=== PATIENT | female | born 1935 | race Caucasian/White ===

== ENCOUNTER → 2016-12-07 | Outpatient (CLI) | payer OTHER ==
[~2016-12-07] MED LIST: BENA5TAB5 PO; DONE10TA12 PO; FLNIN NAE; FLV1 PO; GLIP1TAB91 PO; METH2.5T PO; NIAC1TAB59 PO; SIMV40TA2 PO
--- NOTE | 2016-12-07 15:04 | DIAGNOSTIC IMAGING REPORT ---
ULTRASOUND BILATERAL LOWER EXTREMITY ARTERIAL CLINICAL HISTORY: Peripheral vascular disease. Lower extremity pain. COMPARISON STUDY: No priors. TECHNIQUE: Real-time, grayscale, and color Doppler sonography of the arteries of the right and left lower extremity is performed from the inguinal crease to the foot. The patient declined ankle-brachial index assessment. FINDINGS: Right lower extremity: There is advanced atherosclerotic plaque identified throughout the right lower extremity. There are triphasic arterial waveforms in the right common femoral artery with velocities measuring up to 91 cm/s. The profundus femoris artery is patent with velocities measuring up to 76 cm/s. There are biphasic waveforms seen in the right superficial femoral artery. Velocities measure 72 cm/s proximally, 117 cm/s in the midportion, and 103 cm/s distally. There are elevated velocities within the right popliteal artery is measure up to 255 cm/s. There is three-vessel runoff to the right foot. Monophasic to biphasic arterial waveforms are seen in the calf vessels. Velocities in the calf arteries measure up to 37 cm/s. The dorsalis pedis artery is patent with velocities measuring up to 35 cm/s. Left lower extremity: There is advanced atherosclerotic calcification and plaque seen throughout the arteries of the left lower extremity. There are biphasic waveforms in the left common femoral artery velocities measuring up to 34 cm/s. The left profunda femoris artery is patent with velocities measuring up to 105 cm/s. There are biphasic arterial waveforms seen throughout the left superficial femoral artery. Velocities within the superficial femoral artery measure up to 88 cm/s. There is thrombosis of the left popliteal artery which reconstitutes distally via collateral flow. There are parvus tarsal waveforms in the distal popliteal artery with velocities measuring up to 22 cm/s. There is three-vessel runoff to the left foot. There are monophasic to biphasic waveforms within the calf arteries noting blunted arterial upstrokes. Velocities within the calf vessels measure up to 24 cm/s. The dorsalis pedis artery is patent with velocities measuring up to 13 cm/s. IMPRESSION: 1. Advanced atherosclerotic plaque is present throughout the arteries of the right and left lower extremity. 2. Focally elevated velocities within the right popliteal artery suggest high-grade stenosis. 3. There is segmental occlusion within the left popliteal artery with reconstitution via collateral flow. 4. There is three-vessel runoff to the foot bilaterally. 5. The patient declined ankle-brachial index assessment. Dictated: 12/07/2016 2:43 PM Transcribed: 12/07/2016 3:04 PM [email or web address] Electronically signed by: Hayden Vu M.D. 12/07/2016 3:06 PM Dictated Date/Time: 12/07/2016 2:43 PM
== END | disposition home or self-care (01) ==
LOC: C.ULTR 13:22
PROVIDERS: ATTEND Podiatrist
DX: E11.9 Type 2 diabetes mellitus without complications (principal); M79.674 Pain in right toe(s); M79.675 Pain in left toe(s)

== ENCOUNTER 2017-08-22 08:11 | Inpatient (IN) | payer OTHER ==
[~2017-08-22] VITALS: Ht 170.2 cm; Wt 88.2 kg
[2017-08-22] VITALS (35 sets, daily range): BP systolic 79–143; BP diastolic 39–86; PULSE 64–95; TEMP 33.7–36.9; O2SAT 89–100; BMI 26.4
[~2017-08-22 08:11] MED LIST changes: +ETOMIDATE 2 MG/ML 20 ML VIAL IV ONE
[2017-08-22] MEDS ORDERED: SODIUM CHLORIDE 0.9% 500ML 500 ML IV STA (08:38)
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
[2017-08-22] MEDS ORDERED: SODIUM CHLORIDE 0.9% 1000ML 1,000 ML IV STA (08:55)
[2017-08-22] MEDS ORDERED: ASCO10003 PO (08:59)
[2017-08-22] MEDS ORDERED: INSDGI SC (08:59)
[2017-08-22] MEDS ORDERED: CHOL2000 PO (08:59)
[2017-08-22] MEDS ORDERED: GLIP2.5T11 PO (08:59)
[2017-08-22] MEDS ORDERED: ACET-1257 PO (08:59)
--- NOTE | 2017-08-22 09:02 | DIAGNOSTIC IMAGING REPORT ---
CHEST ONE VIEW PORTABLE CLINICAL HISTORY: altered mental status, hypoxia dyspnea COMPARISON STUDY: 06/29/2013 FINDINGS: Small parenchymal infiltrate left base. Mild stable cardiomegaly. Lungs otherwise are clear. Diaphragms smooth. IMPRESSION: Parenchymal infiltrate left base. The above report was generated using voice recognition software. It may contain grammatical, syntax or spelling errors. Electronically signed by: Bryant Stevens M.D. 08/22/2017 9:01 AM Dictated Date/Time: 08/22/2017 9:01 AM
[2017-08-22 09:17] LABS: BASO % 0.6 %; BASO ABS # 0.04 K/uL (0-0.2); EOS % 0.3 %; EOS ABS # 0.02 K/uL (0-0.5); HEMATOCRIT 48.3 % (37-47); HEMOGLOBIN 15.7 g/dL (12.0-16.0); IG# 0.25 K/uL (0.00-0.02); LYMPH % 13.8 %; LYMPH ABS # 0.95 K/uL (1.2-3.4); MEAN CELL VOLUME 98.4 fL (80-100); MEAN CORPUSCULAR HGB CONC 32.5 g/dl (32-36); MEAN PLATELET VOLUME 10.4 fL (7.4-10.4); MONO % 5.2 %; MONO ABS # 0.36 K/uL (0.11-0.59); NEUT % 76.5 %; NEUT ABS # 5.26 K/uL (1.4-6.5); NUCLEATED RED BLOOD CELL ABS 0.05 K/uL (0-0); PLATELET COUNT 221 K/uL (130-400); RED CELL DISTRIBUTION WIDTH CV 15.6 % (11.5-14.5); RED CELL DISTRIBUTION WIDTH SD 56.3 fL (36.4-46.3); WHITE BLOOD COUNT 6.88 K/uL (4.8-10.8)
[2017-08-22 09:19] LABS: ISTAT CREATININE 1.8 mg/dl (0.6-1.3); ISTAT IONIZED CALCIUM 1.23 mmol/l (1.12-1.32); ISTAT POTASSIUM 4.8 mEq/L (3.3-5.0)
[2017-08-22 09:27] LABS: ALBUMIN 3.2 gm/dl (3.4-5.0); ALT/SGPT 48 U/L (12-78); BLOOD UREA NITROGEN 55 mg/dl (7-18); CALCIUM 8.8 mg/dl (8.5-10.1); CARBON DIOXIDE 30 mmol/L (21-32); CREATININE 1.86 mg/dl (0.60-1.20); GLUCOSE 88 mg/dl (70-99); POTASSIUM 4.6 mmol/L (3.5-5.1); SODIUM 146 mmol/L (136-145)
[2017-08-22 09:32] LABS: ALKALINE PHOSPHATASE 79 U/L (45-117); AST/SGOT 38 U/L (15-37); CKMB 5.8 ng/ml (0.5-3.6); TOTAL PROTEIN 7.6 gm/dl (6.4-8.2)
[2017-08-22 09:51] LABS: INFLUENZA B ANTIGEN Neg for Influ B (NEG)
--- NOTE | 2017-08-22 10:00 | DIAGNOSTIC IMAGING REPORT ---
HEAD WITHOUT CONTRAST (CT) CT DOSE: 1459.56 mGycm HISTORY: Mental status change AMS, hypothermia TECHNIQUE: Multiaxial CT images of the head were performed without the use of intravenous contrast. A dose lowering technique was utilized adhering to the principles of ALARA. Comparison: 03/28/2014 Findings: The paranasal sinuses and mastoid air cells are clear. The calvarium and skull base are intact. The ventricles and sulci are within normal limits. There is no mass, hematoma, midline shift, or acute infarct. Mild atrophy over the cerebral convexities unchanged in the prior exam. Impression: No acute intracranial abnormality. Mild atrophy over the cerebral convexities The above report was generated using voice recognition software. It may contain grammatical, syntax or spelling errors. Electronically signed by: Bryant Stevens M.D. 08/22/2017 9:59 AM Dictated Date/Time: 08/22/2017 9:55 AM
[2017-08-22] MEDS ORDERED: PIPERACILLIN/TAZOBACTAM 4.5 GM/100ML D5W IV STA (10:12)
[2017-08-22] MEDS ORDERED: LEVAQUIN 750MG / 150ML D5W IV ONE (10:15)
[2017-08-22] MEDS ORDERED: HALOPERIDOL LACTATE 5 MG/ML 1 ML VIAL IV STA (10:46)
[2017-08-22] MEDS ORDERED: NOREPINEPHRINE BIT INJ 8 MG in DEXTROSE 5% 500ML 500 ML IV STA (11:09)
--- NOTE | 2017-08-22 11:21 | DIAGNOSTIC IMAGING REPORT ---
CHEST ONE VIEW PORTABLE CLINICAL HISTORY: hypoxia dyspnea COMPARISON STUDY: 08/22/2017 8:49 AM FINDINGS: Mild stable cardia megaly. Moderately improved aeration left lung base. Lungs otherwise are clear. Significant degenerative change of the right shoulder unchanged. IMPRESSION: 1. Mild stable cardia megaly. 2. Mild improvement in aeration left lung base. 3. No evidence for new or significant interval process. The above report was generated using voice recognition software. It may contain grammatical, syntax or spelling errors. Electronically signed by: Bryant Stevens M.D. 08/22/2017 11:20 AM Dictated Date/Time: 08/22/2017 11:19 AM
[2017-08-22] MEDS ORDERED: VANCOMYCIN IV 1,000 MG in SODIUM CHLORIDE 0.9% 250ML 250 ML IV STA (11:26)
[2017-08-22] MEDS ORDERED: ICU PROTOCOL FOR HYPERGLYCEMIA PRN (11:30)
[2017-08-22] MEDS ORDERED: VANCOMYCIN CONSULT ACTIVE PRN (11:30)
[2017-08-22] MEDS ORDERED: PIPERACILL/TAZOBAC CONSULT ACTIVE PRN (12:00)
[2017-08-22] MEDS ORDERED: VANCOMYCIN IV 1,500 MG in SODIUM CHLORIDE 0.9% 500ML 500 ML IV STA (12:03)
[2017-08-22 12:14] LABS: HEMATOCRIT 44.9 % (37-47); HEMOGLOBIN 14.1 g/dL (12.0-16.0)
[2017-08-22 12:29] LABS: PTT PATIENT 29.4 SECONDS (21.0-31.0)
--- NOTE | 2017-08-22 12:32 | Progress Note ---
Progress Note Date of Service Aug 22, 2017. Progress Note ATTENDING ADDENDUM : pt seen and examined, care co-ordinated with Sheila Colvin PA-C 81 yo F with complicated past medical hx of Urothelial tumor s/p Left Nephrectomy in 2006 , type 2 DM .mild dementia who lives with daughter Donya at baseline pt is fairly independent in her ADL's , able to check her BSG's , does cross word puzzles daughter noticed -pt was not drinking much over the weekend, no report of fever or chills, last night pt appeared to be forgetful , did not check blood sugar but thought she did it daughter checked her blood sugar was 76 , given Lantus 15 U -pm dose per daughter -pt ate half of her dinner - pt still smokes cigarette this morning approx 7: 10 am -pt was very confused , could not recognize the daughter , got very combative as daughter took her to bathroom and tried to change her depends pt came to ER around 8: 30 was hypothermic Temp 31 /hypotensive SBP in 70;s and hypoxic in RA 87 % was placed on Bipap , ACUTE HYPOXIC RESPIRATORY FAILURE : presents with hypoxia in RA - required Bipap ABG shows respiratory acidosis with hypercarbia Co2 > 90 Cxray no obvious infiltrate cont Bipap support -possible underlying COPD /emphysema ( hx of smoking ) with retention of Co2 due to mental obtundation due to sepsis pt will be admitted to ICU for close monitoring , case D/w Verification Engineer CONFUSION /CHANGED MENTAL STATUS /METABOLIC ENCEPHALOPATHY : due sepsis / hypercapnic respiratory failure CT head -negative for CVA cont to provide supportive care and correction of electrolyte derangements/tx of sepsis /Co2 retention pt was moving all her limbs while central line placement in ER soft restrain ordered as she was pulling at lines and tubing small dose IV Haldol was ordered for combativeness avoid further dosing Prolong Qtc daily 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 ON CKD STAGE 3 : ATN with anuria -minimum urine out put after fluid bolus due to sepsis /dehydration IV fluids resuscitation , pressor support follow PRP Q 4hrs per sepsis protocol pt has solitary kidney ( s/p Left nephrectomy ) baseline Cr 1.6 Nephrology consulted HYPERNATREMIA ; Na 150 , due to sepsis /dehydration IV resuscitation monitor PRP closely to avoid rapid correction nephrology consulted HYPOTENSION /HYPOTHERMIA : due to severe sepsis possible source of infection UTI temp improved with Jayda hugger , IV fluid bolus followed by aggressive resuscitation per sepsis protocol started on pressors Verification Engineer following SEPSIS DUE TO UTI : UA grossly positive empiric Abx with Zosyn /vancomycin ( avoid quinolones -prolong Qtc ) follow cultures -blood /urine ID consulted CODE STATUS : d/w Daughter -full code DVT PROPHYLAXIS high risk ICU admission /obtundation Sub q heparin please refer to documentation of Sheila Tony for further discussion of other issues Naa Oconnell MD
[2017-08-22 12:34] LABS: CALCIUM 8.2 mg/dl (8.5-10.1); CREATININE 1.83 mg/dl (0.60-1.20); POTASSIUM 4.9 mmol/L (3.5-5.1)
[2017-08-22] MEDS ORDERED: SODIUM CHLORIDE 0.9% 1000ML 500 ML IV ONE (12:43)
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
[2017-08-22] MEDS ORDERED: PHARMACY GLYCEMIC MGMT CONSULT SCH (12:56)
[2017-08-22 13:30] LABS: HEMOGLOBIN A1C 7.1 % (4.5-5.6)
[2017-08-22] MEDS: VASOPRESSIN INJ 50 UNITS in SODIUM CHLORIDE 0.9% 500ML 500 ML IV SCH (13:57)
[2017-08-22] MEDS: NOREPINEPHRINE BIT INJ 8 MG in DEXTROSE 5% 500ML 500 ML IV PRN ×3 (14:21→21:31)
--- NOTE | 2017-08-22 14:36 | Progress Note ---
Progress Note Date of Service Aug 22, 2017. Progress Note ID Consult Dictated #[id number] A/P: 1. Hypothermia -Continue emperic abx, follow cultures -Conitnue supportive measures -thank you
[2017-08-22] MEDS ORDERED: GLUCAGON FOR INJ 1 MG VIAL SQ PRN (15:15)
[2017-08-22] MEDS ORDERED: GLUCOSE 10 TABS/TUBE PO PRN (15:15)
[2017-08-22] MEDS ORDERED: DEXTROSE 50% 50 ML SYR IV PRN (15:15)
[2017-08-22] MEDS ORDERED: GLUCOSE 40% GEL 15 GM TUBE PO PRN (15:15)
--- NOTE | 2017-08-22 15:30 | Pharmacy Progress Note ---
Glycemic Control Intl Consult Date of Service Aug 22, 2017. Scope Glycemic Pharmacist consulted by Dr Oconnell on 08/22/17 for glycemic control and to write orders per [facility] inpatient glycemic control protocol Objective Weight (Kilograms): 76.600 Accuchecks BSG (last 24hrs): Test 08/22/17 08:30 08/22/17 11:56 Random Glucose 88 mg/dl (70-99) 109 mg/dl (70-99) Laboratory Data (last 24hrs) Test 08/22/17 08:30 08/22/17 09:04 08/22/17 11:56 Anion Gap 4.0 mmol/L 15.0 mmol/L 2.0 mmol/L BUN/Creatinine Ratio 29.5 29.9 Blood Urea Nitrogen 55 mg/dl 55 mg/dl Creatinine 1.86 mg/dl 1.83 mg/dl Potassium Level 4.6 mmol/L 4.9 mmol/L Sodium Level 146 mmol/L 146 mmol/L White Blood Count 6.88 K/uL Red Blood Count 4.91 M/uL Hemoglobin 15.7 g/dL Hematocrit 48.3 % Mean Corpuscular Volume 98.4 fL Mean Corpuscular Hemoglobin 32.0 pg Mean Corpuscular Hemoglobin Concent 32.5 g/dl Platelet Count 221 K/uL Mean Platelet Volume 10.4 fL Neutrophils (%) (Auto) 76.5 % Lymphocytes (%) (Auto) 13.8 % Monocytes (%) (Auto) 5.2 % Eosinophils (%) (Auto) 0.3 % Basophils (%) (Auto) 0.6 % Neutrophils # (Auto) 5.26 K/uL Lymphocytes # (Auto) 0.95 K/uL Monocytes # (Auto) 0.36 K/uL Eosinophils # (Auto) 0.02 K/uL Basophils # (Auto) 0.04 K/uL Hemoglobin A1c 7.1 % HbA1c Test 08/22/17 11:56 Hemoglobin A1c 7.1 % (4.5-5.6) H Recent Pertinent Medications Outpatient Anti-diabetic Regimen: * Glipizide ER 5 mg PO daily + Lantus 15 units SQ BID Risk Factors for Insulin Resistance: * Infection: empiric Vanco + Zosyn * Pressors: levophed and vasopressin infusion Assessment & Plan ASSESSMENT: * 81 yr old T2DM female that presented with altered mental status in the setting of baseline dementia. Patient became hypoxic, hypothermic and hypotensive with limited urine output despite IV fluid administration. Vasopressors were initiated. Patient is also on empiric antibiotics for possible complicated UTI vs. pneumonia. PMH significant for HTN, urothelial cancer s/p L nephroureterectomy) and bladder cancer and CKD III (baseline unknown - no recent Scr from [facility]). * Caregiver reports hypoglycemia at home. Last dose of Lantus was given 2/5 pm. BSG remains low despite lack of basal insulin, therefore I will only order bolus insulin with novolog at this time. A pending order to initiate IV insulin infusion per protocol if BSG is > 219 mg/dL will also be entered in the event that patient develops hyperglycemia. PLAN FOR INPATIENT GLYCEMIC CONTROL: * Holding outpatient oral diabetes medications * Hold Lantus due to BSG below goal * Bolus Insulin with NOVOLOG per scale ACHS or Q6hrs while NPO * Goal Range: Low 120 mg/dL - High 160 mg/dL * Correction Factor: 30 mg/dL/unit * Nutritional / Prandial insulin per carb ratio of 1 unit per 10 grams CHO consumed * Add overnight check with coverage since insulin needs are unknown at this time * Pending order: Starting IV insulin infusion per moderate stress protocol * Goal Range 110 - 180 mg/dl * In the critical care setting, continuous IV insulin infusion has been shown to be the best method for achieving glycemic targets. * Please note that the plan above was derived based on current level of insulin resistance and hospital stress. These recommendations are appropriate for inpatient admission only. Plan of care upon discharge will need to be reassessed to avoid potential outpatient hypo/hyperglycemia. Thank you.
--- NOTE | 2017-08-22 15:55 | ECHOCARDIOGRAM REPORT ---
*NOTICE TO RECEIVING DEMOCRAT AGENCY This information is strictly Confidential and protected under [place] law. [place] law prohibits you from making any further disclosure of this information unless further disclosure is expressly permitted by the written consent of the person to whom it pertains or is authorized by law. A general authorization for the release of medical or other information is not sufficient for this purpose. Hospital accepts no responsibility if the information is made available to any other person, INCLUDING THE PATIENT. Interpretation Summary * Name: Angel GOMEZ Study Date: 08/22/2017 02:05 PM BP: 134/60 mmHg * Patient Location: .MSICU\S\E107\S\1 HR: 88 * : 1935 (M/d/yyyy) Gender: Female Height: 67 in * Age: 81 yrs Ethnicity: CA Weight: 168 lb * Ordering Physician: Albaro Holloway * Referring Physician: UNKNOWN * Performed By: Leonila Bledsoe RCS * * Reason For Study: UNEXPLAINED SHOCK / EVALUATE RV FUNCTION * BSA: 1.9 m2 * The study was technically adequate. * -- Conclusions -- * There is mild concentric left ventricular hypertrophy. * The left ventricular wall motion is normal. * The LV Ejection Fraction = >70 %. * The right ventricle is mildly dilated. * The right ventricular systolic function is mildly reduced with diffuse right ventricular hypokinesis that spares the RV apex. * There is mild to moderate tricuspid regurgitation. * Dilated inferior vena cava with reduced collapsability with sniff indicates an elevated right atrial pressure of 15 mmHg * Severe pulmonary is hypertension, with PA systolic pressure calculated to be 75 mg Hg, assuming a right atrial pressure of 15 mm Hg. * Compared to the report of the prior outpatient echocardiogram performed at [facility] dated 02/13/12, the right ventricular size and systolic function was normal at that time with normal calculated pulmonary pressures. * Findings compatible with possible acute pulmonary embolism versus interval development of pulmonary hypertension of unknown chronicity due to other cause. * Case discussed with Dr Holloway in person in the ICU. Procedure Details * A complete two-dimensional transthoracic echocardiogram was performed (2D, M-mode, Doppler and color flow Doppler). Left Ventricle * The left ventricle is normal in size. * There is mild concentric left ventricular hypertrophy. * Left ventricular systolic function is normal. * Ejection Fraction = >70 %. * The left ventricular wall motion is normal. Right Ventricle * The right ventricle is mildly dilated. * The right ventricular systolic function is mildly reduced. Atria * The left atrial size is normal. * Right atrial size is normal. * There is no evidence of atrial septal defect, but resolution does not allow assessment for a patent foramen ovale. Mitral Valve * There is mild mitral annular calcification. * There is no mitral valve stenosis. * Significant mitral regurgitation is absent. Tricuspid Valve * The tricuspid valve is normal. * There is no tricuspid stenosis. * There is mild to moderate tricuspid regurgitation. Aortic Valve * The aortic valve is trileaflet. * Aortic stenosis is absent. * There is no significant aortic regurgitation. Pulmonic Valve * The pulmonary valve is not well seen, but the Doppler examination is normal without significant regurgitation or stenosis. Great Vessels * The aortic root and proximal ascending aorta are normal sized. Pericardium/Pleural * There is no pericardial effusion. Great Vessels * Dilated inferior vena cava with reduced collapsability with sniff indicates an elevated right atrial pressure of 15 mmHg Left Ventricular Diastolic Function * Grade I diastolic dysfunction, (abnormal relaxation pattern). MMode 2D Measurements and Calculations IVSd 1.2 cm IVSs 1.8 cm LVIDd 3.9 cm LVIDs 3.1 cm LVPWd 1.3 cm LVPWs 1.2 cm IVS/LVPW 0.96 FS 21.5 % EDV(Teich) 67.8 ml ESV(Teich) 37.9 ml EF(Teich) 44.2 % EDV(cubed) 61.5 ml ESV(cubed) 29.7 ml EF(cubed) 51.7 % % IVS thick 46.5 % % LVPW thick -5.87 % LV mass(C)d 176.2 grams LV mass(C)dI 93.9 grams/m\S\2 LV mass(C)s 168.2 grams LV mass(C)sI 89.6 grams/m\S\2 SV(Teich) 30.0 ml SI(Teich) 16.0 ml/m\S\2 SV(cubed) 31.8 ml SI(cubed) 16.9 ml/m\S\2 Ao root diam 3.2 cm Ao root area 7.9 cm\S\2 ACS 1.4 cm LVOT diam 2.0 cm LVOT area 3.2 cm\S\2 LVAd ap4 22.8 cm\S\2 LVLd ap4 7.5 cm EDV(MOD-sp4) 58.3 ml EDV(sp4-el) 58.8 ml LVAs ap4 14.2 cm\S\2 LVLs ap4 6.0 cm ESV(MOD-sp4) 29.6 ml ESV(sp4-el) 28.3 ml EF(MOD-sp4) 49.2 % EF(sp4-el) 51.8 % LVAd ap2 16.3 cm\S\2 LVLd ap2 5.7 cm EDV(MOD-sp2) 41.4 ml EDV(sp2-el) 39.9 ml LVAs ap2 9.4 cm\S\2 LVLs ap2 4.2 cm ESV(MOD-sp2) 19.4 ml ESV(sp2-el) 17.9 ml EF(MOD-sp2) 53.2 % EF(sp2-el) 55.1 % LVLd %diff -32.09 % EDV(MOD-bp) 55.2 ml LVLs %diff -42.98 % ESV(MOD-bp) 28.3 ml EF(MOD-bp) 48.7 % SV(MOD-sp4) 28.7 ml SI(MOD-sp4) 15.3 ml/m\S\2 SV(MOD-sp2) 22.0 ml SI(MOD-sp2) 11.7 ml/m\S\2 SV(MOD-bp) 26.9 ml SI(MOD-bp) 14.3 ml/m\S\2 SV(sp4-el) 30.4 ml SI(sp4-el) 16.2 ml/m\S\2 SV(sp2-el) 22.0 ml SI(sp2-el) 11.7 ml/m\S\2 Doppler Measurements and Calculations MV E max aracelis 92.2 cm/sec MV A max aracelis 117.0 cm/sec MV E/A 0.79 MV P1/2t max aracelis 116.5 cm/sec MV P1/2t 49.3 msec MVA(P1/2t) 4.5 cm\S\2 MV dec slope 692.1 cm/sec\S\2 MV dec time 0.27 sec PA V2 max 102.1 cm/sec PA max PG 4.2 mmHg TR max aracelis 363.6 cm/sec
[2017-08-22 16:07] LABS: HEMATOCRIT 42.5 % (37-47); HEMOGLOBIN 13.1 g/dL (12.0-16.0)
[2017-08-22] MEDS: ALBUT/IPRATROP 3MG/0.5MG NEB 3 ML VIAL INH SCH ×3 (16:08→20:30)
[2017-08-22 16:30] LABS: CALCIUM 7.2 mg/dl (8.5-10.1); CREATININE 1.68 mg/dl (0.60-1.20); POTASSIUM 5.5 mmol/L (3.5-5.1)
[2017-08-22] MEDS ORDERED: HEPARIN IV BOLUS 5,000 UNIT in SYRINGE 0 ML IV ONE (16:30)
[2017-08-22] MEDS ORDERED: RAPID SEQUENCE INDUCTION BAG ONE (16:30)
[2017-08-22] MEDS ORDERED: HEPARIN 25,000 UNIT/500ML D5W 500 ML IV PRN (16:30)
[2017-08-22] MEDS ORDERED: MIDAZOLAM 125MG/250ML D5W IV ONE (16:33)
--- NOTE | 2017-08-22 16:53 | Procedure Note ---
Procedure Note Procedure Date Aug 22, 2017. Procedure Description Procedure Name: Endotracheal intubation Consent obtained: emergent consent implied Time of procedure: 16:30 Performed by: attending Indications: therapeutic Contraindications: none Description: Patient supine in bed, preoxygenated with 100% O2 Sedation provided with ketamine only. Using the GlideScope with a size 3 blade, she was intubated with ease from the first attempt, with a size 8.0 cuffed ET tube. Positive color change on capnometry. CXR reviewed, ET tube adjusted by pulling it out 2 cm Complications: none Patient tolerated procedure: well Post-procedure vital signs: reviewed and stable
--- NOTE | 2017-08-22 16:57 | DIAGNOSTIC IMAGING REPORT ---
CHEST ONE VIEW PORTABLE CLINICAL HISTORY: Respiratory failure COMPARISON STUDY: 08/22/2017 FINDINGS: The heart is borderline enlarged. There is an endotracheal tube positioned within the right mainstem bronchus orifice. The tube should be withdrawn approximately 4 cm.[ There is a nasogastric tube present within the stomach. There is diffuse elevation of the interstitium consistent with pulmonary vascular congestion. IMPRESSION: 1. Endotracheal tube with its tip at the right mainstem bronchus orifice. The tube should be withdrawn approximate 4 cm. 2. Diffuse elevation of the interstitium, consistent with pulmonary vascular congestion/fluid overload Electronically signed by: Ralph Vu M.D. 08/22/2017 4:56 PM Dictated Date/Time: 08/22/2017 4:53 PM
[2017-08-22] MEDS ORDERED: FENTANYL CITRATE INJ 50 MCG/1 ML 2 ML VIAL ONE (17:18)
--- NOTE | 2017-08-22 17:23 | DIAGNOSTIC IMAGING REPORT ---
BILATERAL LOWER EXTREMITY VENOUS DOPPLER HISTORY: Bilateral lower extremity swelling r/o dvt COMPARISON STUDY: None. FINDINGS: There is normal compressibility, flow, and augmentation within the bilateral lower extremity deep venous systems. IMPRESSION: No sonographic evidence of deep venous thrombosis within the right or left lower extremity. Electronically signed by: Mahendra Miller M.D. 08/22/2017 5:22 PM Dictated Date/Time: 08/22/2017 5:21 PM
[2017-08-22] MEDS ORDERED: FENTANYL CITRATE INJ 50 MCG/1 ML 2 ML VIAL IV ONE (17:30)
--- NOTE | 2017-08-22 17:55 | DIAGNOSTIC IMAGING REPORT ---
CT ANGIOGRAM OF THE CHEST CLINICAL HISTORY: Sepsis. Abnormal cardiac echo is suggestive of pulmonary embolism. COMPARISON STUDY: Chest x-ray dated August 22, 2017 TECHNIQUE: Following the IV administration of 94 mL of Optiray-320, CT angiogram of the thorax was performed from the thoracic inlet to the lung bases utilizing the pulmonary embolus protocol. Images are reviewed in the axial, sagittal, and coronal planes. IV contrast was administered without complication. MIP imaging was performed. A dose lowering technique was utilized adhering to the principles of ALARA. CT DOSE: 750.17 mGy.cm FINDINGS: Visualized portions of the upper abdomen reveal right-sided nephrolithiasis. There is a 22 mm left adrenal adenoma. There is a 18 mm hyperdense right renal mass. There is a second mildly hyperdense 11 mm right renal mass. A dedicated renal CT scan could be obtained in follow-up for further evaluation. There is a nasogastric tube within the stomach. No pathologically enlarged axillary mediastinal or hilar lymph nodes were visualized. There was no evidence of thoracic aortic dilatation. There were no pulmonary artery filling defects to indicate acute pulmonary embolism. No pleural effusions are visualized. There is bilateral dependent lower lobe atelectasis/consolidation. There is diffuse bronchial wall thickening and lower lobe mucous plugging. There is an endotracheal tube positioned several centimeters above the bernardo. IMPRESSION: 1. No CT evidence of acute pulmonary embolism 2. Diffuse bronchial wall thickening with lower lobe mucous plugging 3. Bilateral dependent lower lobe atelectasis/consolidation 4. Left adrenal mass, consistent with adenoma 5. Indeterminate right renal masses 6. Right-sided nephrolithiasis Electronically signed by: Ralph Vu M.D. 08/22/2017 5:54 PM Dictated Date/Time: 08/22/2017 5:47 PM
[2017-08-22] MEDS ORDERED: OPTIRAY 320 IV PRN (18:00)
[2017-08-22] MEDS ORDERED: INSULIN ASPART 100 UNITS/ML 3 ML PEN SC SCH (18:00)
[2017-08-22] MEDS: PIPERACILL/TAZOBAC IV 4.5 GM in DEXTROSE 5% 100ML 100 ML IV SCH (18:13)
[2017-08-22] MEDS ORDERED: MIDAZOLAM 125MG/250ML D5W 250 ML IV PRN (18:51)
[2017-08-22] MEDS ORDERED: NovoLIN R BOLUS FROM BAG IV ONE (19:00)
[2017-08-22] MEDS: METHYLPREDNISOLONE IV 40 MG in SYRINGE 0 ML IV SCH (19:20)
[2017-08-22] MEDS: INSULIN REGULAR 250 UNITS in SODIUM CHLORIDE 0.9% 250ML 250 ML IV SCH (19:22)
--- NOTE | 2017-08-22 20:02 | Critical Care Consultation ---
Critical Care Consultation Date of Consultation: Aug 22, 2017. Attending Physician: Yusuf Contreras M.D. Reason for Consultation: Respiratory failure History of Present Illness This is a 81 year old female with long standing history of smoking, left nephrectomy for cancer in 2004 (now cancer free on follow-ups per family), diabetic on insulin, was brought to ED for altered mental status for one day. She had glucose level of 80 at home last night, the daughter noticed no urine in her depends overnight or this AM, became agitated at home and combative this morning. This are significant changes from her baseline. In ED she was found to be hypothermic, hypoxic and hypotensive. The daughter denies any fever or chills at home, any urinary symptoms, denies cough/sputum production, denies shortness of breath, denies chest pain or palpitations, states that she did not complain of calf pain or swelling. She was started on pressor support via right femoral TLC. Bedside echo revealed severe pulmonary HTN, around 75 mmHg and RV with Garcia sign. She became obtunded in the ICU, ABG showed worsening hypercapnia, she had to be emergently intubated. Past Medical/Surgical History CKD DM Mild dementia Left nephrectomy - 2004 SDH 2013 Family History Hypertension Stroke Social History Smoking Status: Current Every Day Smoker (0.5 ppd, 48 pack years ) Marital Status: Housing Status: lives with family Occupation Status: retired Allergies Coded Allergies: Naproxen (Verified Adverse Reaction, Intermediate, HALLUCINATIONS, 08/22/17) Niacin (Verified Adverse Reaction, Intermediate, SEVERE FLUSHING, 08/22/17) Codeine (Verified Adverse Reaction, Mild, SEVERE N&V, 08/22/17) Home Medications Scheduled Acetaminophen (Tylenol Extra Strength), 1,000 MG PO AMHS Ascorbic Acid (Vitamin C), 1,000 MG PO DAILY Cholecalciferol (Vitamin D3), 2,000 UNITS PO DAILY Donepezil Hydrochloride (Aricept), 10 MG PO HS Glipizide (Glipizide Er), 5 MG PO DAILY Insulin Glargine (Lantus), 15 UNITS SC AMPM Current Inpatient Medications Current Inpatient Medications Medications (Trade) Dose Ordered Sig/Suzi Route Start Time Stop Time Status Last Admin Dose Admin Piperacillin Sod/ Tazobactam Sod 4.5 gm/Dextrose 120 ml @ 30 mls/hr Q8H IV 08/22/17 17:00 09/01/17 16:59 Miscellaneous Information (Consult) 1 ea UD PRN N/A 08/22/17 12:00 09/21/17 11:59 Miscellaneous Information (Consult) 1 ea UD PRN N/A 08/22/17 11:30 09/21/17 11:29 Pantoprazole Sodium 40 mg/ Syringe 10 ml @ 5 mls/min DAILY@0900 IV 08/23/17 09:00 09/22/17 08:59 Miscellaneous Information (Consult Glycemic Management Pharmacy) 1 ea UD N/A 08/22/17 12:56 09/21/17 12:55 Norepinephrine Bitartrate 8 mg/ Dextrose 508 ml @ 0 mls/hr Q0M PRN IV 08/22/17 13:30 09/21/17 13:29 08/22/17 14:21 152 MLS/HR Vasopressin 50 units/Sodium Chloride 502.5 ml @ 24 mls/hr [id number] IV 08/22/17 13:30 09/21/17 13:29 08/22/17 13:57 24 MLS/HR Albuterol/ Ipratropium (Duoneb) 3 ml QIDR INH 08/22/17 16:00 09/21/17 15:59 08/22/17 16:08 3 ML Insulin Aspart (novoLOG ASPART) SLIDING SCALE Q6 SC 08/22/17 18:00 09/21/17 17:59 Glucose (Glucose 40% Gel) 15-30 GRAMS 15 GRAMS... UD PRN PO 08/22/17 15:15 09/21/17 15:14 Glucose (Glucose Chew Tab) 4-8 Tablets 4 Tabl... UD PRN PO 08/22/17 15:15 09/21/17 15:14 Dextrose (Dextrose 50% 50ML Syringe) 25-50ML OF 50% DW IV FOR... UD PRN IV 08/22/17 15:15 09/21/17 15:14 Glucagon (Glucagon Inj) 1 mg UD PRN SQ 08/22/17 15:15 09/21/17 15:14 Insulin Aspart (novoLOG ASPART) SLIDING SCALE 0200 SC 08/23/17 02:00 2/7/18 02:01 Miscellaneous Information (Pending Order) 1 ea 0000,0200,0600,1800 N/A 08/22/17 18:00 08/23/17 06:01 Heparin Sodium/ Dextrose 500 ml @ 24 mls/hr [id number] PRN IV 08/22/17 16:30 09/21/17 16:29 Review of Systems Unable to obtain secondary to obtundation Physical Exam Date Time Temp Pulse Resp B/P (MAP) Pulse Ox O2 Delivery O2 Flow Rate FiO2 08/22/17 16:08 68 35 91 BiPAP/CPAP 60 08/22/17 16:08 68 91 60 08/22/17 15:20 34.6 77 21 114/50 (71) 94 08/22/17 15:15 34.5 77 15 136/52 (80) 95 08/22/17 14:50 34.3 82 31 141/60 (87) 96 08/22/17 14:30 34.1 86 19 143/62 (89) 96 08/22/17 14:00 34.0 95 18 134/60 (84) 97 BiPAP 60 08/22/17 14:00 34.0 95 18 134/60 (91) 97 08/22/17 13:30 33.9 79 20 104/46 (65) 97 BiPAP 60 08/22/17 13:00 33.8 82 29 103/46 (65) 98 BiPAP 60 08/22/17 13:00 33.8 82 29 103/46 (65) 98 08/22/17 12:54 33.7 79 22 108/48 98 60 08/22/17 12:50 33.7 85 27 108/48 (68) 98 BiPAP 60 08/22/17 12:44 88 133/62 98 08/22/17 12:39 93 98 60 08/22/17 12:03 82 126/60 98 Room Air 08/22/17 11:49 34.0 94 16 98/64 98 BiPAP 08/22/17 11:30 62 25 65/29 100 BiPAP 08/22/17 11:16 68 18 42/28 99 BiPAP 70 08/22/17 11:04 59 18 82/40 76 BiPAP 08/22/17 11:03 79 97 08/22/17 10:52 65 29 71/34 95 BiPAP 08/22/17 10:33 32.6 65 30 109/32 88 Oxymask 08/22/17 10:00 61 27 90/46 93 Nasal Cannula 2.0 08/22/17 09:24 71 20 107/57 98 Nasal Cannula 2.0 08/22/17 09:16 31.5 64 21 107/57 98 Nasal Cannula 2.0 08/22/17 09:02 67 33 96/59 99 Nasal Cannula 2.0 08/22/17 08:37 35 08/22/17 08:36 96 Nasal Cannula 2.0 08/22/17 08:36 96 Nasal Cannula 2.0 08/22/17 08:35 64 08/22/17 08:30 31.8 75 12 102/49 86 Room Air 08/22/17 08:30 86 Room Air General Appearance: well-appearing, no apparent distress, other (Intubated) Head: normocephalic, atraumatic Eyes: PERRLA Neck: trachea midline Respiratory: rhonchi, wheezing Cardiovasular: regular rate/rhythm, normal S1S2 Abdomen: non tender, no rebound Upper Extremities: no edema Lower Extremities: no edema, other (?mild stasis) Neuro: other (Sedated, but earlier she seemed to move both sides purposefully ) Laboratory Results Last 24 Hours Test 08/22/17 08:30 08/22/17 08:41 08/22/17 09:04 08/22/17 09:10 White Blood Count 6.88 K/uL Red Blood Count 4.91 M/uL Hemoglobin 15.7 g/dL Hematocrit 48.3 % Mean Corpuscular Volume 98.4 fL Mean Corpuscular Hemoglobin 32.0 pg Mean Corpuscular Hemoglobin Concent 32.5 g/dl Platelet Count 221 K/uL Mean Platelet Volume 10.4 fL Neutrophils (%) (Auto) 76.5 % Lymphocytes (%) (Auto) 13.8 % Monocytes (%) (Auto) 5.2 % Eosinophils (%) (Auto) 0.3 % Basophils (%) (Auto) 0.6 % Neutrophils # (Auto) 5.26 K/uL Lymphocytes # (Auto) 0.95 K/uL Monocytes # (Auto) 0.36 K/uL Eosinophils # (Auto) 0.02 K/uL Basophils # (Auto) 0.04 K/uL RDW Standard Deviation 56.3 fL RDW Coefficient of Variation 15.6 % Immature Granulocyte % (Auto) 3.6 % Immature Granulocyte # (Auto) 0.25 K/uL Nucleated RBC Absolute Count (auto) 0.05 K/uL Nucleated Red Blood Cells % 0.7 % Sodium Level 146 mmol/L Potassium Level 4.6 mmol/L Chloride Level 112 mmol/L Carbon Dioxide Level 30 mmol/L Anion Gap 4.0 mmol/L 15.0 mmol/L Blood Urea Nitrogen 55 mg/dl Creatinine 1.86 mg/dl Est Creatinine Clear Calc Drug Dose 25.6 ml/min Estimated GFR () 29.1 Estimated GFR (Non- 25.1 BUN/Creatinine Ratio 29.5 Random Glucose 88 mg/dl Calcium Level 8.8 mg/dl Magnesium Level 2.8 mg/dl Total Bilirubin 0.3 mg/dl Direct Bilirubin < 0.1 mg/dl Aspartate Amino Transf (AST/SGOT) 38 U/L Alanine Aminotransferase (ALT/SGPT) 48 U/L Alkaline Phosphatase 79 U/L Total Creatine Kinase 72 U/L Creatine Kinase MB 5.8 ng/ml Creatine Kinase MB Ratio 8.1 Troponin I < 0.015 ng/ml Total Protein 7.6 gm/dl Albumin 3.2 gm/dl Random Cortisol 35.47 mcg/dl Bedside Lactic Acid Venous 1.15 mmol/L Bedside Hemoglobin 14.6 g/dl Bedside Hematocrit 43 % Bedside Sodium 150 mEq/L Bedside Potassium 4.8 mEq/L Bedside Chloride 110 mEq/L Bedside Total CO2 30 mEq/l Bedside Blood Urea Nitrogen 57 mg/dl Bedside Creatinine 1.8 mg/dl Bedside Glucose (other) 98 mg/dl Bedside Ionized Calcium (Camacho) 1.23 mmol/l Influenza Type A Antigen Neg for Influ A Influenza Type B Antigen Neg for Influ B Test 08/22/17 09:13 08/22/17 10:26 08/22/17 11:18 08/22/17 11:56 Bedside Troponin I < 0.030 ng/ml Urine Color ORANGE Urine Appearance TURBID Urine pH 5.0 Urine Specific [place] 1.024 Urine Protein 2+ Urine Glucose (UA) NEG Urine Ketones NEG Urine Occult Blood 3+ Urine Nitrite POS Urine Bilirubin NEG Urine Urobilinogen NEG Urine Leukocyte Esterase SMALL Urine WBC (Auto) 10-30 /hpf Urine RBC (Auto) >30 /hpf Urine Hyaline Casts (Auto) 1-5 /lpf Urine Epithelial Cells (Auto) >30 /lpf Urine Bacteria (Auto) NEG Urine Renal Epithelial Cells /lpf Urine Crystals AMORPHOUS SEDIMENT Urine Pathogenic Casts /lpf Urine Yeast (Auto) Arterial Blood pH 7.13 Arterial Blood Partial Pressure CO2 90 mmHg Arterial Blood Partial Pressure O2 178 mm/Hg Arterial Blood HCO3 29 mmol/L Arterial Blood Oxygen Saturation 99.0 % Arterial Blood Base Excess -2.5 mEq/L Arterial Blood Gas Delivery 70% BI PAP Laron Test POS Hemoglobin 14.1 g/dL Hematocrit 44.9 % Prothrombin Time 10.4 SECONDS Prothromb Time International Ratio 1.0 Activated Partial Thromboplast Time 29.4 SECONDS Partial Thromboplastin Ratio 1.1 D-Dimer 1340 ug/L FEU Sodium Level 146 mmol/L Potassium Level 4.9 mmol/L Chloride Level 114 mmol/L Carbon Dioxide Level 30 mmol/L Anion Gap 2.0 mmol/L Blood Urea Nitrogen 55 mg/dl Creatinine 1.83 mg/dl Est Creatinine Clear Calc Drug Dose 26.0 ml/min Estimated GFR () 29.7 Estimated GFR (Non- 25.6 BUN/Creatinine Ratio 29.9 Random Glucose 109 mg/dl Estimated Average Glucose 157 mg/dl Hemoglobin A1c 7.1 % Lactic Acid Level 0.7 mmol/L Calcium Level 8.2 mg/dl Troponin I < 0.015 ng/ml Procalcitonin 0.07 ng/ml Thyroid Stimulating Hormone (TSH) 1.660 uIu/ml Test 08/22/17 15:56 Hemoglobin 13.1 g/dL Hematocrit 42.5 % Sodium Level 143 mmol/L Potassium Level 5.5 mmol/L Chloride Level 114 mmol/L Carbon Dioxide Level 29 mmol/L Anion Gap 0.0 mmol/L Blood Urea Nitrogen 49 mg/dl Creatinine 1.68 mg/dl Est Creatinine Clear Calc Drug Dose 28.5 ml/min Estimated GFR () 32.9 Estimated GFR (Non- 28.4 BUN/Creatinine Ratio 28.9 Random Glucose 206 mg/dl Lactic Acid Level 0.5 mmol/L Calcium Level 7.2 mg/dl Pro-B-Type Natriuretic Peptide 5436 pg/ml Diagnostic Results CTA chest IMPRESSION: 1. No CT evidence of acute pulmonary embolism 2. Diffuse bronchial wall thickening with lower lobe mucous plugging 3. Bilateral dependent lower lobe atelectasis/consolidation 4. Left adrenal mass, consistent with adenoma 5. Indeterminate right renal masses 6. Right-sided nephrolithiasis Ct brain Impression: No acute intracranial abnormality. Mild atrophy over the cerebral convexities LE US: IMPRESSION: No sonographic evidence of deep venous thrombosis within the right or left lower extremity. 2DEcho: * There is mild concentric left ventricular hypertrophy. * The left ventricular wall motion is normal. * The LV Ejection Fraction = >70 %. * The right ventricle is mildly dilated. * The right ventricular systolic function is mildly reduced with diffuse right ventricular hypokinesis that spares the RV apex. * There is mild to moderate tricuspid regurgitation. * Dilated inferior vena cava with reduced collapsibility with sniff indicates an elevated right atrial pressure of 15 mmHg * Severe pulmonary is hypertension, with PA systolic pressure calculated to be 75 mmg Hg, assuming a right atrial pressure of 15 mm Hg. * Compared to the report of the prior outpatient echocardiogram performed at [facility] dated 02/13/12, the right ventricular size and systolic function was normal at that time with normal calculated pulmonary pressures. * Findings compatible with possible acute pulmonary embolism versus interval development of pulmonary hypertension of [facility] chronicity due to other cause. Assessment & Plan 81 year old female presents with AMS, hypothermic, in profound shock. Less likely septic in nature, more likely cardiogenic, with RV failure, severe pulmonary hypertension. Not clear what led to this spike in PAP, pulmonary embolism has been ruled out. She has acute severe hypercapnia, undiagnosed COPD, which may lead to a spike in the PA pressure. I seriously doubt she has Group I PH, given her age and normal PAP 6 years ago Problems: Acute respiratory failure with hypercapnia and hypoxia Pulmonary hypertension RV failure with shock COPD Acute kidney injury Plan: TABLEAU REPORT DEVELOPER: Sedation with Versed for the time being. Avoiding Propofol for now which may lead to more cardiovascular collapse Avoiding Precedex having had bradycardic episodes earlier Daily sedation vacation Pulmonary: Check post-intubation ABG Start iv steroids in an attempt to improve lung function Around the clock bronchodilator Aim to lower the pCO2 Discontinue heparin drip given negative CT scan CVS: Continue pressor support Would repeat echo tomorrow to see if there is any improvement in the PA pressure with the reduction of pCO2 Trending troponin, but negative so far, ACS unlikely Renal: May develop contrast induced nephropathy, but I clearly explained the family the benefits and risks of contrast. At that point, we had no choice but to rule in/out massive pulmonary embolism, given the dramatic echo findings and state of shock not explained by sepsis ID: F/u cultures On broad spectrum Abx, Vanco, Zosyn, Levaquin Procalcitonin is negative. GI: NPO overnight, start NG feeds tomorrow DVT prophylaxis: SC heparin Critical care time spent with the patient, reviewing chart, discussing with consultants, greater than 60 minutes
[2017-08-22 20:12] LABS: BLOOD UREA NITROGEN 47 mg/dl (7-18); CALCIUM 6.7 mg/dl (8.5-10.1); CARBON DIOXIDE 26 mmol/L (21-32); CREATININE 1.82 mg/dl (0.60-1.20); GLUCOSE 485 mg/dl (70-99); POTASSIUM 4.7 mmol/L (3.5-5.1)
[2017-08-22 20:23] LABS: SODIUM 135 mmol/L (136-145)
--- NOTE | 2017-08-22 20:30 | INFECT. DISEASE CONSULTATION ---
DATE OF CONSULTATION: 08/22/2017 HISTORY OF PRESENT ILLNESS: This is an 81-year-old female who was admitted to the hospital with acute change in mental status. She lives with her daughter and all history is obtained from the daughter who was at the bedside. The patient is currently on a nonrebreather mask and unable to answer any questions or provide any history. Per the daughter, the patient was doing well last night and had no complaints. She states she ate dinner without difficulty and was awake with the family watching television, was in her normal mental state until bedtime last night. She did not have any events overnight, but upon awaking this morning she was confused and combative at time. Her blood sugar was 80, which per the daughter is lower than normal for the patient and she was cold to the touch. For these reasons, she was brought into the hospital. She was found to be hypothermic in the Emergency Room with a minimum temperature of 31.5 Celsius. Her blood pressure was also down to 42 systolic for a brief period of time. This has increased. Her UA had 10-30 WBCs, greater than 30 epithelial cells and no bacteria. She also had an x-ray which showed a questionable left lower lobe infiltrate. She was started empirically on vancomycin and Zosyn. Her white blood cell count was normal at 6.8, her creatinine is mildly elevated at 1.8. Procalcitonin was done in the ER and is negative. Flu swab was negative. Urine and blood cultures were obtained and are pending. Again, the patient is currently receiving oxygen with BiPAP and is unable to provide any history. She is currently under a warming blanket with increase in her temperature. She does not respond to verbal or tactile stimuli. Her daughter does state that she did have some dry cough which began on Monday and had been steadily worsening throughout the past few days, but states it was nonproductive. The patient did not complain of any wheezing, shortness of breath or chest pain over the weekend and yesterday evening. She did not complain of any fevers or chills at home. PAST MEDICAL HISTORY: Significant for type 2 diabetes, hyperlipidemia, history of left nephrectomy, osteoporosis and history of ureteral cancer, bladder cancer and dementia. FAMILY HISTORY: Noncontributory. SOCIAL HISTORY: Significant for daily tobacco use. She lives with her daughter. There is no alcohol or drug use. The daughter does not admit to any recent sick contacts. ALLERGIES: CODEINE, NIACIN AND NAPROXEN. CURRENT MEDICATIONS: Include Protonix, Zosyn, norepinephrine, vasopressin, and vancomycin. PHYSICAL EXAMINATION: VITAL SIGNS: She currently has a temperature of 34, her T-min was 31.5, pulse 95, respiratory rate 18, blood pressure 134/60, oxygen saturation is 97-98% on 60%. GENERAL: BiPAP. She is obtunded and unable to respond to any questions. BiPAP mask is in place. HEART: Regular, breath sounds are clear anteriorly, but decreased bilaterally. ABDOMEN: Soft and nondistended. There is no lower extremity edema. SKIN: Without rash. LABORATORY STUDIES: CBC in the ER reveals a white blood cell count of 6.8, hemoglobin 15.7, platelets are 221. Chemistry panel reveals a sodium of 146, potassium 4.9, chloride 114, bicarbonate 30, BUN 55, creatinine 1.8, glucose 109, lactic acid is 0.7. Procalcitonin is 0.07. LFTs are normal in the ER. Again, UA has 10-30 WBCs, small leukocyte esterase and greater than 30 epithelial cells, no bacteria seen. Flu swab was negative. Blood and urine cultures are pending. Most recent chest x-ray done at 9 o'clock this morning shows mild improvement in aeration of the left lung base and no other evidence of consolidation. ASSESSMENT AND PLAN. Hypothermia. Certainly, she will remain on empiric antibiotics; however, no clear infectious etiology has been identified. There is questionable left lower lung infiltrate which has resolved quickly. Her flu swab was negative. She will remain on empiric antibiotics pending the results of additional culture data. Supportive measures will be continued. Thank you for this consultation.
[2017-08-22] MEDS: INSULIN ASPART 100 UNITS/ML 3 ML PEN SC SCH (20:50)
[2017-08-22] MEDS: HEPARIN SOD 5000 UNIT/0.5 ML CARP SQ SCH (21:30)
--- NOTE | 2017-08-22 22:59 | Progress Note ---
Progress Note Date of Service Aug 22, 2017. Progress Note ATTENDING ADDENDUM ; ECHO shows severe pulm HTN with evidence of rt heart strain concern for massive PE causing severe hypoxia , hemodynamic instability appreciate Cane Feeder input CTA of chest negative for PE , mucous plugging pt required to be intubated for worsening of respiratory failure pt remains critically ill , will need continued ICU care with multi speciality follow ups
[2017-08-23] VITALS (57 sets, daily range): BP systolic 64–160; BP diastolic 44–83; PULSE 54–91; TEMP 36.7–37.7; O2SAT 92–100; BMI 27.4
[2017-08-23 00:20] LABS: CALCIUM 6.7 mg/dl (8.5-10.1); CREATININE 1.81 mg/dl (0.60-1.20); POTASSIUM 4.2 mmol/L (3.5-5.1)
[2017-08-23] MEDS: PIPERACILL/TAZOBAC IV 4.5 GM in DEXTROSE 5% 100ML 100 ML IV SCH ×3 (00:41→18:55)
[2017-08-23] MEDS: NOREPINEPHRINE BIT INJ 8 MG in DEXTROSE 5% 500ML 500 ML IV PRN ×3 (00:42→10:59)
[2017-08-23] MEDS ORDERED: INSULIN ASPART 100 UNITS/ML 3 ML PEN SC SCH (02:00)
[2017-08-23 03:04] LABS: ISTAT POTASSIUM 4.4 mEq/L (3.3-5.0); ISTAT SODIUM 140 mEq/L (135-144)
[2017-08-23] MEDS: METHYLPREDNISOLONE IV 40 MG in SYRINGE 0 ML IV SCH ×3 (03:07→18:57)
[2017-08-23 03:55] LABS: PTT PATIENT 30.6 SECONDS (21.0-31.0)
--- NOTE | 2017-08-23 05:13 | Procedure Note ---
Procedure Note Procedure Date Aug 22, 2017. Procedure Description Procedure Name: A-Line Procedure time out: side/site verified, patient ID confirmed, correct procedure Consent obtained: written Time of procedure: 20:00 Performed by: physician job hand Indications: diagnostic, therapeutic Contraindications: none Description: Procedure: Arterial Line Placement Attending: Dr. Holloway APC: Mike Jack PA-C Indication: Monitoring on Pressors Anesthesia: Lidocaine 1% Consent was obtained per my attending. A time-out was completed verifying correct patient, procedure, site, positioning , and implant(s) or special equipment if applicable. Laron's test was performed to ensure adequate perfusion. Patient's LEFT wrist was prepped and draped in the usual sterile fashion. Ultrasound guidance was used to aid needle placement. The patient had very dynamic arterial vasculature. I was unable to cannulate vessel after 3 attempts. At this point, the procedure was aborted. Blood Loss: Minimal Complications: None Procedural Ultrasound Guidance: Procedure Date: 08/22/2017 Indication: BP monitoring/ABGs Attending: Dr. Holloway APC: Mike Jack PA-C Artery Identified: YES Complications: NONE Patient tolerated procedure: WELL Complications: none Patient tolerated procedure: well Post-procedure vital signs: reviewed and stable
[2017-08-23 05:33] LABS: HEMATOCRIT 39.3 % (37-47); HEMOGLOBIN 12.5 g/dL (12.0-16.0); MEAN CELL VOLUME 96.6 fL (80-100); MEAN CORPUSCULAR HEMOGLOBIN 30.7 pg (25-34); MEAN CORPUSCULAR HGB CONC 31.8 g/dl (32-36); MEAN PLATELET VOLUME 10.8 fL (7.4-10.4); NUCLEATED RED BLOOD CELL ABS 0.41 K/uL (0-0); PLATELET COUNT 243 K/uL (130-400); RED CELL DISTRIBUTION WIDTH CV 15.4 % (11.5-14.5); RED CELL DISTRIBUTION WIDTH SD 54.4 fL (36.4-46.3); WHITE BLOOD COUNT 16.92 K/uL (4.8-10.8)
[2017-08-23] MEDS: HEPARIN SOD 5000 UNIT/0.5 ML CARP SQ SCH ×3 (05:37→22:40)
[2017-08-23 05:49] LABS: BASO % 0.2 %; BASO ABS # 0.04 K/uL (0-0.2); EOS % 0.1 %; EOS ABS # 0.01 K/uL (0-0.5); IG# 0.42 K/uL (0.00-0.02); LYMPH % 4.1 %; LYMPH ABS # 0.69 K/uL (1.2-3.4); MONO % 6.1 %; MONO ABS # 1.04 K/uL (0.11-0.59); NEUT ABS # 14.72 K/uL (1.4-6.5)
[2017-08-23 05:59] LABS: ALBUMIN 2.3 gm/dl (3.4-5.0); CALCIUM 6.9 mg/dl (8.5-10.1); CREATININE 1.77 mg/dl (0.60-1.20); POTASSIUM 4.4 mmol/L (3.5-5.1); TOTAL PROTEIN 5.8 gm/dl (6.4-8.2)
[2017-08-23] MEDS ORDERED: VANCOMYCIN IV 1,250 MG in SODIUM CHLORIDE 0.9% 250ML 250 ML IV ONE (07:00)
--- NOTE | 2017-08-23 07:23 | DIAGNOSTIC IMAGING REPORT ---
CHEST ONE VIEW PORTABLE CLINICAL HISTORY: PNEUMONIA COMPARISON STUDY: 08/22/2017 FINDINGS: There is an endotracheal tube 25 mm above the bernardo. There is a nasogastric tube which passes into the stomach. The heart is borderline enlarged. There is right basilar atelectasis/consolidation. There is mild elevation of the interstitium. IMPRESSION: 1. Endotracheal tube 25 mm above the bernardo 2. Improving mild pulmonary vascular congestion 3. Right basilar atelectasis/consolidation. Electronically signed by: Ralph Vu M.D. 08/23/2017 7:22 AM Dictated Date/Time: 08/23/2017 7:20 AM
[2017-08-23] MEDS: ALBUT/IPRATROP 3MG/0.5MG NEB 3 ML VIAL INH SCH ×4 (07:30→20:00)
[2017-08-23] MEDS: INSULIN ASPART 100 UNITS/ML 3 ML PEN SC SCH ×3 (08:00→17:15)
[2017-08-23] MEDS: PANTOprazole INJ 40 MG in SYRINGE 0 ML IV SCH (08:13)
[2017-08-23] MEDS: VASOPRESSIN INJ 50 UNITS in SODIUM CHLORIDE 0.9% 500ML 500 ML IV SCH (11:02)
--- NOTE | 2017-08-23 11:38 | NEPHROLOGY CONSULTATION ---
DATE OF CONSULTATION: 08/23/2017 ATTENDING OF RECORD: Yusuf Contreras MD REASON FOR CONSULTATION: HEATHER. HISTORY OF PRESENT ILLNESS: This is an 81-year-old female who has a history of bladder cancer as well as urothelial cancer, underlying diabetes, CKD stage III as well as hypertension who came in with sepsis and hypothermia with altered mental status. The patient was hypoxic and hypothermic with a rectal temperature of 31.5, required a Jayda Hugger yesterday as well as a BiPAP and pressors. The patient was eventually intubated and now currently on pressors. There is a concern for a possible PE. The patient underwent a chest and thorax CTA, which showed no evidence of acute PE; however, did show diffuse bronchial wall thickening with mucous plugging. The patient is currently on 30% FIO2 with pressors, insulin drip and broad-spectrum antibiotics. Blood cultures and urine cultures are pending. The patient's echo shows an EF of greater than 70%. Right ventricle is mildly dilated. There is severe pulmonary hypertension and those findings were concerning for an acute PE versus interval development of pulmonary hypertension of unknown chronicity, which is why they went with a CTA with contrast. The patient's urine output was 750 mL yesterday and 400 mL this morning. The patient's creatinine has been in the 1.6-1.8 range with potassium level stable at 4.4. Troponin is trending up and is now 1.26. Albumin is low at 2.3. REVIEW OF SYSTEMS: Unobtainable. PAST MEDICAL AND SURGICAL HISTORY: History of urothelial cancer status post left nephroureterectomy in 2004 as well as bladder cancer with treatment in 2007 and 2010, type 2 diabetes, history of tobacco use, hypertension, CKD stage III, solitary kidney since 2004, history of subdural hematoma in 2013. FAMILY HISTORY: Significant for hypertension. SOCIAL HISTORY: Active smoker, no alcohol, no drugs. Lives with family. CURRENT MEDICATIONS: Protonix, heparin 5000 units subQ q. 8, sliding scale insulin drip, Solu-Medrol 40 mg IV q. 8, Zosyn 4.5 grams IV q. 8, DuoNeb inhalers. PHYSICAL EXAMINATION: VITAL SIGNS: Temperature of 37, pulse 66, respiratory rate 22, blood pressure 135/75, satting 97% on 30% FIO2. GENERAL: Sedated. EYES: Pinpointed. NECK: Supple. PULMONARY: Positive significant rhonchi. CARDIAC: Regular rate and rhythm. ABDOMEN: Very hypoactive bowel sounds. Soft and nondistended. EXTREMITIES: No significant clubbing, cyanosis or edema. NEUROLOGICALLY: Sedated. DERMATOLOGIC: No rash or ulcers noted. LABORATORY DATA: Sodium was 139, potassium 4.4, chloride is 109, bicarbonate is 25, BUN is 42, creatinine is 1.77, glucose 116, calcium 6.9, mag is 1.9. T bili 0.4. Troponin 1.26. Albumin is 2.3. TSH was 1.66. Random cortisol 35. White count 16, H&H 12 and 39, platelet count is 243. Blood gas shows a pH of 7.38, pCO2 35, pO2 70, bicarbonate 21 on 30% FIO2. INR is 1. UA shows 3+ blood, positive nitrite, small leukocyte esterase, greater than 10-30 WBCs, greater than 30 RBCs vancomycin level of 10. Flu negative. Chest x-ray shows mild pulmonary vascular congestion, right basilar atelectasis and consolidation. ASSESSMENT AND PLAN: 1. Acute kidney injury, oliguric in the setting of significant acute tubular necrosis with sepsis and hypothermia as well as significant hemodynamic compromise requiring pressors. No indication for an emergent dialysis at this time. Electrolytes are stable. Volume status is appropriate. 2. Hypocalcemia. Calcium levels are dropping and is at 6.9. However, albumin is dropping as well, so perhaps corrects to within normal range. We would prophylactically give more IV calcium though in anticipation that the calcium level will continue to drop in the setting of sepsis and increased calcium levels may help pressors be more effective and help with blood pressure. I greatly appreciate cardiology, critical care, and primary hospitalist's help in the management of this complicated unfortunate patient. For now, continue supportive measures. The patient may need dialysis during this admission; however, at this point, we will hold off and monitor. Appreciate consultation. ANNETTE
--- NOTE | 2017-08-23 11:49 | Pharmacy Progress Note ---
Pharmacy Abx Dose Short Note Date of Service Aug 23, 2017. Assessment & Plan Pharmacy has been consulted for the following: * Glycemic Control * Vancomycin IV dosing * Zosyn IV dosing Assessment/Plan Glycemic control * Type 2 diabetic with reasonably well controlled DM admitted yesterday for altered mental status, hypoxemia, hypotension, sepsis secondary to UTI / pneumonia * She is managed w/ Glipizide ER 5mg daily + Lantus 15 units SQ BID prior to admission * On admit she was ordered SQ Novolog CF and CR and no basal insulin due to BSGs in the 88-109 range and concern for prolonged exposure to sulfonylurea in the setting of HEATHER. Orders were also given to begin an IV insulin infusion if BSG > 220. * BSGs quickly evelia to 256 secondary to multiple stressors (mech vent, high dose IV steroids, pressors, dextrose containing IV's) and as a result she was started on IV insulin infusion per moderate stress protocol. * BSGs did climb as high as 408, however have since decreased to 115 this AM. Insulin infusing at ~5.5 units/hr on average overnight. * Recommend continuing IV insulin infusion per protocol given significant stressors and unpredictable SQ insulin absorption while on pressor support. * Continue goal range 110-180 Vancomycin * 1500mg (20mg/kg) IV x 1 08/22 @1311 * Random level drawn ~14.5 hrs later = 10.1 indicating need for redosing * Ordered STAT dose of 1250mg (15mg/kg) IV this AM * Estimated half-life is 26 hours in this patient, however she may be hypermetabolic and clearing the drug more quickly than predicted based upon eCrCl * Will obtain random level ~14 hours after this AM's dose to assess rate of elimination * Plan is to redose vancomycin 1250mg IV x 1 this evening if level is 15-20mcg/ mL; if level is > 20, will check random level w/ AM labs 08/24 * Goal trough level for pulmonary infxn / sepsis : 15 to 20 mcg/mL Zosyn * eCrCl > 20cc/min, continue 4.5gm extended infusion IV Q 8 hours due to illness severity Pharmacy will continue to follow and will adjust dose/frequency as necessary. Thank you.
--- NOTE | 2017-08-23 12:00 | Progress Note ---
Subjective Date of Service: Aug 23, 2017. Subjective micro pending temp and bp improved. tolerating abx. wbc increased but also on IV steroids, off of pressors. . cta with mucus plugging. neprho following. Problem List Medical Problems: (1) Hypothermia Status: Acute (2) PNA (pneumonia) Status: Acute (3) UTI (urinary tract infection) Status: Acute Social History Problems: (1) Compression fracture of L1 lumbar vertebra Status: Acute (2) Contusion of right hip Status: Acute (3) Subdural hematoma Status: Acute Objective Vital Signs Date Time Temp Pulse Resp B/P (MAP) Pulse Ox O2 Delivery O2 Flow Rate FiO2 08/23/17 11:20 30 08/23/17 10:00 59 22 140/79 (99) 97 Mechanical Ventilator 30 08/23/17 08:00 98 Mechanical Ventilator 30 08/23/17 08:00 30 08/23/17 08:00 36.7 65 22 150/83 (105) 95 Mechanical Ventilator 30 08/23/17 07:30 30 08/23/17 06:00 37.0 66 22 135/75 (95) 97 Mechanical Ventilator 30 08/23/17 05:30 30 08/23/17 04:00 99 Mechanical Ventilator 30 08/23/17 04:00 37.2 67 26 116/61 (79) 98 Mechanical Ventilator 30 08/23/17 04:00 30 08/23/17 02:30 30 08/23/17 02:00 37.3 71 26 141/79 (99) 100 Mechanical Ventilator 50 08/23/17 00:10 37.3 74 26 137/58 (84) 100 Mechanical Ventilator 50 08/23/17 00:04 37.3 65 26 118/70 (86) 100 Mechanical Ventilator 50 08/23/17 00:01 37.3 85 26 64/46 (52) 100 Mechanical Ventilator 50 08/22/17 23:59 99 Mechanical Ventilator 50 08/22/17 23:59 50 08/22/17 23:30 50 08/22/17 22:20 36.9 76 26 115/83 (94) 99 08/22/17 22:11 36.8 72 26 125/60 (81) 08/22/17 22:00 99 Mechanical Ventilator 100 08/22/17 22:00 100 08/22/17 22:00 36.8 77 26 110/86 (94) 99 2/6/18 21:50 50 2/6/18 21:50 36.7 76 26 117/83 (94) 98 2/6/18 21:41 36.7 81 26 110/76 (87) 2/6/18 21:31 36.6 84 26 102/44 (63) 98 2/6/18 21:21 36.5 76 26 133/58 (83) 99 2/6/18 21:11 36.4 80 19 110/69 (83) 97 2/6/18 21:01 36.3 75 26 131/63 (85) 97 2/6/18 20:50 36.2 79 26 103/65 (78) 97 2/6/18 20:41 36.1 77 26 111/65 (80) 95 2/6/18 20:30 50 2/6/18 20:00 50 2/6/18 20:00 35.7 79 26 103/82 (89) 98 2/6/18 18:30 34.7 72 20 99/39 (59) 100 2/6/18 18:10 34.6 73 20 106/62 (77) 100 2/6/18 18:00 34.6 72 20 80/75 (77) 89 2/6/18 17:10 34.6 73 11 122/65 (84) 100 Mechanical Ventilator 100 2/18 17:02 100 2/6/18 17:00 34.6 68 14 107/44 (66) 98 2/6/18 17:00 34.6 68 14 107/44 (65) 98 2/6/18 16:50 34.7 68 17 88/48 (61) 98 2/6/18 16:46 34.7 65 17 79/49 (59) 98 2/6/18 16:30 99 BiPAP 100 2//18 16:30 34.8 76 49 123/58 (79) 95 Mechanical Ventilator 100 2//18 16:30 100 2/6/18 16:08 68 35 91 BiPAP/CPAP 60 2/6/18 16:08 68 91 60 2/6/18 16:00 34.8 64 16 108/46 (66) 91 2/6/18 16:00 34.8 64 16 108/46 (66) 91 2/6/18 15:20 34.6 77 21 114/50 (71) 94 08/22/17 15:15 34.5 77 15 136/52 (80) 95 08/22/17 15:00 34.4 84 21 137/58 (86) 95 08/22/17 14:50 34.3 82 31 141/60 (87) 96 08/22/17 14:30 34.1 86 19 143/62 (89) 96 08/22/17 14:00 34.0 95 18 134/60 (84) 97 BiPAP 60 08/22/17 14:00 34.0 95 18 134/60 (91) 97 08/22/17 13:30 33.9 79 20 104/46 (65) 97 BiPAP 60 08/22/17 13:00 33.8 82 29 103/46 (65) 98 BiPAP 60 08/22/17 13:00 33.8 82 29 103/46 (65) 98 08/22/17 12:54 33.7 79 22 108/48 98 60 08/22/17 12:50 33.7 85 27 108/48 (68) 98 BiPAP 60 08/22/17 12:44 88 133/62 98 08/22/17 12:39 93 98 60 08/22/17 12:03 82 126/60 98 Room Air Laboratory Results Last 24 Hours Test 08/22/17 12:42 08/22/17 15:56 08/22/17 18:15 08/22/17 19:35 Bedside Glucose 200 mg/dl Hemoglobin 13.1 g/dL Hematocrit 42.5 % Sodium Level 143 mmol/L 135 mmol/L Potassium Level 5.5 mmol/L 4.7 mmol/L Chloride Level 114 mmol/L 104 mmol/L Carbon Dioxide Level 29 mmol/L 26 mmol/L Anion Gap 0.0 mmol/L 5.0 mmol/L Blood Urea Nitrogen 49 mg/dl 47 mg/dl Creatinine 1.68 mg/dl 1.82 mg/dl Est Creatinine Clear Calc Drug Dose 28.5 ml/min 26.3 ml/min Estimated GFR () 32.9 29.9 Estimated GFR (Non- 28.4 25.8 BUN/Creatinine Ratio 28.9 25.8 Random Glucose 206 mg/dl 485 mg/dl Lactic Acid Level 0.5 mmol/L 1.5 mmol/L Calcium Level 7.2 mg/dl 6.7 mg/dl Pro-B-Type Natriuretic Peptide 5436 pg/ml Bedside Glucose (other) 256 mg/dl Troponin I < 0.015 ng/ml Beta-Hydroxybutyric Acid 2.98 mg/dL Test 08/22/17 19:40 08/22/17 21:13 08/22/17 21:41 08/22/17 22:09 Blood Gas Sample Site L Radial L Radial Bedside Blood Gas pH (LAB) 7.15 7.27 Bedside Blood Gas pCO2 (LAB) 68 mmHg 50 mmHg Bedside Blood Gas pO2 (LAB) 368 mmHg 101 mmHg Bedside Blood Gas HCO3 (LAB) 24 meq/L 23 meq/L Bedside Blood Gas Total CO2 27 mEq/l 24 mEq/l Bedside Blood Gas Base Excess (LAB) -5.0 meq/L -4.0 meq/L Bedside Blood Gas O2 Saturation 100.0 % 97.0 % Laron Test Pass Pass Oxygen Delivery Device Ventilator Ventilator Bedside Oxygen Rate (breaths/min) 20 26 Blood Gas Minute Ventilation 8.9 12.9 Bedside FiO2 30 % 50 % Blood Gas Tidal Volume 450 480 Blood Gas PEEP 3 3 Bedside Glucose (other) 463 mg/dl 383 mg/dl Test 08/22/17 23:31 08/22/17 23:48 08/23/17 00:39 08/23/17 01:35 Bedside Glucose (other) 408 mg/dl 354 mg/dl 315 mg/dl Sodium Level 142 mmol/L Potassium Level 4.2 mmol/L Chloride Level 111 mmol/L Carbon Dioxide Level 24 mmol/L Anion Gap 6.0 mmol/L Blood Urea Nitrogen 42 mg/dl Creatinine 1.81 mg/dl Est Creatinine Clear Calc Drug Dose 26.5 ml/min Estimated GFR () 30.1 Estimated GFR (Non- 25.9 BUN/Creatinine Ratio 23.3 Random Glucose 220 mg/dl Lactic Acid Level 3.3 mmol/L Calcium Level 6.7 mg/dl Test 08/23/17 02:53 08/23/17 03:02 08/23/17 03:27 08/23/17 04:02 Bedside Hemoglobin 13.3 g/dl Bedside Hematocrit 39 % Bedside Blood Gas pH (LAB) 7.38 Bedside Blood Gas pCO2 (LAB) 37 mmHg Bedside Blood Gas pO2 (LAB) 149 mmHg Bedside Blood Gas HCO3 (LAB) 22 meq/L Bedside Blood Gas Total CO2 23 mEq/l Bedside Blood Gas Base Excess (LAB) -4.0 meq/L Bedside Blood Gas O2 Saturation 99.0 % Bedside Sodium 140 mEq/L Bedside Potassium 4.4 mEq/L Bedside Glucose (other) 240 mg/dl 312 mg/dl White Blood Count 16.92 K/uL Red Blood Count 4.07 M/uL Hemoglobin 12.5 g/dL Hematocrit 39.3 % Mean Corpuscular Volume 96.6 fL Mean Corpuscular Hemoglobin 30.7 pg Mean Corpuscular Hemoglobin Concent 31.8 g/dl Platelet Count 243 K/uL Mean Platelet Volume 10.8 fL Neutrophils (%) (Auto) 87.0 % Lymphocytes (%) (Auto) 4.1 % Monocytes (%) (Auto) 6.1 % Eosinophils (%) (Auto) 0.1 % Basophils (%) (Auto) 0.2 % Neutrophils # (Auto) 14.72 K/uL Lymphocytes # (Auto) 0.69 K/uL Monocytes # (Auto) 1.04 K/uL Eosinophils # (Auto) 0.01 K/uL Basophils # (Auto) 0.04 K/uL RDW Standard Deviation 54.4 fL RDW Coefficient of Variation 15.4 % Immature Granulocyte % (Auto) 2.5 % Immature Granulocyte # (Auto) 0.42 K/uL Nucleated RBC Absolute Count (auto) 0.41 K/uL Nucleated Red Blood Cells % 2.4 % Polychromasia 1+ Activated Partial Thromboplast Time 30.6 SECONDS Partial Thromboplastin Ratio 1.2 Lactic Acid Level 2.6 mmol/L Random Vancomycin Level 10.1 mcg/ml Test 08/23/17 04:46 08/23/17 04:52 08/23/17 05:52 08/23/17 06:01 Sodium Level 139 mmol/L Potassium Level 4.4 mmol/L Chloride Level 109 mmol/L Carbon Dioxide Level 25 mmol/L Anion Gap 5.0 mmol/L Blood Urea Nitrogen 42 mg/dl Creatinine 1.77 mg/dl Est Creatinine Clear Calc Drug Dose 27.1 ml/min Estimated GFR () 30.9 Estimated GFR (Non- 26.7 BUN/Creatinine Ratio 23.6 Random Glucose 116 mg/dl Calcium Level 6.9 mg/dl Magnesium Level 1.9 mg/dl Total Bilirubin 0.4 mg/dl Aspartate Amino Transf (AST/SGOT) 58 U/L Alanine Aminotransferase (ALT/SGPT) 70 U/L Alkaline Phosphatase 66 U/L Troponin I 1.260 ng/ml Total Protein 5.8 gm/dl Albumin 2.3 gm/dl Globulin 3.5 gm/dl Albumin/Globulin Ratio 0.7 Procalcitonin 0.37 ng/ml Bedside Glucose (other) 114 mg/dl 115 mg/dl Blood Gas Sample Site L Radial Bedside Blood Gas pH (LAB) 7.38 Bedside Blood Gas pCO2 (LAB) 35 mmHg Bedside Blood Gas pO2 (LAB) 70 mmHg Bedside Blood Gas HCO3 (LAB) 21 meq/L Bedside Blood Gas Total CO2 22 mEq/l Bedside Blood Gas Base Excess (LAB) -5.0 meq/L Bedside Blood Gas O2 Saturation 94.0 % Laron Test Pass Oxygen Delivery Device Ventilator Bedside Oxygen Rate (breaths/min) 26 Blood Gas Minute Ventilation 12.5 Bedside FiO2 30 % Blood Gas Tidal Volume 500 Blood Gas PEEP 3 Test 08/23/17 06:37 08/23/17 08:56 08/23/17 10:36 Bedside Glucose (other) 217 mg/dl 147 mg/dl 140 mg/dl Assessment and Plan (1) Hypothermia Assessment & Plan: continue abx, follow cultures.
--- NOTE | 2017-08-23 12:17 | Progress Note ---
Internal Med Progress Note Date of Service: Aug 23, 2017. Provider Documentation: SUBJECTIVE: The patient was seen and examined Was brought in with AMS and noted to be in Shock with Hypoxemia and Hypothermia Now intubated in ICU OBJECTIVE: Vital Signs-as noted below Exam: General-Intubated in ICU Sedated and does not have any distress Eyes-Closed ENT-Normal Neck-Supple Lungs-Decreased breath sound bilaterally Minimal crackles at the bases Heart-Regular Abdomen-Benign Extremities-Trace edema bilaterally Neuro-Sedated on Vent Lab data as noted below. ASSESSMENT & PLAN: ACUTE HYPOXIC RESPIRATORY FAILURE : Was hypothermic Temp 31 /hypotensive SBP in 70;s and hypoxic in RA 87 % Was placed on Bipap , ABG shows respiratory acidosis with hypercarbia Co2 > 90 CXR-no Pneumonia and CTA -0negative for any Pulmonary Embolism Underlying COPD /emphysema ( hx of smoking ) with retention of Co2 due to mental obtundation due to sepsis Now Intubated in ICU Appreciate Wood Patternmaker Apprentice input CONFUSION /CHANGED MENTAL STATUS /METABOLIC ENCEPHALOPATHY : Likely due to hypercapnic respiratory failure and may be complicated by sepsis CT head -negative for CVA May Have Cardiogenic Shock as well Has severe Pulmonary HTN ECHO::There is mild concentric left ventricular hypertrophy. * The left ventricular wall motion is normal. * The LV Ejection Fraction = >70 %. * The right ventricle is mildly dilated. * The right ventricular systolic function is mildly reduced with diffuse right ventricular hypokinesis that spares the RV apex. * There is mild to moderate tricuspid regurgitation. * Dilated inferior vena cava with reduced collapsability with sniff indicates an elevated right atrial pressure of 15 mmHg * Severe pulmonary is hypertension, with PA systolic pressure calculated to be 75 mmg Hg, assuming a right atrial pressure of 15 mm Hg. * Compared to the report of the prior outpatient echocardiogram performed at [facility] dated 02/13/12, the right ventricular size and systolic function was normal at that time with normal calculated pulmonary pressures. * Findings compatible with possible acute pulmonary embolism versus interval development of pulmonary hypertension of uknown chronicity due to other cause. Trending Troponin -doubt any ACS Repeat ECHO in AM HEATHER ON CKD STAGE 3 : HYPERNATREMIA ; ATN with anuria -minimum urine out put after fluid bolus IV fluids resuscitation , pressor support Follow PRP Q 4hrs per sepsis protocol Pt has solitary kidney ( s/p Left nephrectomy ) Baseline Cr 1.6 Nephrology consulted-appreciate Input HYPOTENSION /HYPOTHERMIA : SEPSIS DUE TO UTI : Likely due to severe sepsis ,possible source of infection UTI Temp improved with Jayda hugger , IV fluid bolus followed by aggressive resuscitation per sepsis protocol Empiric Abx with Zosyn /vancomycin ( avoid quinolones -prolong Qtc ) Started on pressors Wood Patternmaker Apprentice following Appreciate ID input CODE STATUS : d/w Daughter -full code DVT PROPHYLAXIS high risk ICU admission /obtundation Sub q heparin Vital Signs: Date Time Temp Pulse Resp B/P (MAP) Pulse Ox O2 Delivery O2 Flow Rate FiO2 08/23/17 11:20 30 08/23/17 10:00 59 22 140/79 (99) 97 Mechanical Ventilator 30 08/23/17 08:00 98 Mechanical Ventilator 30 08/23/17 08:00 30 08/23/17 08:00 36.7 65 22 150/83 (105) 95 Mechanical Ventilator 30 08/23/17 07:30 30 08/23/17 06:00 37.0 66 22 135/75 (95) 97 Mechanical Ventilator 30 08/23/17 05:30 30 08/23/17 04:00 99 Mechanical Ventilator 30 08/23/17 04:00 37.2 67 26 116/61 (79) 98 Mechanical Ventilator 30 08/23/17 04:00 30 08/23/17 02:30 30 08/23/17 02:00 37.3 71 26 141/79 (99) 100 Mechanical Ventilator 50 08/23/17 00:10 37.3 74 26 137/58 (84) 100 Mechanical Ventilator 50 08/23/17 00:04 37.3 65 26 118/70 (86) 100 Mechanical Ventilator 50 08/23/17 00:01 37.3 85 26 64/46 (52) 100 Mechanical Ventilator 50 08/22/17 23:59 99 Mechanical Ventilator 50 08/22/17 23:59 50 08/22/17 23:30 50 08/22/17 22:20 36.9 76 26 115/83 (94) 99 08/22/17 22:11 36.8 72 26 125/60 (81) 08/22/17 22:00 99 Mechanical Ventilator 100 08/22/17 22:00 100 08/22/17 22:00 36.8 77 26 110/86 (94) 99 2/6/18 21:50 50 2/6/18 21:50 36.7 76 26 117/83 (94) 98 2/6/18 21:41 36.7 81 26 110/76 (87) 2/6/18 21:31 36.6 84 26 102/44 (63) 98 2/6/18 21:21 36.5 76 26 133/58 (83) 99 2/6/18 21:11 36.4 80 19 110/69 (83) 97 2/6/18 21:01 36.3 75 26 131/63 (85) 97 2/6/18 20:50 36.2 79 26 103/65 (78) 97 2/6/18 20:41 36.1 77 26 111/65 (80) 95 2/6/18 20:30 50 2/18 20:00 50 2/6/18 20:00 35.7 79 26 103/82 (89) 98 2/6/18 18:30 34.7 72 20 99/39 (59) 100 2//18 18:10 34.6 73 20 106/62 (77) 100 2/6/18 18:00 34.6 72 20 80/75 (77) 89 2/6/18 17:10 34.6 73 11 122/65 (84) 100 Mechanical Ventilator 100 2/18 17:02 100 2//18 17:00 34.6 68 14 107/44 (66) 98 2/6/18 17:00 34.6 68 14 107/44 (65) 98 2/6/18 16:50 34.7 68 17 88/48 (61) 98 2//18 16:46 34.7 65 17 79/49 (59) 98 2/6/18 16:30 99 BiPAP 100 2/18 16:30 34.8 76 49 123/58 (79) 95 Mechanical Ventilator 100 2/18 16:30 100 2/6/18 16:08 68 35 91 BiPAP/CPAP 60 2/6/18 16:08 68 91 60 2/6/18 16:00 34.8 64 16 108/46 (66) 91 2/6/18 16:00 34.8 64 16 108/46 (66) 91 2/6/18 15:20 34.6 77 21 114/50 (71) 94 2/6/18 15:15 34.5 77 15 136/52 (80) 95 08/22/17 15:00 34.4 84 21 137/58 (86) 95 08/22/17 14:50 34.3 82 31 141/60 (87) 96 08/22/17 14:30 34.1 86 19 143/62 (89) 96 08/22/17 14:00 34.0 95 18 134/60 (84) 97 BiPAP 60 08/22/17 14:00 34.0 95 18 134/60 (91) 97 08/22/17 13:30 33.9 79 20 104/46 (65) 97 BiPAP 60 08/22/17 13:00 33.8 82 29 103/46 (65) 98 BiPAP 60 08/22/17 13:00 33.8 82 29 103/46 (65) 98 08/22/17 12:54 33.7 79 22 108/48 98 60 08/22/17 12:50 33.7 85 27 108/48 (68) 98 BiPAP 60 08/22/17 12:44 88 133/62 98 08/22/17 12:39 93 98 60 08/22/17 12:03 82 126/60 98 Room Air Lab Results: Results Past 24 Hours Test 08/22/17 12:42 08/22/17 15:56 08/22/17 18:15 08/22/17 19:35 Range/Units Bedside Glucose 200 70-90 mg/dl Hemoglobin 13.1 12.0-16.0 g/dL Hematocrit 42.5 37-47 % Sodium Level 143 135 136-145 mmol/L Potassium Level 5.5 4.7 3.5-5.1 mmol/L Chloride Level 114 104 98-107 mmol/L Carbon Dioxide Level 29 26 21-32 mmol/L Anion Gap 0.0 5.0 3-11 mmol/L Blood Urea Nitrogen 49 47 7-18 mg/dl Creatinine 1.68 1.82 0.60-1.20 mg/dl Est Creatinine Clear Calc Drug Dose 28.5 26.3 ml/min Estimated GFR () 32.9 29.9 Estimated GFR (Non- 28.4 25.8 BUN/Creatinine Ratio 28.9 25.8 10-20 Random Glucose 206 485 70-99 mg/dl Lactic Acid Level 0.5 1.5 0.4-2.0 mmol/L Calcium Level 7.2 6.7 8.5-10.1 mg/dl Pro-B-Type Natriuretic Peptide 5436 0-1800 pg/ml Bedside Glucose (other) 256 70-99 mg/dl Troponin I < 0.015 0-0.045 ng/ml Beta-Hydroxybutyric Acid 2.98 0.2-2.81 mg/dL Test 08/22/17 19:40 08/22/17 21:13 08/22/17 21:41 08/22/17 22:09 Range/Units Blood Gas Sample Site L Radial L Radial Bedside Blood Gas pH (LAB) 7.15 7.27 7.35-7.45 Bedside Blood Gas pCO2 (LAB) 68 50 35-46 mmHg Bedside Blood Gas pO2 (LAB) 368 101 80-95 mmHg Bedside Blood Gas HCO3 (LAB) 24 23 19-24 meq/L Bedside Blood Gas Total CO2 27 24 24-31 mEq/l Bedside Blood Gas Base Excess (LAB) -5.0 -4.0 -9-1.8 meq/L Bedside Blood Gas O2 Saturation 100.0 97.0 90-95 % Laron Test Pass Pass Oxygen Delivery Device Ventilator Ventilator Bedside Oxygen Rate (breaths/min) 20 26 Blood Gas Minute Ventilation 8.9 12.9 Bedside FiO2 30 50 % Blood Gas Tidal Volume 450 480 Blood Gas PEEP 3 3 Bedside Glucose (other) 463 383 70-99 mg/dl Test 08/22/17 23:31 08/22/17 23:48 08/23/17 00:39 08/23/17 01:35 Range/Units Bedside Glucose (other) 408 354 315 70-99 mg/dl Sodium Level 142 136-145 mmol/L Potassium Level 4.2 3.5-5.1 mmol/L Chloride Level 111 98-107 mmol/L Carbon Dioxide Level 24 21-32 mmol/L Anion Gap 6.0 3-11 mmol/L Blood Urea Nitrogen 42 7-18 mg/dl Creatinine 1.81 0.60-1.20 mg/dl Est Creatinine Clear Calc Drug Dose 26.5 ml/min Estimated GFR () 30.1 Estimated GFR (Non- 25.9 BUN/Creatinine Ratio 23.3 10-20 Random Glucose 220 70-99 mg/dl Lactic Acid Level 3.3 0.4-2.0 mmol/L Calcium Level 6.7 8.5-10.1 mg/dl Test 08/23/17 02:53 08/23/17 03:02 08/23/17 03:27 08/23/17 04:02 Range/Units Bedside Hemoglobin 13.3 12.0-16.0 g/dl Bedside Hematocrit 39 37-47 % Bedside Blood Gas pH (LAB) 7.38 7.35-7.45 Bedside Blood Gas pCO2 (LAB) 37 35-46 mmHg Bedside Blood Gas pO2 (LAB) 149 80-95 mmHg Bedside Blood Gas HCO3 (LAB) 22 19-24 meq/L Bedside Blood Gas Total CO2 23 24-31 mEq/l Bedside Blood Gas Base Excess (LAB) -4.0 -9-1.8 meq/L Bedside Blood Gas O2 Saturation 99.0 90-95 % Bedside Sodium 140 135-144 mEq/L Bedside Potassium 4.4 3.3-5.0 mEq/L Bedside Glucose (other) 240 312 70-99 mg/dl White Blood Count 16.92 4.8-10.8 K/uL Red Blood Count 4.07 4.2-5.4 M/uL Hemoglobin 12.5 12.0-16.0 g/dL Hematocrit 39.3 37-47 % Mean Corpuscular Volume 96.6 80-100 fL Mean Corpuscular Hemoglobin 30.7 25-34 pg Mean Corpuscular Hemoglobin Concent 31.8 32-36 g/dl Platelet Count 243 130-400 K/uL Mean Platelet Volume 10.8 7.4-10.4 fL Neutrophils (%) (Auto) 87.0 % Lymphocytes (%) (Auto) 4.1 % Monocytes (%) (Auto) 6.1 % Eosinophils (%) (Auto) 0.1 % Basophils (%) (Auto) 0.2 % Neutrophils # (Auto) 14.72 1.4-6.5 K/uL Lymphocytes # (Auto) 0.69 1.2-3.4 K/uL Monocytes # (Auto) 1.04 0.11-0.59 K/uL Eosinophils # (Auto) 0.01 0-0.5 K/uL Basophils # (Auto) 0.04 0-0.2 K/uL RDW Standard Deviation 54.4 36.4-46.3 fL RDW Coefficient of Variation 15.4 11.5-14.5 % Immature Granulocyte % (Auto) 2.5 % Immature Granulocyte # (Auto) 0.42 0.00-0.02 K/uL Nucleated RBC Absolute Count (auto) 0.41 0-0 K/uL Nucleated Red Blood Cells % 2.4 % Polychromasia 1+ Activated Partial Thromboplast Time 30.6 21.0-31.0 SECONDS Partial Thromboplastin Ratio 1.2 Lactic Acid Level 2.6 0.4-2.0 mmol/L Random Vancomycin Level 10.1 mcg/ml Test 08/23/17 04:46 08/23/17 04:52 08/23/17 05:52 08/23/17 06:01 Range/Units Sodium Level 139 136-145 mmol/L Potassium Level 4.4 3.5-5.1 mmol/L Chloride Level 109 98-107 mmol/L Carbon Dioxide Level 25 21-32 mmol/L Anion Gap 5.0 3-11 mmol/L Blood Urea Nitrogen 42 7-18 mg/dl Creatinine 1.77 0.60-1.20 mg/dl Est Creatinine Clear Calc Drug Dose 27.1 ml/min Estimated GFR () 30.9 Estimated GFR (Non- 26.7 BUN/Creatinine Ratio 23.6 10-20 Random Glucose 116 70-99 mg/dl Calcium Level 6.9 8.5-10.1 mg/dl Magnesium Level 1.9 1.8-2.4 mg/dl Total Bilirubin 0.4 0.2-1 mg/dl Aspartate Amino Transf (AST/SGOT) 58 15-37 U/L Alanine Aminotransferase (ALT/SGPT) 70 12-78 U/L Alkaline Phosphatase 66 45-117 U/L Troponin I 1.260 0-0.045 ng/ml Total Protein 5.8 6.4-8.2 gm/dl Albumin 2.3 3.4-5.0 gm/dl Globulin 3.5 2.5-4.0 gm/dl Albumin/Globulin Ratio 0.7 0.9-2 Procalcitonin 0.37 0-0.5 ng/ml Bedside Glucose (other) 114 115 70-99 mg/dl Blood Gas Sample Site L Radial Bedside Blood Gas pH (LAB) 7.38 7.35-7.45 Bedside Blood Gas pCO2 (LAB) 35 35-46 mmHg Bedside Blood Gas pO2 (LAB) 70 80-95 mmHg Bedside Blood Gas HCO3 (LAB) 21 19-24 meq/L Bedside Blood Gas Total CO2 22 24-31 mEq/l Bedside Blood Gas Base Excess (LAB) -5.0 -9-1.8 meq/L Bedside Blood Gas O2 Saturation 94.0 90-95 % Laron Test Pass Oxygen Delivery Device Ventilator Bedside Oxygen Rate (breaths/min) 26 Blood Gas Minute Ventilation 12.5 Bedside FiO2 30 % Blood Gas Tidal Volume 500 Blood Gas PEEP 3 Test 08/23/17 06:37 08/23/17 08:56 08/23/17 10:36 Range/Units Bedside Glucose (other) 217 147 140 70-99 mg/dl
--- NOTE | 2017-08-23 12:50 | Critical Care Progress Note ---
Critical Care Progress Note Date of Service Aug 23, 2017. Attending Dr. Holloway Subjective Intubated yesterday as she developed worsening hypercapnia, becoming obtunded. Still on pressor support. Oxygenation improved significantly, now on 30%. Objective General: Intubated, sedated Heent: NC/AT CVS:S1S2 regular Lungs: coarse breath sounds. Peak airway pressure around 25 Abd: Soft, NT, ND, old laparotomy scar Ext: No edema SOFT BOARDER: Sedated, starting to move (awakening trial now) Assessment & Plan 81 year old female presents with AMS, hypothermic, in profound shock. Less likely septic in nature, more likely cardiogenic, with RV failure, severe pulmonary hypertension. Not clear what led to this spike in PAP, pulmonary embolism has been ruled out. She has acute severe hypercapnia, undiagnosed COPD, which may lead to a spike in the PA pressure. I seriously doubt she has Group I PH, given her age and normal PAP 6 years ago Problems: Acute respiratory failure with hypercapnia and hypoxia Pulmonary hypertension RV failure with shock COPD Acute kidney injury Plan: SOFT BOARDER: Sedation vacation. Transition Versed to Precedex, no further bradycardic episodes post-intubation. Pulmonary: ABG markedly improved, hypercarbia resolved on vent. Continue IV steroids Start iv steroids in an attempt to improve lung function Around the clock bronchodilator Off heparin drip given negative CT scan CVS: Still on pressor support, essentially indicating that she is still in significant RV failure. Severe pulmonary HTN, not caused by PE, leading to RV failure. Consider pulmonary artery catheterization Acute severe hypercarbia and hypoxia could potentially lead to pulmonary hypertension. Will repeat Echo tomorrow Troponin negative initially x 3, this AM 1.260. Unclear of reason, probably demand ischemia. Continue to trend Renal: Renal indices holding. Monitor urine output, still poor, but in the last few hours seems to improve ID: F/u cultures On broad spectrum Abx, Vanco, Zosyn. Levaquin held due to prolonged QTc. Add Doxy Procalcitonin is negative. GI: NPO, still on high dose pressors. Start trickle feeds for now Endo: Insulin drip for glycemic control DVT prophylaxis: SC heparin Critical care time spent with the patient, reviewing chart, discussing with consultants, greater than 45 minutes Consults & Procedures Consultants: Sandy: Dr Adkins ID: Dr Ferrell Procedures: 08/22/17: Intubation 08/22/17: Right femoral TLC in ED Data Medications: Current Inpatient Medications Medications (Trade) Dose Ordered Sig/Suzi Route Start Time Stop Time Status Last Admin Dose Admin Piperacillin Sod/ Tazobactam Sod 4.5 gm/Dextrose 120 ml @ 30 mls/hr Q8H IV 08/22/17 17:00 09/01/17 16:59 08/23/17 08:13 30 MLS/HR Miscellaneous Information (Consult) 1 ea UD PRN N/A 08/22/17 12:00 09/21/17 11:59 Miscellaneous Information (Consult) 1 ea UD PRN N/A 08/22/17 11:30 09/21/17 11:29 Pantoprazole Sodium 40 mg/ Syringe 10 ml @ 5 mls/min DAILY@0900 IV 08/23/17 09:00 09/22/17 08:59 08/23/17 08:13 5 MLS/MIN Miscellaneous Information (Consult Glycemic Management Pharmacy) 1 ea UD N/A 08/22/17 12:56 09/21/17 12:55 Norepinephrine Bitartrate 8 mg/ Dextrose 508 ml @ 0 mls/hr Q0M PRN IV 08/22/17 13:30 09/21/17 13:29 08/23/17 10:59 91.1 MLS/HR Vasopressin 50 units/Sodium Chloride 502.5 ml @ 24 mls/hr [id number] IV 08/22/17 13:30 09/21/17 13:29 08/23/17 11:02 24 MLS/HR Albuterol/ Ipratropium (Duoneb) 3 ml QIDR INH 08/22/17 16:00 09/21/17 15:59 08/23/17 11:20 3 ML Glucose (Glucose 40% Gel) 15-30 GRAMS 15 GRAMS... UD PRN PO 08/22/17 15:15 09/21/17 15:14 Glucose (Glucose Chew Tab) 4-8 Tablets 4 Tabl... UD PRN PO 08/22/17 15:15 09/21/17 15:14 Dextrose (Dextrose 50% 50ML Syringe) 25-50ML OF 50% DW IV FOR... UD PRN IV 2/6/18 15:15 09/21/17 15:14 Glucagon (Glucagon Inj) 1 mg UD PRN SQ 08/22/17 15:15 09/21/17 15:14 Ioversol (Optiray 320) 100 ml UD PRN IV 08/22/17 18:00 08/26/17 17:59 Insulin Human Regular 250 units/ Sodium Chloride 252.5 ml @ 0 mls/hr Q24H IV 08/22/17 19:00 09/21/17 18:59 08/22/17 19:22 1.9 MLS/HR Insulin Aspart (novoLOG ASPART) SLIDING SCALE PCHS SC 08/22/17 21:00 09/21/17 20:59 Heparin Sodium (Porcine) (Heparin Sq 5000 Unit/0.5ml) 5,000 unit Q8 SQ 08/22/17 22:00 09/21/17 21:59 08/23/17 05:37 5,000 UNIT Methylprednisolone Sodium Succinate 40 mg/Syringe 0.64 ml @ 1.5 mls/min Q8H IV 08/22/17 19:00 09/21/17 18:59 08/23/17 11:08 1.5 MLS/MIN Midazolam HCl 250 ml @ 0 mls/hr Q0M PRN IV 08/22/17 18:51 09/21/17 18:50 Vital Signs: Date Time Temp Pulse Resp B/P (MAP) Pulse Ox O2 Delivery O2 Flow Rate FiO2 08/23/17 11:20 30 08/23/17 10:00 59 22 140/79 (99) 97 Mechanical Ventilator 30 08/23/17 08:00 98 Mechanical Ventilator 30 08/23/17 08:00 30 08/23/17 08:00 36.7 65 22 150/83 (105) 95 Mechanical Ventilator 30 08/23/17 07:30 30 08/23/17 06:00 37.0 66 22 135/75 (95) 97 Mechanical Ventilator 30 08/23/17 05:30 30 08/23/17 04:00 99 Mechanical Ventilator 30 08/23/17 04:00 37.2 67 26 116/61 (79) 98 Mechanical Ventilator 30 08/23/17 04:00 30 08/23/17 02:30 30 08/23/17 02:00 37.3 71 26 141/79 (99) 100 Mechanical Ventilator 50 2/7/18 00:10 37.3 74 26 137/58 (84) 100 Mechanical Ventilator 50 2//18 00:04 37.3 65 26 118/70 (86) 100 Mechanical Ventilator 50 2//18 00:01 37.3 85 26 64/46 (52) 100 Mechanical Ventilator 50 2//18 23:59 99 Mechanical Ventilator 50 2//18 23:59 50 2//18 23:30 50 2//18 22:20 36.9 76 26 115/83 (94) 99 2/6/18 22:11 36.8 72 26 125/60 (81) 2/618 22:00 99 Mechanical Ventilator 100 2/18 22:00 100 2//18 22:00 36.8 77 26 110/86 (94) 99 2/18 21:50 50 2//18 21:50 36.7 76 26 117/83 (94) 98 2/6/18 21:41 36.7 81 26 110/76 (87) 218 21:31 36.6 84 26 102/44 (63) 98 2/6/18 21:21 36.5 76 26 133/58 (83) 99 2/6/18 21:11 36.4 80 19 110/69 (83) 97 2/6/18 21:01 36.3 75 26 131/63 (85) 97 2/6/18 20:50 36.2 79 26 103/65 (78) 97 2/6/18 20:41 36.1 77 26 111/65 (80) 95 2//18 20:30 50 2/6/18 20:00 50 2/6/18 20:00 35.7 79 26 103/82 (89) 98 2/6/18 18:30 34.7 72 20 99/39 (59) 100 2/6/18 18:10 34.6 73 20 106/62 (77) 100 2/6/18 18:00 34.6 72 20 80/75 (77) 89 2/6/18 17:10 34.6 73 11 122/65 (84) 100 Mechanical Ventilator 100 2//18 17:02 100 2//18 17:00 34.6 68 14 107/44 (66) 98 2/6/18 17:00 34.6 68 14 107/44 (65) 98 2/18 16:50 34.7 68 17 88/48 (61) 98 218 16:46 34.7 65 17 79/49 (59) 98 218 16:30 99 BiPAP 100 08/22/17 16:30 34.8 76 49 123/58 (79) 95 Mechanical Ventilator 100 08/22/17 16:30 100 18 16:08 68 35 91 BiPAP/CPAP 60 08/22/17 16:08 68 91 60 18 16:00 34.8 64 16 108/46 (66) 91 18 16:00 34.8 64 16 108/46 (66) 91 18 15:20 34.6 77 21 114/50 (71) 94 /18 15:15 34.5 77 15 136/52 (80) 95 08/22/17 15:00 34.4 84 21 137/58 (86) 95 08/22/17 14:50 34.3 82 31 141/60 (87) 96 /18 14:30 34.1 86 19 143/62 (89) 96 218 14:00 34.0 95 18 134/60 (84) 97 BiPAP 60 08/22/17 14:00 34.0 95 18 134/60 (91) 97 18 13:30 33.9 79 20 104/46 (65) 97 BiPAP 60 08/22/17 13:00 33.8 82 29 103/46 (65) 98 BiPAP 60 08/22/17 13:00 33.8 82 29 103/46 (65) 98 18 12:54 33.7 79 22 108/48 98 60 18 12:50 33.7 85 27 108/48 (68) 98 BiPAP 60 08/22/17 12:44 88 133/62 98 08/22/17 12:39 93 98 60 08/22/17 12:03 82 126/60 98 Room Air 08/22/17 11:49 34.0 94 16 98/64 98 BiPAP Laboratory Results: Last 24 Hours Test 08/22/17 11:56 08/22/17 12:42 08/22/17 15:56 08/22/17 18:15 Hemoglobin 14.1 g/dL 13.1 g/dL Hematocrit 44.9 % 42.5 % Prothrombin Time 10.4 SECONDS Prothromb Time International Ratio 1.0 Activated Partial Thromboplast Time 29.4 SECONDS Partial Thromboplastin Ratio 1.1 D-Dimer 1340 ug/L FEU Sodium Level 146 mmol/L 143 mmol/L Potassium Level 4.9 mmol/L 5.5 mmol/L Chloride Level 114 mmol/L 114 mmol/L Carbon Dioxide Level 30 mmol/L 29 mmol/L Anion Gap 2.0 mmol/L 0.0 mmol/L Blood Urea Nitrogen 55 mg/dl 49 mg/dl Creatinine 1.83 mg/dl 1.68 mg/dl Est Creatinine Clear Calc Drug Dose 26.0 ml/min 28.5 ml/min Estimated GFR () 29.7 32.9 Estimated GFR (Non- 25.6 28.4 BUN/Creatinine Ratio 29.9 28.9 Random Glucose 109 mg/dl 206 mg/dl Estimated Average Glucose 157 mg/dl Hemoglobin A1c 7.1 % Lactic Acid Level 0.7 mmol/L 0.5 mmol/L Calcium Level 8.2 mg/dl 7.2 mg/dl Troponin I < 0.015 ng/ml Procalcitonin 0.07 ng/ml Thyroid Stimulating Hormone (TSH) 1.660 uIu/ml Bedside Glucose 200 mg/dl Pro-B-Type Natriuretic Peptide 5436 pg/ml Bedside Glucose (other) 256 mg/dl Test 08/22/17 19:35 08/22/17 19:40 08/22/17 21:13 08/22/17 21:41 Sodium Level 135 mmol/L Potassium Level 4.7 mmol/L Chloride Level 104 mmol/L Carbon Dioxide Level 26 mmol/L Anion Gap 5.0 mmol/L Blood Urea Nitrogen 47 mg/dl Creatinine 1.82 mg/dl Est Creatinine Clear Calc Drug Dose 26.3 ml/min Estimated GFR () 29.9 Estimated GFR (Non- 25.8 BUN/Creatinine Ratio 25.8 Random Glucose 485 mg/dl Lactic Acid Level 1.5 mmol/L Calcium Level 6.7 mg/dl Troponin I < 0.015 ng/ml Beta-Hydroxybutyric Acid 2.98 mg/dL Blood Gas Sample Site L Radial L Radial Bedside Blood Gas pH (LAB) 7.15 7.27 Bedside Blood Gas pCO2 (LAB) 68 mmHg 50 mmHg Bedside Blood Gas pO2 (LAB) 368 mmHg 101 mmHg Bedside Blood Gas HCO3 (LAB) 24 meq/L 23 meq/L Bedside Blood Gas Total CO2 27 mEq/l 24 mEq/l Bedside Blood Gas Base Excess (LAB) -5.0 meq/L -4.0 meq/L Bedside Blood Gas O2 Saturation 100.0 % 97.0 % Laron Test Pass Pass Oxygen Delivery Device Ventilator Ventilator Bedside Oxygen Rate (breaths/min) 20 26 Blood Gas Minute Ventilation 8.9 12.9 Bedside FiO2 30 % 50 % Blood Gas Tidal Volume 450 480 Blood Gas PEEP 3 3 Bedside Glucose (other) 463 mg/dl Test 08/22/17 22:09 08/22/17 23:31 08/22/17 23:48 08/23/17 00:39 Bedside Glucose (other) 383 mg/dl 408 mg/dl 354 mg/dl Sodium Level 142 mmol/L Potassium Level 4.2 mmol/L Chloride Level 111 mmol/L Carbon Dioxide Level 24 mmol/L Anion Gap 6.0 mmol/L Blood Urea Nitrogen 42 mg/dl Creatinine 1.81 mg/dl Est Creatinine Clear Calc Drug Dose 26.5 ml/min Estimated GFR () 30.1 Estimated GFR (Non- 25.9 BUN/Creatinine Ratio 23.3 Random Glucose 220 mg/dl Lactic Acid Level 3.3 mmol/L Calcium Level 6.7 mg/dl Test 08/23/17 01:35 08/23/17 02:53 08/23/17 03:02 08/23/17 03:27 Bedside Glucose (other) 315 mg/dl 240 mg/dl Bedside Hemoglobin 13.3 g/dl Bedside Hematocrit 39 % Bedside Blood Gas pH (LAB) 7.38 Bedside Blood Gas pCO2 (LAB) 37 mmHg Bedside Blood Gas pO2 (LAB) 149 mmHg Bedside Blood Gas HCO3 (LAB) 22 meq/L Bedside Blood Gas Total CO2 23 mEq/l Bedside Blood Gas Base Excess (LAB) -4.0 meq/L Bedside Blood Gas O2 Saturation 99.0 % Bedside Sodium 140 mEq/L Bedside Potassium 4.4 mEq/L White Blood Count 16.92 K/uL Red Blood Count 4.07 M/uL Hemoglobin 12.5 g/dL Hematocrit 39.3 % Mean Corpuscular Volume 96.6 fL Mean Corpuscular Hemoglobin 30.7 pg Mean Corpuscular Hemoglobin Concent 31.8 g/dl Platelet Count 243 K/uL Mean Platelet Volume 10.8 fL Neutrophils (%) (Auto) 87.0 % Lymphocytes (%) (Auto) 4.1 % Monocytes (%) (Auto) 6.1 % Eosinophils (%) (Auto) 0.1 % Basophils (%) (Auto) 0.2 % Neutrophils # (Auto) 14.72 K/uL Lymphocytes # (Auto) 0.69 K/uL Monocytes # (Auto) 1.04 K/uL Eosinophils # (Auto) 0.01 K/uL Basophils # (Auto) 0.04 K/uL RDW Standard Deviation 54.4 fL RDW Coefficient of Variation 15.4 % Immature Granulocyte % (Auto) 2.5 % Immature Granulocyte # (Auto) 0.42 K/uL Nucleated RBC Absolute Count (auto) 0.41 K/uL Nucleated Red Blood Cells % 2.4 % Polychromasia 1+ Activated Partial Thromboplast Time 30.6 SECONDS Partial Thromboplastin Ratio 1.2 Lactic Acid Level 2.6 mmol/L Random Vancomycin Level 10.1 mcg/ml Test 08/23/17 04:02 08/23/17 04:46 08/23/17 04:52 08/23/17 05:52 Bedside Glucose (other) 312 mg/dl 114 mg/dl Sodium Level 139 mmol/L Potassium Level 4.4 mmol/L Chloride Level 109 mmol/L Carbon Dioxide Level 25 mmol/L Anion Gap 5.0 mmol/L Blood Urea Nitrogen 42 mg/dl Creatinine 1.77 mg/dl Est Creatinine Clear Calc Drug Dose 27.1 ml/min Estimated GFR () 30.9 Estimated GFR (Non- 26.7 BUN/Creatinine Ratio 23.6 Random Glucose 116 mg/dl Calcium Level 6.9 mg/dl Magnesium Level 1.9 mg/dl Total Bilirubin 0.4 mg/dl Aspartate Amino Transf (AST/SGOT) 58 U/L Alanine Aminotransferase (ALT/SGPT) 70 U/L Alkaline Phosphatase 66 U/L Troponin I 1.260 ng/ml Total Protein 5.8 gm/dl Albumin 2.3 gm/dl Globulin 3.5 gm/dl Albumin/Globulin Ratio 0.7 Procalcitonin 0.37 ng/ml Blood Gas Sample Site L Radial Bedside Blood Gas pH (LAB) 7.38 Bedside Blood Gas pCO2 (LAB) 35 mmHg Bedside Blood Gas pO2 (LAB) 70 mmHg Bedside Blood Gas HCO3 (LAB) 21 meq/L Bedside Blood Gas Total CO2 22 mEq/l Bedside Blood Gas Base Excess (LAB) -5.0 meq/L Bedside Blood Gas O2 Saturation 94.0 % Laron Test Pass Oxygen Delivery Device Ventilator Bedside Oxygen Rate (breaths/min) 26 Blood Gas Minute Ventilation 12.5 Bedside FiO2 30 % Blood Gas Tidal Volume 500 Blood Gas PEEP 3 Test 08/23/17 06:01 08/23/17 06:37 08/23/17 08:56 08/23/17 10:36 Bedside Glucose (other) 115 mg/dl 217 mg/dl 147 mg/dl 140 mg/dl
[2017-08-23 13:24] LABS: CKMB 16.1 ng/ml (0.5-3.6)
[2017-08-23] MEDS: DOXYCYCLINE IV 100 MG in DEXTROSE 5% 100ML 100 ML IV SCH (13:43)
[2017-08-23] MEDS ORDERED: SODIUM PHOSPHATE 3 MMOL/1 ML INFUSION IV STA (18:07)
[2017-08-23 18:31] LABS: CKMB 13.1 ng/ml (0.5-3.6)
[2017-08-23] MEDS: INSULIN REGULAR 250 UNITS in SODIUM CHLORIDE 0.9% 250ML 250 ML IV SCH (18:56)
[2017-08-23] MEDS ORDERED: SODIUM PHOSPHATE INJ 15 MMOL in SODIUM CHLORIDE 0.9% 250ML 250 ML IV ONE (19:00)
--- NOTE | 2017-08-23 19:38 | Pharmacy Progress Note ---
Pharmacy Glycemic Short Note 2 Date of Service Aug 23, 2017. ASSESSMENT: * Received call from RN that patient had multiple low BSGs on insulin drip and last rate was down to 1.6 units/hr * Patient is not a candidate for transition to SQ basal/bolus at this point because of her critical ill status PLAN FOR INPATIENT GLYCEMIC CONTROL: * Place insulin drip on hold * Pending order placed to check BSGs q4h and resume insulin drip at 1 unit/hr ( then as per insulin drip calculator) if/when BSG > 180 mg/dL
[2017-08-24] VITALS (43 sets, daily range): BP systolic 82–136; BP diastolic 44–82; PULSE 67–106; TEMP 36.8–37.8; O2SAT 91–98; Ht 170.2 cm; Wt 88.2 kg
[2017-08-24] MEDS: PIPERACILL/TAZOBAC IV 4.5 GM in DEXTROSE 5% 100ML 100 ML IV SCH ×3 (00:42→16:28)
[2017-08-24] MEDS: DOXYCYCLINE IV 100 MG in DEXTROSE 5% 100ML 100 ML IV SCH ×2 (01:32→14:21)
[2017-08-24] MEDS: METHYLPREDNISOLONE IV 40 MG in SYRINGE 0 ML IV SCH ×3 (03:30→19:01)
[2017-08-24 06:13] LABS: PTT PATIENT 38.5 SECONDS (21.0-31.0)
[2017-08-24] MEDS: HEPARIN SOD 5000 UNIT/0.5 ML CARP SQ SCH ×3 (06:38→21:45)
[2017-08-24 06:46] LABS: ALBUMIN 2.2 gm/dl (3.4-5.0); ALT/SGPT 51 U/L (12-78); AST/SGOT 59 U/L (15-37); BLOOD UREA NITROGEN 35 mg/dl (7-18); CALCIUM 7.1 mg/dl (8.5-10.1); CARBON DIOXIDE 25 mmol/L (21-32); CREATININE 1.68 mg/dl (0.60-1.20); GLUCOSE 96 mg/dl (70-99); POTASSIUM 4.4 mmol/L (3.5-5.1); SODIUM 141 mmol/L (136-145)
[2017-08-24 06:54] LABS: ALKALINE PHOSPHATASE 59 U/L (45-117); CKMB 9.4 ng/ml (0.5-3.6); PHOSPHORUS 3.2 mg/dl (2.5-4.9); TOTAL PROTEIN 5.7 gm/dl (6.4-8.2)
--- NOTE | 2017-08-24 06:58 | DIAGNOSTIC IMAGING REPORT ---
CHEST ONE VIEW PORTABLE CLINICAL HISTORY: RV failure dyspnea COMPARISON STUDY: 08/23/2017 FINDINGS: Endotracheal tube 1.7 cm of the bernardo. Mild interstitial prominence left lung base unchanged. Minimal plate atelectasis right base. Pulmonary vascular congestion has continued to improve. Old fracture right humeral head and neck. IMPRESSION: 1. Endotracheal tube 1.7 cm both bernardo. 2. Mild residual interstitial change left base. 3. Continued improvement in the patient's pulmonary vascular congestion with minimal if any residual. The above report was generated using voice recognition software. It may contain grammatical, syntax or spelling errors. Electronically signed by: Bryant Stevens M.D. 08/24/2017 6:57 AM Dictated Date/Time: 08/24/2017 6:55 AM
[2017-08-24] MEDS: VASOPRESSIN INJ 50 UNITS in SODIUM CHLORIDE 0.9% 500ML 500 ML IV SCH (07:24)
[2017-08-24] MEDS: ALBUT/IPRATROP 3MG/0.5MG NEB 3 ML VIAL INH SCH ×4 (08:00→20:06)
[2017-08-24] MEDS ORDERED: CALCIUM CHLORIDE 10% 10 ML SYR IV STA (08:35)
[2017-08-24] MEDS ORDERED: CALCIUM CHLORIDE 10% 1,000 MG in SODIUM CHLORIDE 0.9% 50ML 50 ML IV ONE (08:45)
--- NOTE | 2017-08-24 08:51 | ECHOCARDIOGRAM REPORT ---
*NOTICE TO RECEIVING REPUBLICAN AGENCY This information is strictly Confidential and protected under [place] law. [place] law prohibits you from making any further disclosure of this information unless further disclosure is expressly permitted by the written consent of the person to whom it pertains or is authorized by law. A general authorization for the release of medical or other information is not sufficient for this purpose. Hospital accepts no responsibility if the information is made available to any other person, INCLUDING THE PATIENT. Interpretation Summary * Name: Angel GOMEZ Study Date: 08/24/2017 07:15 AM * [place] [facility] [place]\S\1 * : 1935 (M/d/yyyy) Gender: Female Height: 67 in * Age: 81 yrs Ethnicity: [place] Weight: 175 lb * Ordering Physician: Mike Jack * Referring Physician: UNKNOWN * Performed By: Lois Cohen RDCS * * Reason For Study: EVAL RV * BSA: 1.9 m2 * -- Conclusions -- * A focused study was performed per provider request for follow up of the right ventricular function and assessment of pulmonary hypertension. * The right ventricle is normal size. * The right ventricular systolic function is normal. * There is mild tricuspid regurgitation. * The right ventricular systolic pressure is 25 mm Hg. * Compared to the prior study performed two days ago on 08/22/17, there has been an interval improvement in the RV size and systolic function. * The tricuspid regurgitation has decreased in severity with improvement in the calculated right ventricular systolic pressure with RV systolic pressure of 25 mm Hg on the present study as compared to 50-60 mm Hg on the prior study. * The inferior vena cava was not imaged on the present study and therefore the right ventricular pressures are being reported today as compared to the calculated pulmonary artery systolic pressure. Procedure Details * Left Ventricle Ejection Fraction = >70 %. * Right Ventricle The right ventricle is normal size. The right ventricular systolic function is normal. * Tricuspid Valve The right ventricular systolic pressure is 25 mm Hg. There is mild tricuspid regurgitation. * Pericardium/Pleural There is no pericardial effusion. * * Doppler Measurements and Calculations * TR max aracelis 250.2 cm/sec * * * * *
[2017-08-24] MEDS: PANTOprazole INJ 40 MG in SYRINGE 0 ML IV SCH (08:52)
[2017-08-24] MEDS ORDERED: ASPIRIN 81 MG ECTAB PO SCH (09:00)
[2017-08-24] MEDS ORDERED: IMPACT LIQ 1000 ML BAG OG PRN (10:30)
--- NOTE | 2017-08-24 10:38 | Clinical Documentation Query ---
CLINICAL DOCUMENTATION QUERY 81 year old female presents with AMS, hypothermic, in profound shock. Current troponin increased to 1.260 and EKG shows inferior infarct, T wave abnormality and possibl anterolateral ischemia. Echo shows EF = >70%, mild concentric left ventricular hypertrophy, right ventricle dilation, tricuspid regurgitation, and severe pulmonary hypertension. In your clinical opinion is this patient being managed for: ( ) Type 2 TX due to demand ischemia ( ) Not Agree (+ ) Other explanation of clinical findings (Please Explain) ( ) Unable to determine (Please Define) ( ) Need to Discuss Due to sepsis The medical record reflects the following clinical findings, treatment, and risk factors. Clinical Indicators: As above Treatment: ICU, ventilator, Cardiology, serial EKG, serial troponin, Heparin IV Risk Factors: Age, multi-organ failure Please clarify and document your clinical opinion in the progress notes and discharge summary. Terms such as "probable", "suspected", "likely", "questionable", "possible", or "still to be ruled out" are acceptable. IF IN AGREEMENT, YOU MUST DOCUMENT ABOVE DIAGNOSTIC STATEMENT IN DAILY PROGRESS NOTES AND DISCHARGE SUMMARY. This document is not part of the patient's record. Thank You, Odalys Vasquez RN [phone]
--- NOTE | 2017-08-24 11:04 | Pharmacy Progress Note ---
Pharmacy Abx Dose Short Note Date of Service Aug 24, 2017. Assessment & Plan Pharmacy has been consulted for the following: * Glycemic Control * Vancomycin IV dosing * Zosyn IV dosing Assessment/Plan Glycemic control * Type 2 diabetic with reasonably well controlled DM admitted 08/22 for altered mental status, hypoxemia, hypotension, sepsis secondary to UTI / pneumonia * She was managed w/ Glipizide ER 5mg daily + Lantus 15 units SQ BID prior to admission * Glycemic control quickly deteriorated on day one of admission secondary to high dose steroids, pressors and dextrose containing IV's. As a result she was placed on IV insulin drip per protocol * She remains on a vent this AM, however pressors (norepi, vaospressin) have been weaned off - insulin sensitivity improved quickly when pressors weaned off. * In fact insulin drip was cut last evening due to BSGs running below goal range with the drip and remained acceptable with the drip off. * She will be starting continuous tube feeds today and this will likely lead to the patient requiring an insulin drip again in the near future as continuous tube feeds + high dose steroids nearly always lead to uncontrolled BSGs despite aggressive SQ * Plan for today: * Will begin the following SQ regimen today: * Lantus SQ BID: 0 units if BSG less than 120, 10 units if BSG 120-180, 15 units if BSG above 180 * Novolog SQ Q 4 hrs; goal range 120 - 160mg/dL; CF 20; CR 1 unit per 7gm delivered in tube feeds * Carbs in Impact TF's will need covered with carb ratio * However if the above regimen does not maintain BSGs less than 220, will resume IV insulin infusion at reduced rate of 1unit/hr, goal 120-200, then adjust per protocol Vancomycin * Nasal MRSA screen negative; all micro negative to date * CXR read as L base parenchymal infiltrate * Renal fxn improving slowly (SCr 1.83 -->1.77-->1.68), unknown baseline SCr * 1500mg (20mg/kg) IV x 1 08/22 @1311 * Random level drawn ~14.5 hrs later = 10.1 indicating need for redosing * 1250mg (15mg/kg) IV x 1 08/23 @0814 * Random level drawn ~14 hrs later = 21.8 * Random level drawn this AM (~21 hours after last dose) = 17.5 * Estimated half-life is 22-26 hours in this patient, and given long half-life dosing will be based upon random levels * Will obtain random level ~14 hours after this AM's dose to assess rate of elimination * Plan is to redose vancomycin 1250mg IV x 1 this AM and check random level again ~24 hrs after this dose * Goal trough level for pulmonary infxn / sepsis : 15 to 20 mcg/mL Zosyn * eCrCl > 20cc/min, continue 4.5gm extended infusion IV Q 8 hours due to illness severity Pharmacy will continue to follow and will adjust dose/frequency as necessary. Thank you.
[2017-08-24] MEDS ORDERED: VANCOMYCIN IV 1,250 MG in SODIUM CHLORIDE 0.9% 250ML 250 ML IV ONE (11:15)
[2017-08-24] MEDS: INSULIN ASPART 100 UNITS/ML 3 ML PEN SC SCH ×3 (11:24→20:08)
--- NOTE | 2017-08-24 14:10 | Progress Note ---
Subjective Date of Service: Aug 24, 2017. Subjective cultures negative, remains on abx, changed to doxy due to prolonged QT, now with fever. low grade. creat somewhat improved, troponin +, echo without veg. cxr somewhat improved today. Problem List Medical Problems: (1) Hypothermia Status: Acute (2) PNA (pneumonia) Status: Acute (3) UTI (urinary tract infection) Status: Acute Social History Problems: (1) Compression fracture of L1 lumbar vertebra Status: Acute (2) Contusion of right hip Status: Acute (3) Subdural hematoma Status: Acute Objective Vital Signs Date Time Temp Pulse Resp B/P (MAP) Pulse Ox O2 Delivery O2 Flow Rate FiO2 08/24/17 12:30 37.7 93 21 108/52 (70) 93 08/24/17 12:16 37.7 99 25 94/54 (67) 92 08/24/17 12:15 37.7 98 0 92 08/24/17 12:00 37.1 81 22 108/82 (91) 93 CPAP 08/24/17 12:00 CPAP 08/24/17 12:00 37.7 104 27 111/52 (71) 92 08/24/17 11:45 37.7 106 24 111/53 (72) 94 08/24/17 11:30 37.8 74 20 102/48 (66) 98 08/24/17 11:16 37.8 100 23 100/50 (67) 93 08/24/17 11:15 30 08/24/17 11:15 37.8 98 22 94 08/24/17 11:00 37.8 81 17 95/44 (61) 92 08/24/17 10:45 37.8 89 23 92 08/24/17 10:30 37.8 94 24 93 08/24/17 10:15 37.8 94 22 110/54 (72) 92 08/24/17 10:00 37.8 78 22 109/49 (69) 92 08/24/17 09:45 37.7 67 22 99/56 (70) 95 08/24/17 09:30 37.7 82 23 99/48 (65) 95 08/24/17 09:16 37.7 89 24 104/47 (66) 94 08/24/17 09:15 37.7 87 23 95 08/24/17 09:00 37.7 97 16 92/53 (66) 94 08/24/17 08:55 37.7 81 22 101/52 (68) 95 08/24/17 08:45 37.7 80 22 86/46 (59) 92 08/24/17 08:30 37.6 83 22 96/52 (67) 95 08/24/17 08:15 37.6 80 22 82/44 (57) 93 08/24/17 08:00 30 08/24/17 08:00 36.8 102 22 101/57 (72) 92 Mechanical Ventilator 30 08/24/17 08:00 Mechanical Ventilator 30 08/24/17 08:00 Mechanical Ventilator 30 08/24/17 08:00 37.5 90 22 84/48 (60) 96 08/24/17 07:56 37.5 89 22 85/49 (61) 08/24/17 07:55 37.5 102 22 88/50 (63) 95 08/24/17 07:45 37.5 96 26 94 08/24/17 07:30 37.4 88 24 101/51 (68) 94 08/24/17 07:15 37.3 92 26 95/57 (70) 93 08/24/17 07:15 30 08/24/17 07:00 37.2 77 22 96/53 (67) 92 08/24/17 06:00 37.0 87 25 110/59 (76) 93 Mechanical Ventilator 30 08/24/17 05:11 30 08/24/17 04:00 30 08/24/17 04:00 37.2 74 23 108/59 (75) 94 Mechanical Ventilator 30 08/24/17 04:00 Mechanical Ventilator 30 08/24/17 02:13 30 08/24/17 02:00 37.6 83 25 123/62 (82) 92 Mechanical Ventilator 30 08/24/17 00:01 37.7 90 29 120/54 (76) 93 Mechanical Ventilator 30 08/23/17 23:59 30 08/23/17 23:59 Mechanical Ventilator 30 08/23/17 23:10 30 08/23/17 22:01 37.5 88 25 101/47 (65) 93 Mechanical Ventilator 30 08/23/17 22:00 37.5 88 29 93 08/23/17 21:46 37.5 88 28 112/53 (72) 92 2/7/18 21:45 37.5 88 28 93 2/7/18 21:31 37.5 89 29 107/44 (65) 93 2/7/18 21:30 37.5 87 28 93 2/7/18 21:16 37.4 85 0 114/47 (69) 94 2/7/18 21:15 37.4 86 28 93 2/7/18 21:00 37.4 86 29 114/63 (80) 93 2/7/18 20:39 30 2/7/18 20:31 37.4 91 23 109/62 (78) 93 Mechanical Ventilator 30 2//18 20:30 37.4 90 29 93 2//18 20:16 37.4 89 21 102/63 (76) 94 2//18 20:01 37.5 81 20 98/47 (64) 94 2//18 20:00 93 Mechanical Ventilator 30 2//18 20:00 30 2//18 20:00 37.5 80 25 94 2//18 19:46 37.6 83 27 104/57 (73) 94 2//18 19:31 37.6 84 24 113/52 (72) 94 Mechanical Ventilator 30 2//18 19:30 37.6 83 28 94 2/7/18 19:16 37.7 84 20 98/71 (80) 92 2/7/18 19:02 37.7 83 26 124/54 (77) 93 2/7/18 19:00 37.7 76 27 93 2/7/18 18:46 37.6 78 27 111/52 (71) 94 2//18 18:42 37.6 76 29 110/74 (86) 95 2/7/18 18:31 37.6 76 28 124/82 (96) 94 Mechanical Ventilator 30 2//18 18:30 37.6 76 28 95 2/7/18 18:21 37.5 73 29 101/78 (86) 94 2/7/18 18:10 37.5 87 27 119/74 (89) 94 2/7/18 18:01 37.5 78 27 108/64 (79) 92 2//18 18:00 37.5 79 26 94 2/7/18 17:42 37.4 72 25 117/57 (77) 94 08/23/17 17:31 37.4 87 26 106/67 (80) 93 Mechanical Ventilator 30 08/23/17 17:30 37.4 84 23 95 08/23/17 17:21 37.3 60 22 108/70 (83) 96 08/23/17 17:10 37.3 61 22 117/76 (90) 96 08/23/17 17:01 37.3 60 22 103/68 (80) 96 08/23/17 17:00 37.3 60 22 96 08/23/17 16:51 37.2 61 22 124/75 (91) 96 08/23/17 16:40 37.2 54 22 119/73 (88) 96 08/23/17 16:30 37.2 67 22 115/72 (86) 95 08/23/17 16:20 37.2 69 22 114/74 (87) 95 08/23/17 16:10 37.2 63 22 102/68 (79) 96 Mechanical Ventilator 30 08/23/17 16:00 37.1 60 22 103/68 (80) 96 08/23/17 16:00 96 Mechanical Ventilator 30 08/23/17 16:00 30 08/23/17 15:51 37.1 60 22 112/65 (81) 96 08/23/17 15:41 37.1 55 22 110/67 (81) 95 08/23/17 15:30 37.1 69 22 112/66 (81) 96 08/23/17 15:21 37.1 67 22 114/75 (88) 95 08/23/17 15:10 37.1 71 22 114/71 (85) 96 08/23/17 15:00 37.0 66 22 108/68 (81) 95 08/23/17 14:32 30 Laboratory Results Last 24 Hours Test 08/23/17 14:18 08/23/17 14:25 08/23/17 16:09 08/23/17 16:30 Phosphorus Level 1.6 mg/dl Bedside Glucose (other) 175 mg/dl 84 mg/dl 39 mg/dl Test 08/23/17 16:47 08/23/17 16:51 08/23/17 17:54 08/23/17 17:57 Bedside Glucose (other) 182 mg/dl 181 mg/dl 123 mg/dl Creatine Kinase MB 13.1 ng/ml Creatine Kinase MB Ratio Troponin I 2.400 ng/ml Test 08/23/17 19:05 08/23/17 19:30 08/23/17 22:42 08/23/17 23:10 Bedside Glucose (other) 74 mg/dl 132 mg/dl Random Vancomycin Level 21.8 mcg/ml Bedside Glucose 76 mg/dl Test 08/24/17 00:11 08/24/17 01:27 08/24/17 03:34 08/24/17 04:44 Bedside Glucose 79 mg/dl 77 mg/dl 95 mg/dl Creatine Kinase MB Ratio Test 08/24/17 05:55 08/24/17 06:36 08/24/17 07:53 08/24/17 13:53 Activated Partial Thromboplast Time 38.5 SECONDS Partial Thromboplastin Ratio 1.5 Sodium Level 141 mmol/L Potassium Level 4.4 mmol/L Chloride Level 110 mmol/L Carbon Dioxide Level 25 mmol/L Anion Gap 6.0 mmol/L Blood Urea Nitrogen 35 mg/dl Creatinine 1.68 mg/dl Est Creatinine Clear Calc Drug Dose 29.0 ml/min Estimated GFR () 32.9 Estimated GFR (Non- 28.4 BUN/Creatinine Ratio 20.7 Random Glucose 96 mg/dl Lactic Acid Level 1.3 mmol/L Calcium Level 7.1 mg/dl Ionized Calcium 0.97 mmol/l Phosphorus Level 3.2 mg/dl Magnesium Level 1.9 mg/dl Total Bilirubin 0.6 mg/dl Aspartate Amino Transf (AST/SGOT) 59 U/L Alanine Aminotransferase (ALT/SGPT) 51 U/L Alkaline Phosphatase 59 U/L Creatine Kinase MB 9.4 ng/ml Troponin I 2.180 ng/ml Pro-B-Type Natriuretic Peptide 04460 pg/ml Total Protein 5.7 gm/dl Albumin 2.2 gm/dl Globulin 3.5 gm/dl Albumin/Globulin Ratio 0.6 Procalcitonin 0.29 ng/ml Random Vancomycin Level 17.5 mcg/ml Bedside Glucose 108 mg/dl Blood Gas Sample Site L Radial Bedside Blood Gas pH (LAB) 7.45 Bedside Blood Gas pCO2 (LAB) 34 mmHg Bedside Blood Gas pO2 (LAB) 74 mmHg Bedside Blood Gas HCO3 (LAB) 24 meq/L Bedside Blood Gas Total CO2 24 mEq/l Bedside Blood Gas Base Excess (LAB) 0.0 meq/L Bedside Blood Gas O2 Saturation 95.0 % Laron Test Pass Oxygen Delivery Device Ventilator Bedside Oxygen Rate (breaths/min) 22 Blood Gas Minute Ventilation 12.4 Bedside FiO2 30 % Blood Gas Tidal Volume 500 Blood Gas PEEP 5 Creatine Kinase MB Ratio Assessment and Plan (1) Hypothermia Assessment & Plan: continue abx, follow cultures. temps now increased. follow cultures. continue supportive care
--- NOTE | 2017-08-24 14:20 | Progress Note ---
Internal Med Progress Note Date of Service: Aug 24, 2017. Provider Documentation: SUBJECTIVE: The patient was seen and examined Was brought in with AMS and noted to be in Shock with Hypoxemia and Hypothermia Now intubated in ICU Remains critical but stable Difficult to wean off OBJECTIVE: Vital Signs-as noted below Exam: General-Intubated in ICU Sedated and does not have any distress Eyes-Closed ENT-Normal Neck-Supple Lungs-Decreased breath sound bilaterally Minimal crackles at the bases Heart-Regular Abdomen-Benign Extremities-Trace edema bilaterally Neuro-Sedated on Vent Lab data as noted below. ASSESSMENT & PLAN: ACUTE HYPOXIC RESPIRATORY FAILURE : Was hypothermic Temp 31 /hypotensive SBP in 70;s and hypoxic in RA 87 % Was placed on Bipap and intubated later on , ABG shows respiratory acidosis with hypercarbia Co2 > 90 CXR-no Pneumonia and CTA -0negative for any Pulmonary Embolism Underlying COPD /emphysema ( hx of smoking ) with retention of Co2 due to mental obtundation due to sepsis Has been on IV Solumedrol and Nebs Now Intubated in ICU Appreciate Animal Geneticist input Difficult to wean off CONFUSION /CHANGED MENTAL STATUS /METABOLIC ENCEPHALOPATHY : Likely due to hypercapnic respiratory failure and may be complicated by sepsis CT head -negative for CVA May Have Cardiogenic Shock as well Has severe Pulmonary HTN ECHO::There is mild concentric left ventricular hypertrophy. * The left ventricular wall motion is normal. * The LV Ejection Fraction = >70 %. * The right ventricle is mildly dilated. * The right ventricular systolic function is mildly reduced with diffuse right ventricular hypokinesis that spares the RV apex. * There is mild to moderate tricuspid regurgitation. * Dilated inferior vena cava with reduced collapsability with sniff indicates an elevated right atrial pressure of 15 mmHg * Severe pulmonary is hypertension, with PA systolic pressure calculated to be 75 mmg Hg, assuming a right atrial pressure of 15 mm Hg. * Compared to the report of the prior outpatient echocardiogram performed at [facility] dated 02/13/12, the right ventricular size and systolic function was normal at that time with normal calculated pulmonary pressures. * Findings compatible with possible acute pulmonary embolism versus interval development of pulmonary hypertension of uknown chronicity due to other cause. Trending Troponin -doubt any ACS Repeat ECHO in AM : showed improvement of the Right ventricular function Still requiring pressors HEATHER ON CKD STAGE 3 : HYPERNATREMIA ; ATN with anuria -minimum urine out put after fluid bolus IV fluids resuscitation , pressor support Follow PRP Q 4hrs per sepsis protocol Pt has solitary kidney ( s/p Left nephrectomy ) Baseline Cr 1.6 Nephrology consulted-appreciate Input Creatinine remains stable HYPOTENSION /HYPOTHERMIA : SEPSIS DUE TO UTI : Likely due to severe sepsis ,possible source of infection UTI Temp improved with Jayda hugger , IV fluid bolus followed by aggressive resuscitation per sepsis protocol Empiric Abx with Zosyn /vancomycin ( avoid quinolones -prolong Qtc ) , Doxycycline Started on pressors Animal Geneticist following Appreciate ID input Blood and Urine Cultures are negative Vancomycin discontinued CODE STATUS : d/w Daughter -full code DVT PROPHYLAXIS high risk ICU admission /obtundation Sub q heparin Vital Signs: Date Time Temp Pulse Resp B/P (MAP) Pulse Ox O2 Delivery O2 Flow Rate FiO2 08/24/17 12:30 37.7 93 21 108/52 (70) 93 08/24/17 12:16 37.7 99 25 94/54 (67) 92 08/24/17 12:15 37.7 98 0 92 08/24/17 12:00 37.1 81 22 108/82 (91) 93 CPAP 08/24/17 12:00 CPAP 08/24/17 12:00 37.7 104 27 111/52 (71) 92 08/24/17 11:45 37.7 106 24 111/53 (72) 94 08/24/17 11:30 37.8 74 20 102/48 (66) 98 08/24/17 11:16 37.8 100 23 100/50 (67) 93 08/24/17 11:15 30 08/24/17 11:15 37.8 98 22 94 08/24/17 11:00 37.8 81 17 95/44 (61) 92 08/24/17 10:45 37.8 89 23 92 08/24/17 10:30 37.8 94 24 93 08/24/17 10:15 37.8 94 22 110/54 (72) 92 08/24/17 10:00 37.8 78 22 109/49 (69) 92 08/24/17 09:45 37.7 67 22 99/56 (70) 95 08/24/17 09:30 37.7 82 23 99/48 (65) 95 08/24/17 09:16 37.7 89 24 104/47 (66) 94 08/24/17 09:15 37.7 87 23 95 08/24/17 09:00 37.7 97 16 92/53 (66) 94 08/24/17 08:55 37.7 81 22 101/52 (68) 95 08/24/17 08:45 37.7 80 22 86/46 (59) 92 08/24/17 08:30 37.6 83 22 96/52 (67) 95 08/24/17 08:15 37.6 80 22 82/44 (57) 93 08/24/17 08:00 30 08/24/17 08:00 36.8 102 22 101/57 (72) 92 Mechanical Ventilator 30 08/24/17 08:00 Mechanical Ventilator 30 08/24/17 08:00 Mechanical Ventilator 30 08/24/17 08:00 37.5 90 22 84/48 (60) 96 08/24/17 07:56 37.5 89 22 85/49 (61) 08/24/17 07:55 37.5 102 22 88/50 (63) 95 08/24/17 07:45 37.5 96 26 94 08/24/17 07:30 37.4 88 24 101/51 (68) 94 08/24/17 07:15 37.3 92 26 95/57 (70) 93 08/24/17 07:15 30 08/24/17 07:00 37.2 77 22 96/53 (67) 92 08/24/17 06:00 37.0 87 25 110/59 (76) 93 Mechanical Ventilator 30 08/24/17 05:11 30 08/24/17 04:00 30 08/24/17 04:00 37.2 74 23 108/59 (75) 94 Mechanical Ventilator 30 08/24/17 04:00 Mechanical Ventilator 30 08/24/17 02:13 30 08/24/17 02:00 37.6 83 25 123/62 (82) 92 Mechanical Ventilator 30 08/24/17 00:01 37.7 90 29 120/54 (76) 93 Mechanical Ventilator 30 08/23/17 23:59 30 08/23/17 23:59 Mechanical Ventilator 30 08/23/17 23:10 30 08/23/17 22:01 37.5 88 25 101/47 (65) 93 Mechanical Ventilator 30 2/18 22:00 37.5 88 29 93 2/7/18 21:46 37.5 88 28 112/53 (72) 92 2//18 21:45 37.5 88 28 93 2/7/18 21:31 37.5 89 29 107/44 (65) 93 2//18 21:30 37.5 87 28 93 2//18 21:16 37.4 85 0 114/47 (69) 94 2//18 21:15 37.4 86 28 93 2//18 21:00 37.4 86 29 114/63 (80) 93 2//18 20:39 30 2//18 20:31 37.4 91 23 109/62 (78) 93 Mechanical Ventilator 30 2/18 20:30 37.4 90 29 93 2//18 20:16 37.4 89 21 102/63 (76) 94 218 20:01 37.5 81 20 98/47 (64) 94 2/18 20:00 93 Mechanical Ventilator 30 2/18 20:00 30 2//18 20:00 37.5 80 25 94 2//18 19:46 37.6 83 27 104/57 (73) 94 2//18 19:31 37.6 84 24 113/52 (72) 94 Mechanical Ventilator 30 2//18 19:30 37.6 83 28 94 2//18 19:16 37.7 84 20 98/71 (80) 92 2/18 19:02 37.7 83 26 124/54 (77) 93 2/18 19:00 37.7 76 27 93 2/7/18 18:46 37.6 78 27 111/52 (71) 94 2/7/18 18:42 37.6 76 29 110/74 (86) 95 2/7/18 18:31 37.6 76 28 124/82 (96) 94 Mechanical Ventilator 30 2/7/18 18:30 37.6 76 28 95 2/7/18 18:21 37.5 73 29 101/78 (86) 94 2//18 18:10 37.5 87 27 119/74 (89) 94 2//18 18:01 37.5 78 27 108/64 (79) 92 08/23/17 18:00 37.5 79 26 94 08/23/17 17:42 37.4 72 25 117/57 (77) 94 08/23/17 17:31 37.4 87 26 106/67 (80) 93 Mechanical Ventilator 30 08/23/17 17:30 37.4 84 23 95 08/23/17 17:21 37.3 60 22 108/70 (83) 96 08/23/17 17:10 37.3 61 22 117/76 (90) 96 08/23/17 17:01 37.3 60 22 103/68 (80) 96 08/23/17 17:00 37.3 60 22 96 08/23/17 16:51 37.2 61 22 124/75 (91) 96 08/23/17 16:40 37.2 54 22 119/73 (88) 96 08/23/17 16:30 37.2 67 22 115/72 (86) 95 08/23/17 16:20 37.2 69 22 114/74 (87) 95 08/23/17 16:10 37.2 63 22 102/68 (79) 96 Mechanical Ventilator 30 08/23/17 16:00 37.1 60 22 103/68 (80) 96 08/23/17 16:00 96 Mechanical Ventilator 30 08/23/17 16:00 30 08/23/17 15:51 37.1 60 22 112/65 (81) 96 08/23/17 15:41 37.1 55 22 110/67 (81) 95 08/23/17 15:30 37.1 69 22 112/66 (81) 96 08/23/17 15:21 37.1 67 22 114/75 (88) 95 08/23/17 15:10 37.1 71 22 114/71 (85) 96 08/23/17 15:00 37.0 66 22 108/68 (81) 95 08/23/17 14:32 30 Lab Results: Results Past 24 Hours Test 08/23/17 14:18 08/23/17 14:25 08/23/17 16:09 08/23/17 16:30 Range/Units Phosphorus Level 1.6 2.5-4.9 mg/dl Bedside Glucose (other) 175 84 39 70-99 mg/dl Test 08/23/17 16:47 08/23/17 16:51 08/23/17 17:54 08/23/17 17:57 Range/Units Bedside Glucose (other) 182 181 123 70-99 mg/dl Creatine Kinase MB 13.1 0.5-3.6 ng/ml Creatine Kinase MB Ratio 0-3.0 Troponin I 2.400 0-0.045 ng/ml Test 08/23/17 19:05 08/23/17 19:30 08/23/17 22:42 08/23/17 23:10 Range/Units Bedside Glucose (other) 74 132 70-99 mg/dl Random Vancomycin Level 21.8 mcg/ml Bedside Glucose 76 70-90 mg/dl Test 08/24/17 00:11 08/24/17 01:27 08/24/17 03:34 08/24/17 04:44 Range/Units Bedside Glucose 79 77 95 70-90 mg/dl Creatine Kinase MB Ratio 0-3.0 Test 08/24/17 05:55 08/24/17 06:36 08/24/17 07:53 08/24/17 13:53 Range/Units Activated Partial Thromboplast Time 38.5 21.0-31.0 SECONDS Partial Thromboplastin Ratio 1.5 Sodium Level 141 136-145 mmol/L Potassium Level 4.4 3.5-5.1 mmol/L Chloride Level 110 98-107 mmol/L Carbon Dioxide Level 25 21-32 mmol/L Anion Gap 6.0 3-11 mmol/L Blood Urea Nitrogen 35 7-18 mg/dl Creatinine 1.68 0.60-1.20 mg/dl Est Creatinine Clear Calc Drug Dose 29.0 ml/min Estimated GFR () 32.9 Estimated GFR (Non- 28.4 BUN/Creatinine Ratio 20.7 10-20 Random Glucose 96 70-99 mg/dl Lactic Acid Level 1.3 0.4-2.0 mmol/L Calcium Level 7.1 8.5-10.1 mg/dl Ionized Calcium 0.97 1.12-1.32 mmol/l Phosphorus Level 3.2 2.5-4.9 mg/dl Magnesium Level 1.9 1.8-2.4 mg/dl Total Bilirubin 0.6 0.2-1 mg/dl Aspartate Amino Transf (AST/SGOT) 59 15-37 U/L Alanine Aminotransferase (ALT/SGPT) 51 12-78 U/L Alkaline Phosphatase 59 45-117 U/L Creatine Kinase MB 9.4 0.5-3.6 ng/ml Troponin I 2.180 0-0.045 ng/ml Pro-B-Type Natriuretic Peptide 90277 0-1800 pg/ml Total Protein 5.7 6.4-8.2 gm/dl Albumin 2.2 3.4-5.0 gm/dl Globulin 3.5 2.5-4.0 gm/dl Albumin/Globulin Ratio 0.6 0.9-2 Procalcitonin 0.29 0-0.5 ng/ml Random Vancomycin Level 17.5 mcg/ml Bedside Glucose 108 70-90 mg/dl Blood Gas Sample Site L Radial Bedside Blood Gas pH (LAB) 7.45 7.35-7.45 Bedside Blood Gas pCO2 (LAB) 34 35-46 mmHg Bedside Blood Gas pO2 (LAB) 74 80-95 mmHg Bedside Blood Gas HCO3 (LAB) 24 19-24 meq/L Bedside Blood Gas Total CO2 24 24-31 mEq/l Bedside Blood Gas Base Excess (LAB) 0.0 -9-1.8 meq/L Bedside Blood Gas O2 Saturation 95.0 90-95 % Laron Test Pass Oxygen Delivery Device Ventilator Bedside Oxygen Rate (breaths/min) 22 Blood Gas Minute Ventilation 12.4 Bedside FiO2 30 % Blood Gas Tidal Volume 500 Blood Gas PEEP 5 Creatine Kinase MB Ratio 0-3.0
[2017-08-24 14:32] LABS: ALBUMIN 2.1 gm/dl (3.4-5.0); ALT/SGPT 44 U/L (12-78); AST/SGOT 55 U/L (15-37); BLOOD UREA NITROGEN 37 mg/dl (7-18); CALCIUM 7.2 mg/dl (8.5-10.1); CARBON DIOXIDE 24 mmol/L (21-32); CREATININE 1.79 mg/dl (0.60-1.20); GLUCOSE 149 mg/dl (70-99); POTASSIUM 4.1 mmol/L (3.5-5.1); SODIUM 143 mmol/L (136-145)
[2017-08-24 14:52] LABS: ALKALINE PHOSPHATASE 50 U/L (45-117); CKMB 6.6 ng/ml (0.5-3.6); PHOSPHORUS 3.2 mg/dl (2.5-4.9); TOTAL PROTEIN 5.1 gm/dl (6.4-8.2)
--- NOTE | 2017-08-24 14:56 | Nephrology Progress Note ---
Nephrology Progress Note Date of Service: Aug 24, 2017. Subjective 81 yo female who presented in shock with right heart failure and alex/atn requiring intubation. currently on 30%fio2. urinating better. creatinine relatively stable. culture and flu negative. Objective Date Time Temp Pulse Resp B/P (MAP) Pulse Ox O2 Delivery O2 Flow Rate FiO2 08/24/17 14:00 37.5 98 22 109/56 (73) 93 CPAP 08/24/17 12:30 37.7 93 21 108/52 (70) 93 08/24/17 12:16 37.7 99 25 94/54 (67) 92 08/24/17 12:15 37.7 98 0 92 08/24/17 12:00 37.1 81 22 108/82 (91) 93 CPAP 08/24/17 12:00 CPAP 08/24/17 12:00 37.7 104 27 111/52 (71) 92 08/24/17 11:45 37.7 106 24 111/53 (72) 94 08/24/17 11:30 37.8 74 20 102/48 (66) 98 08/24/17 11:16 37.8 100 23 100/50 (67) 93 08/24/17 11:15 30 08/24/17 11:15 37.8 98 22 94 08/24/17 11:00 37.8 81 17 95/44 (61) 92 08/24/17 10:45 37.8 89 23 92 08/24/17 10:30 37.8 94 24 93 08/24/17 10:15 37.8 94 22 110/54 (72) 92 08/24/17 10:00 37.8 78 22 109/49 (69) 92 08/24/17 09:45 37.7 67 22 99/56 (70) 95 08/24/17 09:30 37.7 82 23 99/48 (65) 95 08/24/17 09:16 37.7 89 24 104/47 (66) 94 08/24/17 09:15 37.7 87 23 95 08/24/17 09:00 37.7 97 16 92/53 (66) 94 08/24/17 08:55 37.7 81 22 101/52 (68) 95 08/24/17 08:45 37.7 80 22 86/46 (59) 92 08/24/17 08:30 37.6 83 22 96/52 (67) 95 2 08:15 37.6 80 22 82/44 (57) 93 08/24/17 08:00 30 08/24/17 08:00 36.8 102 22 101/57 (72) 92 Mechanical Ventilator 30 08/24/17 08:00 Mechanical Ventilator 30 08/24/17 08:00 Mechanical Ventilator 30 08/24/17 08:00 37.5 90 22 84/48 (60) 96 08/24/17 07:56 37.5 89 22 85/49 (61) 08/24/17 07:55 37.5 102 22 88/50 (63) 95 08/24/17 07:45 37.5 96 26 94 08/24/17 07:30 37.4 88 24 101/51 (68) 94 08/24/17 07:15 37.3 92 26 95/57 (70) 93 08/24/17 07:15 30 08/24/17 07:00 37.2 77 22 96/53 (67) 92 08/24/17 06:00 37.0 87 25 110/59 (76) 93 Mechanical Ventilator 30 08/24/17 05:11 30 08/24/17 04:00 30 08/24/17 04:00 37.2 74 23 108/59 (75) 94 Mechanical Ventilator 30 08/24/17 04:00 Mechanical Ventilator 30 08/24/17 02:13 30 08/24/17 02:00 37.6 83 25 123/62 (82) 92 Mechanical Ventilator 30 08/24/17 00:01 37.7 90 29 120/54 (76) 93 Mechanical Ventilator 30 08/23/17 23:59 30 08/23/17 23:59 Mechanical Ventilator 30 08/23/17 23:10 30 08/23/17 22:01 37.5 88 25 101/47 (65) 93 Mechanical Ventilator 30 08/23/17 22:00 37.5 88 29 93 08/23/17 21:46 37.5 88 28 112/53 (72) 92 08/23/17 21:45 37.5 88 28 93 08/23/17 21:31 37.5 89 29 107/44 (65) 93 08/23/17 21:30 37.5 87 28 93 2/7/18 21:16 37.4 85 0 114/47 (69) 94 2/7/18 21:15 37.4 86 28 93 2/7/18 21:00 37.4 86 29 114/63 (80) 93 2/7/18 20:39 30 2/7/18 20:31 37.4 91 23 109/62 (78) 93 Mechanical Ventilator 30 2/7/18 20:30 37.4 90 29 93 2/7/18 20:16 37.4 89 21 102/63 (76) 94 2/7/18 20:01 37.5 81 20 98/47 (64) 94 2/7/18 20:00 93 Mechanical Ventilator 30 2/7/18 20:00 30 2/7/18 20:00 37.5 80 25 94 2//18 19:46 37.6 83 27 104/57 (73) 94 2//18 19:31 37.6 84 24 113/52 (72) 94 Mechanical Ventilator 30 2//18 19:30 37.6 83 28 94 2//18 19:16 37.7 84 20 98/71 (80) 92 2//18 19:02 37.7 83 26 124/54 (77) 93 2/7/18 19:00 37.7 76 27 93 2/7/18 18:46 37.6 78 27 111/52 (71) 94 2/7/18 18:42 37.6 76 29 110/74 (86) 95 2/7/18 18:31 37.6 76 28 124/82 (96) 94 Mechanical Ventilator 30 2//18 18:30 37.6 76 28 95 2/7/18 18:21 37.5 73 29 101/78 (86) 94 2/7/18 18:10 37.5 87 27 119/74 (89) 94 2/7/18 18:01 37.5 78 27 108/64 (79) 92 2/7/18 18:00 37.5 79 26 94 2/7/18 17:42 37.4 72 25 117/57 (77) 94 2/7/18 17:31 37.4 87 26 106/67 (80) 93 Mechanical Ventilator 30 2/7/18 17:30 37.4 84 23 95 2/7/18 17:21 37.3 60 22 108/70 (83) 96 08/23/17 17:10 37.3 61 22 117/76 (90) 96 08/23/17 17:01 37.3 60 22 103/68 (80) 96 08/23/17 17:00 37.3 60 22 96 08/23/17 16:51 37.2 61 22 124/75 (91) 96 08/23/17 16:40 37.2 54 22 119/73 (88) 96 08/23/17 16:30 37.2 67 22 115/72 (86) 95 08/23/17 16:20 37.2 69 22 114/74 (87) 95 08/23/17 16:10 37.2 63 22 102/68 (79) 96 Mechanical Ventilator 30 08/23/17 16:00 37.1 60 22 103/68 (80) 96 08/23/17 16:00 96 Mechanical Ventilator 30 08/23/17 16:00 30 08/23/17 15:51 37.1 60 22 112/65 (81) 96 08/23/17 15:41 37.1 55 22 110/67 (81) 95 08/23/17 15:30 37.1 69 22 112/66 (81) 96 08/23/17 15:21 37.1 67 22 114/75 (88) 95 08/23/17 15:10 37.1 71 22 114/71 (85) 96 08/23/17 15:00 37.0 66 22 108/68 (81) 95 Physical Exam: General-intubated and sedated Eyes-no scleral icterus ENT-mmm Neck-supple/intubated Lungs-decreased at bases with mild rhonchi Heart-rrr Abdomen- bs+ s/nt/nd Extremities-no c/c, +1 edema worse in the hands Neuro-sedated Current Inpatient Medications Medications (Trade) Dose Ordered Sig/Suzi Route Start Time Stop Time Status Last Admin Dose Admin Piperacillin Sod/ Tazobactam Sod 4.5 gm/Dextrose 120 ml @ 30 mls/hr Q8H IV 08/22/17 17:00 09/01/17 16:59 08/24/17 08:52 30 MLS/HR Miscellaneous Information (Consult) 1 ea UD PRN N/A 08/22/17 12:00 09/21/17 11:59 Miscellaneous Information (Consult) 1 ea UD PRN N/A 08/22/17 11:30 09/21/17 11:29 Pantoprazole Sodium 40 mg/ Syringe 10 ml @ 5 mls/min DAILY@0900 IV 08/23/17 09:00 09/22/17 08:59 08/24/17 08:52 5 MLS/MIN Miscellaneous Information (Consult Glycemic Management Pharmacy) 1 ea UD N/A 08/22/17 12:56 09/21/17 12:55 Norepinephrine Bitartrate 8 mg/ Dextrose 508 ml @ 0 mls/hr Q0M PRN IV 08/22/17 13:30 09/21/17 13:29 08/23/17 10:59 91.1 MLS/HR Vasopressin 50 units/Sodium Chloride 502.5 ml @ 24 mls/hr [id number] IV 08/22/17 13:30 09/21/17 13:29 08/23/17 11:02 24 MLS/HR Albuterol/ Ipratropium (Duoneb) 3 ml QIDR INH 08/22/17 16:00 09/21/17 15:59 08/24/17 11:44 3 ML Glucose (Glucose 40% Gel) 15-30 GRAMS 15 GRAMS... UD PRN PO 08/22/17 15:15 09/21/17 15:14 Glucose (Glucose Chew Tab) 4-8 Tablets 4 Tabl... UD PRN PO 08/22/17 15:15 09/21/17 15:14 Dextrose (Dextrose 50% 50ML Syringe) 25-50ML OF 50% DW IV FOR... UD PRN IV 08/22/17 15:15 09/21/17 15:14 Glucagon (Glucagon Inj) 1 mg UD PRN SQ 08/22/17 15:15 09/21/17 15:14 Ioversol (Optiray 320) 100 ml UD PRN IV 08/22/17 18:00 08/26/17 17:59 Heparin Sodium (Porcine) (Heparin Sq 5000 Unit/0.5ml) 5,000 unit Q8 SQ 08/22/17 22:00 09/21/17 21:59 08/24/17 14:22 5,000 UNIT Methylprednisolone Sodium Succinate 40 mg/Syringe 0.64 ml @ 1.5 mls/min Q8H IV 08/22/17 19:00 09/21/17 18:59 08/24/17 10:45 1.5 MLS/MIN Doxycycline Hyclate 100 mg/ Dextrose 110 ml @ 50 mls/hr Q12H IV 08/23/17 14:00 08/30/17 13:59 08/24/17 14:21 50 MLS/HR Enteral Nutritional Formula (Impact 1.0 Rizwan) 1,000 ml UD PRN OG 08/24/17 10:30 09/23/17 10:29 08/24/17 11:07 1,000 ML Miscellaneous Information (Pending Order) 1 ea Q4H N/A 08/24/17 12:00 09/23/17 11:59 08/24/17 11:23 1 EA Insulin Glargine (Lantus Solostar Pen) see protocol text Q12H SC 08/24/17 16:00 09/23/17 15:59 Insulin Aspart (novoLOG ASPART) SLIDING SCALE Q4H SC 08/24/17 12:00 09/23/17 11:59 Aspirin (Aspirin Chew) 81 mg DAILY PO 08/25/17 09:00 09/24/17 08:59 Last 24 Hours Test 08/23/17 16:09 08/23/17 16:30 08/23/17 16:47 08/23/17 16:51 Bedside Glucose (other) 84 mg/dl 39 mg/dl 182 mg/dl 181 mg/dl Test 08/23/17 17:54 08/23/17 17:57 08/23/17 19:05 08/23/17 19:30 Creatine Kinase MB 13.1 ng/ml Creatine Kinase MB Ratio Troponin I 2.400 ng/ml Bedside Glucose (other) 123 mg/dl 74 mg/dl 132 mg/dl Test 08/23/17 22:42 08/23/17 23:10 08/24/17 00:11 08/24/17 01:27 Random Vancomycin Level 21.8 mcg/ml Bedside Glucose 76 mg/dl 79 mg/dl 77 mg/dl Test 08/24/17 03:34 08/24/17 04:44 08/24/17 05:55 08/24/17 06:36 Bedside Glucose 95 mg/dl 108 mg/dl Creatine Kinase MB Ratio Activated Partial Thromboplast Time 38.5 SECONDS Partial Thromboplastin Ratio 1.5 Sodium Level 141 mmol/L Potassium Level 4.4 mmol/L Chloride Level 110 mmol/L Carbon Dioxide Level 25 mmol/L Anion Gap 6.0 mmol/L Blood Urea Nitrogen 35 mg/dl Creatinine 1.68 mg/dl Est Creatinine Clear Calc Drug Dose 29.0 ml/min Estimated GFR () 32.9 Estimated GFR (Non- 28.4 BUN/Creatinine Ratio 20.7 Random Glucose 96 mg/dl Lactic Acid Level 1.3 mmol/L Calcium Level 7.1 mg/dl Ionized Calcium 0.97 mmol/l Phosphorus Level 3.2 mg/dl Magnesium Level 1.9 mg/dl Total Bilirubin 0.6 mg/dl Aspartate Amino Transf (AST/SGOT) 59 U/L Alanine Aminotransferase (ALT/SGPT) 51 U/L Alkaline Phosphatase 59 U/L Creatine Kinase MB 9.4 ng/ml Troponin I 2.180 ng/ml Pro-B-Type Natriuretic Peptide 45915 pg/ml Total Protein 5.7 gm/dl Albumin 2.2 gm/dl Globulin 3.5 gm/dl Albumin/Globulin Ratio 0.6 Procalcitonin 0.29 ng/ml Random Vancomycin Level 17.5 mcg/ml Test 08/24/17 07:53 08/24/17 13:53 Blood Gas Sample Site L Radial Bedside Blood Gas pH (LAB) 7.45 Bedside Blood Gas pCO2 (LAB) 34 mmHg Bedside Blood Gas pO2 (LAB) 74 mmHg Bedside Blood Gas HCO3 (LAB) 24 meq/L Bedside Blood Gas Total CO2 24 mEq/l Bedside Blood Gas Base Excess (LAB) 0.0 meq/L Bedside Blood Gas O2 Saturation 95.0 % Laron Test Pass Oxygen Delivery Device Ventilator Bedside Oxygen Rate (breaths/min) 22 Blood Gas Minute Ventilation 12.4 Bedside FiO2 30 % Blood Gas Tidal Volume 500 Blood Gas PEEP 5 Sodium Level 143 mmol/L Potassium Level 4.1 mmol/L Chloride Level 112 mmol/L Carbon Dioxide Level 24 mmol/L Anion Gap 7.0 mmol/L Blood Urea Nitrogen 37 mg/dl Creatinine 1.79 mg/dl Est Creatinine Clear Calc Drug Dose 27.2 ml/min Estimated GFR () 30.5 Estimated GFR (Non- 26.3 BUN/Creatinine Ratio 20.8 Random Glucose 149 mg/dl Calcium Level 7.2 mg/dl Magnesium Level 1.9 mg/dl Aspartate Amino Transf (AST/SGOT) 55 U/L Alanine Aminotransferase (ALT/SGPT) 44 U/L Creatine Kinase MB Ratio Albumin 2.1 gm/dl Assessment & Plan [id number]-urinating better. no dialysis at this time. volume status and electrolytes are stable. continue to monitor. no changes to therapy.
--- NOTE | 2017-08-24 16:23 | Critical Care Progress Note ---
Critical Care Progress Note Date of Service Aug 24, 2017. Attending Dr. Holloway Subjective Off pressors since last evening Urine output markedly improved Off sedation for 2 hours, not waking up yet Objective General: Intubated Heent: NC/AT CVS:S1S2 regular Lungs: coarse breath sounds. Peak airway pressure around 25 Abd: Soft, NT, ND, old laparotomy scar Ext: No edema [employer]: Lethargic, occasionally moves spontaneously, opens eyes to commands skilled nursing Assessment & Plan 81 year old female presents with AMS, hypothermic, in profound shock. Less likely septic in nature, more likely cardiogenic, with RV failure, severe pulmonary hypertension. Not clear what led to this spike in PAP, pulmonary embolism has been ruled out. She has acute severe hypercapnia, undiagnosed COPD, which may lead to a spike in the PA pressure. Repeat echo after 2 days showed normalization of right heart function/size and PA pressure I seriously doubt she has Group I PH, given her age and normal PAP 6 years ago Problems: Acute respiratory failure with hypercapnia and hypoxia Pulmonary hypertension RV failure with shock COPD Acute kidney injury Plan: [employer]: Keep off sedation Very slow to wake up which is not surprising. She ahs mild dementia, versed takes some time to clear, also in the face of initial oliguric kidney failure Pulmonary: ABG markedly improved, hypercarbia resolved on vent. Continue IV steroids to optimise undiagnosed COPD Around the clock bronchodilator Off heparin drip given negative CT scan for PE CVS: Off pressors Severe pulmonary HTN, not caused by PE, leading to RV failure. Acute severe hypercarbia and hypoxia could potentially lead to pulmonary hypertension. This phenomenon seemed to resolve completely with conventional therapy of COPD, normalizing the ABG values Troponin negative initially x 3, then increased and stabilized around 2. Doubt ACS, most likely demand ischemia from acute RV failure. Troponin also accumulated in the setting of oliguric ATN Renal: Renal indices holding. Urine output improved remarkably ID: F/u cultures On broad spectrum Abx, Vanco, Zosyn. Levaquin held due to prolonged QTc. Added Doxy Procalcitonin is negative. GI: NG feeds Endo: Insulin drip for glycemic control DVT prophylaxis: SC heparin Critical care time spent with the patient, reviewing chart, discussing with consultants, greater than 40 minutes Consults & Procedures Consultants: Sandy: Dr Adkins ID: Dr Ferrell Procedures: 08/22/17: Intubation 08/22/17: Right femoral TLC in ED Data Medications: Current Inpatient Medications Medications (Trade) Dose Ordered Sig/Suzi Route Start Time Stop Time Status Last Admin Dose Admin Piperacillin Sod/ Tazobactam Sod 4.5 gm/Dextrose 120 ml @ 30 mls/hr Q8H IV 08/22/17 17:00 09/01/17 16:59 08/24/17 08:52 30 MLS/HR Miscellaneous Information (Consult) 1 ea UD PRN N/A 08/22/17 12:00 09/21/17 11:59 Miscellaneous Information (Consult) 1 ea UD PRN N/A 08/22/17 11:30 09/21/17 11:29 Pantoprazole Sodium 40 mg/ Syringe 10 ml @ 5 mls/min DAILY@0900 IV 08/23/17 09:00 09/22/17 08:59 08/24/17 08:52 5 MLS/MIN Miscellaneous Information (Consult Glycemic Management Pharmacy) 1 UD N/A 08/22/17 12:56 09/21/17 12:55 Norepinephrine Bitartrate 8 mg/ Dextrose 508 ml @ 0 mls/hr Q0M PRN IV 08/22/17 13:30 09/21/17 13:29 08/23/17 10:59 91.1 MLS/HR Vasopressin 50 units/Sodium Chloride 502.5 ml @ 24 mls/hr [id number] IV 08/22/17 13:30 09/21/17 13:29 08/23/17 11:02 24 MLS/HR Albuterol/ Ipratropium (Duoneb) 3 ml QIDR INH 08/22/17 16:00 09/21/17 15:59 08/24/17 15:05 3 ML Glucose (Glucose 40% Gel) 15-30 GRAMS 15 GRAMS... UD PRN PO 08/22/17 15:15 09/21/17 15:14 Glucose (Glucose Chew Tab) 4-8 Tablets 4 Tabl... UD PRN PO 08/22/17 15:15 09/21/17 15:14 Dextrose (Dextrose 50% 50ML Syringe) 25-50ML OF 50% DW IV FOR... UD PRN IV 08/22/17 15:15 09/21/17 15:14 Glucagon (Glucagon Inj) 1 mg UD PRN SQ 08/22/17 15:15 09/21/17 15:14 Ioversol (Optiray 320) 100 ml UD PRN IV 08/22/17 18:00 08/26/17 17:59 Heparin Sodium (Porcine) (Heparin Sq 5000 Unit/0.5ml) 5,000 unit Q8 SQ 08/22/17 22:00 09/21/17 21:59 08/24/17 14:22 5,000 UNIT Methylprednisolone Sodium Succinate 40 mg/Syringe 0.64 ml @ 1.5 mls/min Q8H IV 08/22/17 19:00 09/21/17 18:59 08/24/17 10:45 1.5 MLS/MIN Doxycycline Hyclate 100 mg/ Dextrose 110 ml @ 50 mls/hr Q12H IV 08/23/17 14:00 08/30/17 13:59 08/24/17 14:21 50 MLS/HR Enteral Nutritional Formula (Impact 1.0 Rizwan) 1,000 ml UD PRN OG 08/24/17 10:30 09/23/17 10:29 08/24/17 11:07 1,000 ML Miscellaneous Information (Pending Order) 1 ea Q4H N/A 08/24/17 12:00 09/23/17 11:59 08/24/17 11:23 1 EA Insulin Glargine (Lantus Solostar Pen) see protocol text Q12H SC 08/24/17 16:00 09/23/17 15:59 Insulin Aspart (novoLOG ASPART) SLIDING SCALE Q4H SC 08/24/17 12:00 09/23/17 11:59 Aspirin (Aspirin Chew) 81 mg DAILY PO 08/25/17 09:00 09/24/17 08:59 I & O: 24-Hour Column 08/25/17 07:59 Intake Total 470 ml Output Total 900 ml Balance -430 ml Vital Signs: Date Time Temp Pulse Resp B/P (MAP) Pulse Ox O2 Delivery O2 Flow Rate FiO2 08/24/17 14:30 30 08/24/17 14:00 37.5 98 22 109/56 (73) 93 CPAP 08/24/17 12:30 37.7 93 21 108/52 (70) 93 08/24/17 12:16 37.7 99 25 94/54 (67) 92 2 12:15 37.7 98 0 92 2 12:00 37.1 81 22 108/82 (91) 93 CPAP 08/24/17 12:00 CPAP 08/24/17 12:00 37.7 104 27 111/52 (71) 92 2 11:45 37.7 106 24 111/53 (72) 94 08/24/17 11:30 37.8 74 20 102/48 (66) 98 2/03/03 11:16 37.8 100 23 100/50 (67) 93 2 11:15 30 2 11:15 37.8 98 22 94 08/24/17 11:00 37.8 81 17 95/44 (61) 92 08/24/17 10:45 37.8 89 23 92 08/24/17 10:30 37.8 94 24 93 08/24/17 10:15 37.8 94 22 110/54 (72) 92 08/24/17 10:00 37.8 78 22 109/49 (69) 92 2 09:45 37.7 67 22 99/56 (70) 95 08/24/17 09:30 37.7 82 23 99/48 (65) 95 08/24/17 09:16 37.7 89 24 104/47 (66) 94 08/24/17 09:15 37.7 87 23 95 08/24/17 09:00 37.7 97 16 92/53 (66) 94 08/24/17 08:55 37.7 81 22 101/52 (68) 95 08/24/17 08:45 37.7 80 22 86/46 (59) 92 08/24/17 08:30 37.6 83 22 96/52 (67) 95 08/24/17 08:15 37.6 80 22 82/44 (57) 93 08/24/17 08:00 30 2 08:00 36.8 102 22 101/57 (72) 92 Mechanical Ventilator 30 08/24/17 08:00 Mechanical Ventilator 30 08/24/17 08:00 Mechanical Ventilator 30 08/24/17 08:00 37.5 90 22 84/48 (60) 96 08/24/17 07:56 37.5 89 22 85/49 (61) 08/24/17 07:55 37.5 102 22 88/50 (63) 95 08/24/17 07:45 37.5 96 26 94 08/24/17 07:30 37.4 88 24 101/51 (68) 94 08/24/17 07:15 37.3 92 26 95/57 (70) 93 08/24/17 07:15 30 08/24/17 07:00 37.2 77 22 96/53 (67) 92 08/24/17 06:00 37.0 87 25 110/59 (76) 93 Mechanical Ventilator 30 08/24/17 05:11 30 08/24/17 04:00 30 08/24/17 04:00 37.2 74 23 108/59 (75) 94 Mechanical Ventilator 30 08/24/17 04:00 Mechanical Ventilator 30 08/24/17 02:13 30 08/24/17 02:00 37.6 83 25 123/62 (82) 92 Mechanical Ventilator 30 08/24/17 00:01 37.7 90 29 120/54 (76) 93 Mechanical Ventilator 30 08/23/17 23:59 30 08/23/17 23:59 Mechanical Ventilator 30 08/23/17 23:10 30 08/23/17 22:01 37.5 88 25 101/47 (65) 93 Mechanical Ventilator 30 08/23/17 22:00 37.5 88 29 93 08/23/17 21:46 37.5 88 28 112/53 (72) 92 08/23/17 21:45 37.5 88 28 93 08/23/17 21:31 37.5 89 29 107/44 (65) 93 08/23/17 21:30 37.5 87 28 93 08/23/17 21:16 37.4 85 0 114/47 (69) 94 08/23/17 21:15 37.4 86 28 93 18 21:00 37.4 86 29 114/63 (80) 93 18 20:39 30 18 20:31 37.4 91 23 109/62 (78) 93 Mechanical Ventilator 30 08/23/17 20:30 37.4 90 29 93 08/23/17 20:16 37.4 89 21 102/63 (76) 94 2/18 20:01 37.5 81 20 98/47 (64) 94 2//18 20:00 93 Mechanical Ventilator 30 2/18 20:00 30 2/7/18 20:00 37.5 80 25 94 2/7/18 19:46 37.6 83 27 104/57 (73) 94 2//18 19:31 37.6 84 24 113/52 (72) 94 Mechanical Ventilator 30 2/18 19:30 37.6 83 28 94 2/18 19:16 37.7 84 20 98/71 (80) 92 2/18 19:02 37.7 83 26 124/54 (77) 93 2/01/31 19:00 37.7 76 27 93 2/18 18:46 37.6 78 27 111/52 (71) 94 2//18 18:42 37.6 76 29 110/74 (86) 95 2//18 18:31 37.6 76 28 124/82 (96) 94 Mechanical Ventilator 30 2 18:30 37.6 76 28 95 2//18 18:21 37.5 73 29 101/78 (86) 94 2//18 18:10 37.5 87 27 119/74 (89) 94 2/18 18:01 37.5 78 27 108/64 (79) 92 2//18 18:00 37.5 79 26 94 2//18 17:42 37.4 72 25 117/57 (77) 94 2/18 17:31 37.4 87 26 106/67 (80) 93 Mechanical Ventilator 30 2/18 17:30 37.4 84 23 95 2//18 17:21 37.3 60 22 108/70 (83) 96 2//18 17:10 37.3 61 22 117/76 (90) 96 2//18 17:01 37.3 60 22 103/68 (80) 96 2//18 17:00 37.3 60 22 96 2//18 16:51 37.2 61 22 124/75 (91) 96 2//18 16:40 37.2 54 22 119/73 (88) 96 2//18 16:30 37.2 67 22 115/72 (86) 95 08/23/17 16:20 37.2 69 22 114/74 (87) 95 08/23/17 16:10 37.2 63 22 102/68 (79) 96 Mechanical Ventilator 30 Laboratory Results: Last 24 Hours Test 08/23/17 16:09 08/23/17 16:30 08/23/17 16:47 08/23/17 16:51 Bedside Glucose (other) 84 mg/dl 39 mg/dl 182 mg/dl 181 mg/dl Test 08/23/17 17:54 08/23/17 17:57 08/23/17 19:05 08/23/17 19:30 Creatine Kinase MB 13.1 ng/ml Creatine Kinase MB Ratio Troponin I 2.400 ng/ml Bedside Glucose (other) 123 mg/dl 74 mg/dl 132 mg/dl Test 08/23/17 22:42 08/23/17 23:10 08/24/17 00:11 08/24/17 01:27 Random Vancomycin Level 21.8 mcg/ml Bedside Glucose 76 mg/dl 79 mg/dl 77 mg/dl Test 08/24/17 03:34 08/24/17 04:44 08/24/17 05:55 08/24/17 06:36 Bedside Glucose 95 mg/dl 108 mg/dl Creatine Kinase MB Ratio Activated Partial Thromboplast Time 38.5 SECONDS Partial Thromboplastin Ratio 1.5 Sodium Level 141 mmol/L Potassium Level 4.4 mmol/L Chloride Level 110 mmol/L Carbon Dioxide Level 25 mmol/L Anion Gap 6.0 mmol/L Blood Urea Nitrogen 35 mg/dl Creatinine 1.68 mg/dl Est Creatinine Clear Calc Drug Dose 29.0 ml/min Estimated GFR () 32.9 Estimated GFR (Non- 28.4 BUN/Creatinine Ratio 20.7 Random Glucose 96 mg/dl Lactic Acid Level 1.3 mmol/L Calcium Level 7.1 mg/dl Ionized Calcium 0.97 mmol/l Phosphorus Level 3.2 mg/dl Magnesium Level 1.9 mg/dl Total Bilirubin 0.6 mg/dl Aspartate Amino Transf (AST/SGOT) 59 U/L Alanine Aminotransferase (ALT/SGPT) 51 U/L Alkaline Phosphatase 59 U/L Creatine Kinase MB 9.4 ng/ml Troponin I 2.180 ng/ml Pro-B-Type Natriuretic Peptide 98275 pg/ml Total Protein 5.7 gm/dl Albumin 2.2 gm/dl Globulin 3.5 gm/dl Albumin/Globulin Ratio 0.6 Procalcitonin 0.29 ng/ml Random Vancomycin Level 17.5 mcg/ml Test 08/24/17 07:53 08/24/17 13:53 Blood Gas Sample Site L Radial Bedside Blood Gas pH (LAB) 7.45 Bedside Blood Gas pCO2 (LAB) 34 mmHg Bedside Blood Gas pO2 (LAB) 74 mmHg Bedside Blood Gas HCO3 (LAB) 24 meq/L Bedside Blood Gas Total CO2 24 mEq/l Bedside Blood Gas Base Excess (LAB) 0.0 meq/L Bedside Blood Gas O2 Saturation 95.0 % Laron Test Pass Oxygen Delivery Device Ventilator Bedside Oxygen Rate (breaths/min) 22 Blood Gas Minute Ventilation 12.4 Bedside FiO2 30 % Blood Gas Tidal Volume 500 Blood Gas PEEP 5 Sodium Level 143 mmol/L Potassium Level 4.1 mmol/L Chloride Level 112 mmol/L Carbon Dioxide Level 24 mmol/L Anion Gap 7.0 mmol/L Blood Urea Nitrogen 37 mg/dl Creatinine 1.79 mg/dl Est Creatinine Clear Calc Drug Dose 27.2 ml/min Estimated GFR () 30.5 Estimated GFR (Non- 26.3 BUN/Creatinine Ratio 20.8 Random Glucose 149 mg/dl Calcium Level 7.2 mg/dl Phosphorus Level 3.2 mg/dl Magnesium Level 1.9 mg/dl Total Bilirubin 0.7 mg/dl Aspartate Amino Transf (AST/SGOT) 55 U/L Alanine Aminotransferase (ALT/SGPT) 44 U/L Alkaline Phosphatase 50 U/L Creatine Kinase MB 6.6 ng/ml Creatine Kinase MB Ratio Troponin I 2.020 ng/ml Total Protein 5.1 gm/dl Albumin 2.1 gm/dl Globulin 3.0 gm/dl Albumin/Globulin Ratio 0.7
[2017-08-24] MEDS: INSULIN GLARGINE SOLOSTAR 100 UNITS/ML 3 ML PEN SC SCH (16:29)
[2017-08-25] VITALS (34 sets, daily range): BP systolic 89–137; BP diastolic 45–77; PULSE 53–95; TEMP 36.4–37.4; O2SAT 92–100
[2017-08-25] MEDS ORDERED: NURSING VERBAL MED ORDER ONE (00:15)
[2017-08-25] MEDS: PIPERACILL/TAZOBAC IV 4.5 GM in DEXTROSE 5% 100ML 100 ML IV SCH ×3 (00:24→16:57)
[2017-08-25] MEDS: DexMEDEtomidine HCL IV 200 MCG in SODIUM CHLORIDE 0.9% 50ML 48 ML IV PRN ×2 (00:26→03:15)
[2017-08-25] MEDS ORDERED: NovoLIN R BOLUS FROM BAG IV ONE (00:45)
[2017-08-25] MEDS: INSULIN REGULAR 250 UNITS in SODIUM CHLORIDE 0.9% 250ML 250 ML IV SCH (00:59)
[2017-08-25] MEDS: DOXYCYCLINE IV 100 MG in DEXTROSE 5% 100ML 100 ML IV SCH ×2 (03:02→13:58)
[2017-08-25] MEDS: INSULIN ASPART 100 UNITS/ML 3 ML PEN SC SCH ×4 (03:03→21:00)
[2017-08-25] MEDS: METHYLPREDNISOLONE IV 40 MG in SYRINGE 0 ML IV SCH ×2 (03:03→12:11)
[2017-08-25] MEDS: INSULIN GLARGINE SOLOSTAR 100 UNITS/ML 3 ML PEN SC SCH ×2 (03:03→21:18)
[2017-08-25] MEDS: VASOPRESSIN INJ 50 UNITS in SODIUM CHLORIDE 0.9% 500ML 500 ML IV SCH (03:43)
[2017-08-25] MEDS: HEPARIN SOD 5000 UNIT/0.5 ML CARP SQ SCH ×3 (06:13→21:18)
[2017-08-25 06:19] LABS: ALBUMIN 2.2 gm/dl (3.4-5.0); ALT/SGPT 43 U/L (12-78); AST/SGOT 67 U/L (15-37); BLOOD UREA NITROGEN 37 mg/dl (7-18); CALCIUM 7.6 mg/dl (8.5-10.1); CARBON DIOXIDE 26 mmol/L (21-32); CREATININE 1.71 mg/dl (0.60-1.20); GLUCOSE 180 mg/dl (70-99); POTASSIUM 3.9 mmol/L (3.5-5.1); SODIUM 146 mmol/L (136-145)
[2017-08-25 06:31] LABS: ALKALINE PHOSPHATASE 49 U/L (45-117); CKMB 7.3 ng/ml (0.5-3.6); PHOSPHORUS 2.5 mg/dl (2.5-4.9); TOTAL PROTEIN 5.4 gm/dl (6.4-8.2)
[2017-08-25 06:45] LABS: BASO % 0.1 %; BASO ABS # 0.01 K/uL (0-0.2); HEMATOCRIT 35.3 % (37-47); HEMOGLOBIN 11.6 g/dL (12.0-16.0); IG# 0.09 K/uL (0.00-0.02); LYMPH % 2.7 %; LYMPH ABS # 0.31 K/uL (1.2-3.4); MEAN CELL VOLUME 94.1 fL (80-100); MEAN CORPUSCULAR HEMOGLOBIN 30.9 pg (25-34); MEAN CORPUSCULAR HGB CONC 32.9 g/dl (32-36); MEAN PLATELET VOLUME 10.2 fL (7.4-10.4); MONO % 7.4 %; MONO ABS # 0.84 K/uL (0.11-0.59); NEUT ABS # 10.08 K/uL (1.4-6.5); PLATELET COUNT 116 K/uL (130-400); RED CELL DISTRIBUTION WIDTH CV 15.6 % (11.5-14.5); RED CELL DISTRIBUTION WIDTH SD 53.6 fL (36.4-46.3); WHITE BLOOD COUNT 11.33 K/uL (4.8-10.8)
[2017-08-25] MEDS: ALBUT/IPRATROP 3MG/0.5MG NEB 3 ML VIAL INH SCH ×4 (07:23→20:26)
--- NOTE | 2017-08-25 07:27 | DIAGNOSTIC IMAGING REPORT ---
SINGLE VIEW CHEST CLINICAL HISTORY: COPD exacerbation. FINDINGS: An AP, portable, upright chest radiograph is compared to study performed are the same day 08/24/2017 and correlated with chest CT dated 08/22/2017. The examination is degraded by portable technique and patient rotation. Endotracheal and enteric tubes are unchanged in position. The cardiomediastinal heart is enlarged and there is atherosclerotic calcification of the thoracic aorta. The pulmonary vasculature is noncongested. There is chronic elevation of the right hemidiaphragm. Left basilar opacities persist. No large pleural effusion or pneumothorax is seen. The skeletal structures are osteopenic. Chronic posttraumatic deformity is seen in the right shoulder. Surgical clips are noted in the upper abdomen. IMPRESSION: 1. Stable lines and tubes. 2. Cardiomegaly without radiographic evidence of congestive failure. 3. Left basilar opacities persist. This could represent atelectasis and/or pneumonia. Clinical correlation will be required. Electronically signed by: Hayden Vu M.D. 08/25/2017 7:25 AM Dictated Date/Time: 08/25/2017 7:23 AM
[2017-08-25] MEDS: PANTOprazole INJ 40 MG in SYRINGE 0 ML IV SCH (07:47)
[2017-08-25] MEDS: ASPIRIN 81 MG CHEW PO SCH (07:47)
[2017-08-25] MEDS ORDERED: INSULIN ASPART 100 UNITS/ML 3 ML PEN SC SCH (08:00)
--- NOTE | 2017-08-25 10:46 | Progress Note ---
Subjective Date of Service: Aug 25, 2017. Subjective Pt evaluation today including: conversation w/ patient, conversation w/ family , physical exam, chart review, lab review pt awake on vent, family at bedside, awaiting extubation. family states much more awake and interactive today. pt shakes head no to cp, abd pain, f/c. all micro negative. temps improved, wbc improving (also on steroids), bp improved. cxr with ? LLL infiltrate, on emperic abx for pna. tolerating. troponin elevated. remaining ros limited but negative. Problem List Medical Problems: (1) Hypothermia Status: Acute (2) PNA (pneumonia) Status: Acute (3) UTI (urinary tract infection) Status: Acute Social History Problems: (1) Compression fracture of L1 lumbar vertebra Status: Acute (2) Contusion of right hip Status: Acute (3) Subdural hematoma Status: Acute Objective Vital Signs Date Time Temp Pulse Resp B/P (MAP) Pulse Ox O2 Delivery O2 Flow Rate FiO2 08/25/17 09:30 36.4 60 14 123/66 (85) 97 CPAP 30 08/25/17 08:00 36.4 59 14 125/64 (84) 97 CPAP 30 08/25/17 08:00 Mechanical Ventilator 30 08/25/17 07:15 30 08/25/17 06:00 59 12 134/65 (88) 97 CPAP 30 08/25/17 05:55 30 08/25/17 05:25 30 08/25/17 04:00 36.9 56 22 125/60 (81) 98 Mechanical Ventilator 30 08/25/17 04:00 30 08/25/17 04:00 95 Mechanical Ventilator 30 08/25/17 02:00 63 22 110/54 (72) 94 Mechanical Ventilator 30 08/25/17 01:45 30 08/25/17 00:01 37.4 95 22 137/72 (93) 92 Mechanical Ventilator 30 08/24/17 23:59 30 08/24/17 23:59 95 Mechanical Ventilator 30 08/24/17 22:07 30 08/24/17 22:00 37.4 94 22 136/71 (92) 94 Mechanical Ventilator 30 08/24/17 21:30 37.3 72 22 111/70 (84) 96 Mechanical Ventilator 30 08/24/17 21:00 37.2 87 22 132/66 (88) 98 Mechanical Ventilator 30 18 20:31 37.2 72 22 116/48 (70) 94 Mechanical Ventilator 30 218 20:12 30 2//18 20:00 94 CPAP 30 2/18 20:00 37.3 97 24 128/62 (84) 91 Mechanical Ventilator 30 218 20:00 30 2/8/18 18:00 37.4 79 19 115/57 (76) 95 Mechanical Ventilator 30 18 17:47 30 2/18 17:00 37.6 99 25 119/55 (76) 93 2/18 16:00 37.6 77 18 94/46 (62) 94 CPAP 30 2 16:00 30 2//18 16:00 94 CPAP 30 08/24/17 14:30 30 2//18 14:00 37.5 98 22 109/56 (73) 93 CPAP 2 12:30 37.7 93 21 108/52 (70) 93 2 12:16 37.7 99 25 94/54 (67) 92 2 12:15 37.7 98 0 92 2/18 12:00 37.1 81 22 108/82 (91) 93 CPAP 2 12:00 CPAP 2/18 12:00 37.7 104 27 111/52 (71) 92 2/18 11:45 37.7 106 24 111/53 (72) 94 2//18 11:30 37.8 74 20 102/48 (66) 98 2//18 11:16 37.8 100 23 100/50 (67) 93 218 11:15 30 2/18 11:15 37.8 98 22 94 2/18 11:00 37.8 81 17 95/44 (61) 92 2/18 10:45 37.8 89 23 92 Physical Exam General Appearance: WD/WN, no apparent distress Eyes: normal inspection Neck: supple Respiratory/Chest: lungs clear, normal breath sounds, no respiratory distress, + decreased breath sounds Cardiovascular: regular rate, rhythm, no edema Abdomen: non tender, soft Extremities: non-tender, no pedal edema Neurologic/Psychiatric: alert Skin: normal color Laboratory Results Item Value Date Time Blood Culture - Preliminary Resulted 08/22/17 0845 Blood NO GROWTH TO DATE. Blood Culture - Preliminary Resulted 08/22/17 0836 Blood NO GROWTH TO DATE. Urine Culture - Final Complete 08/22/17 1026 Urine,Catheterized NO GROWTH - LESS THAN 1,000 COLONIES/ML Last 24 Hours Test 08/24/17 13:53 08/24/17 15:37 08/24/17 20:01 08/24/17 23:52 Sodium Level 143 mmol/L Potassium Level 4.1 mmol/L Chloride Level 112 mmol/L Carbon Dioxide Level 24 mmol/L Anion Gap 7.0 mmol/L Blood Urea Nitrogen 37 mg/dl Creatinine 1.79 mg/dl Est Creatinine Clear Calc Drug Dose 27.2 ml/min Estimated GFR () 30.5 Estimated GFR (Non- 26.3 BUN/Creatinine Ratio 20.8 Random Glucose 149 mg/dl Calcium Level 7.2 mg/dl Phosphorus Level 3.2 mg/dl Magnesium Level 1.9 mg/dl Total Bilirubin 0.7 mg/dl Aspartate Amino Transf (AST/SGOT) 55 U/L Alanine Aminotransferase (ALT/SGPT) 44 U/L Alkaline Phosphatase 50 U/L Creatine Kinase MB 6.6 ng/ml Creatine Kinase MB Ratio Troponin I 2.020 ng/ml Total Protein 5.1 gm/dl Albumin 2.1 gm/dl Globulin 3.0 gm/dl Albumin/Globulin Ratio 0.7 Bedside Glucose 163 mg/dl 212 mg/dl 227 mg/dl Test 08/25/17 02:01 08/25/17 02:58 08/25/17 03:52 08/25/17 04:44 Bedside Glucose 198 mg/dl 206 mg/dl 177 mg/dl Creatine Kinase MB Ratio Test 08/25/17 04:51 08/25/17 05:46 08/25/17 05:59 Bedside Glucose 178 mg/dl White Blood Count 11.33 K/uL Red Blood Count 3.75 M/uL Hemoglobin 11.6 g/dL Hematocrit 35.3 % Mean Corpuscular Volume 94.1 fL Mean Corpuscular Hemoglobin 30.9 pg Mean Corpuscular Hemoglobin Concent 32.9 g/dl Platelet Count 116 K/uL Mean Platelet Volume 10.2 fL Neutrophils (%) (Auto) 89.0 % Lymphocytes (%) (Auto) 2.7 % Monocytes (%) (Auto) 7.4 % Eosinophils (%) (Auto) 0.0 % Basophils (%) (Auto) 0.1 % Neutrophils # (Auto) 10.08 K/uL Lymphocytes # (Auto) 0.31 K/uL Monocytes # (Auto) 0.84 K/uL Eosinophils # (Auto) 0.00 K/uL Basophils # (Auto) 0.01 K/uL RDW Standard Deviation 53.6 fL RDW Coefficient of Variation 15.6 % Immature Granulocyte % (Auto) 0.8 % Immature Granulocyte # (Auto) 0.09 K/uL Hypersegmented Polys 1+ Platelet Estimate DECREASED Sodium Level 146 mmol/L Potassium Level 3.9 mmol/L Chloride Level 115 mmol/L Carbon Dioxide Level 26 mmol/L Anion Gap 5.0 mmol/L Blood Urea Nitrogen 37 mg/dl Creatinine 1.71 mg/dl Est Creatinine Clear Calc Drug Dose 28.5 ml/min Estimated GFR () 32.2 Estimated GFR (Non- 27.8 BUN/Creatinine Ratio 21.8 Random Glucose 180 mg/dl Calcium Level 7.6 mg/dl Ionized Calcium 1.07 mmol/l Phosphorus Level 2.5 mg/dl Magnesium Level 2.1 mg/dl Total Bilirubin 0.7 mg/dl Aspartate Amino Transf (AST/SGOT) 67 U/L Alanine Aminotransferase (ALT/SGPT) 43 U/L Alkaline Phosphatase 49 U/L Creatine Kinase MB 7.3 ng/ml Troponin I 1.300 ng/ml Total Protein 5.4 gm/dl Albumin 2.2 gm/dl Globulin 3.2 gm/dl Albumin/Globulin Ratio 0.7 Blood Gas Sample Site R Radial Bedside Blood Gas pH (LAB) 7.38 Bedside Blood Gas pCO2 (LAB) 40 mmHg Bedside Blood Gas pO2 (LAB) 98 mmHg Bedside Blood Gas HCO3 (LAB) 23 meq/L Bedside Blood Gas Total CO2 25 mEq/l Bedside Blood Gas Base Excess (LAB) -2.0 meq/L Bedside Blood Gas O2 Saturation 97.0 % Laron Test Pass Oxygen Delivery Device Ventilator Bedside FiO2 30 % Blood Gas PEEP 5 Assessment and Plan (1) Hypothermia Assessment & Plan: would continue abx for 3 more days for suspected pulm source of infection, per family pt began with cough 2-3 days travel pta. blood cultures remain negative. continue supportive care. No new ID recs at this time.
[2017-08-25] MEDS ORDERED: INSULIN GLARGINE SOLOSTAR 100 UNITS/ML 3 ML PEN SC ONE (13:30)
--- NOTE | 2017-08-25 13:41 | Progress Note ---
Internal Med Progress Note Date of Service: Aug 25, 2017. Provider Documentation: SUBJECTIVE: The patient was seen and examined Was brought in with AMS and noted to be in Shock with Hypoxemia and Hypothermia Now intubated in ICU A little better Will try to extubate today OBJECTIVE: Vital Signs-as noted below Exam: General-Intubated in ICU Opening eyes with commands NO acute distress Eyes-Closed ENT-Normal Neck-Supple Lungs-Decreased breath sound bilaterally Minimal crackles at the bases Heart-Regular Abdomen-Benign Extremities-Trace edema bilaterally Neuro-Sedated on Vent Lab data as noted below. ASSESSMENT & PLAN: ACUTE HYPOXIC RESPIRATORY FAILURE : Was hypothermic Temp 31 /hypotensive SBP in 70;s and hypoxic in RA 87 % Was placed on Bipap and intubated later on , ABG shows respiratory acidosis with hypercarbia Co2 > 90 CXR-no Pneumonia and CTA -0negative for any Pulmonary Embolism Underlying COPD /emphysema ( hx of smoking ) with retention of Co2 due to mental obtundation due to sepsis Has been on IV Solumedrol and Nebs Now Intubated in ICU Appreciate Fashion Artist input Likely to extubate today CONFUSION /CHANGED MENTAL STATUS /METABOLIC ENCEPHALOPATHY : Likely due to hypercapnic respiratory failure and may be complicated by sepsis CT head -negative for CVA May Have Cardiogenic Shock as well Has severe Pulmonary HTN ECHO::There is mild concentric left ventricular hypertrophy. * The left ventricular wall motion is normal. * The LV Ejection Fraction = >70 %. * The right ventricle is mildly dilated. * The right ventricular systolic function is mildly reduced with diffuse right ventricular hypokinesis that spares the RV apex. * There is mild to moderate tricuspid regurgitation. * Dilated inferior vena cava with reduced collapsability with sniff indicates an elevated right atrial pressure of 15 mmHg * Severe pulmonary is hypertension, with PA systolic pressure calculated to be 75 mmg Hg, assuming a right atrial pressure of 15 mm Hg. * Compared to the report of the prior outpatient echocardiogram performed at [facility] dated 02/13/12, the right ventricular size and systolic function was normal at that time with normal calculated pulmonary pressures. * Findings compatible with possible acute pulmonary embolism versus interval development of pulmonary hypertension of uknown chronicity due to other cause. Trending Troponin -doubt any ACS Repeat ECHO in AM : showed improvement of the Right ventricular function Still requiring pressors-offf pressors HEATHER ON CKD STAGE 3 : HYPERNATREMIA ; ATN with anuria -minimum urine out put after fluid bolus IV fluids resuscitation , pressor support Follow PRP Q 4hrs per sepsis protocol Pt has solitary kidney ( s/p Left nephrectomy ) Baseline Cr 1.6 Nephrology consulted-appreciate Input Creatinine remains stable HYPOTENSION /HYPOTHERMIA : SEPSIS DUE TO UTI and May be complicated by respiratory pathogens Likely due to severe sepsis ,possible source of infection UTI Temp improved with Jayda hugger , IV fluid bolus followed by aggressive resuscitation per sepsis protocol Empiric Abx with Zosyn /vancomycin ( avoid quinolones -prolong Qtc ) , Doxycycline Started on pressors Fashion Artist following Appreciate ID input Blood and Urine Cultures are negative Vancomycin discontinued Continue antibiotics for 3 shauna days as per ID CODE STATUS : d/w Daughter -full code DVT PROPHYLAXIS high risk ICU admission /obtundation Sub q heparin Vital Signs: Date Time Temp Pulse Resp B/P (MAP) Pulse Ox O2 Delivery O2 Flow Rate FiO2 08/25/17 11:30 Mechanical Ventilator 30 08/25/17 11:21 65 24 96 Mask 40 08/25/17 11:00 36.4 56 16 125/69 (87) 96 CPAP 30 08/25/17 09:30 36.4 60 14 123/66 (85) 97 CPAP 30 08/25/17 08:00 CPAP 08/25/17 08:00 36.4 59 14 125/64 (84) 97 CPAP 30 08/25/17 08:00 Mechanical Ventilator 30 08/25/17 07:15 30 08/25/17 06:00 59 12 134/65 (88) 97 CPAP 30 08/25/17 05:55 30 08/25/17 05:25 30 08/25/17 04:00 36.9 56 22 125/60 (81) 98 Mechanical Ventilator 30 08/25/17 04:00 30 08/25/17 04:00 95 Mechanical Ventilator 30 08/25/17 02:00 63 22 110/54 (72) 94 Mechanical Ventilator 30 08/25/17 01:45 30 08/25/17 00:01 37.4 95 22 137/72 (93) 92 Mechanical Ventilator 30 08/24/17 23:59 30 08/24/17 23:59 95 Mechanical Ventilator 30 08/24/17 22:07 30 08/24/17 22:00 37.4 94 22 136/71 (92) 94 Mechanical Ventilator 30 08/24/17 21:30 37.3 72 22 111/70 (84) 96 Mechanical Ventilator 30 08/24/17 21:00 37.2 87 22 132/66 (88) 98 Mechanical Ventilator 30 08/24/17 20:31 37.2 72 22 116/48 (70) 94 Mechanical Ventilator 30 08/24/17 20:12 30 08/24/17 20:00 94 CPAP 30 08/24/17 20:00 37.3 97 24 128/62 (84) 91 Mechanical Ventilator 30 08/24/17 20:00 30 08/24/17 18:00 37.4 79 19 115/57 (76) 95 Mechanical Ventilator 30 08/24/17 17:47 30 08/24/17 17:00 37.6 99 25 119/55 (76) 93 08/24/17 16:00 37.6 77 18 94/46 (62) 94 CPAP 30 08/24/17 16:00 30 08/24/17 16:00 94 CPAP 30 08/24/17 14:30 30 08/24/17 14:00 37.5 98 22 109/56 (73) 93 CPAP Lab Results: Results Past 24 Hours Test 08/24/17 13:53 08/24/17 15:37 08/24/17 20:01 08/24/17 23:52 Range/Units Sodium Level 143 136-145 mmol/L Potassium Level 4.1 3.5-5.1 mmol/L Chloride Level 112 98-107 mmol/L Carbon Dioxide Level 24 21-32 mmol/L Anion Gap 7.0 3-11 mmol/L Blood Urea Nitrogen 37 7-18 mg/dl Creatinine 1.79 0.60-1.20 mg/dl Est Creatinine Clear Calc Drug Dose 27.2 ml/min Estimated GFR () 30.5 Estimated GFR (Non- 26.3 BUN/Creatinine Ratio 20.8 10-20 Random Glucose 149 70-99 mg/dl Calcium Level 7.2 8.5-10.1 mg/dl Phosphorus Level 3.2 2.5-4.9 mg/dl Magnesium Level 1.9 1.8-2.4 mg/dl Total Bilirubin 0.7 0.2-1 mg/dl Aspartate Amino Transf (AST/SGOT) 55 15-37 U/L Alanine Aminotransferase (ALT/SGPT) 44 12-78 U/L Alkaline Phosphatase 50 45-117 U/L Creatine Kinase MB 6.6 0.5-3.6 ng/ml Creatine Kinase MB Ratio 0-3.0 Troponin I 2.020 0-0.045 ng/ml Total Protein 5.1 6.4-8.2 gm/dl Albumin 2.1 3.4-5.0 gm/dl Globulin 3.0 2.5-4.0 gm/dl Albumin/Globulin Ratio 0.7 0.9-2 Bedside Glucose 163 212 227 70-90 mg/dl Test 08/25/17 02:01 08/25/17 02:58 08/25/17 03:52 08/25/17 04:44 Range/Units Bedside Glucose 198 206 177 70-90 mg/dl Creatine Kinase MB Ratio 0-3.0 Test 08/25/17 04:51 08/25/17 05:46 08/25/17 05:59 08/25/17 12:32 Range/Units Bedside Glucose 178 70-90 mg/dl White Blood Count 11.33 4.8-10.8 K/uL Red Blood Count 3.75 4.2-5.4 M/uL Hemoglobin 11.6 12.0-16.0 g/dL Hematocrit 35.3 37-47 % Mean Corpuscular Volume 94.1 80-100 fL Mean Corpuscular Hemoglobin 30.9 25-34 pg Mean Corpuscular Hemoglobin Concent 32.9 32-36 g/dl Platelet Count 116 130-400 K/uL Mean Platelet Volume 10.2 7.4-10.4 fL Neutrophils (%) (Auto) 89.0 % Lymphocytes (%) (Auto) 2.7 % Monocytes (%) (Auto) 7.4 % Eosinophils (%) (Auto) 0.0 % Basophils (%) (Auto) 0.1 % Neutrophils # (Auto) 10.08 1.4-6.5 K/uL Lymphocytes # (Auto) 0.31 1.2-3.4 K/uL Monocytes # (Auto) 0.84 0.11-0.59 K/uL Eosinophils # (Auto) 0.00 0-0.5 K/uL Basophils # (Auto) 0.01 0-0.2 K/uL RDW Standard Deviation 53.6 36.4-46.3 fL RDW Coefficient of Variation 15.6 11.5-14.5 % Immature Granulocyte % (Auto) 0.8 % Immature Granulocyte # (Auto) 0.09 0.00-0.02 K/uL Hypersegmented Polys 1+ Platelet Estimate DECREASED Sodium Level 146 136-145 mmol/L Potassium Level 3.9 3.5-5.1 mmol/L Chloride Level 115 98-107 mmol/L Carbon Dioxide Level 26 21-32 mmol/L Anion Gap 5.0 3-11 mmol/L Blood Urea Nitrogen 37 7-18 mg/dl Creatinine 1.71 0.60-1.20 mg/dl Est Creatinine Clear Calc Drug Dose 28.5 ml/min Estimated GFR () 32.2 Estimated GFR (Non- 27.8 BUN/Creatinine Ratio 21.8 10-20 Random Glucose 180 70-99 mg/dl Calcium Level 7.6 8.5-10.1 mg/dl Ionized Calcium 1.07 1.12-1.32 mmol/l Phosphorus Level 2.5 2.5-4.9 mg/dl Magnesium Level 2.1 1.8-2.4 mg/dl Total Bilirubin 0.7 0.2-1 mg/dl Aspartate Amino Transf (AST/SGOT) 67 15-37 U/L Alanine Aminotransferase (ALT/SGPT) 43 12-78 U/L Alkaline Phosphatase 49 45-117 U/L Creatine Kinase MB 7.3 0.5-3.6 ng/ml Troponin I 1.300 0-0.045 ng/ml Total Protein 5.4 6.4-8.2 gm/dl Albumin 2.2 3.4-5.0 gm/dl Globulin 3.2 2.5-4.0 gm/dl Albumin/Globulin Ratio 0.7 0.9-2 Blood Gas Sample Site R Radial R Radial Bedside Blood Gas pH (LAB) 7.38 7.38 7.35-7.45 Bedside Blood Gas pCO2 (LAB) 40 43 35-46 mmHg Bedside Blood Gas pO2 (LAB) 98 73 80-95 mmHg Bedside Blood Gas HCO3 (LAB) 23 25 19-24 meq/L Bedside Blood Gas Total CO2 25 27 24-31 mEq/l Bedside Blood Gas Base Excess (LAB) -2.0 0.0 -9-1.8 meq/L Bedside Blood Gas O2 Saturation 97.0 94.0 90-95 % Laron Test Pass Pass Oxygen Delivery Device Ventilator Other Bedside FiO2 30 35 % Blood Gas PEEP 5
--- NOTE | 2017-08-25 14:35 | Pharmacy Progress Note ---
Glycemic Control Progress Note Date of Service Aug 25, 2017. Scope Glycemic Pharmacist consulted for glycemic control to write orders per [facility] inpatient glycemic control protocol. Objective Accuchecks BSG (last 24hrs): Test 08/24/17 15:37 08/24/17 20:01 08/24/17 23:52 08/25/17 02:01 Bedside Glucose 163 mg/dl (70-90) 212 mg/dl (70-90) 227 mg/dl (70-90) 198 mg/dl (70-90) Test 08/25/17 02:58 08/25/17 03:52 08/25/17 04:51 08/25/17 05:46 Bedside Glucose 206 mg/dl (70-90) 177 mg/dl (70-90) 178 mg/dl (70-90) Random Glucose 180 mg/dl (70-99) HbA1c: Test 08/22/17 11:56 Hemoglobin A1c 7.1 % (4.5-5.6) H Recent Pertinent Medications The patient is currently receiving: * Basal insulin: Lantus 10 units SQ x 1 yesterday * Correctional Insulin: Novolog Correction per scale ACHS Goal Range: Low -- mg/dL - High -- mg/dL Correction Factor: -- mg/dL/unit * Prandial insulin: Per carb ratio of 1 unit per insulin rate adjustment calculator Outpatient Anti-Diabetic Meds Lantus 15 units SQ BID Glipizide ER 5mg daily A1c 7.1% 08/22/17 Assessment & Plan ASSESSMENT: 08/24/17 * Type 2 diabetic with reasonably well controlled DM admitted 08/22 for altered mental status, hypoxemia, hypotension, sepsis secondary to UTI / pneumonia * Glycemic control quickly deteriorated on day one of admission secondary to high dose IV steroids, pressors and dextrose containing IV's. As a result she was placed on IV insulin drip per protocol * She remains on a vent this AM, however pressors (norepi, vaospressin) have been weaned off - insulin sensitivity improved quickly when pressors weaned off. * In fact insulin drip was cut last evening due to BSGs running below goal range with the drip and remained acceptable with the drip off. * She will be starting continuous tube feeds today and this will likely lead to the patient requiring an insulin drip again in the near future as continuous tube feeds + high dose steroids nearly always lead to uncontrolled BSGs despite aggressive SQ 08/25/17 * Converted the patient to a SQ regimen yesterday secondary to BSGs below goal range with insulin drip turned off * Lantus SQ was given and Novolog correction x 1, however with the implementation of Impact continuous tube feeds BSGs quickly climbed > 220 despite covering carbs. This led to resumption of the IV insulin drip * Today the patient was successfully extubated, tube feeds are off and provider is transitioning to a much lower dose of steroid (from Solu-Medrol 40mg Q 8 hours to Prednisone 40mg PO daily) * Would anticipate the patient to become much more insulin sensitive over the next 24 hours. * Will resume Lantus and give with the insulin drip. If the insulin drip is held 2 or more hours this evening per protocol, the drip may remain off. PLAN FOR INPATIENT GLYCEMIC CONTROL: * Continuing the insulin drip at this time, however may dc the drip this evening if placed on hold for 2 or more hours per rate adjustment calculator * Continue goal range of 120-200mg/dL * Use carb ratio of 1 unit per 7 grams CHO consumed while on insulin drip * Lantus 15 units SQ BID - 1st dose now and continue with the insulin drip * If the insulin drip is stopped this evening: * begin Novolog SQ ACHS and at 0200 tonight * Correction factor 20 mg/dl/unit * Carb ratio 1 unit per 7 grams CHO consumed * Goal range to Low 120 mg/dL - High 150 mg/dL * Please note that the plan above was derived based on current level of insulin resistance and hospital stress. These recommendations are appropriate for inpatient admission only. Plan of care upon discharge will need to be reassessed to avoid potential outpatient hypo/hyperglycemia. Thank you.
--- NOTE | 2017-08-25 18:42 | Critical Care Progress Note ---
Critical Care Progress Note Date of Service Aug 25, 2017. Attending Dr. Holloway Subjective Extubated today Doing well Maintaining good urinary output Objective General: Awake, comfortable Heent: NC/AT CVS:S1S2 regular Lungs: clear to auscultation Abd: Soft, NT, ND, old laparotomy scar Ext: No edema RUBY ON RAILS ENGINEER: Awake, confused to time, no focal deficit Assessment & Plan 81 year old female presents with AMS, hypothermic, in profound shock. Less likely septic in nature, more likely cardiogenic, with RV failure, severe pulmonary hypertension. Not clear what led to this spike in PAP, pulmonary embolism has been ruled out. She has acute severe hypercapnia, undiagnosed COPD, which may lead to a spike in the PA pressure. Repeat echo after 2 days showed normalization of right heart function/size and PA pressure I seriously doubt she has Group I PH, given her age and normal PAP 6 years ago Extubated on 08/25/17 Problems: Acute respiratory failure with hypercapnia and hypoxia Pulmonary hypertension RV failure with shock COPD Acute kidney injury Plan: RUBY ON RAILS ENGINEER: Off sedation Expected to have some degree of delirium Pulmonary: Extubated successfully today Continue steroids, change to prednisone 40 mg daily Around the clock bronchodilator Off heparin drip given negative CT scan for PE At this point she should be on nocturnal BIPAP CVS: Off pressors Severe pulmonary HTN, not caused by PE, leading to RV failure. Acute severe hypercarbia and hypoxia could potentially lead to pulmonary hypertension. This phenomenon seemed to resolve completely with conventional therapy of COPD, normalizing the ABG values Troponin negative initially x 3, then increased and stabilized around 2. Doubt ACS, most likely demand ischemia from acute RV failure. Troponin also accumulated in the setting of oliguric ATN Renal: Renal indices holding. Urine output improved remarkably ID: F/u cultures On broad spectrum Abx, Vanco, Zosyn. May D/c Vanco at this point Levaquin held due to prolonged QTc. Added Doxy Procalcitonin is negative. GI: Start oral diet Endo: Insulin drip for glycemic control DVT prophylaxis: SC heparin Critical care time spent with the patient, reviewing chart, discussing with consultants, greater than 40 minutes Consults & Procedures Consultants: Sandy: Dr Adkins ID: Dr Ferrell Procedures: 08/22/17: Intubation 08/22/17: Right femoral TLC in ED 08/25/17: Extubation Data Medications: Current Inpatient Medications Medications (Trade) Dose Ordered Sig/Suzi Route Start Time Stop Time Status Last Admin Dose Admin Piperacillin Sod/ Tazobactam Sod 4.5 gm/Dextrose 120 ml @ 30 mls/hr Q8H IV 08/22/17 17:00 09/01/17 16:59 08/25/17 16:57 30 MLS/HR Miscellaneous Information (Consult) 1 ea UD PRN N/A 08/22/17 12:00 09/21/17 11:59 Pantoprazole Sodium 40 mg/ Syringe 10 ml @ 5 mls/min DAILY@0900 IV 08/23/17 09:00 09/22/17 08:59 08/25/17 07:47 5 MLS/MIN Miscellaneous Information (Consult Glycemic Management Pharmacy) 1 ea UD N/A 08/22/17 12:56 09/21/17 12:55 Albuterol/ Ipratropium (Duoneb) 3 ml QIDR INH 08/22/17 16:00 09/21/17 15:59 08/25/17 14:43 3 ML Glucose (Glucose 40% Gel) 15-30 GRAMS 15 GRAMS... UD PRN PO 08/22/17 15:15 09/21/17 15:14 Glucose (Glucose Chew Tab) 4-8 Tablets 4 Tabl... UD PRN PO 08/22/17 15:15 09/21/17 15:14 Dextrose (Dextrose 50% 50ML Syringe) 25-50ML OF 50% DW IV FOR... UD PRN IV 08/22/17 15:15 09/21/17 15:14 Glucagon (Glucagon Inj) 1 mg UD PRN SQ 08/22/17 15:15 09/21/17 15:14 Ioversol (Optiray 320) 100 ml UD PRN IV 08/22/17 18:00 08/26/17 17:59 Heparin Sodium (Porcine) (Heparin Sq 5000 Unit/0.5ml) 5,000 unit Q8 SQ 08/22/17 22:00 09/21/17 21:59 08/25/17 06:13 5,000 UNIT Doxycycline Hyclate 100 mg/ Dextrose 110 ml @ 50 mls/hr Q12H IV 08/23/17 14:00 08/30/17 13:59 08/25/17 13:58 50 MLS/HR Aspirin (Aspirin Chew) 81 mg DAILY PO 08/25/17 09:00 09/24/17 08:59 08/25/17 07:47 81 MG Insulin Human Regular 250 units/ Sodium Chloride 252.5 ml @ 0 mls/hr Q24H IV 08/25/17 00:45 09/24/17 00:44 08/25/17 00:59 2 MLS/HR Insulin Glargine (Lantus Solostar Pen) 15 units BID SC 08/25/17 21:00 09/24/17 20:59 Insulin Aspart (novoLOG ASPART) SLIDING SCALE PCHS SC 08/25/17 17:15 09/24/17 17:14 08/25/17 16:58 5 UNITS Prednisone (PredniSONE TAB) 40 mg DAILY PO 08/26/17 09:00 09/25/17 08:59 I & O: 24-Hour Column 08/26/17 08:00 Intake Total 458 ml Output Total 300 ml Balance 158 ml Vital Signs: Date Time Temp Pulse Resp B/P (MAP) Pulse Ox O2 Delivery O2 Flow Rate FiO2 08/25/17 17:59 37.2 77 16 101/71 (81) 98 Nasal Cannula 3.0 08/25/17 16:00 Nasal Cannula 4.0 08/25/17 16:00 37.0 63 16 102/59 (73) 98 Nasal Cannula 4.0 08/25/17 14:43 64 20 97 Nasal Cannula 4.0 08/25/17 13:30 36.4 77 16 114/56 (75) 98 Nasal Cannula 4.0 08/25/17 13:00 67 18 114/56 (75) 98 08/25/17 12:11 61 28 101/62 (75) 95 08/25/17 12:01 85 21 101/62 (75) 08/25/17 12:00 57 16 97 08/25/17 11:30 Mechanical Ventilator 30 08/25/17 11:21 65 24 96 Mask 40 08/25/17 11:00 36.4 56 16 125/69 (87) 96 CPAP 30 08/25/17 11:00 69 18 125/69 (87) 96 08/25/17 10:31 61 12 119/58 (78) 08/25/17 10:00 56 15 116/56 (76) 96 08/25/17 09:30 70 11 123/66 (85) 08/25/17 09:30 36.4 60 14 123/66 (85) 97 CPAP 30 08/25/17 09:01 81 21 134/77 (96) 97 08/25/17 09:00 85 10 99 08/25/17 08:30 55 11 121/58 (79) 96 08/25/17 08:01 59 13 127/62 (83) 96 08/25/17 08:00 CPAP 08/25/17 08:00 53 9 96 08/25/17 08:00 36.4 59 14 125/64 (84) 97 CPAP 30 08/25/17 08:00 Mechanical Ventilator 30 08/25/17 07:30 55 11 118/59 (78) 96 08/25/17 07:15 30 08/25/17 07:00 53 9 125/64 (84) 97 08/25/17 06:00 59 12 134/65 (88) 97 CPAP 30 08/25/17 05:55 30 08/25/17 05:25 30 08/25/17 04:00 36.9 56 22 125/60 (81) 98 Mechanical Ventilator 30 08/25/17 04:00 30 08/25/17 04:00 95 Mechanical Ventilator 30 08/25/17 02:00 63 22 110/54 (72) 94 Mechanical Ventilator 30 08/25/17 01:45 30 08/25/17 00:01 37.4 95 22 137/72 (93) 92 Mechanical Ventilator 30 08/24/17 23:59 30 08/24/17 23:59 95 Mechanical Ventilator 30 08/24/17 22:07 30 08/24/17 22:00 37.4 94 22 136/71 (92) 94 Mechanical Ventilator 30 08/24/17 21:30 37.3 72 22 111/70 (84) 96 Mechanical Ventilator 30 08/24/17 21:00 37.2 87 22 132/66 (88) 98 Mechanical Ventilator 30 08/24/17 20:31 37.2 72 22 116/48 (70) 94 Mechanical Ventilator 30 08/24/17 20:12 30 08/24/17 20:00 94 CPAP 30 08/24/17 20:00 37.3 97 24 128/62 (84) 91 Mechanical Ventilator 30 2/8/18 20:00 30 Laboratory Results: Last 24 Hours Test 08/24/17 20:01 08/24/17 23:52 08/25/17 02:01 08/25/17 02:58 Bedside Glucose 212 mg/dl 227 mg/dl 198 mg/dl 206 mg/dl Test 08/25/17 03:52 08/25/17 04:44 08/25/17 04:51 08/25/17 05:46 Bedside Glucose 177 mg/dl 178 mg/dl Creatine Kinase MB Ratio White Blood Count 11.33 K/uL Red Blood Count 3.75 M/uL Hemoglobin 11.6 g/dL Hematocrit 35.3 % Mean Corpuscular Volume 94.1 fL Mean Corpuscular Hemoglobin 30.9 pg Mean Corpuscular Hemoglobin Concent 32.9 g/dl Platelet Count 116 K/uL Mean Platelet Volume 10.2 fL Neutrophils (%) (Auto) 89.0 % Lymphocytes (%) (Auto) 2.7 % Monocytes (%) (Auto) 7.4 % Eosinophils (%) (Auto) 0.0 % Basophils (%) (Auto) 0.1 % Neutrophils # (Auto) 10.08 K/uL Lymphocytes # (Auto) 0.31 K/uL Monocytes # (Auto) 0.84 K/uL Eosinophils # (Auto) 0.00 K/uL Basophils # (Auto) 0.01 K/uL RDW Standard Deviation 53.6 fL RDW Coefficient of Variation 15.6 % Immature Granulocyte % (Auto) 0.8 % Immature Granulocyte # (Auto) 0.09 K/uL Hypersegmented Polys 1+ Platelet Estimate DECREASED Sodium Level 146 mmol/L Potassium Level 3.9 mmol/L Chloride Level 115 mmol/L Carbon Dioxide Level 26 mmol/L Anion Gap 5.0 mmol/L Blood Urea Nitrogen 37 mg/dl Creatinine 1.71 mg/dl Est Creatinine Clear Calc Drug Dose 28.5 ml/min Estimated GFR () 32.2 Estimated GFR (Non- 27.8 BUN/Creatinine Ratio 21.8 Random Glucose 180 mg/dl Calcium Level 7.6 mg/dl Ionized Calcium 1.07 mmol/l Phosphorus Level 2.5 mg/dl Magnesium Level 2.1 mg/dl Total Bilirubin 0.7 mg/dl Aspartate Amino Transf (AST/SGOT) 67 U/L Alanine Aminotransferase (ALT/SGPT) 43 U/L Alkaline Phosphatase 49 U/L Creatine Kinase MB 7.3 ng/ml Troponin I 1.300 ng/ml Total Protein 5.4 gm/dl Albumin 2.2 gm/dl Globulin 3.2 gm/dl Albumin/Globulin Ratio 0.7 Test 08/25/17 05:53 08/25/17 05:59 08/25/17 06:54 08/25/17 12:32 Bedside Glucose 178 mg/dl 197 mg/dl Blood Gas Sample Site R Radial R Radial Bedside Blood Gas pH (LAB) 7.38 7.38 Bedside Blood Gas pCO2 (LAB) 40 mmHg 43 mmHg Bedside Blood Gas pO2 (LAB) 98 mmHg 73 mmHg Bedside Blood Gas HCO3 (LAB) 23 meq/L 25 meq/L Bedside Blood Gas Total CO2 25 mEq/l 27 mEq/l Bedside Blood Gas Base Excess (LAB) -2.0 meq/L 0.0 meq/L Bedside Blood Gas O2 Saturation 97.0 % 94.0 % Laron Test Pass Pass Oxygen Delivery Device Ventilator Other Bedside FiO2 30 % 35 % Blood Gas PEEP 5
[2017-08-26] VITALS (69 sets, daily range): BP systolic 53–150; BP diastolic 21–72; PULSE 67–133; TEMP 36.4–36.9; O2SAT 76–100
[2017-08-26] MEDS: PIPERACILL/TAZOBAC IV 4.5 GM in DEXTROSE 5% 100ML 100 ML IV SCH ×3 (01:04→17:36)
[2017-08-26] MEDS: INSULIN REGULAR 250 UNITS in SODIUM CHLORIDE 0.9% 250ML 250 ML IV SCH (01:04)
[2017-08-26] MEDS: DOXYCYCLINE IV 100 MG in DEXTROSE 5% 100ML 100 ML IV SCH ×2 (02:11→14:26)
[2017-08-26] MEDS: HEPARIN SOD 5000 UNIT/0.5 ML CARP SQ SCH (05:33)
[2017-08-26 05:45] LABS: CALCIUM 7.4 mg/dl (8.5-10.1); CREATININE 1.76 mg/dl (0.60-1.20); POTASSIUM 3.6 mmol/L (3.5-5.1)
[2017-08-26 06:38] LABS: HEMATOCRIT 26.3 % (37-47); HEMOGLOBIN 8.5 g/dL (12.0-16.0); MEAN CELL VOLUME 94.9 fL (80-100); MEAN CORPUSCULAR HEMOGLOBIN 30.7 pg (25-34); MEAN CORPUSCULAR HGB CONC 32.3 g/dl (32-36); MEAN PLATELET VOLUME 10.1 fL (7.4-10.4); NUCLEATED RED BLOOD CELL ABS 0.07 K/uL (0-0); PLATELET COUNT 152 K/uL (130-400); RED CELL DISTRIBUTION WIDTH CV 15.5 % (11.5-14.5); RED CELL DISTRIBUTION WIDTH SD 52.7 fL (36.4-46.3); WHITE BLOOD COUNT 22.53 K/uL (4.8-10.8)
[2017-08-26 06:40] LABS: BASO ABS # 0.01 K/uL (0-0.2); IG# 0.27 K/uL (0.00-0.02); LYMPH % 2.7 %; LYMPH ABS # 0.61 K/uL (1.2-3.4); MONO % 9.5 %; MONO ABS # 2.15 K/uL (0.11-0.59); NEUT % 86.6 %; NEUT ABS # 19.49 K/uL (1.4-6.5)
[2017-08-26] MEDS: NOREPINEPHRINE BIT INJ 8 MG in DEXTROSE 5% 500ML 500 ML IV PRN ×2 (06:44→20:53)
[2017-08-26] MEDS: ALBUT/IPRATROP 3MG/0.5MG NEB 3 ML VIAL INH SCH ×4 (07:00→18:05)
[2017-08-26] MEDS: ASPIRIN 81 MG CHEW PO SCH (08:18)
[2017-08-26] MEDS: INSULIN GLARGINE SOLOSTAR 100 UNITS/ML 3 ML PEN SC SCH (08:20)
[2017-08-26] MEDS: INSULIN ASPART 100 UNITS/ML 3 ML PEN SC SCH ×4 (08:27→20:54)
--- NOTE | 2017-08-26 09:52 | DIAGNOSTIC IMAGING REPORT ---
CHEST ONE VIEW PORTABLE CLINICAL HISTORY: 81 years-old Female presenting with Left IJ TLC attempt. TECHNIQUE: Portable upright AP view of the chest was obtained. COMPARISON: 08/25/2017. FINDINGS: Interval extubation. Removal of the nasogastric tube. Atherosclerosis of the aortic arch. Cardiac silhouette mildly enlarged. Mildly low lung volumes with hypoventilatory changes. Trace left pleural effusion and left basilar opacity may be present. No pneumothorax. No subcutaneous emphysema at the left base of the neck at the site of reported attempted line. Degenerative change and deformity of the proximal right humerus. Multiple surgical clips project over the upper abdomen. Upper abdomen normal. IMPRESSION: 1. No pneumothorax status post attempted line placement. 2. Mildly low lung volumes with hypoventilatory changes. 3. Interval extubation and nasogastric tube removal. Electronically signed by: Jason De Leon M.D. 08/26/2017 9:50 AM Dictated Date/Time: 08/26/2017 9:49 AM
[2017-08-26] MEDS ORDERED: LIDOCAINE HCL 1% 20 ML VIAL ONE (10:01)
[2017-08-26] MEDS: PANTOprazole INJ 40 MG in SYRINGE 0 ML IV SCH (11:48)
[2017-08-26 12:40] LABS: HEMATOCRIT 25.2 % (37-47); HEMOGLOBIN 8.2 g/dL (12.0-16.0); MEAN CELL VOLUME 91.3 fL (80-100); MEAN CORPUSCULAR HEMOGLOBIN 29.7 pg (25-34); MEAN CORPUSCULAR HGB CONC 32.5 g/dl (32-36); MEAN PLATELET VOLUME 10.7 fL (7.4-10.4); NUCLEATED RED BLOOD CELL ABS 0.29 K/uL (0-0); PLATELET COUNT 159 K/uL (130-400); RED CELL DISTRIBUTION WIDTH CV 16.3 % (11.5-14.5); RED CELL DISTRIBUTION WIDTH SD 53.8 fL (36.4-46.3); WHITE BLOOD COUNT 21.79 K/uL (4.8-10.8)
--- NOTE | 2017-08-26 12:52 | Progress Note ---
Internal Med Progress Note Date of Service: Aug 26, 2017. Provider Documentation: SUBJECTIVE: The patient was seen and examined Was brought in with AMS and noted to be in Shock with Hypoxemia and Hypothermia Now intubated in ICU and S/P Extubation on 08/25/17 Doing much better OBJECTIVE: Vital Signs-as noted below Exam: General-Intubated in ICU Opening eyes with commands NO acute distress Eyes-Closed ENT-Normal Neck-Supple Lungs-Decreased breath sound bilaterally Minimal crackles at the bases Heart-Regular Abdomen-Benign Extremities-Trace edema bilaterally Has a large hematoma in right upper medial thigh ,s/p Central line placement Neuro-Sedated on Vent Lab data as noted below. 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 * The left ventricular wall motion is normal. * The LV Ejection Fraction = >70 %. * The right ventricle is mildly dilated. * The right ventricular systolic function is mildly reduced with diffuse right ventricular hypokinesis that spares the RV apex. * There is mild to moderate tricuspid regurgitation. * Dilated inferior vena cava with reduced collapsability with sniff indicates an elevated right atrial pressure of 15 mmHg * Severe pulmonary is hypertension, with PA systolic pressure calculated to be 75 mmg Hg, assuming a right atrial pressure of 15 mm Hg. * Compared to the report of the prior outpatient echocardiogram performed at [facility] dated 02/13/12, the right ventricular size and systolic function was normal at that time with normal calculated pulmonary pressures. * Findings compatible with possible acute pulmonary embolism versus interval development of pulmonary hypertension of uknown chronicity due to other cause. Trending Troponin -doubt any ACS Repeat ECHO in AM : showed improvement of the Right ventricular function Still requiring pressors-off pressors now BP is maintaining HEATHER ON CKD STAGE 3 : HYPERNATREMIA ; ATN with anuria -minimum urine out put after fluid bolus IV fluids resuscitation , pressor support Follow PRP Q 4hrs per sepsis protocol Pt has solitary kidney ( s/p Left nephrectomy ) Baseline Cr 1.6 Nephrology consulted-appreciate Input Creatinine remains stable HYPOTENSION /HYPOTHERMIA : SEPSIS DUE TO UTI and May be complicated by respiratory pathogens Likely due to severe sepsis ,possible source of infection UTI Temp improved with Jayda hugger , IV fluid bolus followed by aggressive resuscitation per sepsis protocol Empiric Abx with Zosyn /vancomycin ( avoid quinolones -prolong Qtc ) , Doxycycline Started on pressors 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 Appreciate ID input Blood and Urine Cultures are negative Vancomycin discontinued Continue antibiotics for 3 more days as per ID Off pressors now CODE STATUS : d/w Daughter -full code DVT PROPHYLAXIS high risk ICU admission /obtundation Sub q heparin Vital Signs: Date Time Temp Pulse Resp B/P (MAP) Pulse Ox O2 Delivery O2 Flow Rate FiO2 08/26/17 12:00 Room Air 08/26/17 11:30 36.6 84 20 93/59 97 08/26/17 11:00 91 26 84/52 (63) 98 08/26/17 11:00 90 18 94 Room Air 08/26/17 10:46 75 18 93/41 (61) 94 08/26/17 10:30 36.6 89 22 90/49 95 08/26/17 10:30 89 22 90/49 (51) 95 08/26/17 10:15 90 18 70/50 (59) 96 08/26/17 10:01 100 23 89/38 (45) 94 08/26/17 10:00 36.9 101 20 89/38 99 08/26/17 09:55 98 18 77/59 (68) 86 08/26/17 09:50 36.6 95 22 77/59 95 08/26/17 09:34 105 14 68/46 (51) 93 08/26/17 09:31 92 20 73/45 (51) 93 08/26/17 09:00 96 19 84/58 (64) 100 08/26/17 08:31 133 20 93/47 (58) 08/26/17 08:00 36.7 08/26/17 08:00 Room Air 08/26/17 07:51 103 20 92/36 (65) 95 08/26/17 07:31 106 26 79/43 (51) 91 08/26/17 07:21 107 19 94/59 (61) 100 08/26/17 07:11 80 29 106/52 (63) 100 08/26/17 07:01 88 22 99/44 (51) 93 08/26/17 07:01 81 20 93 Room Air 08/26/17 05:01 87 31 86/40 (52) 92 08/26/17 04:01 67 25 80/42 (57) 96 08/26/17 04:00 36.4 08/26/17 04:00 94 Room Air 08/26/17 03:01 84 17 85/42 (61) 92 08/26/17 02:01 79 17 82/39 (45) 96 08/26/17 01:01 83 16 72/48 (61) 97 08/26/17 00:01 36.4 08/26/17 00:01 86 18 98/38 (58) 99 08/25/17 23:59 94 Nasal Cannula 2.0 08/25/17 23:01 75 15 111/53 (58) 99 08/25/17 22:22 68 94 40 08/25/17 22:21 67 21 89/45 (56) 94 08/25/17 22:00 91 34 106/51 (66) 94 08/25/17 21:01 79 32 93/55 (68) 94 08/25/17 20:26 75 18 100 Nasal Cannula 3.0 08/25/17 20:01 68 20 102/52 (75) 100 08/25/17 20:00 98 Nasal Cannula 3.0 08/25/17 20:00 36.5 08/25/17 19:01 65 19 98/51 (76) 100 08/25/17 17:59 37.2 77 16 101/71 (81) 98 Nasal Cannula 3.0 08/25/17 16:00 Nasal Cannula 4.0 08/25/17 16:00 37.0 63 16 102/59 (73) 98 Nasal Cannula 4.0 08/25/17 14:43 64 20 97 Nasal Cannula 4.0 08/25/17 13:30 36.4 77 16 114/56 (75) 98 Nasal Cannula 4.0 08/25/17 13:00 67 18 114/56 (75) 98 Lab Results: Results Past 24 Hours Test 08/25/17 13:48 08/25/17 15:01 08/25/17 15:58 08/25/17 16:55 Range/Units Bedside Glucose 116 114 103 112 70-90 mg/dl Test 08/25/17 17:50 08/25/17 19:03 08/25/17 20:12 08/25/17 21:10 Range/Units Bedside Glucose 181 291 270 229 70-90 mg/dl Test 08/25/17 22:09 08/25/17 23:01 08/25/17 23:53 08/26/17 01:01 Range/Units Bedside Glucose 175 155 130 178 70-90 mg/dl Test 08/26/17 02:10 08/26/17 02:57 08/26/17 03:52 08/26/17 04:53 Range/Units Bedside Glucose 227 197 144 70-90 mg/dl White Blood Count 22.53 4.8-10.8 K/uL Red Blood Count 2.77 4.2-5.4 M/uL Hemoglobin 8.5 12.0-16.0 g/dL Hematocrit 26.3 37-47 % Mean Corpuscular Volume 94.9 80-100 fL Mean Corpuscular Hemoglobin 30.7 25-34 pg Mean Corpuscular Hemoglobin Concent 32.3 32-36 g/dl Platelet Count 152 130-400 K/uL Mean Platelet Volume 10.1 7.4-10.4 fL Neutrophils (%) (Auto) 86.6 % Lymphocytes (%) (Auto) 2.7 % Monocytes (%) (Auto) 9.5 % Eosinophils (%) (Auto) 0.0 % Basophils (%) (Auto) 0.0 % Neutrophils # (Auto) 19.49 1.4-6.5 K/uL Lymphocytes # (Auto) 0.61 1.2-3.4 K/uL Monocytes # (Auto) 2.15 0.11-0.59 K/uL Eosinophils # (Auto) 0.00 0-0.5 K/uL Basophils # (Auto) 0.01 0-0.2 K/uL RDW Standard Deviation 52.7 36.4-46.3 fL RDW Coefficient of Variation 15.5 11.5-14.5 % Immature Granulocyte % (Auto) 1.2 % Immature Granulocyte # (Auto) 0.27 0.00-0.02 K/uL Nucleated RBC Absolute Count (auto) 0.07 0-0 K/uL Nucleated Red Blood Cells % 0.3 % Polychromasia 1+ Anisocytosis PRESENT Sodium Level 146 136-145 mmol/L Potassium Level 3.6 3.5-5.1 mmol/L Chloride Level 114 98-107 mmol/L Carbon Dioxide Level 26 21-32 mmol/L Anion Gap 6.0 3-11 mmol/L Blood Urea Nitrogen 43 7-18 mg/dl Creatinine 1.76 0.60-1.20 mg/dl Est Creatinine Clear Calc Drug Dose 27.6 ml/min Estimated GFR () 31.1 Estimated GFR (Non- 26.8 BUN/Creatinine Ratio 24.5 10-20 Random Glucose 98 70-99 mg/dl Calcium Level 7.4 8.5-10.1 mg/dl Phosphorus Level 3.0 2.5-4.9 mg/dl Magnesium Level 2.1 1.8-2.4 mg/dl Test 08/26/17 05:00 08/26/17 05:59 08/26/17 07:13 08/26/17 07:53 Range/Units Bedside Glucose 116 135 171 70-90 mg/dl Lactic Acid Level 3.8 0.4-2.0 mmol/L Test 08/26/17 08:08 08/26/17 09:17 08/26/17 10:25 08/26/17 11:35 Range/Units Bedside Glucose 204 244 242 70-90 mg/dl Bedside Glucose (other) 208 70-99 mg/dl Test 08/26/17 12:27 08/26/17 12:34 Range/Units White Blood Count 21.79 4.8-10.8 K/uL Red Blood Count 2.76 4.2-5.4 M/uL Hemoglobin 8.2 12.0-16.0 g/dL Hematocrit 25.2 37-47 % Mean Corpuscular Volume 91.3 80-100 fL Mean Corpuscular Hemoglobin 29.7 25-34 pg Mean Corpuscular Hemoglobin Concent 32.5 32-36 g/dl RDW Standard Deviation 53.8 36.4-46.3 fL RDW Coefficient of Variation 16.3 11.5-14.5 % Platelet Count 159 130-400 K/uL Mean Platelet Volume 10.7 7.4-10.4 fL Nucleated RBC Absolute Count (auto) 0.29 0-0 K/uL Nucleated Red Blood Cells % 1.3 % Bedside Glucose (other) 332 70-99 mg/dl
[2017-08-26] MEDS ORDERED: ACETAMINOPHEN 1000 MG/100 ML IV IV ONE (13:45)
[2017-08-26] MEDS ORDERED: NURSING VERBAL MED ORDER ONE ×4 (14:15→17:00)
--- NOTE | 2017-08-26 15:03 | Procedure Note ---
Procedure Note Procedure Date Aug 26, 2017. 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 Prep: chlorhexadine prep, sterile drape, sterile procedures used Anesthesia: local injection, lidocaine 1% without epi Central line location: internal jugular (L) Additional details: percutaneous placement, ultrasound guidance, Selinger technique used CXR: no pneumothorax Patient tolerated procedure: well Post-procedure vital signs: reviewed and stable Comments: I was able to cannulate the vessel with the needle, I passed the guidewire with ease, but it would not advance past 15 cm. I tried multiple times, withdrawing and reintroducing the wire. I decided not to dilate the vessel and I aborted the procedure. No complications post-procedure
--- NOTE | 2017-08-26 15:04 | Procedure Note ---
Procedure Note Procedure Date Aug 26, 2017. 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 Prep: chlorhexadine prep, sterile drape, sterile procedures used Anesthesia: local injection, lidocaine 1% without epi Volume anesthetic (ml's): 5 Central line lumen: triple Central line location: femoral (L) Additional details: percutaneous placement, ultrasound guidance, Selinger technique used, line sutured, good blood return Complications: none Patient tolerated procedure: well Post-procedure vital signs: reviewed and stable
--- NOTE | 2017-08-26 15:06 | Procedure Note ---
Procedure Note Procedure Date Aug 26, 2017. Procedure Description Procedure Name: Left radial arterial line Procedure time out: side/site verified Consent obtained: written Performed by: attending Indications: diagnostic Contraindications: none Description: The left wrist was cleaned with chlorhexidine with a wide area of coverage. The wrist and the patient were covered with a fenestrated sterile drape. Under ultrasound guidance, the left radial artery was identified. The skin over the radial artery was infiltrated with 1% lidocaine. Under ultrasound guidance, under sterile conditions, the left radial artery was penetrated by the needle and it was exchanged to a 20G arterial line catheter using a Seldinger technique. The a-line was connected to the a-line tubing, the monitor showing arterial wave -forms. Line was secured to skin using sutures, and was covered with Biopatch and transparent adhesive dressing. No complications noted, no distal vascular compromise observed immediately Laron test performed prior to procedure, indicating good collateral supply Complications: none Patient tolerated procedure: well Post-procedure vital signs: reviewed and stable
--- NOTE | 2017-08-26 15:22 | DIAGNOSTIC IMAGING REPORT ---
ABD/PELVIS NO IV OR ORAL CONT CLINICAL HISTORY: 81 years-old Female presenting with R/o RP bleed. . TECHNIQUE: Multidetector CT of the abdomen and pelvis was performed without the use of intravenous contrast. IV contrast: None. A dose lowering technique was used consistent with the principles of ALARA (as low as reasonably achievable). COMPARISON: 02/09/2007. CT DOSE (mGy.cm): The estimated cumulative dose is 1388.86 mGy.cm. 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 Lung bases: Extensive dependent change and volume loss in the bilateral lower lobes. Patchy groundglass opacity in the lingula. Normal heart size. Coronary artery calcification. Small bilateral pleural effusions. No pericardial effusion. Liver: Congenital hypoplasia of the medial segments of the left hepatic lobe. Hepatic steatosis by liver density. Biliary: No intrahepatic or extrahepatic biliary ductal dilatation. Gallbladder contains gallstones. Pancreas: Mild parenchymal atrophy. Spleen: Normal noncontrast appearance. Adrenal glands: Extensive nodular thickening of the left adrenal gland consistent with underlying benign adenoma by density postsurgical changes of right adrenalectomy. Kidneys and ureters: Postsurgical changes of left nephrectomy. Calcification in the left nephrectomy bed likely fat necrosis. Right kidney demonstrates nonobstructing nephrolithiasis. Multiple hypodensities likely simple cysts. Multiple hyperdense lesions not evident on prior exam and is indeterminate, solid lesion not excluded though these may represent hemorrhagic or proteinaceous cysts. No hydronephrosis. Right ureter contains a 6 mm calculus immediately proximal to the right ureterovesical junction. Bladder: Decompressed by a Pop catheter. Pelvic organs: Normal noncontrast appearance. Bowel: Fluid in the colon suggests a diarrheal state. No bowel obstruction. Peritoneal cavity: Trace free fluid in the pelvis. Nonspecific extraperitoneal fluid in the pelvis was pronounced in the presacral space and right retroperitoneum. Lymph nodes: No gross lymphadenopathy allowing for noncontrast technique. Vasculature: Extensive atherosclerosis with tortuosity and aneurysmal dilatation of the infrarenal abdominal aorta, which measures up to 4.5 cm, previously 4.7 cm. There is postsurgical changes of left common iliac to left common femoral arterial bypass grafting. Patency cannot be confirmed. Left common femoral venous catheter terminates in the left external iliac artery. Flattening of the IVC and iliac veins consistent with a hypovolemic state. Abdominal wall: Postsurgical changes of the midline infraumbilical abdominal wall. Skin thickening and infiltration along the right anterior abdominal wall. Nonspecific body wall edema. Asymmetric extensive swelling of the right lower extremity. Musculoskeletal: Expansion of the right iliopsoas as well as the right abductor muscle group consistent with intramuscular hematoma. Large hematoma also noted in the right gluteus medius medius muscle measuring up to 14 x 5 cm. Degenerative changes of the spine. Degenerative changes of the hips, right greater than left. Osteopenia. Severe anterior wedging compression deformity of L1 and minimal anterior height loss of L2 and L5. Deformities of L1 and L2 are new since 2007. IMPRESSION: 1. Findings consistent with retroperitoneal hematoma/intramuscular hematoma in the right iliopsoas. Additionally, large hematoma in the right gluteus medius muscle. In the setting of anticoagulation, these most likely represent venous bleeds. 2. Extensive dependent lower lobe consolidation and volume loss, likely extensive atelectasis. 3. Patchy groundglass opacity in the lingula. An infectious etiology cannot be excluded. 4. Left adrenal benign adenomas suspected. 5. Postsurgical changes of right adrenalectomy. 6. Postsurgical changes of left nephrectomy. 7. Multiple hyperdense right renal lesions, indeterminate. Solid renal lesions not excluded but possibly hemorrhagic or pertinacious cysts. 8. 4.5 cm infrarenal abdominal aortic aneurysm. Comment left iliac artery to common femoral artery bypass. 9. Age-indeterminate compression deformity of L1 and less significantly at L2. 10. Skin thickening and infiltration of the anterior abdominal wall. Cellulitis not excluded. Correlate clinically. 11. Fluid in the colon suggests a diarrheal state. Electronically signed by: Jason De Leon M.D. 08/26/2017 3:21 PM Dictated Date/Time: 08/26/2017 3:07 PM
--- NOTE | 2017-08-26 15:27 | DIAGNOSTIC IMAGING REPORT ---
R LOWER EXTREMITY WITHOUT CLINICAL HISTORY: 81 years-old Female presenting with Thigh hematoma. TECHNIQUE: Multidetector CT of the right femur was performed without the use of intravenous contrast. IV contrast: None. A dose lowering technique was used consistent with the principles of ALARA (as low as reasonably achievable). COMPARISON: None. CT DOSE (mGy.cm): The estimated cumulative dose is 1388.[address] abdomen and pelvis.. FINDINGS: Rn Gyn topogram: Unremarkable. Expansion of the right iliopsoas consistent with intramuscular hematoma, which is primarily above the inguinal ligament. Large hematoma in the right gluteus medius medius measuring approximately 13 x 5 cm in maximal axial dimensions. This appears to also involve the right piriformis muscle. Minimal retroperitoneal fluid suggests trace retroperitoneal hemorrhage. Intramuscular hematoma also noted in the abductor muscle group. Extensive subcutaneous edema in the right lower extremity. No acute fracture. Degenerative changes of the right hip joint evidence by osteophytosis and mild joint space loss. Atherosclerosis. IMPRESSION: 1. Extensive intramuscular hematomas in the right iliopsoas, right abductor muscle group, right piriformis, and right gluteus medius. 2. No acute osseous injury. 3. Degenerative changes of the right hip. Electronically signed by: Jason De Leon M.D. 08/26/2017 3:26 PM Dictated Date/Time: 08/26/2017 3:21 PM
[2017-08-26] MEDS ORDERED: FENTANYL CITRATE INJ 50 MCG/1 ML 2 ML VIAL ONE (16:28)
--- NOTE | 2017-08-26 16:30 | DIAGNOSTIC IMAGING REPORT ---
ART DOP DUPLEX LWR EXT UNI CLINICAL HISTORY: 81 years-old Female presenting with Evaluate for active bleeding from right femoral vein. TECHNIQUE: Real-time grayscale and color and spectral Doppler ultrasound imaging of the right lower extremity arteries and veins was performed. COMPARISON: 12/07/2016 and 08/22/2017. FINDINGS: Right: Common femoral artery: Patent. Peak systolic velocity 114 cm/s. Superficial femoral artery: Patent. Peak systolic velocity 68 cm/s. Deep femoral artery: Patent. Peak systolic velocity 161 cm/s. Common femoral vein: Patent. Abnormal velocity of 40-90 cm/s. Femoral vein: Patent. Normal velocity of 6 cm/s. Greater saphenous vein: Patent. Other: Small hypoechoic collection in the region of the right groin medial to the right femoral vessels measuring 2.9 x 0.7 x 1.5 cm. Larger hypoechoic avascular collection in the medial proximal thigh measuring 3.8 x 7.3 x 2.5 cm, also consistent with hematoma. This is avascular and likely represents a small hematoma. Additionally, enlarged right inguinal lymph nodes likely reactive. IMPRESSION: 1. 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 The site of arterial inflow is likely the common femoral artery, however, this is not well demonstrated. No evidence of pseudoaneurysm formation. Further evaluation with CTA of the right lower extremity may better characterize this abnormality. 2. Small hematomas in the region of the right groin and medial right thigh. The report will be called/faxed according to standard departmental protocol. Electronically signed by: Jason De Leon M.D. 08/26/2017 4:29 PM Dictated Date/Time: 08/26/2017 4:23 PM
[2017-08-26 17:05] LABS: HEMATOCRIT 31.4 % (37-47); HEMOGLOBIN 10.5 g/dL (12.0-16.0); MEAN CELL VOLUME 89.5 fL (80-100); MEAN CORPUSCULAR HEMOGLOBIN 29.9 pg (25-34); MEAN CORPUSCULAR HGB CONC 33.4 g/dl (32-36); MEAN PLATELET VOLUME 10.9 fL (7.4-10.4); NUCLEATED RED BLOOD CELL ABS 0.45 K/uL (0-0); PLATELET COUNT 147 K/uL (130-400); RED CELL DISTRIBUTION WIDTH CV 16.1 % (11.5-14.5); RED CELL DISTRIBUTION WIDTH SD 51.6 fL (36.4-46.3); WHITE BLOOD COUNT 26.32 K/uL (4.8-10.8)
[2017-08-26 17:29] LABS: CALCIUM 7.6 mg/dl (8.5-10.1); CREATININE 2.2 mg/dl (0.60-1.20); PHOSPHORUS 3.8 mg/dl (2.5-4.9); POTASSIUM 3.9 mmol/L (3.5-5.1); TOTAL PROTEIN 4.7 gm/dl (6.4-8.2)
--- NOTE | 2017-08-26 18:10 | Critical Care Progress Note ---
Critical Care Progress Note Date of Service Aug 26, 2017. Attending Dr. Holloway Subjective Hypotensive today, noticed right inguinal/thigh hematoma. Received 2 units PRBC so far, now receiving the thirs. Requiring pressors again Inserted left femoral TLC (after failed left IJ) and left radial a-line Objective General: Awake, comfortable Heent: NC/AT CVS:S1S2 regular Lungs: clear to auscultation Abd: Soft, NT, ND, old laparotomy scar Ext: right thigh increased circumference, feels full compared to the left. Ecchymosis over the old TLC insertion site, deep hematoma felt Present left PT pulse, absent DP CLINICAL SOCIAL WORKER: Awake, confused to time, no focal deficit Assessment & Plan 81 year old female presents with AMS, hypothermic, in profound shock. Less likely septic in nature, more likely cardiogenic, with RV failure, severe pulmonary hypertension. Not clear what led to this spike in PAP, pulmonary embolism has been ruled out. She has acute severe hypercapnia, undiagnosed COPD, which may lead to a spike in the PA pressure. Repeat echo after 2 days showed normalization of right heart function/size and PA pressure I seriously doubt she has Group I PH, given her age and normal PAP 6 years ago Extubated on 08/25/17 Right thigh hematoma Problems: Acute respiratory failure with hypercapnia and hypoxia Pulmonary hypertension RV failure with shock Right thigh hematoma COPD Acute kidney injury Plan: CLINICAL SOCIAL WORKER: Off sedation Expected to have some degree of delirium Pain control Pulmonary: Extubated successfully yesterday Prednisone 40 mg daily, taper tomorrow Around the clock bronchodilator Off heparin drip given negative CT scan for PE At this point she should be on nocturnal BIPAP CVS: Back on pressors today secondary to hypovolemic shock Severe pulmonary HTN, not caused by PE, leading to RV failure. Acute severe hypercarbia and hypoxia could potentially lead to pulmonary hypertension. This phenomenon seemed to resolve completely with conventional therapy of COPD, normalizing the ABG values Troponin negative initially x 3, then increased and stabilized around 2. Doubt ACS, most likely demand ischemia from acute RV failure. Troponin also accumulated in the setting of oliguric ATN Hold ASA for now, given femoral bleeding Vascular: CT showing large hematomas. Echo suggestive of AV fistula Pressure applied for a long time, both manually and with Fem-Stop Repeat CT tomorrow. Very difficult to control the patient, she is moving constantly. Will place her in an immobilizer. Will call a vascular surgery consult Renal: Urine output decreasing, creatinine rising. Likely ATN secondary to hypotension/ bleeding ID: F/u cultures On broad spectrum Abx, Zosyn and Doxy, finish 7 day course Procalcitonin is negative. Heme: Monitor CBC every 4 hours, transfuse liberally GI: Oral diet Endo: Insulin drip for glycemic control DVT prophylaxis: Discontinue SC heparin Critical care time spent with the patient, reviewing chart, discussing with consultants, excluding procedures, greater than 60 minutes Consults & Procedures Consultants: Sandy: Dr Adkins ID: Dr Ferrell Procedures: 08/22/17: Intubation 08/22/17: Right femoral TLC in ED 08/25/17: Extubation Data Medications: Current Inpatient Medications Medications (Trade) Dose Ordered Sig/Suzi Route Start Time Stop Time Status Last Admin Dose Admin Piperacillin Sod/ Tazobactam Sod 4.5 gm/Dextrose 120 ml @ 30 mls/hr Q8H IV 08/22/17 17:00 09/01/17 16:59 08/26/17 08:18 30 MLS/HR Miscellaneous Information (Consult) 1 ea UD PRN N/A 08/22/17 12:00 09/21/17 11:59 Pantoprazole Sodium 40 mg/ Syringe 10 ml @ 5 mls/min DAILY@0900 IV 08/23/17 09:00 09/22/17 08:59 08/26/17 11:48 5 MLS/MIN Miscellaneous Information (Consult Glycemic Management Pharmacy) 1 ea UD N/A 08/22/17 12:56 09/21/17 12:55 Albuterol/ Ipratropium (Duoneb) 3 ml QIDR INH 08/22/17 16:00 09/21/17 15:59 08/26/17 15:34 3 ML Glucose (Glucose 40% Gel) 15-30 GRAMS 15 GRAMS... UD PRN PO 08/22/17 15:15 09/21/17 15:14 Glucose (Glucose Chew Tab) 4-8 Tablets 4 Tabl... UD PRN PO 08/22/17 15:15 09/21/17 15:14 Dextrose (Dextrose 50% 50ML Syringe) 25-50ML OF 50% DW IV FOR... UD PRN IV 08/22/17 15:15 09/21/17 15:14 Glucagon (Glucagon Inj) 1 mg UD PRN SQ 08/22/17 15:15 09/21/17 15:14 Ioversol (Optiray 320) 100 ml UD PRN IV 08/22/17 18:00 08/26/17 17:59 Doxycycline Hyclate 100 mg/ Dextrose 110 ml @ 50 mls/hr Q12H IV 08/23/17 14:00 08/30/17 13:59 08/26/17 14:26 50 MLS/HR Aspirin (Aspirin Chew) 81 mg DAILY PO 08/25/17 09:00 09/24/17 08:59 08/26/17 08:18 81 MG Insulin Human Regular 250 units/ Sodium Chloride 252.5 ml @ 0 mls/hr Q24H IV 08/25/17 00:45 09/24/17 00:44 08/26/17 01:04 1.3 MLS/HR Insulin Glargine (Lantus Solostar Pen) 15 units BID SC 08/25/17 21:00 09/24/17 20:59 Future Hold 08/26/17 08:20 15 UNITS Insulin Aspart (novoLOG ASPART) SLIDING SCALE [facility] SC 08/25/17 17:15 09/24/17 17:14 08/26/17 11:49 8 UNITS Prednisone (PredniSONE TAB) 40 mg DAILY PO 08/26/17 09:00 09/25/17 08:59 08/26/17 08:18 40 MG Norepinephrine Bitartrate 8 mg/ Dextrose 508 ml @ 0 mls/hr Q0M PRN IV 08/26/17 06:30 09/25/17 06:29 08/26/17 06:44 28.9 MLS/HR Acetaminophen 100 ml @ 400 mls/hr Q8H PRN IV 08/26/17 14:15 09/25/17 14:14 Fentanyl Citrate (Fentanyl Inj) 25 mcg Q4H PRN IV 08/26/17 16:30 09/09/17 16:29 I & O: 24-Hour Column 08/27/17 07:59 Intake Total 2327 ml Output Total 100 ml Balance 2227 ml Vital Signs: Date Time Temp Pulse Resp B/P (MAP) Pulse Ox O2 Delivery O2 Flow Rate FiO2 08/26/17 17:30 36.4 103 18 94/38 94 08/26/17 15:36 82 18 93 Room Air 08/26/17 15:30 93 17 (51) 95 93/35 08/26/17 15:15 83 19 (61) 97 106/44 08/26/17 14:30 36.6 84 19 115/48 95 08/26/17 14:00 36.6 75 18 102/58 94 08/26/17 14:00 75 18 102/58 (69) 94 150/53 08/26/17 13:45 86 18 110/60 (71) 76 137/50 08/26/17 13:31 83 22 98/61 (84) 93 08/26/17 13:30 36.9 86 21 98/61 92 08/26/17 13:17 91 19 94/54 (62) 91 08/26/17 13:16 36.6 91 22 94/54 92 08/26/17 13:01 84 18 92/44 (62) 95 08/26/17 12:00 Room Air 08/26/17 11:30 36.6 84 20 93/59 97 08/26/17 11:00 91 26 84/52 (63) 98 08/26/17 11:00 90 18 94 Room Air 08/26/17 10:46 75 18 93/41 (61) 94 08/26/17 10:30 36.6 89 22 90/49 95 08/26/17 10:30 89 22 90/49 (51) 95 08/26/17 10:15 90 18 70/50 (59) 96 08/26/17 10:01 100 23 89/38 (45) 94 08/26/17 10:00 36.9 101 20 89/38 99 08/26/17 09:55 98 18 77/59 (68) 86 08/26/17 09:50 36.6 95 22 77/59 95 08/26/17 09:34 105 14 68/46 (51) 93 08/26/17 09:31 92 20 73/45 (51) 93 08/26/17 09:00 96 19 84/58 (64) 100 08/26/17 08:31 133 20 93/47 (58) 08/26/17 08:00 36.7 08/26/17 08:00 Room Air 08/26/17 07:51 103 20 92/36 (65) 95 08/26/17 07:31 106 26 79/43 (51) 91 08/26/17 07:21 107 19 94/59 (61) 100 08/26/17 07:11 80 29 106/52 (63) 100 08/26/17 07:01 88 22 99/44 (51) 93 08/26/17 07:01 81 20 93 Room Air 08/26/17 05:01 87 31 86/40 (52) 92 08/26/17 04:01 67 25 80/42 (57) 96 08/26/17 04:00 36.4 08/26/17 04:00 94 Room Air 08/26/17 03:01 84 17 85/42 (61) 92 08/26/17 02:01 79 17 82/39 (45) 96 08/26/17 01:01 83 16 72/48 (61) 97 08/26/17 00:01 36.4 08/26/17 00:01 86 18 98/38 (58) 99 08/25/17 23:59 94 Nasal Cannula 2.0 08/25/17 23:01 75 15 111/53 (58) 99 08/25/17 22:22 68 94 40 08/25/17 22:21 67 21 89/45 (56) 94 08/25/17 22:00 91 34 106/51 (66) 94 08/25/17 21:01 79 32 93/55 (68) 94 08/25/17 20:26 75 18 100 Nasal Cannula 3.0 08/25/17 20:01 68 20 102/52 (75) 100 08/25/17 20:00 98 Nasal Cannula 3.0 08/25/17 20:00 36.5 08/25/17 19:01 65 19 98/51 (76) 100 08/25/17 17:59 37.2 77 16 101/71 (81) 98 Nasal Cannula 3.0 Laboratory Results: Last 24 Hours Test 08/25/17 17:50 08/25/17 19:03 08/25/17 20:12 08/25/17 21:10 Bedside Glucose 181 mg/dl 291 mg/dl 270 mg/dl 229 mg/dl Test 08/25/17 22:09 08/25/17 23:01 08/25/17 23:53 08/26/17 01:01 Bedside Glucose 175 mg/dl 155 mg/dl 130 mg/dl 178 mg/dl Test 08/26/17 02:10 08/26/17 02:57 08/26/17 03:52 08/26/17 04:53 Bedside Glucose 227 mg/dl 197 mg/dl 144 mg/dl White Blood Count 22.53 K/uL Red Blood Count 2.77 M/uL Hemoglobin 8.5 g/dL Hematocrit 26.3 % Mean Corpuscular Volume 94.9 fL Mean Corpuscular Hemoglobin 30.7 pg Mean Corpuscular Hemoglobin Concent 32.3 g/dl Platelet Count 152 K/uL Mean Platelet Volume 10.1 fL Neutrophils (%) (Auto) 86.6 % Lymphocytes (%) (Auto) 2.7 % Monocytes (%) (Auto) 9.5 % Eosinophils (%) (Auto) 0.0 % Basophils (%) (Auto) 0.0 % Neutrophils # (Auto) 19.49 K/uL Lymphocytes # (Auto) 0.61 K/uL Monocytes # (Auto) 2.15 K/uL Eosinophils # (Auto) 0.00 K/uL Basophils # (Auto) 0.01 K/uL RDW Standard Deviation 52.7 fL RDW Coefficient of Variation 15.5 % Immature Granulocyte % (Auto) 1.2 % Immature Granulocyte # (Auto) 0.27 K/uL Nucleated RBC Absolute Count (auto) 0.07 K/uL Nucleated Red Blood Cells % 0.3 % Polychromasia 1+ Anisocytosis PRESENT Sodium Level 146 mmol/L Potassium Level 3.6 mmol/L Chloride Level 114 mmol/L Carbon Dioxide Level 26 mmol/L Anion Gap 6.0 mmol/L Blood Urea Nitrogen 43 mg/dl Creatinine 1.76 mg/dl Est Creatinine Clear Calc Drug Dose 27.6 ml/min Estimated GFR () 31.1 Estimated GFR (Non- 26.8 BUN/Creatinine Ratio 24.5 Random Glucose 98 mg/dl Calcium Level 7.4 mg/dl Phosphorus Level 3.0 mg/dl Magnesium Level 2.1 mg/dl Test 08/26/17 05:00 08/26/17 05:59 08/26/17 07:13 08/26/17 07:53 Bedside Glucose 116 mg/dl 135 mg/dl 171 mg/dl Lactic Acid Level 3.8 mmol/L Test 08/26/17 08:08 08/26/17 09:17 08/26/17 10:25 08/26/17 11:35 Bedside Glucose 204 mg/dl 244 mg/dl 242 mg/dl Bedside Glucose (other) 208 mg/dl Test 08/26/17 12:27 08/26/17 12:34 08/26/17 13:52 08/26/17 14:41 White Blood Count 21.79 K/uL Red Blood Count 2.76 M/uL Hemoglobin 8.2 g/dL Hematocrit 25.2 % Mean Corpuscular Volume 91.3 fL Mean Corpuscular Hemoglobin 29.7 pg Mean Corpuscular Hemoglobin Concent 32.5 g/dl RDW Standard Deviation 53.8 fL RDW Coefficient of Variation 16.3 % Platelet Count 159 K/uL Mean Platelet Volume 10.7 fL Nucleated RBC Absolute Count (auto) 0.29 K/uL Nucleated Red Blood Cells % 1.3 % Lactic Acid Level 3.9 mmol/L Bedside Glucose (other) 332 mg/dl 255 mg/dl 206 mg/dl Test 08/26/17 15:46 08/26/17 16:35 08/26/17 16:41 Bedside Glucose (other) 166 mg/dl 141 mg/dl White Blood Count 26.32 K/uL Red Blood Count 3.51 M/uL Hemoglobin 10.5 g/dL Hematocrit 31.4 % Mean Corpuscular Volume 89.5 fL Mean Corpuscular Hemoglobin 29.9 pg Mean Corpuscular Hemoglobin Concent 33.4 g/dl RDW Standard Deviation 51.6 fL RDW Coefficient of Variation 16.1 % Platelet Count 147 K/uL Mean Platelet Volume 10.9 fL Nucleated RBC Absolute Count (auto) 0.45 K/uL Nucleated Red Blood Cells % 1.7 % Prothrombin Time 11.0 SECONDS Prothromb Time International Ratio 1.0 Sodium Level 142 mmol/L Potassium Level 3.9 mmol/L Chloride Level 112 mmol/L Carbon Dioxide Level 20 mmol/L Anion Gap 10.0 mmol/L Blood Urea Nitrogen 47 mg/dl Creatinine 2.20 mg/dl Est Creatinine Clear Calc Drug Dose 21.9 ml/min Estimated GFR () 23.8 Estimated GFR (Non- 20.5 BUN/Creatinine Ratio 21.5 Random Glucose 140 mg/dl Lactic Acid Level 3.0 mmol/L Calcium Level 7.6 mg/dl Phosphorus Level 3.8 mg/dl Magnesium Level 1.9 mg/dl Total Bilirubin 0.5 mg/dl Aspartate Amino Transf (AST/SGOT) 77 U/L Alanine Aminotransferase (ALT/SGPT) 55 U/L Alkaline Phosphatase 54 U/L Total Protein 4.7 gm/dl Albumin 2.0 gm/dl Globulin 2.7 gm/dl Albumin/Globulin Ratio 0.8
--- NOTE | 2017-08-26 19:08 | Nephrology Progress Note ---
Nephrology Progress Note Date of Service: Aug 26, 2017. Subjective bad day clinically >> hgb dropped d/t groin hematoma and had hypotension now back on pressor, getting 3rd pRBC unit. possible AV fistula in groin and for repeat imaging tomorrow after pressure/monitoring overnight; her RV failure and acute severe hypercarbia/hypoxia improved w/ bronchodilators, bipap; UOP dropping off some w/ today's events but not oliguric; daughter at bedside. Objective Date Time Temp Pulse Resp B/P (MAP) Pulse Ox O2 Delivery O2 Flow Rate FiO2 08/26/17 18:30 36.4 98 18 121/52 98 08/26/17 18:05 87 18 94 Room Air 08/26/17 18:00 36.4 91 19 127/51 100 08/26/17 17:45 36.4 100 18 109/43 95 08/26/17 17:30 36.4 103 18 94/38 94 08/26/17 17:15 103 19 (51) 91 84/38 08/26/17 17:02 105 19 76/48 (59) 81/40 08/26/17 17:00 86 20 (61) 105/45 08/26/17 16:52 95 17 58/48 (50) 96 66/36 08/26/17 16:45 101 18 (57) 94 81/42 08/26/17 16:30 96 21 (58) 96 88/45 08/26/17 16:15 97 21 (57) 96 92/44 08/26/17 16:14 95 20 79/51 (54) 96 96/43 08/26/17 16:00 94 23 (51) 96 84/38 08/26/17 16:00 Room Air 08/26/17 15:45 76 16 (70) 100 124/47 08/26/17 15:36 82 18 93 Room Air 08/26/17 15:30 93 17 (51) 95 93/35 08/26/17 15:30 93 17 (51) 95 93/35 08/26/17 15:15 83 19 (61) 97 106/44 08/26/17 14:30 36.6 84 19 115/48 95 08/26/17 14:00 36.6 75 18 102/58 94 08/26/17 14:00 75 18 102/58 (69) 94 150/53 08/26/17 13:45 86 18 110/60 (71) 76 137/50 08/26/17 13:31 83 22 98/61 (84) 93 08/26/17 13:30 36.9 86 21 98/61 92 08/26/17 13:17 91 19 94/54 (62) 91 08/26/17 13:16 36.6 91 22 94/54 92 08/26/17 13:01 84 18 92/44 (62) 95 08/26/17 12:00 Room Air 08/26/17 11:30 36.6 84 20 93/59 97 08/26/17 11:00 91 26 84/52 (63) 98 08/26/17 11:00 90 18 94 Room Air 08/26/17 10:46 75 18 93/41 (61) 94 08/26/17 10:30 36.6 89 22 90/49 95 08/26/17 10:30 89 22 90/49 (51) 95 08/26/17 10:15 90 18 70/50 (59) 96 08/26/17 10:01 100 23 89/38 (45) 94 08/26/17 10:00 36.9 101 20 89/38 99 08/26/17 09:55 98 18 77/59 (68) 86 08/26/17 09:50 36.6 95 22 77/59 95 08/26/17 09:34 105 14 68/46 (51) 93 08/26/17 09:31 92 20 73/45 (51) 93 08/26/17 09:00 96 19 84/58 (64) 100 08/26/17 08:31 133 20 93/47 (58) 08/26/17 08:00 36.7 08/26/17 08:00 Room Air 08/26/17 07:51 103 20 92/36 (65) 95 08/26/17 07:31 106 26 79/43 (51) 91 08/26/17 07:21 107 19 94/59 (61) 100 08/26/17 07:11 80 29 106/52 (63) 100 08/26/17 07:01 88 22 99/44 (51) 93 08/26/17 07:01 81 20 93 Room Air 08/26/17 05:01 87 31 86/40 (52) 92 08/26/17 04:01 67 25 80/42 (57) 96 08/26/17 04:00 36.4 08/26/17 04:00 94 Room Air 08/26/17 03:01 84 17 85/42 (61) 92 08/26/17 02:01 79 17 82/39 (45) 96 08/26/17 01:01 83 16 72/48 (61) 97 08/26/17 00:01 36.4 08/26/17 00:01 86 18 98/38 (58) 99 08/25/17 23:59 94 Nasal Cannula 2.0 08/25/17 23:01 75 15 111/53 (58) 99 08/25/17 22:22 68 94 40 08/25/17 22:21 67 21 89/45 (56) 94 08/25/17 22:00 91 34 106/51 (66) 94 08/25/17 21:01 79 32 93/55 (68) 94 08/25/17 20:26 75 18 100 Nasal Cannula 3.0 08/25/17 20:01 68 20 102/52 (75) 100 08/25/17 20:00 98 Nasal Cannula 3.0 08/25/17 20:00 36.5 08/25/17 19:01 65 19 98/51 (76) 100 Physical Exam: General-restless, confused, lying flat on ra Eyes-no scleral icterus ENT-mmm Neck-supple Lungs-decreased and some rhonchi Heart-rrr Abdomen- bs+ s/nt/nd, ferraro; in device to give groin compression Extremities-no c/c, +1 edema worse in the hands Neuro-restless, dodd Current Inpatient Medications Medications (Trade) Dose Ordered Sig/Suzi Route Start Time Stop Time Status Last Admin Dose Admin Piperacillin Sod/ Tazobactam Sod 4.5 gm/Dextrose 120 ml @ 30 mls/hr Q8H IV 08/22/17 17:00 09/01/17 16:59 08/26/17 17:36 30 MLS/HR Miscellaneous Information (Consult) 1 ea UD PRN N/A 08/22/17 12:00 09/21/17 11:59 Pantoprazole Sodium 40 mg/ Syringe 10 ml @ 5 mls/min DAILY@0900 IV 08/23/17 09:00 09/22/17 08:59 08/26/17 11:48 5 MLS/MIN Miscellaneous Information (Consult Glycemic Management Pharmacy) 1 ea UD N/A 08/22/17 12:56 09/21/17 12:55 Albuterol/ Ipratropium (Duoneb) 3 ml QIDR INH 08/22/17 16:00 09/21/17 15:59 08/26/17 18:05 3 ML Glucose (Glucose 40% Gel) 15-30 GRAMS 15 GRAMS... UD PRN PO 08/22/17 15:15 09/21/17 15:14 Glucose (Glucose Chew Tab) 4-8 Tablets 4 Tabl... UD PRN PO 08/22/17 15:15 09/21/17 15:14 Dextrose (Dextrose 50% 50ML Syringe) 25-50ML OF 50% DW IV FOR... UD PRN IV 08/22/17 15:15 09/21/17 15:14 Glucagon (Glucagon Inj) 1 mg UD PRN SQ 08/22/17 15:15 09/21/17 15:14 Doxycycline Hyclate 100 mg/ Dextrose 110 ml @ 50 mls/hr Q12H IV 08/23/17 14:00 08/30/17 13:59 08/26/17 14:26 50 MLS/HR Insulin Human Regular 250 units/ Sodium Chloride 252.5 ml @ 0 mls/hr Q24H IV 08/25/17 00:45 09/24/17 00:44 08/26/17 01:04 1.3 MLS/HR Insulin Glargine (Lantus Solostar Pen) 15 units BID SC 08/25/17 21:00 09/24/17 20:59 Future Hold 08/26/17 08:20 15 UNITS Insulin Aspart (novoLOG ASPART) SLIDING SCALE [facility] SC 08/25/17 17:15 09/24/17 17:14 08/26/17 11:49 8 UNITS Prednisone (PredniSONE TAB) 40 mg DAILY PO 08/26/17 09:00 09/25/17 08:59 08/26/17 08:18 40 MG Norepinephrine Bitartrate 8 mg/ Dextrose 508 ml @ 0 mls/hr Q0M PRN IV 08/26/17 06:30 09/25/17 06:29 08/26/17 06:44 28.9 MLS/HR Acetaminophen 100 ml @ 400 mls/hr Q8H PRN IV 08/26/17 14:15 09/25/17 14:14 Fentanyl Citrate (Fentanyl Inj) 25 mcg Q4H PRN IV 08/26/17 16:30 09/09/17 16:29 Last 24 Hours Test 08/25/17 19:03 08/25/17 20:12 08/25/17 21:10 08/25/17 22:09 Bedside Glucose 291 mg/dl 270 mg/dl 229 mg/dl 175 mg/dl Test 08/25/17 23:01 08/25/17 23:53 08/26/17 01:01 08/26/17 02:10 Bedside Glucose 155 mg/dl 130 mg/dl 178 mg/dl 227 mg/dl Test 08/26/17 02:57 08/26/17 03:52 08/26/17 04:53 08/26/17 05:00 Bedside Glucose 197 mg/dl 144 mg/dl 116 mg/dl White Blood Count 22.53 K/uL Red Blood Count 2.77 M/uL Hemoglobin 8.5 g/dL Hematocrit 26.3 % Mean Corpuscular Volume 94.9 fL Mean Corpuscular Hemoglobin 30.7 pg Mean Corpuscular Hemoglobin Concent 32.3 g/dl Platelet Count 152 K/uL Mean Platelet Volume 10.1 fL Neutrophils (%) (Auto) 86.6 % Lymphocytes (%) (Auto) 2.7 % Monocytes (%) (Auto) 9.5 % Eosinophils (%) (Auto) 0.0 % Basophils (%) (Auto) 0.0 % Neutrophils # (Auto) 19.49 K/uL Lymphocytes # (Auto) 0.61 K/uL Monocytes # (Auto) 2.15 K/uL Eosinophils # (Auto) 0.00 K/uL Basophils # (Auto) 0.01 K/uL RDW Standard Deviation 52.7 fL RDW Coefficient of Variation 15.5 % Immature Granulocyte % (Auto) 1.2 % Immature Granulocyte # (Auto) 0.27 K/uL Nucleated RBC Absolute Count (auto) 0.07 K/uL Nucleated Red Blood Cells % 0.3 % Polychromasia 1+ Anisocytosis PRESENT Sodium Level 146 mmol/L Potassium Level 3.6 mmol/L Chloride Level 114 mmol/L Carbon Dioxide Level 26 mmol/L Anion Gap 6.0 mmol/L Blood Urea Nitrogen 43 mg/dl Creatinine 1.76 mg/dl Est Creatinine Clear Calc Drug Dose 27.6 ml/min Estimated GFR () 31.1 Estimated GFR (Non- 26.8 BUN/Creatinine Ratio 24.5 Random Glucose 98 mg/dl Calcium Level 7.4 mg/dl Phosphorus Level 3.0 mg/dl Magnesium Level 2.1 mg/dl Test 08/26/17 05:59 08/26/17 07:13 08/26/17 07:53 08/26/17 08:08 Bedside Glucose 135 mg/dl 171 mg/dl 204 mg/dl Lactic Acid Level 3.8 mmol/L Test 08/26/17 09:17 08/26/17 10:25 08/26/17 11:35 08/26/17 12:27 Bedside Glucose 244 mg/dl 242 mg/dl Bedside Glucose (other) 208 mg/dl White Blood Count 21.79 K/uL Red Blood Count 2.76 M/uL Hemoglobin 8.2 g/dL Hematocrit 25.2 % Mean Corpuscular Volume 91.3 fL Mean Corpuscular Hemoglobin 29.7 pg Mean Corpuscular Hemoglobin Concent 32.5 g/dl RDW Standard Deviation 53.8 fL RDW Coefficient of Variation 16.3 % Platelet Count 159 K/uL Mean Platelet Volume 10.7 fL Nucleated RBC Absolute Count (auto) 0.29 K/uL Nucleated Red Blood Cells % 1.3 % Lactic Acid Level 3.9 mmol/L Test 08/26/17 12:34 08/26/17 13:52 08/26/17 14:41 08/26/17 15:46 Bedside Glucose (other) 332 mg/dl 255 mg/dl 206 mg/dl 166 mg/dl Test 08/26/17 16:35 08/26/17 16:41 08/26/17 17:38 08/26/17 17:57 White Blood Count 26.32 K/uL Red Blood Count 3.51 M/uL Hemoglobin 10.5 g/dL Hematocrit 31.4 % Mean Corpuscular Volume 89.5 fL Mean Corpuscular Hemoglobin 29.9 pg Mean Corpuscular Hemoglobin Concent 33.4 g/dl RDW Standard Deviation 51.6 fL RDW Coefficient of Variation 16.1 % Platelet Count 147 K/uL Mean Platelet Volume 10.9 fL Nucleated RBC Absolute Count (auto) 0.45 K/uL Nucleated Red Blood Cells % 1.7 % Prothrombin Time 11.0 SECONDS Prothromb Time International Ratio 1.0 Sodium Level 142 mmol/L Potassium Level 3.9 mmol/L Chloride Level 112 mmol/L Carbon Dioxide Level 20 mmol/L Anion Gap 10.0 mmol/L Blood Urea Nitrogen 47 mg/dl Creatinine 2.20 mg/dl Est Creatinine Clear Calc Drug Dose 21.9 ml/min Estimated GFR () 23.8 Estimated GFR (Non- 20.5 BUN/Creatinine Ratio 21.5 Random Glucose 140 mg/dl Lactic Acid Level 3.0 mmol/L Calcium Level 7.6 mg/dl Phosphorus Level 3.8 mg/dl Magnesium Level 1.9 mg/dl Total Bilirubin 0.5 mg/dl Aspartate Amino Transf (AST/SGOT) 77 U/L Alanine Aminotransferase (ALT/SGPT) 55 U/L Alkaline Phosphatase 54 U/L Total Protein 4.7 gm/dl Albumin 2.0 gm/dl Globulin 2.7 gm/dl Albumin/Globulin Ratio 0.8 Bedside Glucose (other) 141 mg/dl 112 mg/dl Blood Gas Sample Site Art Line Bedside Blood Gas pH (LAB) 7.37 Bedside Blood Gas pCO2 (LAB) 32 mmHg Bedside Blood Gas pO2 (LAB) 69 mmHg Bedside Blood Gas HCO3 (LAB) 19 meq/L Bedside Blood Gas Total CO2 20 mEq/l Bedside Blood Gas Base Excess (LAB) -7.0 meq/L Bedside Blood Gas O2 Saturation 93.0 % Laron Test NA Oxygen Delivery Device Room Air Test 08/26/17 18:03 Bedside Glucose (other) 121 mg/dl Assessment & Plan 81 yo female w/ solitary kidney who presented in shock with right heart failure , respiratory failure needing intubation, and alex/atn. cxs negative. Had been improving clinically, extubated but now back on pressors, getting 3 units pRBC, decreasing uop and increasing creatinine and lactic acid w/ L groin hematoma [id number] after today's events, some oliguria. no dialysis at this time but may end up needing it w/ this turn today. volume status and electrolytes are stable for now. continue to monitor. no changes to therapy for now
[2017-08-26 20:29] LABS: HEMATOCRIT 35.2 % (37-47); MEAN CELL VOLUME 88.2 fL (80-100); MEAN CORPUSCULAR HEMOGLOBIN 30.1 pg (25-34); MEAN CORPUSCULAR HGB CONC 34.1 g/dl (32-36); NUCLEATED RED BLOOD CELL ABS 0.44 K/uL (0-0); PLATELET COUNT 149 K/uL (130-400); RED CELL DISTRIBUTION WIDTH CV 15.7 % (11.5-14.5); RED CELL DISTRIBUTION WIDTH SD 50.2 fL (36.4-46.3); WHITE BLOOD COUNT 26.78 K/uL (4.8-10.8)
[2017-08-26] MEDS: NORMOSOL R 1,000 ML IV SCH (20:54)
[2017-08-26] MEDS: ACETAMINOPHEN IV 100 ML IV PRN (23:32)
[2017-08-26 23:52] LABS: HEMATOCRIT 32.8 % (37-47); HEMOGLOBIN 11.2 g/dL (12.0-16.0); MEAN CELL VOLUME 87.2 fL (80-100); MEAN CORPUSCULAR HEMOGLOBIN 29.8 pg (25-34); MEAN CORPUSCULAR HGB CONC 34.1 g/dl (32-36); MEAN PLATELET VOLUME 10.9 fL (7.4-10.4); NUCLEATED RED BLOOD CELL ABS 0.48 K/uL (0-0); PLATELET COUNT 143 K/uL (130-400); RED CELL DISTRIBUTION WIDTH CV 15.6 % (11.5-14.5); RED CELL DISTRIBUTION WIDTH SD 49.1 fL (36.4-46.3); WHITE BLOOD COUNT 28.11 K/uL (4.8-10.8)
[2017-08-27] VITALS (71 sets, daily range): BP systolic 51–159; BP diastolic 30–153; PULSE 85–119; TEMP 36.1–36.5; O2SAT 89–100
[2017-08-27] MEDS: PIPERACILL/TAZOBAC IV 4.5 GM in DEXTROSE 5% 100ML 100 ML IV SCH ×3 (01:10→20:31)
[2017-08-27] MEDS: DOXYCYCLINE IV 100 MG in DEXTROSE 5% 100ML 100 ML IV SCH ×2 (01:10→14:03)
[2017-08-27] MEDS: INSULIN REGULAR 250 UNITS in SODIUM CHLORIDE 0.9% 250ML 250 ML IV SCH (01:11)
[2017-08-27] MEDS: NOREPINEPHRINE BIT INJ 8 MG in DEXTROSE 5% 500ML 500 ML IV PRN ×3 (02:08→14:04)
[2017-08-27 04:18] LABS: HEMATOCRIT 29.4 % (37-47); HEMOGLOBIN 10.4 g/dL (12.0-16.0); MEAN CORPUSCULAR HEMOGLOBIN 30.8 pg (25-34); MEAN CORPUSCULAR HGB CONC 35.4 g/dl (32-36); MEAN PLATELET VOLUME 11.7 fL (7.4-10.4); NUCLEATED RED BLOOD CELL ABS 0.49 K/uL (0-0); PLATELET COUNT 136 K/uL (130-400); RED CELL DISTRIBUTION WIDTH CV 15.8 % (11.5-14.5); RED CELL DISTRIBUTION WIDTH SD 49.2 fL (36.4-46.3); WHITE BLOOD COUNT 28.69 K/uL (4.8-10.8)
[2017-08-27 04:28] LABS: PTT PATIENT 30.6 SECONDS (21.0-31.0)
[2017-08-27 04:34] LABS: CALCIUM 7.2 mg/dl (8.5-10.1); CREATININE 2.66 mg/dl (0.60-1.20); POTASSIUM 4.3 mmol/L (3.5-5.1)
--- NOTE | 2017-08-27 07:04 | DIAGNOSTIC IMAGING REPORT ---
ABD/PELVIS WITHOUT FOR STONE CT DOSE: 1631.85 mGy.cm HISTORY: Flank pain monior RIGHT groin bleed TECHNIQUE: Multiaxial CT images of the abdomen and pelvis were performed without the use of intravenous and oral contrast according to the standard department stone protocol. A dose lowering technique was utilized adhering to the principles of ALARA. COMPARISON STUDY: 08/26/2017 FINDINGS: Small bibasilar pleural effusions and bibasilar atelectatic change similar compared to the prior study. Configuration of liver spleen and pancreas remain grossly unremarkable. Several renal cysts of varying densities are present also unchanged. No evidence for hydronephrosis. Several right renal nonobstructing calcifications similar including calcifications within a superior infundibulum and right renal pelvis. Unchanged hyperplastic change left adrenal. 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 Mild generalized nonobstructive ileus. Large hematoma the right iliopsoas and right gluteal musculature region. This hematoma is similar in overall size as compared to the prior study. A hematoma involvement of the musculature of the medial upper right thigh is also similar. There is a 6 mm nonobstructing calculus of the distal right ureter. Several uterine calcifications are present and are unchanged. IMPRESSION: 1. Large right iliopsoas and right gluteal hematoma unchanged from the prior study. 2. Extension of the hematoma to the medial right thigh also unchanged. 3. Unchanged 6 mm nonobstructing calculus distal right ureter. 4. Additional nonobstructing calcifications in the kidneys which have been described previously. 5. Stable aneurysmal dilatation abdominal aorta. 6. Stable nonobstructive reactive ileus. The above report was generated using voice recognition software. It may contain grammatical, syntax or spelling errors. Electronically signed by: Bryant Stevens M.D. 08/27/2017 7:02 AM Dictated Date/Time: 08/27/2017 6:55 AM
[2017-08-27] MEDS: ALBUT/IPRATROP 3MG/0.5MG NEB 3 ML VIAL INH SCH ×4 (07:07→20:02)
--- NOTE | 2017-08-27 07:16 | DIAGNOSTIC IMAGING REPORT ---
R LOWER EXTREMITY WITHOUT CT DOSE: HISTORY: Hemorrhage monior RIGHT groin bleed TECHNIQUE: Multiaxial CT images of the right leg were performed and reformatted in the sagittal and coronal plane without the use of contrast. A dose lowering technique was utilized adhering to the principles of ALARA. COMPARISON: CT abdomen and pelvis 08/27/2017. CT right leg 08/26/2017 FINDINGS: Large hematoma involving the right gluteal and right iliopsoas vasculature is stable. Extension of the hematoma to the medial aspect of the right leg primarily involving the gluteus medius musculature is unchanged. There appears to be no evidence for extension. All maximum dimensions are similar. Mild reactive soft tissue edematous change involving the subcutaneous tissues appear stable. Bony structures show moderate degenerative change but no acute bony abnormalities identified. IMPRESSION: 1. Large hematoma of the right lateral pelvic soft tissues extending throughout the bulk of the right thigh. 2. Dimensions and extent are unchanged from the prior study. 3. No evidence for progressive hemorrhagic change. The above report was generated using voice recognition software. It may contain grammatical, syntax or spelling errors. Electronically signed by: Bryant Stevens M.D. 08/27/2017 7:15 AM Dictated Date/Time: 08/27/2017 7:05 AM
[2017-08-27] MEDS: INSULIN ASPART 100 UNITS/ML 3 ML PEN SC SCH ×4 (08:00→21:00)
[2017-08-27 08:19] LABS: HEMATOCRIT 34.2 % (37-47); MEAN CELL VOLUME 87.5 fL (80-100); MEAN CORPUSCULAR HEMOGLOBIN 30.7 pg (25-34); MEAN CORPUSCULAR HGB CONC 35.1 g/dl (32-36); MEAN PLATELET VOLUME 11.7 fL (7.4-10.4); NUCLEATED RED BLOOD CELL ABS 0.39 K/uL (0-0); PLATELET COUNT 122 K/uL (130-400); RED CELL DISTRIBUTION WIDTH CV 15.3 % (11.5-14.5); WHITE BLOOD COUNT 28.96 K/uL (4.8-10.8)
[2017-08-27] MEDS: FENTANYL CITRATE INJ 50 MCG/1 ML 2 ML VIAL IV PRN (08:45)
--- NOTE | 2017-08-27 09:35 | DIAGNOSTIC IMAGING REPORT ---
R VENOUS DOPP LOWER EXT UNILAT CLINICAL HISTORY: Re-evaluate thigh hematoma, AV fistula TECHNIQUE: Ultrasound COMPARISON STUDY: CT abdomen and pelvis and lower extremities same date. 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 There is a 11 x 6 x 5 cm hematoma in the low pelvic and upper thigh region. Dimensions are similar compared to the patient's prior CT studies. IMPRESSION: 1. 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 2. Hematoma of the low pelvic and right thigh regions similar compared to the CT study previously discussed. The above report was generated using voice recognition software. It may contain grammatical, syntax or spelling errors. Electronically signed by: Bryant Stevens M.D. 08/27/2017 9:33 AM Dictated Date/Time: 08/27/2017 9:31 AM
[2017-08-27] MEDS: PANTOprazole INJ 40 MG in SYRINGE 0 ML IV SCH (10:00)
--- NOTE | 2017-08-27 11:37 | Progress Note ---
Internal Med Progress Note Date of Service: Aug 27, 2017. Provider Documentation: SUBJECTIVE: The patient was seen and examined Was brought in with AMS and noted to be in Shock with Hypoxemia and Hypothermia Now intubated in ICU and S/P Extubation on 08/25/17 Received 4 units of PRBC Doing much better and wants to go home OBJECTIVE: Vital Signs-as noted below Exam: General-Intubated in ICU Opening eyes with commands NO acute distress Eyes-Closed ENT-Normal Neck-Supple Lungs-Decreased breath sound bilaterally Minimal crackles at the bases Heart-Regular Abdomen-Benign Extremities-Trace edema bilaterally Has a large hematoma in right upper medial thigh ,s/p Central line placement Slight increase in size-nontender [id number] Moving all limbs Lab data as noted below. ASSESSMENT & PLAN: Acute Blood Loss Anemia Right Upper Medial Thigh,s/p Central line placement Complicated by Sepsis Will receive 4 units of PRBC US -suggested probable fistula Vascular surgery consulted Hb 12 this morning ACUTE HYPOXIC RESPIRATORY FAILURE : s/p Extubation om Was hypothermic Temp 31 /hypotensive SBP in 70;s and hypoxic in RA 87 % Was placed on Bipap and intubated later on , ABG shows respiratory acidosis with hypercarbia Co2 > 90 CXR-no Pneumonia and CTA -0negative for any Pulmonary Embolism Underlying COPD /emphysema ( hx of smoking ) with retention of Co2 due to mental obtundation due to sepsis Has been on IV Solumedrol and Nebs Appreciate Seal Skinner input Now Intubated in ICU and extubation on BP went down again Repeat ECHO to evaluate RV function CONFUSION /CHANGED MENTAL STATUS /METABOLIC ENCEPHALOPATHY : Likely due to hypercapnic respiratory failure and may be complicated by sepsis CT head -negative for CVA Back to baseline May Have Cardiogenic Shock as well Has severe Pulmonary HTN ECHO::There is mild concentric left ventricular hypertrophy. * The left ventricular wall motion is normal. * The LV Ejection Fraction = >70 %. * The right ventricle is mildly dilated. * The right ventricular systolic function is mildly reduced with diffuse right ventricular hypokinesis that spares the RV apex. * There is mild to moderate tricuspid regurgitation. * Dilated inferior vena cava with reduced collapsability with sniff indicates an elevated right atrial pressure of 15 mmHg * Severe pulmonary is hypertension, with PA systolic pressure calculated to be 75 mmg Hg, assuming a right atrial pressure of 15 mm Hg. * Compared to the report of the prior outpatient echocardiogram performed at [facility] dated 02/13/12, the right ventricular size and systolic function was normal at that time with normal calculated pulmonary pressures. * Findings compatible with possible acute pulmonary embolism versus interval development of pulmonary hypertension of uknown chronicity due to other cause. Trending Troponin -doubt any ACS Repeat ECHO in AM : showed improvement of the Right ventricular function Still requiring pressors-off pressors now BP is maintaining HEATHER ON CKD STAGE 3 : HYPERNATREMIA ; ATN with anuria -minimum urine out put after fluid bolus IV fluids resuscitation , pressor support Follow PRP Q 4hrs per sepsis protocol Pt has solitary kidney ( s/p Left nephrectomy ) Baseline Cr 1.6 Nephrology consulted-appreciate Input Creatinine slightly high at 2.20 HYPOTENSION /HYPOTHERMIA : SEPSIS DUE TO UTI and May be complicated by respiratory pathogens Likely due to severe sepsis ,possible source of infection UTI Temp improved with Jayda hugger , IV fluid bolus followed by aggressive resuscitation per sepsis protocol Empiric Abx with Zosyn ,Doxycycline Started on pressors Seal Skinner following Appreciate ID input Blood and Urine Cultures are negative Vancomycin discontinued Continue antibiotics for 3 more days as per ID Requiring pressor again CODE STATUS : d/w Daughter -full code DVT PROPHYLAXIS high risk ICU admission /obtundation Sub q heparin-on hold now Vital Signs: Date Time Temp Pulse Resp B/P (MAP) Pulse Ox O2 Delivery O2 Flow Rate FiO2 08/27/17 11:15 103 18 96 Room Air 08/27/17 10:01 104 19 120/62 (86) 96 108/51 08/27/17 09:31 96 14 97/63 (71) 96 116/53 08/27/17 09:00 92 12 123/63 (96) 94 116/52 08/27/17 08:31 106 18 102/60 (56) 96 94/43 08/27/17 08:00 36.1 08/27/17 08:00 109 17 102/69 (85) 96 108/53 08/27/17 08:00 Room Air 08/27/17 07:53 106 18 77/67 (69) 97 111/55 08/27/17 07:31 104 16 74/59 (57) 95 91/44 08/27/17 07:10 98 16 94 Room Air 08/27/17 07:02 91 15 120/64 (75) 92 131/53 08/27/17 06:50 36.5 91 18 96/78 93 08/27/17 06:30 104 16 96/78 (83) 95 102/48 (66) 08/27/17 06:25 36.5 94 16 108/50 95 08/27/17 05:31 85 13 95/67 (84) 100 102/51 (66) 08/27/17 05:25 36.4 95 17 97/47 100 08/27/17 05:16 94 15 77/53 (50) 100 71/41 (46) 08/27/17 05:01 97 14 77/52 (60) 100 67/41 (47) 08/27/17 04:55 36.5 97 16 77/52 99 08/27/17 04:42 36.4 97 14 94/64 100 08/27/17 04:31 97 14 84/64 (65) 100 96/52 (64) 08/27/17 04:02 114 18 80/58 (60) 100 85/49 (65) 08/27/17 04:00 36.4 08/27/17 04:00 100 BiPAP 40 08/27/17 03:31 97 15 106/69 (61) 100 97/45 (62) 08/27/17 03:01 100 14 87/55 (44) 100 62/36 (47) 08/27/17 02:35 97 100 40 08/27/17 02:31 97 13 106/53 (59) 100 95/43 (64) 08/27/17 02:01 102 16 122/60 (61) 99 93/47 (62) 08/27/17 01:30 100 17 102/61 (80) 100 81/42 (62) 08/27/17 01:02 109 15 75/61 (38) 100 51/32 (41) 08/27/17 00:31 110 15 92/51 (76) 100 95/51 (62) 08/27/17 00:01 101 15 116/71 (83) 100 115/56 (73) 08/27/17 00:01 36.4 08/26/17 23:59 100 BiPAP 40 08/26/17 23:31 109 16 67/21 (23) 100 77/44 (52) 08/26/17 23:01 109 17 116/53 (47) 100 64/39 (53) 08/26/17 22:30 111 15 97/65 (77) 100 99/52 08/26/17 22:01 104 18 95/51 (64) 100 91/52 08/26/17 22:00 113 15 84/59 (66) 100 92/47 08/26/17 21:12 104 100 40 08/26/17 21:01 107 16 108/52 (96) 98 110/53 (68) 08/26/17 20:38 110 21 88/72 (77) 97 100/49 08/26/17 20:01 106 15 90/58 (64) 95 104/49 (69) 08/26/17 20:00 36.4 08/26/17 20:00 98 Room Air 08/26/17 19:30 103 19 90/53 (64) 94 08/26/17 19:01 100 19 93/59 (74) 98 113/47 08/26/17 18:30 36.4 98 18 121/52 98 08/26/17 18:05 87 18 94 Room Air 08/26/17 18:00 36.4 91 19 127/51 100 08/26/17 17:45 36.4 100 18 109/43 95 08/26/17 17:30 36.4 103 18 94/38 94 08/26/17 17:15 103 19 (51) 91 84/38 08/26/17 17:02 105 19 76/48 (59) 81/40 08/26/17 17:00 86 20 (61) 105/45 08/26/17 16:52 95 17 58/48 (50) 96 66/36 08/26/17 16:45 101 18 (57) 94 81/42 08/26/17 16:30 96 21 (58) 96 88/45 08/26/17 16:15 97 21 (57) 96 92/44 08/26/17 16:14 95 20 79/51 (54) 96 96/43 08/26/17 16:00 94 23 (51) 96 84/38 08/26/17 16:00 Room Air 08/26/17 15:45 76 16 (70) 100 124/47 08/26/17 15:36 82 18 93 Room Air 08/26/17 15:30 93 17 (51) 95 93/35 08/26/17 15:30 93 17 (51) 95 93/35 08/26/17 15:15 83 19 (61) 97 106/44 08/26/17 14:30 36.6 84 19 115/48 95 08/26/17 14:00 36.6 75 18 102/58 94 08/26/17 14:00 75 18 102/58 (69) 94 150/53 08/26/17 13:45 86 18 110/60 (71) 76 137/50 08/26/17 13:31 83 22 98/61 (84) 93 08/26/17 13:30 36.9 86 21 98/61 92 08/26/17 13:17 91 19 94/54 (62) 91 08/26/17 13:16 36.6 91 22 94/54 92 08/26/17 13:01 84 18 92/44 (62) 95 08/26/17 12:00 Room Air 08/26/17 11:30 36.6 84 20 93/59 97 Lab Results: Results Past 24 Hours Test 08/26/17 11:35 08/26/17 12:27 08/26/17 12:34 08/26/17 13:52 Range/Units Bedside Glucose (other) 208 332 255 70-99 mg/dl White Blood Count 21.79 4.8-10.8 K/uL Red Blood Count 2.76 4.2-5.4 M/uL Hemoglobin 8.2 12.0-16.0 g/dL Hematocrit 25.2 37-47 % Mean Corpuscular Volume 91.3 80-100 fL Mean Corpuscular Hemoglobin 29.7 25-34 pg Mean Corpuscular Hemoglobin Concent 32.5 32-36 g/dl RDW Standard Deviation 53.8 36.4-46.3 fL RDW Coefficient of Variation 16.3 11.5-14.5 % Platelet Count 159 130-400 K/uL Mean Platelet Volume 10.7 7.4-10.4 fL Nucleated RBC Absolute Count (auto) 0.29 0-0 K/uL Nucleated Red Blood Cells % 1.3 % Lactic Acid Level 3.9 0.4-2.0 mmol/L Test 08/26/17 14:41 08/26/17 15:46 08/26/17 16:35 08/26/17 16:41 Range/Units Bedside Glucose (other) 206 166 141 70-99 mg/dl White Blood Count 26.32 4.8-10.8 K/uL Red Blood Count 3.51 4.2-5.4 M/uL Hemoglobin 10.5 12.0-16.0 g/dL Hematocrit 31.4 37-47 % Mean Corpuscular Volume 89.5 80-100 fL Mean Corpuscular Hemoglobin 29.9 25-34 pg Mean Corpuscular Hemoglobin Concent 33.4 32-36 g/dl RDW Standard Deviation 51.6 36.4-46.3 fL RDW Coefficient of Variation 16.1 11.5-14.5 % Platelet Count 147 130-400 K/uL Mean Platelet Volume 10.9 7.4-10.4 fL Nucleated RBC Absolute Count (auto) 0.45 0-0 K/uL Nucleated Red Blood Cells % 1.7 % Prothrombin Time 11.0 9.0-12.0 SECONDS Prothromb Time International Ratio 1.0 0.9-1.1 Sodium Level 142 136-145 mmol/L Potassium Level 3.9 3.5-5.1 mmol/L Chloride Level 112 98-107 mmol/L Carbon Dioxide Level 20 21-32 mmol/L Anion Gap 10.0 3-11 mmol/L Blood Urea Nitrogen 47 7-18 mg/dl Creatinine 2.20 0.60-1.20 mg/dl Est Creatinine Clear Calc Drug Dose 21.9 ml/min Estimated GFR () 23.8 Estimated GFR (Non- 20.5 BUN/Creatinine Ratio 21.5 10-20 Random Glucose 140 70-99 mg/dl Lactic Acid Level 3.0 0.4-2.0 mmol/L Calcium Level 7.6 8.5-10.1 mg/dl Phosphorus Level 3.8 2.5-4.9 mg/dl Magnesium Level 1.9 1.8-2.4 mg/dl Total Bilirubin 0.5 0.2-1 mg/dl Aspartate Amino Transf (AST/SGOT) 77 15-37 U/L Alanine Aminotransferase (ALT/SGPT) 55 12-78 U/L Alkaline Phosphatase 54 45-117 U/L Total Protein 4.7 6.4-8.2 gm/dl Albumin 2.0 3.4-5.0 gm/dl Globulin 2.7 2.5-4.0 gm/dl Albumin/Globulin Ratio 0.8 0.9-2 Test 08/26/17 17:38 08/26/17 17:57 08/26/17 18:03 08/26/17 19:09 Range/Units Bedside Glucose (other) 112 121 138 70-99 mg/dl Blood Gas Sample Site Art Line Bedside Blood Gas pH (LAB) 7.37 7.35-7.45 Bedside Blood Gas pCO2 (LAB) 32 35-46 mmHg Bedside Blood Gas pO2 (LAB) 69 80-95 mmHg Bedside Blood Gas HCO3 (LAB) 19 19-24 meq/L Bedside Blood Gas Total CO2 20 24-31 mEq/l Bedside Blood Gas Base Excess (LAB) -7.0 -9-1.8 meq/L Bedside Blood Gas O2 Saturation 93.0 90-95 % Laron Test NA Oxygen Delivery Device Room Air Test 08/26/17 19:57 08/26/17 20:19 08/26/17 21:08 08/26/17 22:04 Range/Units Bedside Glucose (other) 155 156 153 70-99 mg/dl White Blood Count 26.78 4.8-10.8 K/uL Red Blood Count 3.99 4.2-5.4 M/uL Hemoglobin 12.0 12.0-16.0 g/dL Hematocrit 35.2 37-47 % Mean Corpuscular Volume 88.2 80-100 fL Mean Corpuscular Hemoglobin 30.1 25-34 pg Mean Corpuscular Hemoglobin Concent 34.1 32-36 g/dl RDW Standard Deviation 50.2 36.4-46.3 fL RDW Coefficient of Variation 15.7 11.5-14.5 % Platelet Count 149 130-400 K/uL Mean Platelet Volume 11.0 7.4-10.4 fL Nucleated RBC Absolute Count (auto) 0.44 0-0 K/uL Nucleated Red Blood Cells % 1.7 % Lactic Acid Level 2.5 0.4-2.0 mmol/L Test 08/26/17 23:44 08/26/17 23:48 08/27/17 02:15 08/27/17 03:51 Range/Units White Blood Count 28.11 28.69 4.8-10.8 K/uL Red Blood Count 3.76 3.38 4.2-5.4 M/uL Hemoglobin 11.2 10.4 12.0-16.0 g/dL Hematocrit 32.8 29.4 37-47 % Mean Corpuscular Volume 87.2 87.0 80-100 fL Mean Corpuscular Hemoglobin 29.8 30.8 25-34 pg Mean Corpuscular Hemoglobin Concent 34.1 35.4 32-36 g/dl RDW Standard Deviation 49.1 49.2 36.4-46.3 fL RDW Coefficient of Variation 15.6 15.8 11.5-14.5 % Platelet Count 143 136 130-400 K/uL Mean Platelet Volume 10.9 11.7 7.4-10.4 fL Nucleated RBC Absolute Count (auto) 0.48 0.49 0-0 K/uL Nucleated Red Blood Cells % 1.7 1.7 % Lactic Acid Level 2.1 1.7 0.4-2.0 mmol/L Bedside Glucose (other) 145 148 70-99 mg/dl Prothrombin Time 10.9 9.0-12.0 SECONDS Prothromb Time International Ratio 1.0 0.9-1.1 Activated Partial Thromboplast Time 30.6 21.0-31.0 SECONDS Partial Thromboplastin Ratio 1.2 Sodium Level 138 136-145 mmol/L Potassium Level 4.3 3.5-5.1 mmol/L Chloride Level 109 98-107 mmol/L Carbon Dioxide Level 19 21-32 mmol/L Anion Gap 10.0 3-11 mmol/L Blood Urea Nitrogen 54 7-18 mg/dl Creatinine 2.66 0.60-1.20 mg/dl Est Creatinine Clear Calc Drug Dose 18.1 ml/min Estimated GFR () 18.9 Estimated GFR (Non- 16.3 BUN/Creatinine Ratio 20.3 10-20 Random Glucose 149 70-99 mg/dl Calcium Level 7.2 8.5-10.1 mg/dl Phosphorus Level 5.0 2.5-4.9 mg/dl Magnesium Level 1.9 1.8-2.4 mg/dl Test 08/27/17 04:07 08/27/17 07:56 08/27/17 08:02 08/27/17 09:07 Range/Units Bedside Glucose (other) 147 110 116 70-99 mg/dl White Blood Count 28.96 4.8-10.8 K/uL Red Blood Count 3.91 4.2-5.4 M/uL Hemoglobin 12.0 12.0-16.0 g/dL Hematocrit 34.2 37-47 % Mean Corpuscular Volume 87.5 80-100 fL Mean Corpuscular Hemoglobin 30.7 25-34 pg Mean Corpuscular Hemoglobin Concent 35.1 32-36 g/dl RDW Standard Deviation 48.0 36.4-46.3 fL RDW Coefficient of Variation 15.3 11.5-14.5 % Platelet Count 122 130-400 K/uL Mean Platelet Volume 11.7 7.4-10.4 fL Nucleated RBC Absolute Count (auto) 0.39 0-0 K/uL Nucleated Red Blood Cells % 1.3 % Lactic Acid Level 2.0 0.4-2.0 mmol/L Test 08/27/17 10:06 08/27/17 11:08 Range/Units Bedside Glucose (other) 113 126 70-99 mg/dl
[2017-08-27 12:09] LABS: HEMATOCRIT 31.4 % (37-47); HEMOGLOBIN 11.1 g/dL (12.0-16.0); MEAN CELL VOLUME 87.2 fL (80-100); MEAN CORPUSCULAR HEMOGLOBIN 30.8 pg (25-34); MEAN CORPUSCULAR HGB CONC 35.4 g/dl (32-36); MEAN PLATELET VOLUME 11.3 fL (7.4-10.4); NUCLEATED RED BLOOD CELL ABS 0.32 K/uL (0-0); PLATELET COUNT 118 K/uL (130-400); RED CELL DISTRIBUTION WIDTH CV 15.3 % (11.5-14.5); WHITE BLOOD COUNT 29.57 K/uL (4.8-10.8)
[2017-08-27] MEDS: ACETAMINOPHEN IV 100 ML IV PRN (12:25)
--- NOTE | 2017-08-27 12:47 | Nephrology Progress Note ---
Nephrology Progress Note Date of Service: Aug 27, 2017. 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 had repeat TTE today to reassess RV function > still pressor dependent.daughter at bedside. Objective Date Time Temp Pulse Resp B/P (MAP) Pulse Ox O2 Delivery O2 Flow Rate FiO2 08/27/17 12:17 36.2 08/27/17 12:02 119 18 70/38 (57) 95 73/48 08/27/17 12:00 Room Air 08/27/17 11:31 109 13 95/55 (63) 97 108/46 08/27/17 11:15 103 18 96 Room Air 08/27/17 11:01 104 15 103/62 (64) 97 106/48 08/27/17 10:01 104 19 120/62 (86) 96 108/51 08/27/17 09:31 96 14 97/63 (71) 96 116/53 08/27/17 09:00 92 12 123/63 (96) 94 116/52 08/27/17 08:31 106 18 102/60 (56) 96 94/43 08/27/17 08:00 36.1 08/27/17 08:00 109 17 102/69 (85) 96 108/53 08/27/17 08:00 Room Air 08/27/17 07:53 106 18 77/67 (69) 97 111/55 08/27/17 07:31 104 16 74/59 (57) 95 91/44 08/27/17 07:10 98 16 94 Room Air 08/27/17 07:02 91 15 120/64 (75) 92 131/53 08/27/17 06:50 36.5 91 18 96/78 93 08/27/17 06:30 104 16 96/78 (83) 95 102/48 (66) 08/27/17 06:25 36.5 94 16 108/50 95 08/27/17 05:31 85 13 95/67 (84) 100 102/51 (66) 08/27/17 05:25 36.4 95 17 97/47 100 08/27/17 05:16 94 15 77/53 (50) 100 71/41 (46) 08/27/17 05:01 97 14 77/52 (60) 100 67/41 (47) 08/27/17 04:55 36.5 97 16 77/52 99 08/27/17 04:42 36.4 97 14 94/64 100 08/27/17 04:31 97 14 84/64 (65) 100 96/52 (64) 08/27/17 04:02 114 18 80/58 (60) 100 85/49 (65) 08/27/17 04:00 36.4 08/27/17 04:00 100 BiPAP 40 08/27/17 03:31 97 15 106/69 (61) 100 97/45 (62) 08/27/17 03:01 100 14 87/55 (44) 100 62/36 (47) 08/27/17 02:35 97 100 40 08/27/17 02:31 97 13 106/53 (59) 100 95/43 (64) 08/27/17 02:01 102 16 122/60 (61) 99 93/47 (62) 08/27/17 01:30 100 17 102/61 (80) 100 81/42 (62) 08/27/17 01:02 109 15 75/61 (38) 100 51/32 (41) 08/27/17 00:31 110 15 92/51 (76) 100 95/51 (62) 08/27/17 00:01 101 15 116/71 (83) 100 115/56 (73) 08/27/17 00:01 36.4 08/26/17 23:59 100 BiPAP 40 08/26/17 23:31 109 16 67/21 (23) 100 77/44 (52) 08/26/17 23:01 109 17 116/53 (47) 100 64/39 (53) 08/26/17 22:30 111 15 97/65 (77) 100 99/52 08/26/17 22:01 104 18 95/51 (64) 100 91/52 08/26/17 22:00 113 15 84/59 (66) 100 92/47 08/26/17 21:12 104 100 40 08/26/17 21:01 107 16 108/52 (96) 98 110/53 (68) 08/26/17 20:38 110 21 88/72 (77) 97 100/49 08/26/17 20:01 106 15 90/58 (64) 95 104/49 (69) 08/26/17 20:00 36.4 08/26/17 20:00 98 Room Air 08/26/17 19:30 103 19 90/53 (64) 94 08/26/17 19:01 100 19 93/59 (74) 98 113/47 08/26/17 18:30 36.4 98 18 121/52 98 08/26/17 18:05 87 18 94 Room Air 08/26/17 18:00 36.4 91 19 127/51 100 08/26/17 17:45 36.4 100 18 109/43 95 08/26/17 17:30 36.4 103 18 94/38 94 08/26/17 17:15 103 19 (51) 91 84/38 08/26/17 17:02 105 19 76/48 (59) 81/40 08/26/17 17:00 86 20 (61) 105/45 08/26/17 16:52 95 17 58/48 (50) 96 66/36 08/26/17 16:45 101 18 (57) 94 81/42 08/26/17 16:30 96 21 (58) 96 88/45 08/26/17 16:15 97 21 (57) 96 92/44 08/26/17 16:14 95 20 79/51 (54) 96 96/43 08/26/17 16:00 94 23 (51) 96 84/38 08/26/17 16:00 Room Air 08/26/17 15:45 76 16 (70) 100 124/47 08/26/17 15:36 82 18 93 Room Air 08/26/17 15:30 93 17 (51) 95 93/35 08/26/17 15:30 93 17 (51) 95 93/35 08/26/17 15:15 83 19 (61) 97 106/44 08/26/17 14:30 36.6 84 19 115/48 95 08/26/17 14:00 36.6 75 18 102/58 94 08/26/17 14:00 75 18 102/58 (69) 94 150/53 08/26/17 13:45 86 18 110/60 (71) 76 137/50 08/26/17 13:31 83 22 98/61 (84) 93 08/26/17 13:30 36.9 86 21 98/61 92 08/26/17 13:17 91 19 94/54 (62) 91 08/26/17 13:16 36.6 91 22 94/54 92 08/26/17 13:01 84 18 92/44 (62) 95 Physical Exam: General-confused but more appropriate today, lying flat on ra Eyes-no scleral icterus ENT-mmm Neck-supple Lungs-decreased Heart-regularly spaced beats in 110s Abdomen- bs+ s/nt/nd, ferraro; in device to give groin compression Extremities-no c; slight BL feet cyanosis; c, +1 edema worse in the hands Neuro-restless, dodd Current Inpatient Medications Medications (Trade) Dose Ordered Sig/Suzi Route Start Time Stop Time Status Last Admin Dose Admin Piperacillin Sod/ Tazobactam Sod 4.5 gm/Dextrose 120 ml @ 30 mls/hr Q8H IV 08/22/17 17:00 09/01/17 16:59 08/27/17 08:45 30 MLS/HR Miscellaneous Information (Consult) 1 ea UD PRN N/A 08/22/17 12:00 09/21/17 11:59 Pantoprazole Sodium 40 mg/ Syringe 10 ml @ 5 mls/min DAILY@0900 IV 08/23/17 09:00 09/22/17 08:59 08/27/17 10:00 5 MLS/MIN Miscellaneous Information (Consult Glycemic Management Pharmacy) 1 ea UD N/A 08/22/17 12:56 09/21/17 12:55 Albuterol/ Ipratropium (Duoneb) 3 ml QIDR INH 08/22/17 16:00 09/21/17 15:59 08/27/17 11:15 3 ML Glucose (Glucose 40% Gel) 15-30 GRAMS 15 GRAMS... UD PRN PO 08/22/17 15:15 09/21/17 15:14 Glucose (Glucose Chew Tab) 4-8 Tablets 4 Tabl... UD PRN PO 08/22/17 15:15 09/21/17 15:14 Dextrose (Dextrose 50% 50ML Syringe) 25-50ML OF 50% DW IV FOR... UD PRN IV 08/22/17 15:15 09/21/17 15:14 Glucagon (Glucagon Inj) 1 mg UD PRN SQ 08/22/17 15:15 09/21/17 15:14 Doxycycline Hyclate 100 mg/ Dextrose 110 ml @ 50 mls/hr Q12H IV 08/23/17 14:00 08/30/17 13:59 08/27/17 01:10 50 MLS/HR Insulin Human Regular 250 units/ Sodium Chloride 252.5 ml @ 0 mls/hr Q24H IV 08/25/17 00:45 09/24/17 00:44 08/27/17 01:11 0.8 MLS/HR Insulin Glargine (Lantus Solostar Pen) 15 units BID SC 08/25/17 21:00 09/24/17 20:59 Future Hold 08/26/17 08:20 15 UNITS Insulin Aspart (novoLOG ASPART) SLIDING SCALE PCHS SC 08/25/17 17:15 09/24/17 17:14 08/26/17 11:49 8 UNITS Prednisone (PredniSONE TAB) 40 mg DAILY PO 08/26/17 09:00 09/25/17 08:59 08/26/17 08:18 40 MG Norepinephrine Bitartrate 8 mg/ Dextrose 508 ml @ 0 mls/hr Q0M PRN IV 08/26/17 06:30 09/25/17 06:29 08/27/17 08:49 98 MLS/HR Acetaminophen 100 ml @ 400 mls/hr Q8H PRN IV 08/26/17 14:15 09/25/17 14:14 08/27/17 12:25 400 MLS/HR Fentanyl Citrate (Fentanyl Inj) 25 mcg Q4H PRN IV 08/26/17 16:30 09/09/17 16:29 08/27/17 08:45 25 MCG Parenteral Electrolyte Solution 1,000 ml @ 50 mls/hr Q20H IV 08/26/17 19:45 09/25/17 19:44 08/26/17 20:54 50 MLS/HR Last 24 Hours Test 08/26/17 13:52 08/26/17 14:41 08/26/17 15:46 08/26/17 16:35 Bedside Glucose (other) 255 mg/dl 206 mg/dl 166 mg/dl White Blood Count 26.32 K/uL Red Blood Count 3.51 M/uL Hemoglobin 10.5 g/dL Hematocrit 31.4 % Mean Corpuscular Volume 89.5 fL Mean Corpuscular Hemoglobin 29.9 pg Mean Corpuscular Hemoglobin Concent 33.4 g/dl RDW Standard Deviation 51.6 fL RDW Coefficient of Variation 16.1 % Platelet Count 147 K/uL Mean Platelet Volume 10.9 fL Nucleated RBC Absolute Count (auto) 0.45 K/uL Nucleated Red Blood Cells % 1.7 % Prothrombin Time 11.0 SECONDS Prothromb Time International Ratio 1.0 Sodium Level 142 mmol/L Potassium Level 3.9 mmol/L Chloride Level 112 mmol/L Carbon Dioxide Level 20 mmol/L Anion Gap 10.0 mmol/L Blood Urea Nitrogen 47 mg/dl Creatinine 2.20 mg/dl Est Creatinine Clear Calc Drug Dose 21.9 ml/min Estimated GFR () 23.8 Estimated GFR (Non- 20.5 BUN/Creatinine Ratio 21.5 Random Glucose 140 mg/dl Lactic Acid Level 3.0 mmol/L Calcium Level 7.6 mg/dl Phosphorus Level 3.8 mg/dl Magnesium Level 1.9 mg/dl Total Bilirubin 0.5 mg/dl Aspartate Amino Transf (AST/SGOT) 77 U/L Alanine Aminotransferase (ALT/SGPT) 55 U/L Alkaline Phosphatase 54 U/L Total Protein 4.7 gm/dl Albumin 2.0 gm/dl Globulin 2.7 gm/dl Albumin/Globulin Ratio 0.8 Test 08/26/17 16:41 08/26/17 17:38 08/26/17 17:57 08/26/17 18:03 Bedside Glucose (other) 141 mg/dl 112 mg/dl 121 mg/dl Blood Gas Sample Site Art Line Bedside Blood Gas pH (LAB) 7.37 Bedside Blood Gas pCO2 (LAB) 32 mmHg Bedside Blood Gas pO2 (LAB) 69 mmHg Bedside Blood Gas HCO3 (LAB) 19 meq/L Bedside Blood Gas Total CO2 20 mEq/l Bedside Blood Gas Base Excess (LAB) -7.0 meq/L Bedside Blood Gas O2 Saturation 93.0 % Laron Test NA Oxygen Delivery Device Room Air Test 08/26/17 19:09 08/26/17 19:57 08/26/17 20:19 08/26/17 21:08 Bedside Glucose (other) 138 mg/dl 155 mg/dl 156 mg/dl White Blood Count 26.78 K/uL Red Blood Count 3.99 M/uL Hemoglobin 12.0 g/dL Hematocrit 35.2 % Mean Corpuscular Volume 88.2 fL Mean Corpuscular Hemoglobin 30.1 pg Mean Corpuscular Hemoglobin Concent 34.1 g/dl RDW Standard Deviation 50.2 fL RDW Coefficient of Variation 15.7 % Platelet Count 149 K/uL Mean Platelet Volume 11.0 fL Nucleated RBC Absolute Count (auto) 0.44 K/uL Nucleated Red Blood Cells % 1.7 % Lactic Acid Level 2.5 mmol/L Test 08/26/17 22:04 08/26/17 23:44 08/26/17 23:48 08/27/17 02:15 Bedside Glucose (other) 153 mg/dl 145 mg/dl 148 mg/dl White Blood Count 28.11 K/uL Red Blood Count 3.76 M/uL Hemoglobin 11.2 g/dL Hematocrit 32.8 % Mean Corpuscular Volume 87.2 fL Mean Corpuscular Hemoglobin 29.8 pg Mean Corpuscular Hemoglobin Concent 34.1 g/dl RDW Standard Deviation 49.1 fL RDW Coefficient of Variation 15.6 % Platelet Count 143 K/uL Mean Platelet Volume 10.9 fL Nucleated RBC Absolute Count (auto) 0.48 K/uL Nucleated Red Blood Cells % 1.7 % Lactic Acid Level 2.1 mmol/L Test 08/27/17 03:51 08/27/17 04:07 08/27/17 07:56 08/27/17 08:02 White Blood Count 28.69 K/uL 28.96 K/uL Red Blood Count 3.38 M/uL 3.91 M/uL Hemoglobin 10.4 g/dL 12.0 g/dL Hematocrit 29.4 % 34.2 % Mean Corpuscular Volume 87.0 fL 87.5 fL Mean Corpuscular Hemoglobin 30.8 pg 30.7 pg Mean Corpuscular Hemoglobin Concent 35.4 g/dl 35.1 g/dl RDW Standard Deviation 49.2 fL 48.0 fL RDW Coefficient of Variation 15.8 % 15.3 % Platelet Count 136 K/uL 122 K/uL Mean Platelet Volume 11.7 fL 11.7 fL Nucleated RBC Absolute Count (auto) 0.49 K/uL 0.39 K/uL Nucleated Red Blood Cells % 1.7 % 1.3 % Prothrombin Time 10.9 SECONDS Prothromb Time International Ratio 1.0 Activated Partial Thromboplast Time 30.6 SECONDS Partial Thromboplastin Ratio 1.2 Sodium Level 138 mmol/L Potassium Level 4.3 mmol/L Chloride Level 109 mmol/L Carbon Dioxide Level 19 mmol/L Anion Gap 10.0 mmol/L Blood Urea Nitrogen 54 mg/dl Creatinine 2.66 mg/dl Est Creatinine Clear Calc Drug Dose 18.1 ml/min Estimated GFR () 18.9 Estimated GFR (Non- 16.3 BUN/Creatinine Ratio 20.3 Random Glucose 149 mg/dl Lactic Acid Level 1.7 mmol/L 2.0 mmol/L Calcium Level 7.2 mg/dl Phosphorus Level 5.0 mg/dl Magnesium Level 1.9 mg/dl Bedside Glucose (other) 147 mg/dl 110 mg/dl Test 08/27/17 09:07 08/27/17 10:06 08/27/17 11:08 08/27/17 11:46 Bedside Glucose (other) 116 mg/dl 113 mg/dl 126 mg/dl White Blood Count 29.57 K/uL Red Blood Count 3.60 M/uL Hemoglobin 11.1 g/dL Hematocrit 31.4 % Mean Corpuscular Volume 87.2 fL Mean Corpuscular Hemoglobin 30.8 pg Mean Corpuscular Hemoglobin Concent 35.4 g/dl RDW Standard Deviation 47.0 fL RDW Coefficient of Variation 15.3 % Platelet Count 118 K/uL Mean Platelet Volume 11.3 fL Nucleated RBC Absolute Count (auto) 0.32 K/uL Nucleated Red Blood Cells % 1.0 % Lactic Acid Level 1.9 mmol/L Total Creatine Kinase 551 U/L Test 08/27/17 11:52 Bedside Glucose (other) 145 mg/dl Assessment & Plan 81 yo female w/ solitary kidney who presented in shock with right heart failure , respiratory failure needing intubation, and alex/atn. cxs negative. Had been improving clinically, extubated but as of 08/26 back on pressors, needed 2/10 3 units pRBC, decreasing uop and increasing creatinine and lactic acid w/ R groin hematoma [id number]- creatinine worsening after 2 events; not oliguric but uop dropped by nearly half and may head that way. no dialysis at this time but may end up needing it, jaime since further IV contrast exposure may be necessary for her vascular care; if further lines needed, will get them done under fluoro if possible, per crit care. volume status and electrolytes are stable for now. continue to monitor. no changes to therapy for now
--- NOTE | 2017-08-27 13:27 | Pharmacy Progress Note ---
Glycemic Control Progress Note Date of Service Aug 27, 2017. Scope Glycemic Pharmacist consulted for glycemic control to write orders per [facility] inpatient glycemic control protocol. Objective Accuchecks BSG (last 24hrs): Test 08/26/17 16:35 08/27/17 03:51 Random Glucose 140 mg/dl (70-99) 149 mg/dl (70-99) HbA1c: Test 08/22/17 11:56 Hemoglobin A1c 7.1 % (4.5-5.6) H Recent Pertinent Medications The patient is currently receiving: * Basal insulin: Lantus -- units every -- hours * Correctional Insulin: Novolog Correction per scale ACHS Goal Range: Low 120 mg/dL - High 200 mg/dL Correction Factor: -- mg/dL/unit * Prandial insulin: Per carb ratio of 1 unit per -- grams CHO consumed * Oral Agents: Outpatient Anti-Diabetic Meds Lantus 15 units SQ BID plus glipizide Assessment & Plan ASSESSMENT: * See progress note from 08/25/17 for more background info, in short: * Pt receiving SQ basal bolus insulin regimen for hyperglycemia secondary to baseline DM (outpatient regimen on hold),stress/infection (doxycycline and zosyn ),pressors (Norepinephrine at 0.3 mcg/kg/min), and prednisone 40 mg PO daily ( not given today since NPO) * Patient is currently receiving an average of ~30 units of insulin per day * -- units of basal insulin * -- units of prandial/correctional insulin * BSGs ranging 116 - 242 mg/dl over the past 24hrs * Changes needed to insulin regimen: * AM Fasting BSG = 116 mg/dl. The patient's Lantus is currently on hold secondary to her requirement of pressors. * Post-prandial BSGs are in range therefore no changes needed... continue on insulin infusion per protocol. Currently at 0.5 units/hr. * Total daily dose is unknown. It appears that 15 units twice daily of Lantus was sufficient for the patient. PLAN FOR INPATIENT GLYCEMIC CONTROL: * Continuing IV insulin infusion per protocol * Goal Range 120 - 200 mg/dl * In the critical care setting, continuous IV insulin infusion has been shown to be the best method for achieving glycemic targets. * Oral Agents * Continue to hold outpatient oral diabetes medications. * Plan to restart Lantus when pressors removed * Please note that the plan above was derived based on current level of insulin resistance and hospital stress. These recommendations are appropriate for inpatient admission only. Plan of care upon discharge will need to be reassessed to avoid potential outpatient hypo/hyperglycemia. Thank you.
--- NOTE | 2017-08-27 13:56 | ECHOCARDIOGRAM REPORT ---
*NOTICE TO RECEIVING LIBERTARIAN AGENCY This information is strictly Confidential and protected under [place] law. [place] law prohibits you from making any further disclosure of this information unless further disclosure is expressly permitted by the written consent of the person to whom it pertains or is authorized by law. A general authorization for the release of medical or other information is not sufficient for this purpose. Hospital accepts no responsibility if the information is made available to any other person, INCLUDING THE PATIENT. Interpretation Summary * Name: Angel GOMEZ Study Date: 08/27/2017 09:15 AM BP: 105/51 mmHg * Patient Location: .MSICU\[id number]\E107\S\1 HR: 96 * : 1935 (M/d/yyyy) Gender: Female Height: 67 in * Age: 81 yrs Ethnicity: [place] Weight: 181 lb * Ordering Physician: Albaro Holloway * Referring Physician: UNKNOWN * Performed By: Adair Cortez RDCS * * Reason For Study: Re-evaluate RV function * BSA: 1.9 m2 * Limited views were obtained. * -- Conclusions -- * The right ventricular cavity size is normal (basal dimension <4.2 cm in right ventricular apical 4-chamber view). * The right ventricular systolic function is normal. * There is trace tricuspid regurgitation. * The estimated systolic PAP is 29mmHg. * The left ventricle is hyperdynamic. * Small to moderate loculated anterior pericardial effusion. * There are no echocardiographic indications of cardiac tamponade. * Compared to prior study, anterior pericardial effusion appears small to moderate. Previous study demonstrates trivial anterior pericardial effusion. Procedure Details * A two-dimensional transthoracic echocardiogram with M-mode and Doppler was performed. * The study was technically difficult. * There were technical limitations due to patient's positioning, body habitus and lung disease. Left Ventricle * The left ventricle is hyperdynamic. * Ejection Fraction = >70 %. Right Ventricle * The right ventricular cavity size is normal (basal dimension <4.2 cm in right ventricular apical 4-chamber view). * The right ventricular systolic function is normal. Tricuspid Valve * There is trace tricuspid regurgitation. * The estimated systolic PAP is 29mmHg. Pericardium/Pleural * Small to moderate loculated anterior pericardial effusion. * There are no echocardiographic indications of cardiac tamponade. Great Vessels * The IVC was not visualized.
[2017-08-27] MEDS: NORMOSOL R 1,000 ML IV SCH (15:45)
[2017-08-27 16:15] LABS: HEMOGLOBIN 10.2 g/dL (12.0-16.0); MEAN CELL VOLUME 86.8 fL (80-100); MEAN CORPUSCULAR HEMOGLOBIN 30.5 pg (25-34); MEAN CORPUSCULAR HGB CONC 35.2 g/dl (32-36); MEAN PLATELET VOLUME 11.4 fL (7.4-10.4); NUCLEATED RED BLOOD CELL ABS 0.26 K/uL (0-0); PLATELET COUNT 121 K/uL (130-400); RED CELL DISTRIBUTION WIDTH CV 15.2 % (11.5-14.5); RED CELL DISTRIBUTION WIDTH SD 47.1 fL (36.4-46.3); WHITE BLOOD COUNT 29.34 K/uL (4.8-10.8)
[2017-08-27] MEDS ORDERED: ONDANSETRON INJ 2 MG/ML 2 ML VIAL ONE (16:32)
[2017-08-27 16:33] LABS: ALBUMIN 1.8 gm/dl (3.4-5.0); CREATININE 2.89 mg/dl (0.60-1.20); POTASSIUM 4.3 mmol/L (3.5-5.1)
[2017-08-27 16:35] LABS: PHOSPHORUS 5.7 mg/dl (2.5-4.9); TOTAL PROTEIN 4.3 gm/dl (6.4-8.2)
[2017-08-27] MEDS ORDERED: CALCIUM CHLORIDE 10% 10 ML SYR IV STA (16:43)
[2017-08-27] MEDS ORDERED: NURSING VERBAL MED ORDER ONE (16:45)
[2017-08-27] MEDS ORDERED: SODIUM CHLORIDE 0.9% 1000ML 500 ML IV ONE (16:45)
[2017-08-27] MEDS ORDERED: CALCIUM CHLORIDE 10% 2,000 MG in SODIUM CHLORIDE 0.9% 50ML 50 ML IV ONE (17:00)
--- NOTE | 2017-08-27 17:39 | Critical Care Progress Note ---
Critical Care Progress Note Date of Service Aug 27, 2017. Attending Dr. Holloway Subjective Awake, alert Still on pressors Received 4 units PRBC so far Objective General: Awake, comfortable Heent: NC/AT CVS:S1S2 regular Lungs: clear to auscultation Abd: Soft, NT, ND, old laparotomy scar Ext: right thigh increased circumference, feels full compared to the left. Ecchymosis over the old TLC insertion site, deep hematoma felt. It does not appear changed since yesterday. New finding on exam is fluid collection above the right knee, non-tender Present left PT pulse, absent DP RN RESEARCH: Awake, confused to time, no focal deficit Assessment & Plan 81 year old female presents with AMS, hypothermic, in profound shock. Less likely septic in nature, more likely cardiogenic, with RV failure, severe pulmonary hypertension. Not clear what led to this spike in PAP, pulmonary embolism has been ruled out. She has acute severe hypercapnia, undiagnosed COPD, which may lead to a spike in the PA pressure. Repeat echo after 2 days showed normalization of right heart function/size and PA pressure I seriously doubt she has Group I PH, given her age and normal PAP 6 years ago Extubated on 08/25/17 Right thigh hematoma secondary to central line Problems: Acute respiratory failure with hypercapnia and hypoxia Pulmonary hypertension RV failure with shock Right thigh hematoma COPD Acute kidney injury Plan: RN RESEARCH: Pain control Still pleasantly confused Pulmonary: Extubated successfully Prednisone 40 mg daily, taper tomorrow Around the clock bronchodilator Off heparin drip given negative CT scan for PE At this point she should be on nocturnal BIPAP CVS: Back on pressors today secondary to hypovolemic shock Severe pulmonary HTN, not caused by PE, leading to RV failure. Acute severe hypercarbia and hypoxia could potentially lead to pulmonary hypertension. This phenomenon seemed to resolve completely with conventional therapy of COPD, normalizing the ABG values. Troponin negative initially x 3, then increased and stabilized around 2. Doubt ACS, most likely demand ischemia from acute RV failure. Troponin also accumulated in the setting of oliguric ATN Hold ASA for now, given femoral bleeding Vascular: CT showing large hematomas. Echo suggestive of AV fistula Pressure applied for a long time, both manually and with Fem-Stop Has knee accumulation, probably just pooling of blood from the thigh Repeat CT did not show significant change in the size of hematoma Repeat CT tomorrow Placed in leg immobilizer as she is quite fidgety Doubt compartment syndrome, she is only tender overt the hematoma area, not around it. D/w Dr De La Fuente, will probably need an angiogram of LE to evaluate the fistula. Renal: Urine output decreasing, creatinine rising. Likely ATN secondary to hypotension/ bleeding Calcium supplemented ID: Cultures negative to date On broad spectrum Abx, Zosyn and Doxy, finish 7 day course Procalcitonin is negative. Heme: Monitor CBC every 4 hours, transfuse as needed. GI: NPO for now Endo: Insulin drip for glycemic control DVT prophylaxis: Off SC heparin secondary to bleeding Critical care time spent with the patient, reviewing chart, discussing with consultants, excluding procedures, greater than 60 minutes Consults & Procedures Consultants: Renal: Dr Adkins ID: Dr Ferrell Vascular: Dr De La Fuente Procedures: 08/22/17: Intubation 08/22/17: Right femoral TLC in ED 08/25/17: Extubation 08/26/17: Left femoral TLC 08/26/17: Left radial a-line Data Medications: Current Inpatient Medications Medications (Trade) Dose Ordered Sig/Suzi Route Start Time Stop Time Status Last Admin Dose Admin Miscellaneous Information (Consult) 1 ea UD PRN N/A 08/22/17 12:00 09/21/17 11:59 Pantoprazole Sodium 40 mg/ Syringe 10 ml @ 5 mls/min DAILY@0900 IV 08/23/17 09:00 09/22/17 08:59 08/27/17 10:00 5 MLS/MIN Miscellaneous Information (Consult Glycemic Management Pharmacy) 1 ea UD N/A 08/22/17 12:56 09/21/17 12:55 Albuterol/ Ipratropium (Duoneb) 3 ml QIDR INH 08/22/17 16:00 09/21/17 15:59 08/27/17 15:30 3 ML Glucose (Glucose 40% Gel) 15-30 GRAMS 15 GRAMS... UD PRN PO 08/22/17 15:15 09/21/17 15:14 Glucose (Glucose Chew Tab) 4-8 Tablets 4 Tabl... UD PRN PO 08/22/17 15:15 09/21/17 15:14 Dextrose (Dextrose 50% 50ML Syringe) 25-50ML OF 50% DW IV FOR... UD PRN IV 08/22/17 15:15 09/21/17 15:14 Glucagon (Glucagon Inj) 1 mg UD PRN SQ 08/22/17 15:15 09/21/17 15:14 Doxycycline Hyclate 100 mg/ Dextrose 110 ml @ 50 mls/hr Q12H IV 08/23/17 14:00 08/30/17 13:59 08/27/17 14:03 50 MLS/HR Insulin Human Regular 250 units/ Sodium Chloride 252.5 ml @ 0 mls/hr Q24H IV 08/25/17 00:45 09/24/17 00:44 08/27/17 01:11 0.8 MLS/HR Insulin Glargine (Lantus Solostar Pen) 15 units BID SC 08/25/17 21:00 09/24/17 20:59 Future Hold 08/26/17 08:20 15 UNITS Insulin Aspart (novoLOG ASPART) [facility]IDING [facility]ALE [facility] SC 08/25/17 17:15 09/24/17 17:14 08/26/17 11:49 8 UNITS Prednisone (PredniSONE TAB) 40 mg DAILY PO 08/26/17 09:00 09/25/17 08:59 08/26/17 08:18 40 MG Norepinephrine Bitartrate 8 mg/ Dextrose 508 ml @ 0 mls/hr Q0M PRN IV 08/26/17 06:30 09/25/17 06:29 08/27/17 14:04 101 MLS/HR Acetaminophen 100 ml @ 400 mls/hr Q8H PRN IV 08/26/17 14:15 09/25/17 14:14 08/27/17 12:25 400 MLS/HR Fentanyl Citrate (Fentanyl Inj) 25 mcg Q4H PRN IV 08/26/17 16:30 09/09/17 16:29 08/27/17 08:45 25 MCG Parenteral Electrolyte Solution 1,000 ml @ 50 mls/hr Q20H IV 08/26/17 19:45 09/25/17 19:44 08/26/17 20:54 50 MLS/HR Piperacillin Sod/ Tazobactam Sod 4.5 gm/Dextrose 120 ml @ 30 mls/hr Q12H IV 08/27/17 20:00 09/01/17 19:59 Calcium Chloride 2000 mg/Sodium Chloride 70 ml @ 210 mls/hr ONE ONCE IV 08/27/17 17:00 08/27/17 17:19 I & O: 24-Hour Column 08/28/17 07:59 Intake Total 1593 ml Output Total 125 ml Balance 1468 ml Vital Signs: Date Time Temp Pulse Resp B/P (MAP) Pulse Ox O2 Delivery O2 Flow Rate FiO2 08/27/17 15:30 100 14 99 Room Air 08/27/17 15:01 107 16 91/47 (67) 98 90/41 08/27/17 14:30 104 18 (60) 97 100/44 08/27/17 14:01 100 16 95/61 (64) 97 111/46 08/27/17 13:01 103 19 126/61 (70) 96 121/51 08/27/17 12:30 112 15 (62) 95 98/48 08/27/17 12:17 36.2 08/27/17 12:02 119 18 70/38 (57) 95 73/48 08/27/17 12:00 Room Air 08/27/17 11:31 109 13 95/55 (63) 97 108/46 08/27/17 11:15 103 18 96 Room Air 08/27/17 11:01 104 15 103/62 (64) 97 106/48 08/27/17 10:01 104 19 120/62 (86) 96 108/51 08/27/17 09:31 96 14 97/63 (71) 96 116/53 08/27/17 09:00 92 12 123/63 (96) 94 116/52 08/27/17 08:31 106 18 102/60 (56) 96 94/43 08/27/17 08:00 36.1 08/27/17 08:00 109 17 102/69 (85) 96 108/53 08/27/17 08:00 Room Air 08/27/17 07:53 106 18 77/67 (69) 97 111/55 08/27/17 07:31 104 16 74/59 (57) 95 91/44 08/27/17 07:10 98 16 94 Room Air 08/27/17 07:02 91 15 120/64 (75) 92 131/53 08/27/17 06:50 36.5 91 18 96/78 93 08/27/17 06:30 104 16 96/78 (83) 95 102/48 (66) 08/27/17 06:25 36.5 94 16 108/50 95 08/27/17 05:31 85 13 95/67 (84) 100 102/51 (66) 08/27/17 05:25 36.4 95 17 97/47 100 08/27/17 05:16 94 15 77/53 (50) 100 71/41 (46) 08/27/17 05:01 97 14 77/52 (60) 100 67/41 (47) 08/27/17 04:55 36.5 97 16 77/52 99 08/27/17 04:42 36.4 97 14 94/64 100 08/27/17 04:31 97 14 84/64 (65) 100 96/52 (64) 08/27/17 04:02 114 18 80/58 (60) 100 85/49 (65) 08/27/17 04:00 36.4 08/27/17 04:00 100 BiPAP 40 08/27/17 03:31 97 15 106/69 (61) 100 97/45 (62) 08/27/17 03:01 100 14 87/55 (44) 100 62/36 (47) 08/27/17 02:35 97 100 40 08/27/17 02:31 97 13 106/53 (59) 100 95/43 (64) 08/27/17 02:01 102 16 122/60 (61) 99 93/47 (62) 08/27/17 01:30 100 17 102/61 (80) 100 81/42 (62) 08/27/17 01:02 109 15 75/61 (38) 100 51/32 (41) 08/27/17 00:31 110 15 92/51 (76) 100 95/51 (62) 08/27/17 00:01 101 15 116/71 (83) 100 115/56 (73) 08/27/17 00:01 36.4 08/26/17 23:59 100 BiPAP 40 08/26/17 23:31 109 16 67/21 (23) 100 77/44 (52) 08/26/17 23:01 109 17 116/53 (47) 100 64/39 (53) 08/26/17 22:30 111 15 97/65 (77) 100 99/52 08/26/17 22:01 104 18 95/51 (64) 100 91/52 08/26/17 22:00 113 15 84/59 (66) 100 92/47 08/26/17 21:12 104 100 40 08/26/17 21:01 107 16 108/52 (96) 98 110/53 (68) 08/26/17 20:38 110 21 88/72 (77) 97 100/49 08/26/17 20:01 106 15 90/58 (64) 95 104/49 (69) 08/26/17 20:00 36.4 08/26/17 20:00 98 Room Air 08/26/17 19:30 103 19 90/53 (64) 94 08/26/17 19:01 100 19 93/59 (74) 98 113/47 08/26/17 18:30 36.4 98 18 121/52 98 08/26/17 18:05 87 18 94 Room Air 08/26/17 18:00 36.4 91 19 127/51 100 08/26/17 17:45 36.4 100 18 109/43 95 08/26/17 17:30 36.4 103 18 94/38 94 Laboratory Results: Last 24 Hours Test 08/26/17 17:38 08/26/17 17:57 08/26/17 18:03 08/26/17 19:09 Bedside Glucose (other) 112 mg/dl 121 mg/dl 138 mg/dl Blood Gas Sample Site Art Line Bedside Blood Gas pH (LAB) 7.37 Bedside Blood Gas pCO2 (LAB) 32 mmHg Bedside Blood Gas pO2 (LAB) 69 mmHg Bedside Blood Gas HCO3 (LAB) 19 meq/L Bedside Blood Gas Total CO2 20 mEq/l Bedside Blood Gas Base Excess (LAB) -7.0 meq/L Bedside Blood Gas O2 Saturation 93.0 % Laron Test NA Oxygen Delivery Device Room Air Test 08/26/17 19:57 08/26/17 20:19 08/26/17 21:08 08/26/17 22:04 Bedside Glucose (other) 155 mg/dl 156 mg/dl 153 mg/dl White Blood Count 26.78 K/uL Red Blood Count 3.99 M/uL Hemoglobin 12.0 g/dL Hematocrit 35.2 % Mean Corpuscular Volume 88.2 fL Mean Corpuscular Hemoglobin 30.1 pg Mean Corpuscular Hemoglobin Concent 34.1 g/dl RDW Standard Deviation 50.2 fL RDW Coefficient of Variation 15.7 % Platelet Count 149 K/uL Mean Platelet Volume 11.0 fL Nucleated RBC Absolute Count (auto) 0.44 K/uL Nucleated Red Blood Cells % 1.7 % Lactic Acid Level 2.5 mmol/L Test 08/26/17 23:44 08/26/17 23:48 08/27/17 02:15 08/27/17 03:51 White Blood Count 28.11 K/uL 28.69 K/uL Red Blood Count 3.76 M/uL 3.38 M/uL Hemoglobin 11.2 g/dL 10.4 g/dL Hematocrit 32.8 % 29.4 % Mean Corpuscular Volume 87.2 fL 87.0 fL Mean Corpuscular Hemoglobin 29.8 pg 30.8 pg Mean Corpuscular Hemoglobin Concent 34.1 g/dl 35.4 g/dl RDW Standard Deviation 49.1 fL 49.2 fL RDW Coefficient of Variation 15.6 % 15.8 % Platelet Count 143 K/uL 136 K/uL Mean Platelet Volume 10.9 fL 11.7 fL Nucleated RBC Absolute Count (auto) 0.48 K/uL 0.49 K/uL Nucleated Red Blood Cells % 1.7 % 1.7 % Lactic Acid Level 2.1 mmol/L 1.7 mmol/L Bedside Glucose (other) 145 mg/dl 148 mg/dl Prothrombin Time 10.9 SECONDS Prothromb Time International Ratio 1.0 Activated Partial Thromboplast Time 30.6 SECONDS Partial Thromboplastin Ratio 1.2 Sodium Level 138 mmol/L Potassium Level 4.3 mmol/L Chloride Level 109 mmol/L Carbon Dioxide Level 19 mmol/L Anion Gap 10.0 mmol/L Blood Urea Nitrogen 54 mg/dl Creatinine 2.66 mg/dl Est Creatinine Clear Calc Drug Dose 18.1 ml/min Estimated GFR () 18.9 Estimated GFR (Non- 16.3 BUN/Creatinine Ratio 20.3 Random Glucose 149 mg/dl Calcium Level 7.2 mg/dl Phosphorus Level 5.0 mg/dl Magnesium Level 1.9 mg/dl Test 08/27/17 04:07 08/27/17 07:56 08/27/17 08:02 08/27/17 09:07 Bedside Glucose (other) 147 mg/dl 110 mg/dl 116 mg/dl White Blood Count 28.96 K/uL Red Blood Count 3.91 M/uL Hemoglobin 12.0 g/dL Hematocrit 34.2 % Mean Corpuscular Volume 87.5 fL Mean Corpuscular Hemoglobin 30.7 pg Mean Corpuscular Hemoglobin Concent 35.1 g/dl RDW Standard Deviation 48.0 fL RDW Coefficient of Variation 15.3 % Platelet Count 122 K/uL Mean Platelet Volume 11.7 fL Nucleated RBC Absolute Count (auto) 0.39 K/uL Nucleated Red Blood Cells % 1.3 % Lactic Acid Level 2.0 mmol/L Test 08/27/17 10:06 08/27/17 11:08 08/27/17 11:46 08/27/17 11:52 Bedside Glucose (other) 113 mg/dl 126 mg/dl 145 mg/dl White Blood Count 29.57 K/uL Red Blood Count 3.60 M/uL Hemoglobin 11.1 g/dL Hematocrit 31.4 % Mean Corpuscular Volume 87.2 fL Mean Corpuscular Hemoglobin 30.8 pg Mean Corpuscular Hemoglobin Concent 35.4 g/dl RDW Standard Deviation 47.0 fL RDW Coefficient of Variation 15.3 % Platelet Count 118 K/uL Mean Platelet Volume 11.3 fL Nucleated RBC Absolute Count (auto) 0.32 K/uL Nucleated Red Blood Cells % 1.0 % Lactic Acid Level 1.9 mmol/L Total Creatine Kinase 551 U/L Test 08/27/17 13:09 08/27/17 14:02 08/27/17 15:07 08/27/17 16:07 Bedside Glucose (other) 121 mg/dl 139 mg/dl 151 mg/dl White Blood Count 29.34 K/uL Red Blood Count 3.34 M/uL Hemoglobin 10.2 g/dL Hematocrit 29.0 % Mean Corpuscular Volume 86.8 fL Mean Corpuscular Hemoglobin 30.5 pg Mean Corpuscular Hemoglobin Concent 35.2 g/dl RDW Standard Deviation 47.1 fL RDW Coefficient of Variation 15.2 % Platelet Count 121 K/uL Mean Platelet Volume 11.4 fL Nucleated RBC Absolute Count (auto) 0.26 K/uL Nucleated Red Blood Cells % 0.9 % Sodium Level 136 mmol/L Potassium Level 4.3 mmol/L Chloride Level 104 mmol/L Carbon Dioxide Level 19 mmol/L Anion Gap 13.0 mmol/L Blood Urea Nitrogen 56 mg/dl Creatinine 2.89 mg/dl Est Creatinine Clear Calc Drug Dose 17.1 ml/min Estimated GFR () 17.1 Estimated GFR (Non- 14.7 BUN/Creatinine Ratio 19.5 Random Glucose 178 mg/dl Lactic Acid Level 1.7 mmol/L Calcium Level 7.0 mg/dl Ionized Calcium 0.99 mmol/l Phosphorus Level 5.7 mg/dl Magnesium Level 2.0 mg/dl Total Bilirubin 0.7 mg/dl Aspartate Amino Transf (AST/SGOT) 69 U/L Alanine Aminotransferase (ALT/SGPT) 61 U/L Alkaline Phosphatase 45 U/L Total Protein 4.3 gm/dl Albumin 1.8 gm/dl Globulin 2.5 gm/dl Albumin/Globulin Ratio 0.7 Test 08/27/17 16:10 Bedside Glucose (other) 176 mg/dl
[2017-08-28] VITALS (61 sets, daily range): BP systolic 67–146; BP diastolic 43–96; PULSE 64–112; TEMP 36.4–36.6; O2SAT 15–100
[2017-08-28 00:02] LABS: HEMATOCRIT 30.5 % (37-47); HEMOGLOBIN 10.5 g/dL (12.0-16.0); MEAN CELL VOLUME 86.6 fL (80-100); MEAN CORPUSCULAR HEMOGLOBIN 29.8 pg (25-34); MEAN CORPUSCULAR HGB CONC 34.4 g/dl (32-36); MEAN PLATELET VOLUME 11.3 fL (7.4-10.4); NUCLEATED RED BLOOD CELL ABS 0.17 K/uL (0-0); PLATELET COUNT 122 K/uL (130-400); RED CELL DISTRIBUTION WIDTH CV 15.1 % (11.5-14.5); RED CELL DISTRIBUTION WIDTH SD 46.8 fL (36.4-46.3); WHITE BLOOD COUNT 29.96 K/uL (4.8-10.8)
[2017-08-28] MEDS ORDERED: ALBUMIN HUMAN 5% 12.5 GM/250 ML VIAL IV ONE (00:45)
[2017-08-28] MEDS: DOXYCYCLINE IV 100 MG in DEXTROSE 5% 100ML 100 ML IV SCH ×2 (02:58→14:29)
[2017-08-28 04:19] LABS: HEMOGLOBIN 9.1 g/dL (12.0-16.0); MEAN CELL VOLUME 87.2 fL (80-100); MEAN CORPUSCULAR HEMOGLOBIN 30.5 pg (25-34); MEAN PLATELET VOLUME 11.2 fL (7.4-10.4); PLATELET COUNT 114 K/uL (130-400); RED CELL DISTRIBUTION WIDTH CV 15.2 % (11.5-14.5); RED CELL DISTRIBUTION WIDTH SD 46.9 fL (36.4-46.3); WHITE BLOOD COUNT 29.72 K/uL (4.8-10.8)
[2017-08-28 04:29] LABS: PTT PATIENT 29.5 SECONDS (21.0-31.0)
[2017-08-28 04:37] LABS: ALBUMIN 2.1 gm/dl (3.4-5.0); CALCIUM 7.5 mg/dl (8.5-10.1); CREATININE 3.03 mg/dl (0.60-1.20); POTASSIUM 4.6 mmol/L (3.5-5.1)
[2017-08-28 04:54] LABS: CKMB 14.5 ng/ml (0.5-3.6); PHOSPHORUS 6.3 mg/dl (2.5-4.9); TOTAL PROTEIN 4.4 gm/dl (6.4-8.2)
[2017-08-28] MEDS: FENTANYL CITRATE INJ 50 MCG/1 ML 2 ML VIAL IV PRN (05:14)
--- NOTE | 2017-08-28 06:10 | Nephrology Progress Note ---
Nephrology Progress Note Date of Service: Aug 28, 2017. Subjective 81 yo female who presented in shock with right heart failure and alex/atn requiring intubation and was eventually extubated. pt unfortunately developed a hematoma in right thigh requiring multiple units of blood. pt was agitated last night and required a 1 to 1. pt comfortable this morning, on low dose pressor, answering questions appropriately. Objective Date Time Temp Pulse Resp B/P (MAP) Pulse Ox O2 Delivery O2 Flow Rate FiO2 08/28/17 04:21 97 Room Air 2.0 08/28/17 04:11 95 13 125/67 (86) 100 08/28/17 04:04 96 14 120/73 (89) 100 08/28/17 04:00 103 18 95/89 (91) 100 08/28/17 03:46 86 15 146/63 (90) 99 08/28/17 03:31 93 18 116/50 (72) 100 08/28/17 03:16 91 15 132/75 (94) 100 08/28/17 03:01 99 15 119/60 (79) 100 08/28/17 03:00 101 19 83/75 (78) 100 08/28/17 02:46 90 14 125/68 (87) 100 08/28/17 02:31 100 18 101/71 (81) 100 08/28/17 02:16 94 14 121/72 (88) 100 08/28/17 02:01 89 16 120/79 (93) 100 08/28/17 02:00 89 14 124/80 (95) 100 08/28/17 01:46 95 15 117/79 (92) 100 08/28/17 01:31 86 14 118/85 (96) 100 08/28/17 01:16 96 13 114/69 (84) 100 08/28/17 01:01 112 19 77/46 (56) 100 08/28/17 01:00 109 21 67/54 (58) 98 08/28/17 00:02 107 22 110/54 (72) 100 08/28/17 00:00 102 18 100/72 (81) 100 08/28/17 00:00 97 Room Air 2.0 08/27/17 23:15 36.4 94 20 105/64 (78) 100 BiPAP 08/27/17 22:46 14 103/58 (73) 100 08/27/17 22:31 15 114/80 (91) 100 08/27/17 22:16 12 127/71 (89) 100 08/27/17 22:02 96 100 30 08/27/17 22:01 13 133/73 (93) 100 08/27/17 22:00 13 111/71 (84) 100 08/27/17 21:46 14 129/84 (99) 95 08/27/17 21:16 14 99/62 (74) 100 08/27/17 21:04 14 105/70 (82) 96 08/27/17 21:01 18 110/69 (83) 98 08/27/17 21:00 18 159/153 (155) 97 08/27/17 20:46 17 106/60 (75) 96 08/27/17 20:31 36.5 14 131/48 (75) 97 08/27/17 20:17 16 100/45 (63) 99 08/27/17 20:02 100 16 96 Room Air 08/27/17 20:01 14 143/53 (83) 99 08/27/17 20:00 97 Room Air 2.0 08/27/17 20:00 13 145/56 (85) 100 08/27/17 19:01 10 102/66 (78) 94 08/27/17 19:00 13 155/53 (87) 95 08/27/17 18:01 92 14 106/57 97 139/47 08/27/17 18:00 92 14 (68) 98 134/45 08/27/17 17:30 96 15 (59) 98 100/43 08/27/17 17:27 99 13 74/50 (55) 96 63/34 08/27/17 17:26 97 6 86/62 (72) 89 61/30 08/27/17 17:01 105 16 86/62 (55) 97 90/41 08/27/17 17:00 103 23 (56) 97 87/42 08/27/17 16:47 102 16 86/54 (55) 100 81/42 08/27/17 16:41 108 19 /48 (54) 98 65/36 08/27/17 16:00 104 18 114/61 (67) 96 117/49 08/27/17 16:00 Room Air 08/27/17 16:00 36.3 08/27/17 15:30 100 14 99 Room Air 08/27/17 15:01 107 16 91/47 (67) 98 90/41 08/27/17 14:30 104 18 (60) 97 100/44 08/27/17 14:01 100 16 95/61 (64) 97 111/46 08/27/17 13:01 103 19 126/61 (70) 96 121/51 08/27/17 12:30 112 15 (62) 95 98/48 08/27/17 12:17 36.2 08/27/17 12:02 119 18 70/38 (57) 95 73/48 08/27/17 12:00 Room Air 08/27/17 11:31 109 13 95/55 (63) 97 108/46 08/27/17 11:15 103 18 96 Room Air 08/27/17 11:01 104 15 103/62 (64) 97 106/48 08/27/17 10:01 104 19 120/62 (86) 96 108/51 08/27/17 09:31 96 14 97/63 (71) 96 116/53 08/27/17 09:00 92 12 123/63 (96) 94 116/52 08/27/17 08:31 106 18 102/60 (56) 96 94/43 08/27/17 08:00 36.1 08/27/17 08:00 109 17 102/69 (85) 96 108/53 08/27/17 08:00 Room Air 08/27/17 07:53 106 18 77/67 (69) 97 111/55 08/27/17 07:31 104 16 74/59 (57) 95 91/44 08/27/17 07:10 98 16 94 Room Air 08/27/17 07:02 91 15 120/64 (75) 92 131/53 08/27/17 06:50 36.5 91 18 96/78 93 08/27/17 06:30 104 16 96/78 (83) 95 102/48 (66) 08/27/17 06:25 36.5 94 16 108/50 95 Physical Exam: General-aaox3 Eyes-no scleral icterus ENT-mmm Neck-supple Lungs-mild expiratory wheeze Heart-regular Abdomen- bs+ s/nt/nd Extremities-no c/c, +1 edema mostly in feet, right leg in an immobilizer Neuro-nonfocal Current Inpatient Medications Medications (Trade) Dose Ordered Sig/Suzi Route Start Time Stop Time Status Last Admin Dose Admin Miscellaneous Information (Consult) 1 ea UD PRN N/A 08/22/17 12:00 09/21/17 11:59 Pantoprazole Sodium 40 mg/ Syringe 10 ml @ 5 mls/min DAILY@0900 IV 08/23/17 09:00 09/22/17 08:59 08/27/17 10:00 5 MLS/MIN Miscellaneous Information (Consult Glycemic Management Pharmacy) 1 ea UD N/A 08/22/17 12:56 09/21/17 12:55 Albuterol/ Ipratropium (Duoneb) 3 ml QIDR INH 08/22/17 16:00 09/21/17 15:59 08/27/17 20:02 3 ML Glucose (Glucose 40% Gel) 15-30 GRAMS 15 GRAMS... UD PRN PO 08/22/17 15:15 09/21/17 15:14 Glucose (Glucose Chew Tab) 4-8 Tablets 4 Tabl... UD PRN PO 08/22/17 15:15 09/21/17 15:14 Dextrose (Dextrose 50% 50ML Syringe) 25-50ML OF 50% DW IV FOR... UD PRN IV 08/22/17 15:15 09/21/17 15:14 Glucagon (Glucagon Inj) 1 mg UD PRN SQ 08/22/17 15:15 09/21/17 15:14 Doxycycline Hyclate 100 mg/ Dextrose 110 ml @ 50 mls/hr Q12H IV 08/23/17 14:00 08/30/17 13:59 08/28/17 02:58 50 MLS/HR Insulin Human Regular 250 units/ Sodium Chloride 252.5 ml @ 0 mls/hr Q24H IV 08/25/17 00:45 09/24/17 00:44 08/27/17 01:11 0.8 MLS/HR Insulin Glargine (Lantus Solostar Pen) 15 units BID SC 08/25/17 21:00 09/24/17 20:59 Future Hold 08/26/17 08:20 15 UNITS Insulin Aspart (novoLOG ASPART) SLIDING SCALE PCHS SC 08/25/17 17:15 09/24/17 17:14 08/26/17 11:49 8 UNITS Norepinephrine Bitartrate 8 mg/ Dextrose 508 ml @ 0 mls/hr Q0M PRN IV 08/26/17 06:30 09/25/17 06:29 08/27/17 14:04 101 MLS/HR Acetaminophen 100 ml @ 400 mls/hr Q8H PRN IV 08/26/17 14:15 09/25/17 14:14 08/27/17 12:25 400 MLS/HR Fentanyl Citrate (Fentanyl Inj) 25 mcg Q4H PRN IV 08/26/17 16:30 09/09/17 16:29 08/28/17 05:14 25 MCG Parenteral Electrolyte Solution 1,000 ml @ 50 mls/hr Q20H IV 08/26/17 19:45 09/25/17 19:44 08/27/17 15:45 50 MLS/HR Piperacillin Sod/ Tazobactam Sod 4.5 gm/Dextrose 120 ml @ 30 mls/hr Q12H IV 08/27/17 20:00 09/01/17 19:59 08/27/17 20:31 30 MLS/HR Prednisone (PredniSONE TAB) 20 mg DAILY PO 08/28/17 09:00 09/25/17 08:59 Last 24 Hours Test 08/27/17 07:56 08/27/17 08:02 08/27/17 09:07 08/27/17 10:06 White Blood Count 28.96 K/uL Red Blood Count 3.91 M/uL Hemoglobin 12.0 g/dL Hematocrit 34.2 % Mean Corpuscular Volume 87.5 fL Mean Corpuscular Hemoglobin 30.7 pg Mean Corpuscular Hemoglobin Concent 35.1 g/dl RDW Standard Deviation 48.0 fL RDW Coefficient of Variation 15.3 % Platelet Count 122 K/uL Mean Platelet Volume 11.7 fL Nucleated RBC Absolute Count (auto) 0.39 K/uL Nucleated Red Blood Cells % 1.3 % Lactic Acid Level 2.0 mmol/L Bedside Glucose (other) 110 mg/dl 116 mg/dl 113 mg/dl Test 08/27/17 11:08 08/27/17 11:46 08/27/17 11:52 08/27/17 13:09 Bedside Glucose (other) 126 mg/dl 145 mg/dl 121 mg/dl White Blood Count 29.57 K/uL Red Blood Count 3.60 M/uL Hemoglobin 11.1 g/dL Hematocrit 31.4 % Mean Corpuscular Volume 87.2 fL Mean Corpuscular Hemoglobin 30.8 pg Mean Corpuscular Hemoglobin Concent 35.4 g/dl RDW Standard Deviation 47.0 fL RDW Coefficient of Variation 15.3 % Platelet Count 118 K/uL Mean Platelet Volume 11.3 fL Nucleated RBC Absolute Count (auto) 0.32 K/uL Nucleated Red Blood Cells % 1.0 % Lactic Acid Level 1.9 mmol/L Total Creatine Kinase 551 U/L Test 08/27/17 14:02 08/27/17 15:07 08/27/17 16:07 08/27/17 16:10 Bedside Glucose (other) 139 mg/dl 151 mg/dl 176 mg/dl White Blood Count 29.34 K/uL Red Blood Count 3.34 M/uL Hemoglobin 10.2 g/dL Hematocrit 29.0 % Mean Corpuscular Volume 86.8 fL Mean Corpuscular Hemoglobin 30.5 pg Mean Corpuscular Hemoglobin Concent 35.2 g/dl RDW Standard Deviation 47.1 fL RDW Coefficient of Variation 15.2 % Platelet Count 121 K/uL Mean Platelet Volume 11.4 fL Nucleated RBC Absolute Count (auto) 0.26 K/uL Nucleated Red Blood Cells % 0.9 % Sodium Level 136 mmol/L Potassium Level 4.3 mmol/L Chloride Level 104 mmol/L Carbon Dioxide Level 19 mmol/L Anion Gap 13.0 mmol/L Blood Urea Nitrogen 56 mg/dl Creatinine 2.89 mg/dl Est Creatinine Clear Calc Drug Dose 17.1 ml/min Estimated GFR () 17.1 Estimated GFR (Non- 14.7 BUN/Creatinine Ratio 19.5 Random Glucose 178 mg/dl Lactic Acid Level 1.7 mmol/L Calcium Level 7.0 mg/dl Ionized Calcium 0.99 mmol/l Phosphorus Level 5.7 mg/dl Magnesium Level 2.0 mg/dl Total Bilirubin 0.7 mg/dl Aspartate Amino Transf (AST/SGOT) 69 U/L Alanine Aminotransferase (ALT/SGPT) 61 U/L Alkaline Phosphatase 45 U/L Total Protein 4.3 gm/dl Albumin 1.8 gm/dl Globulin 2.5 gm/dl Albumin/Globulin Ratio 0.7 Test 08/27/17 18:04 08/27/17 20:46 08/27/17 23:42 08/27/17 23:52 Bedside Glucose (other) 174 mg/dl 188 mg/dl 182 mg/dl White Blood Count 29.96 K/uL Red Blood Count 3.52 M/uL Hemoglobin 10.5 g/dL Hematocrit 30.5 % Mean Corpuscular Volume 86.6 fL Mean Corpuscular Hemoglobin 29.8 pg Mean Corpuscular Hemoglobin Concent 34.4 g/dl RDW Standard Deviation 46.8 fL RDW Coefficient of Variation 15.1 % Platelet Count 122 K/uL Mean Platelet Volume 11.3 fL Nucleated RBC Absolute Count (auto) 0.17 K/uL Nucleated Red Blood Cells % 0.6 % Lactic Acid Level 1.7 mmol/L Test 08/28/17 02:15 08/28/17 04:09 08/28/17 05:49 Bedside Glucose (other) 165 mg/dl White Blood Count 29.72 K/uL Red Blood Count 2.98 M/uL Hemoglobin 9.1 g/dL Hematocrit 26.0 % Mean Corpuscular Volume 87.2 fL Mean Corpuscular Hemoglobin 30.5 pg Mean Corpuscular Hemoglobin Concent 35.0 g/dl RDW Standard Deviation 46.9 fL RDW Coefficient of Variation 15.2 % Platelet Count 114 K/uL Mean Platelet Volume 11.2 fL Nucleated RBC Absolute Count (auto) 0.10 K/uL Nucleated Red Blood Cells % 0.3 % Prothrombin Time 10.9 SECONDS Prothromb Time International Ratio 1.0 Activated Partial Thromboplast Time 29.5 SECONDS Partial Thromboplastin Ratio 1.1 Sodium Level 133 mmol/L Potassium Level 4.6 mmol/L Chloride Level 103 mmol/L Carbon Dioxide Level 19 mmol/L Anion Gap 11.0 mmol/L Blood Urea Nitrogen 57 mg/dl Creatinine 3.03 mg/dl Est Creatinine Clear Calc Drug Dose 16.3 ml/min Estimated GFR () 16.1 Estimated GFR (Non- 13.9 BUN/Creatinine Ratio 18.8 Random Glucose 167 mg/dl Lactic Acid Level 1.7 mmol/L Calcium Level 7.5 mg/dl Ionized Calcium 1.13 mmol/l Phosphorus Level 6.3 mg/dl Magnesium Level 1.9 mg/dl Total Bilirubin 0.8 mg/dl Aspartate Amino Transf (AST/SGOT) 68 U/L Alanine Aminotransferase (ALT/SGPT) 53 U/L Alkaline Phosphatase 41 U/L Total Creatine Kinase 650 U/L Creatine Kinase MB 14.5 ng/ml Creatine Kinase MB Ratio 2.2 Troponin I 0.245 ng/ml Total Protein 4.4 gm/dl Albumin 2.1 gm/dl Globulin 2.3 gm/dl Albumin/Globulin Ratio 0.9 Blood Gas Sample Site R Radial Bedside Blood Gas pH (LAB) 7.29 Bedside Blood Gas pCO2 (LAB) 37 mmHg Bedside Blood Gas pO2 (LAB) 90 mmHg Bedside Blood Gas HCO3 (LAB) 18 meq/L Bedside Blood Gas Total CO2 19 mEq/l Bedside Blood Gas Base Excess (LAB) -9.0 meq/L Bedside Blood Gas O2 Saturation 96.0 % Laron Test Pass Oxygen Delivery Device Cannula Assessment & Plan [id number] each day is trending down. has had multiple insults to the kidney. no role for dialysis at this time. will see if renal function eventually starts to improve. may need dialysis at some time during this hospitilization. Metabolic acidosis-likely from the renal failure with underlying atn-would switch normosol to 1/2ns with 75meq of bicarb. hyperphosphatemia-phos levels are elevated. would add phoslo with meals to help control the phosphorus levels. mildly elevated cpk-in the 600s in the setting of hypotension/requiring pressors and decreasing urination. continue to follow. hopefully peaks and starts to improve.
[2017-08-28] MEDS: SODIUM BICARBONATE 8.4% INJ 75 MEQ in SODIUM CHLORIDE 0.45% 1000ML 1,000 ML IV SCH (06:36)
[2017-08-28] MEDS: NOREPINEPHRINE BIT INJ 8 MG in DEXTROSE 5% 500ML 500 ML IV PRN ×3 (06:39→19:06)
[2017-08-28] MEDS: CALCIUM ACETATE 667MG GELCAP PO SCH ×3 (07:15→16:30)
[2017-08-28] MEDS: ALBUT/IPRATROP 3MG/0.5MG NEB 3 ML VIAL INH SCH (07:20)
[2017-08-28] MEDS: INSULIN ASPART 100 UNITS/ML 3 ML PEN SC SCH ×4 (08:00→19:58)
[2017-08-28 08:25] LABS: HEMATOCRIT 22.6 % (37-47); MEAN CELL VOLUME 87.6 fL (80-100); MEAN CORPUSCULAR HGB CONC 35.4 g/dl (32-36); MEAN PLATELET VOLUME 11.3 fL (7.4-10.4); NUCLEATED RED BLOOD CELL ABS 0.07 K/uL (0-0); PLATELET COUNT 105 K/uL (130-400); RED CELL DISTRIBUTION WIDTH CV 15.3 % (11.5-14.5); RED CELL DISTRIBUTION WIDTH SD 46.9 fL (36.4-46.3); WHITE BLOOD COUNT 28.21 K/uL (4.8-10.8)
[2017-08-28] MEDS ORDERED: ALBUT/IPRATROP 3MG/0.5MG NEB 3 ML VIAL INH PRN (08:45)
--- NOTE | 2017-08-28 08:58 | ECHOCARDIOGRAM REPORT ---
*NOTICE TO RECEIVING [employer] This information is strictly Confidential and protected under [place] law. [place] law prohibits you from making any further disclosure of this information unless further disclosure is expressly permitted by the written consent of the person to whom it pertains or is authorized by law. A general authorization for the release of medical or other information is not sufficient for this purpose. Hospital accepts no responsibility if the information is made available to any other person, INCLUDING THE PATIENT. Interpretation Summary * Name: Angel GOMEZ Study Date: 08/28/2017 06:59 AM BP: 125/67 mmHg * Patient Location: .MSICU\S\E107\S\1 HR: 95 * : 1935 (M/d/yyyy) Gender: Female Height: 67 in * Age: 81 yrs Ethnicity: [place] Weight: 181 lb * Ordering Physician: Albaro Holloway * Performed By: Michaelle Cortez RDCS * * Reason For Study: Pericardial Effusion * BSA: 1.9 m2 * The study was technically adequate. * Compared to prior study, changes are noted. * -- Conclusions -- * There is no pericardial effusion. Procedure Details * Limited views were obtained. Left Ventricle * Ejection Fraction = >70 %. Right Ventricle * The right ventricle is grossly normal size. * The right ventricular systolic function is normal. Pericardium/Pleural * There is no pericardial effusion. Great Vessels * Normal inferior vena cava size and collapsability with sniff indicates a normal right atrial pressure of 3 mmHg
[2017-08-28] MEDS: PANTOprazole INJ 40 MG in SYRINGE 0 ML IV SCH (09:12)
[2017-08-28] MEDS: PIPERACILL/TAZOBAC IV 4.5 GM in DEXTROSE 5% 100ML 100 ML IV SCH ×2 (09:12→19:59)
[2017-08-28] MEDS: INSULIN REGULAR 250 UNITS in SODIUM CHLORIDE 0.9% 250ML 250 ML IV SCH (09:13)
[2017-08-28 09:38] LABS: INR 1.1 (0.9-1.1); PTT PATIENT 33.6 SECONDS (21.0-31.0)
--- NOTE | 2017-08-28 10:26 | Progress Note ---
Subjective Date of Service: Aug 28, 2017. Subjective pt resting in bed. tolerating abx. afebrile. blood cultures negative and final. day 6 abx. s/p echo.now with hematoma,[id number], right flank. s/p prbc Problem List Medical Problems: (1) Hypothermia Status: Acute (2) PNA (pneumonia) Status: Acute (3) UTI (urinary tract infection) Status: Acute Social History Problems: (1) Compression fracture of L1 lumbar vertebra Status: Acute (2) Contusion of right hip Status: Acute (3) Subdural hematoma Status: Acute Objective Vital Signs Date Time Temp Pulse Resp B/P (MAP) Pulse Ox O2 Delivery O2 Flow Rate FiO2 08/28/17 10:01 87 15 102/93 (96) 93 Room Air 08/28/17 10:00 86 15 101/94 (96) 94 Room Air 08/28/17 09:46 97 15 118/69 (85) 95 Room Air 08/28/17 09:16 36.6 95 19 104/54 (71) 93 Room Air 08/28/17 08:16 98 15 113/72 (86) 08/28/17 08:01 94 16 102/55 (71) 99 Room Air 2.0 08/28/17 08:00 Room Air 08/28/17 07:20 89 16 98 Nasal Cannula 2.0 08/28/17 06:16 36.5 82 18 140/57 (84) 99 08/28/17 06:01 85 16 135/59 (84) 100 08/28/17 06:00 86 13 106/94 (98) 99 08/28/17 05:46 90 21 103/75 (84) 98 08/28/17 05:31 86 19 81/71 (74) 99 08/28/17 05:16 92 18 133/60 (84) 99 08/28/17 05:01 96 16 103/96 (98) 99 08/28/17 05:00 96 19 96/91 (93) 99 08/28/17 04:21 97 Room Air 2.0 08/28/17 04:11 95 13 125/67 (86) 100 08/28/17 04:04 96 14 120/73 (89) 100 08/28/17 04:00 103 18 95/89 (91) 100 08/28/17 03:46 86 15 146/63 (90) 99 08/28/17 03:31 93 18 116/50 (72) 100 08/28/17 03:16 91 15 132/75 (94) 100 08/28/17 03:01 99 15 119/60 (79) 100 08/28/17 03:00 101 19 83/75 (78) 100 08/28/17 02:46 90 14 125/68 (87) 100 08/28/17 02:31 100 18 101/71 (81) 100 08/28/17 02:16 94 14 121/72 (88) 100 08/28/17 02:01 89 16 120/79 (93) 100 08/28/17 02:00 89 14 124/80 (95) 100 08/28/17 01:46 95 15 117/79 (92) 100 08/28/17 01:31 86 14 118/85 (96) 100 08/28/17 01:16 96 13 114/69 (84) 100 08/28/17 01:01 112 19 77/46 (56) 100 08/28/17 01:00 109 21 67/54 (58) 98 08/28/17 00:02 107 22 110/54 (72) 100 08/28/17 00:00 102 18 100/72 (81) 100 08/28/17 00:00 97 Room Air 2.0 08/27/17 23:15 36.4 94 20 105/64 (78) 100 BiPAP 08/27/17 22:46 14 103/58 (73) 100 08/27/17 22:31 15 114/80 (91) 100 08/27/17 22:16 12 127/71 (89) 100 08/27/17 22:02 96 100 30 08/27/17 22:01 13 133/73 (93) 100 08/27/17 22:00 13 111/71 (84) 100 08/27/17 21:46 14 129/84 (99) 95 08/27/17 21:16 14 99/62 (74) 100 08/27/17 21:04 14 105/70 (82) 96 08/27/17 21:01 18 110/69 (83) 98 08/27/17 21:00 18 159/153 (155) 97 08/27/17 20:46 17 106/60 (75) 96 08/27/17 20:31 36.5 14 131/48 (75) 97 08/27/17 20:17 16 100/45 (63) 99 08/27/17 20:02 100 16 96 Room Air 08/27/17 20:01 14 143/53 (83) 99 08/27/17 20:00 97 Room Air 2.0 08/27/17 20:00 13 145/56 (85) 100 08/27/17 19:01 10 102/66 (78) 94 08/27/17 19:00 13 155/53 (87) 95 08/27/17 18:01 92 14 106/57 97 139/47 08/27/17 18:00 92 14 (68) 98 134/45 08/27/17 17:30 96 15 (59) 98 100/43 08/27/17 17:27 99 13 74/50 (55) 96 63/34 08/27/17 17:26 97 6 86/62 (72) 89 61/30 08/27/17 17:01 105 16 86/62 (55) 97 90/41 08/27/17 17:00 103 23 (56) 97 87/42 08/27/17 16:47 102 16 86/54 (55) 100 81/42 08/27/17 16:41 108 19 /48 (54) 98 65/36 08/27/17 16:00 104 18 114/61 (67) 96 117/49 08/27/17 16:00 Room Air 08/27/17 16:00 36.3 08/27/17 15:30 100 14 99 Room Air 08/27/17 15:01 107 16 91/47 (67) 98 90/41 08/27/17 14:30 104 18 (60) 97 100/44 08/27/17 14:01 100 16 95/61 (64) 97 111/46 08/27/17 13:01 103 19 126/61 (70) 96 121/51 08/27/17 12:30 112 15 (62) 95 98/48 08/27/17 12:17 36.2 08/27/17 12:02 119 18 70/38 (57) 95 73/48 08/27/17 12:00 Room Air 08/27/17 11:31 109 13 95/55 (63) 97 108/46 08/27/17 11:15 103 18 96 Room Air 08/27/17 11:01 104 15 103/62 (64) 97 106/48 Physical Exam General Appearance: WD/WN Respiratory/Chest: no respiratory distress Skin: normal color Laboratory Results Item Value Date Time Blood Culture - Final Complete 08/22/17 0845 Blood NO GROWTH Blood Culture - Final Complete 08/22/17 0836 Blood NO GROWTH Urine Culture - Final Complete 08/22/17 1026 Urine,Catheterized NO GROWTH - LESS THAN 1,000 COLONIES/ML Last 24 Hours Test 08/27/17 11:08 08/27/17 11:46 08/27/17 11:52 08/27/17 13:09 Bedside Glucose (other) 126 mg/dl 145 mg/dl 121 mg/dl White Blood Count 29.57 K/uL Red Blood Count 3.60 M/uL Hemoglobin 11.1 g/dL Hematocrit 31.4 % Mean Corpuscular Volume 87.2 fL Mean Corpuscular Hemoglobin 30.8 pg Mean Corpuscular Hemoglobin Concent 35.4 g/dl RDW Standard Deviation 47.0 fL RDW Coefficient of Variation 15.3 % Platelet Count 118 K/uL Mean Platelet Volume 11.3 fL Nucleated RBC Absolute Count (auto) 0.32 K/uL Nucleated Red Blood Cells % 1.0 % Lactic Acid Level 1.9 mmol/L Total Creatine Kinase 551 U/L Test 08/27/17 14:02 08/27/17 15:07 08/27/17 16:07 08/27/17 16:10 Bedside Glucose (other) 139 mg/dl 151 mg/dl 176 mg/dl White Blood Count 29.34 K/uL Red Blood Count 3.34 M/uL Hemoglobin 10.2 g/dL Hematocrit 29.0 % Mean Corpuscular Volume 86.8 fL Mean Corpuscular Hemoglobin 30.5 pg Mean Corpuscular Hemoglobin Concent 35.2 g/dl RDW Standard Deviation 47.1 fL RDW Coefficient of Variation 15.2 % Platelet Count 121 K/uL Mean Platelet Volume 11.4 fL Nucleated RBC Absolute Count (auto) 0.26 K/uL Nucleated Red Blood Cells % 0.9 % Sodium Level 136 mmol/L Potassium Level 4.3 mmol/L Chloride Level 104 mmol/L Carbon Dioxide Level 19 mmol/L Anion Gap 13.0 mmol/L Blood Urea Nitrogen 56 mg/dl Creatinine 2.89 mg/dl Est Creatinine Clear Calc Drug Dose 17.1 ml/min Estimated GFR () 17.1 Estimated GFR (Non- 14.7 BUN/Creatinine Ratio 19.5 Random Glucose 178 mg/dl Lactic Acid Level 1.7 mmol/L Calcium Level 7.0 mg/dl Ionized Calcium 0.99 mmol/l Phosphorus Level 5.7 mg/dl Magnesium Level 2.0 mg/dl Total Bilirubin 0.7 mg/dl Aspartate Amino Transf (AST/SGOT) 69 U/L Alanine Aminotransferase (ALT/SGPT) 61 U/L Alkaline Phosphatase 45 U/L Total Protein 4.3 gm/dl Albumin 1.8 gm/dl Globulin 2.5 gm/dl Albumin/Globulin Ratio 0.7 Test 08/27/17 18:04 08/27/17 20:46 08/27/17 23:42 08/27/17 23:52 Bedside Glucose (other) 174 mg/dl 188 mg/dl 182 mg/dl White Blood Count 29.96 K/uL Red Blood Count 3.52 M/uL Hemoglobin 10.5 g/dL Hematocrit 30.5 % Mean Corpuscular Volume 86.6 fL Mean Corpuscular Hemoglobin 29.8 pg Mean Corpuscular Hemoglobin Concent 34.4 g/dl RDW Standard Deviation 46.8 fL RDW Coefficient of Variation 15.1 % Platelet Count 122 K/uL Mean Platelet Volume 11.3 fL Nucleated RBC Absolute Count (auto) 0.17 K/uL Nucleated Red Blood Cells % 0.6 % Lactic Acid Level 1.7 mmol/L Test 08/28/17 02:15 08/28/17 04:09 08/28/17 05:49 08/28/17 06:32 Bedside Glucose (other) 165 mg/dl 203 mg/dl White Blood Count 29.72 K/uL Red Blood Count 2.98 M/uL Hemoglobin 9.1 g/dL Hematocrit 26.0 % Mean Corpuscular Volume 87.2 fL Mean Corpuscular Hemoglobin 30.5 pg Mean Corpuscular Hemoglobin Concent 35.0 g/dl RDW Standard Deviation 46.9 fL RDW Coefficient of Variation 15.2 % Platelet Count 114 K/uL Mean Platelet Volume 11.2 fL Nucleated RBC Absolute Count (auto) 0.10 K/uL Nucleated Red Blood Cells % 0.3 % Prothrombin Time 10.9 SECONDS Prothromb Time International Ratio 1.0 Activated Partial Thromboplast Time 29.5 SECONDS Partial Thromboplastin Ratio 1.1 Sodium Level 133 mmol/L Potassium Level 4.6 mmol/L Chloride Level 103 mmol/L Carbon Dioxide Level 19 mmol/L Anion Gap 11.0 mmol/L Blood Urea Nitrogen 57 mg/dl Creatinine 3.03 mg/dl Est Creatinine Clear Calc Drug Dose 16.3 ml/min Estimated GFR () 16.1 Estimated GFR (Non- 13.9 BUN/Creatinine Ratio 18.8 Random Glucose 167 mg/dl Lactic Acid Level 1.7 mmol/L Calcium Level 7.5 mg/dl Ionized Calcium 1.13 mmol/l Phosphorus Level 6.3 mg/dl Magnesium Level 1.9 mg/dl Total Bilirubin 0.8 mg/dl Aspartate Amino Transf (AST/SGOT) 68 U/L Alanine Aminotransferase (ALT/SGPT) 53 U/L Alkaline Phosphatase 41 U/L Total Creatine Kinase 650 U/L Creatine Kinase MB 14.5 ng/ml Creatine Kinase MB Ratio 2.2 Troponin I 0.245 ng/ml Total Protein 4.4 gm/dl Albumin 2.1 gm/dl Globulin 2.3 gm/dl Albumin/Globulin Ratio 0.9 Blood Gas Sample Site R Radial Bedside Blood Gas pH (LAB) 7.29 Bedside Blood Gas pCO2 (LAB) 37 mmHg Bedside Blood Gas pO2 (LAB) 90 mmHg Bedside Blood Gas HCO3 (LAB) 18 meq/L Bedside Blood Gas Total CO2 19 mEq/l Bedside Blood Gas Base Excess (LAB) -9.0 meq/L Bedside Blood Gas O2 Saturation 96.0 % Laron Test Pass Oxygen Delivery Device Cannula Test 08/28/17 07:26 08/28/17 08:10 08/28/17 08:53 08/28/17 09:03 Bedside Glucose (other) 156 mg/dl 168 mg/dl White Blood Count 28.21 K/uL Red Blood Count 2.58 M/uL Hemoglobin 8.0 g/dL Hematocrit 22.6 % Mean Corpuscular Volume 87.6 fL Mean Corpuscular Hemoglobin 31.0 pg Mean Corpuscular Hemoglobin Concent 35.4 g/dl RDW Standard Deviation 46.9 fL RDW Coefficient of Variation 15.3 % Platelet Count 105 K/uL Mean Platelet Volume 11.3 fL Nucleated RBC Absolute Count (auto) 0.07 K/uL Nucleated Red Blood Cells % 0.2 % Lactic Acid Level 1.6 mmol/L Prothrombin Time 11.3 SECONDS Prothromb Time International Ratio 1.1 Activated Partial Thromboplast Time 33.6 SECONDS Partial Thromboplastin Ratio 1.3 Fibrinogen 198 mg/dl Fibrin Degradation Products >40 mcg/ml Test 08/28/17 10:22 Assessment and Plan (1) Hypothermia Assessment & Plan: doubt infectious etiology, will complete emperic course of abx today for left infiltrate, cultures negative, afebrile. would stop abx after today's dose. no new ID recs at this time. thank you
[2017-08-28] MEDS ORDERED: INSULIN GLARGINE SOLOSTAR 100 UNITS/ML 3 ML PEN SC ONE (10:45)
--- NOTE | 2017-08-28 10:50 | Progress Note ---
Progress Note Date of Service Aug 28, 2017. Progress Note Patient was seen, examined, and chart reviewed. Agree with exam and treatment plan of the Vascular PA. 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 Would attempt to place a jug line if possible. If she continues to show signs of bleeding with another drop in Hgb, would recommend a CTA of pelvis and right upper leg to try to locate the bleeding site. Then we can plane on either a surgical or endovascular approach to the bleeding site. Thank you very much for letting me participate in the care of this patient.
--- NOTE | 2017-08-28 10:58 | Surgery Consultation ---
Consultation Date of Service Aug 28, 2017. Chief Complaint R groin AV fistula History of Present Illness The patient is a 81 year old female with hx of AAA repair and DMII, admitted with sepsis, renal failure, and R sided heart failure with pulmonary HTN, seen in consultation for RLE groin AV fistula and R groin/thigh/pelvic hematoma. Pt confused and unable to give accurate HPI, but does answer some questions. Pt's Hgb has been dropping, required 5 U PRBC so far. Hgb 8.0 today, down from 10 2 days prior. Cr continues to climb, Cr over 3 today. Vitals Vital Signs Past 12 Hours Date Time Temp Pulse Resp B/P (MAP) Pulse Ox O2 Delivery O2 Flow Rate FiO2 08/28/17 10:01 87 15 102/93 (96) 93 Room Air 08/28/17 10:00 86 15 101/94 (96) 94 Room Air 08/28/17 09:46 97 15 118/69 (85) 95 Room Air 08/28/17 09:16 36.6 95 19 104/54 (71) 93 Room Air 08/28/17 08:16 98 15 113/72 (86) 08/28/17 08:01 94 16 102/55 (71) 99 Room Air 2.0 08/28/17 08:00 Room Air 08/28/17 07:20 89 16 98 Nasal Cannula 2.0 08/28/17 06:16 36.5 82 18 140/57 (84) 99 08/28/17 06:01 85 16 135/59 (84) 100 08/28/17 06:00 86 13 106/94 (98) 99 08/28/17 05:46 90 21 103/75 (84) 98 08/28/17 05:31 86 19 81/71 (74) 99 08/28/17 05:16 92 18 133/60 (84) 99 08/28/17 05:01 96 16 103/96 (98) 99 08/28/17 05:00 96 19 96/91 (93) 99 08/28/17 04:21 97 Room Air 2.0 08/28/17 04:11 95 13 125/67 (86) 100 08/28/17 04:04 96 14 120/73 (89) 100 08/28/17 04:00 103 18 95/89 (91) 100 08/28/17 03:46 86 15 146/63 (90) 99 08/28/17 03:31 93 18 116/50 (72) 100 08/28/17 03:16 91 15 132/75 (94) 100 08/28/17 03:01 99 15 119/60 (79) 100 08/28/17 03:00 101 19 83/75 (78) 100 08/28/17 02:46 90 14 125/68 (87) 100 08/28/17 02:31 100 18 101/71 (81) 100 08/28/17 02:16 94 14 121/72 (88) 100 08/28/17 02:01 89 16 120/79 (93) 100 08/28/17 02:00 89 14 124/80 (95) 100 08/28/17 01:46 95 15 117/79 (92) 100 08/28/17 01:31 86 14 118/85 (96) 100 08/28/17 01:16 96 13 114/69 (84) 100 08/28/17 01:01 112 19 77/46 (56) 100 08/28/17 01:00 109 21 67/54 (58) 98 08/28/17 00:02 107 22 110/54 (72) 100 08/28/17 00:00 102 18 100/72 (81) 100 08/28/17 00:00 97 Room Air 2.0 08/27/17 23:15 36.4 94 20 105/64 (78) 100 BiPAP 08/27/17 22:46 14 103/58 (73) 100 Allergies Coded Allergies: Naproxen (Verified Adverse Reaction, Intermediate, HALLUCINATIONS, 08/22/17) Niacin (Verified Adverse Reaction, Intermediate, SEVERE FLUSHING, 08/22/17) Codeine (Verified Adverse Reaction, Mild, SEVERE N&V, 08/22/17) Home Medications Scheduled Acetaminophen (Tylenol Extra Strength), 1,000 MG PO AMHS Ascorbic Acid (Vitamin C), 1,000 MG PO DAILY Cholecalciferol (Vitamin D3), 2,000 UNITS PO DAILY Donepezil Hydrochloride (Aricept), 10 MG PO HS Glipizide (Glipizide Er), 5 MG PO DAILY Insulin Glargine (Lantus), 15 UNITS SC AMPM Problem List Medical Problems: (1) CKD (chronic kidney disease), stage III (2) DM II (diabetes mellitus, type II), controlled (3) History of bladder cancer (4) HLD (hyperlipidemia) (5) HTN (hypertension) (6) Osteoporosis Nos (7) Solitary kidney, acquired (8) Subdural hematoma (9) Tobacco Use Disorder Surgical / Medical History Hx Cardiac Surgery: No Hx Abdominal Surgery: Yes (AAA REPAIR) Hx Cancer Surgery: Yes (LEFT NEPHRECTOMY R/T CANCER) Hx Thoracic Surgery: No Hx Orthopedic: No Hx Urinary Tract Surgery: No Past Medical/Surgical History: Alzheimer's, Diabetes Family History Hypertension Stroke Social History Smoking Status: Current Every Day Smoker (0.5 ppd, 48 pack years ) Hx Tobacco Use In Past Year?: Yes (UNKNOWN) Hx Alcohol Use - Type & Amnt: No Hx Substance Use -Type & Amnt: No Review of Systems Constitutional: + malaise, No chills, No fever Eyes: No visual changes Respiratory: No cough, No short of breath Cardiovascular: + edema, No chest pain, No palpitations Gastrointestinal: No abdominal pain, No nausea, No vomiting Neurologic: + weakness, No headache Physical Exam Constitutional: General Apperance: well-nourished, well-developed Level of Distress: NAD, acutely ill, chronically ill Psychiatric: Mental Status: active & alert, confused Orientation: to place, to person Memory: recent memory abnormal, remote memory abnormal Head: normocephalic, atraumatic Eyes: EOM: EOMI ENMT: normal ENT inspection, hearing grossly normal Neck: supple, trachea midline Lungs: Respiratory effort: no dyspnea Auscultation: no rales/crackles Cardiovascular: Apical Impulse: not displaced Heart Auscultation: RRR Peripheral Pulses: Pulses: full and equal, in all extremities except if noted Bruits: femoral bruit on the right (faint) Carotid Pulse: normal on the left, normal on the right Brachial Pulses: normal on the left, normal on the right Radial Pulse: normal on the left, normal on the right Femoral Pulse: normal on the left, normal on the right Posterior Tibialis Pulse: pertinent finding (nonpalpable) Dorsalis Pedis Pulse: pertinent finding (nonpalpble) Abdomen: Bowel Sounds: normal Inspection & Palpation: soft, non-distended Extremities: Upper Right: no cyanosis, no varicosities, edema Upper Left: no cyanosis, no varicosities, edema Lower Right: edema, pertinent finding (R buttock, thigh, with large hematoma noted, ecchymosis extending to labia. ) Lower Left: edema Neurologic: Cranial Nerves: grossly intact Sensation: grossly intact Assessment and Plan ASSESSMENT and PLAN: R groin AVF and large hematoma Pt with multiple acute medical concerns, including ARF, R sided heart failure with pulmonary HTN, hypotension requiring pressors. Would not recommend surgical intervention at this time. If pt hgb continues to decrease and pt becomes further unstable d/t bleeding, pt will require CTA to eval for location of bleeding before surgical exploration. Will continue to follow.
[2017-08-28] MEDS ORDERED: INSULIN DRIP STOP ORDER ONE (11:00)
[2017-08-28] MEDS: HYDROCORTISONE IV 100 MG in SYRINGE 0 ML IV SCH ×2 (11:24→19:42)
[2017-08-28] MEDS ORDERED: BUDESONIDE 0.5 MG/2 ML VIAL (PULMICORT) INH ONE (13:30)
[2017-08-28 14:48] LABS: HEMATOCRIT 20.8 % (37-47); HEMOGLOBIN 7.4 g/dL (12.0-16.0)
--- NOTE | 2017-08-28 15:34 | Progress Note ---
Internal Med Progress Note Date of Service: Aug 28, 2017. Provider Documentation: SUBJECTIVE: The patient was seen and examined Was brought in with AMS and noted to be in Shock with Hypoxemia and Hypothermia Now intubated in ICU and S/P Extubation on 08/25/17 Received 4 units of PRBC Doing much better and wants to go home OBJECTIVE: Vital Signs-as noted below Exam: General-Intubated in ICU Opening eyes with commands NO acute distress Eyes-Closed ENT-Normal Neck-Supple Lungs-Decreased breath sound bilaterally Minimal crackles at the bases Heart-Regular Abdomen-Benign Extremities-Trace edema bilaterally Has a large hematoma in right upper medial thigh ,s/p Central line placement Slight increase in size-nontender [id number] Moving all limbs Lab data as noted below. ASSESSMENT & PLAN: Acute Blood Loss Anemia Right Upper Medial Thigh,s/p Central line placement Complicated by Sepsis Will receive 5 units of PRBC US -suggested probable fistula Vascular surgery consulted -appreciate Input Hb dropped again -likely to need more blood CTA to locate the Bleeding site adcvised ACUTE HYPOXIC RESPIRATORY FAILURE : s/p Extubation om Was hypothermic Temp 31 /hypotensive SBP in 70;s and hypoxic in RA 87 % Was placed on Bipap and intubated later on , ABG shows respiratory acidosis with hypercarbia Co2 > 90 CXR-no Pneumonia and CTA -0negative for any Pulmonary Embolism Underlying COPD /emphysema ( hx of smoking ) with retention of Co2 due to mental obtundation due to sepsis Has been on IV Solumedrol and Nebs Appreciate Rn Case Manager Hospice input Now Intubated in ICU and extubation on BP went down again Repeat ECHO to evaluate RV function_NO pericardial Effusion and unremarkable RV function CONFUSION /CHANGED MENTAL STATUS /METABOLIC ENCEPHALOPATHY : Likely due to hypercapnic respiratory failure and may be complicated by sepsis CT head -negative for CVA Back to baseline Denies any symptoms May Have Cardiogenic Shock as well Has severe Pulmonary HTN ECHO::There is mild concentric left ventricular hypertrophy. * The left ventricular wall motion is normal. * The LV Ejection Fraction = >70 %. * The right ventricle is mildly dilated. * The right ventricular systolic function is mildly reduced with diffuse right ventricular hypokinesis that spares the RV apex. * There is mild to moderate tricuspid regurgitation. * Dilated inferior vena cava with reduced collapsability with sniff indicates an elevated right atrial pressure of 15 mmHg * Severe pulmonary is hypertension, with PA systolic pressure calculated to be 75 mmg Hg, assuming a right atrial pressure of 15 mm Hg. * Compared to the report of the prior outpatient echocardiogram performed at [facility] dated 02/13/12, the right ventricular size and systolic function was normal at that time with normal calculated pulmonary pressures. * Findings compatible with possible acute pulmonary embolism versus interval development of pulmonary hypertension of uknown chronicity due to other cause. Trending Troponin -doubt any ACS Repeat ECHO in AM : showed improvement of the Right ventricular function Still requiring pressors-off pressors now BP is maintaining Repeat ECHO-no Pericardial Effusion HEATHER ON CKD STAGE 3 : HYPERNATREMIA ; ATN with anuria -minimum urine out put after fluid bolus IV fluids resuscitation , pressor support Follow PRP Q 4hrs per sepsis protocol Pt has solitary kidney ( s/p Left nephrectomy ) Baseline Cr 1.6 Nephrology consulted-appreciate Input Slightly worse 3.02 HYPOTENSION /HYPOTHERMIA : SEPSIS DUE TO UTI and May be complicated by respiratory pathogens Likely due to severe sepsis ,possible source of infection UTI Temp improved with Jayda hugger , IV fluid bolus followed by aggressive resuscitation per sepsis protocol Empiric Abx with Zosyn ,Doxycycline Started on pressors Rn Case Manager Hospice following Appreciate ID input Blood and Urine Cultures are negative Vancomycin discontinued Continue antibiotics for 3 more days as per ID Requiring pressor again CODE STATUS : d/w Daughter -full code DVT PROPHYLAXIS high risk ICU admission /obtundation Sub q heparin-on hold now Vital Signs: Date Time Temp Pulse Resp B/P (MAP) Pulse Ox O2 Delivery O2 Flow Rate FiO2 08/28/17 17:15 36.4 87 18 120/43 94 08/28/17 16:15 36.6 84 16 123/63 96 08/28/17 16:00 Room Air 08/28/17 15:45 36.4 79 18 126/64 95 08/28/17 15:25 36.6 88 16 106/56 95 08/28/17 15:00 64 16 98 Room Air 08/28/17 14:31 83 14 119/56 (77) 94 08/28/17 14:16 93 17 116/66 (83) 93 08/28/17 14:01 92 22 104/61 (75) 94 08/28/17 13:46 96 20 107/55 (72) 93 08/28/17 13:31 84 22 123/48 (73) 89 08/28/17 13:16 94 17 124/53 (76) 91 08/28/17 13:01 91 15 108/59 (75) 94 08/28/17 12:46 96 17 122/59 (80) 92 08/28/17 12:31 102 17 122/61 (81) 92 08/28/17 12:16 92 21 126/60 (82) 92 Room Air 08/28/17 12:01 36.6 91 19 96/60 (72) 94 Room Air 08/28/17 12:00 Room Air 08/28/17 11:46 89 16 115/57 (76) 94 Room Air 08/28/17 11:31 93 20 93/55 (68) 94 Room Air 08/28/17 11:27 93 15 106/64 (78) 94 Room Air 08/28/17 10:01 87 15 102/93 (96) 93 Room Air 08/28/17 10:00 86 15 101/94 (96) 94 Room Air 08/28/17 09:46 97 15 118/69 (85) 95 Room Air 08/28/17 09:16 36.6 95 19 104/54 (71) 93 Room Air 08/28/17 08:16 98 15 113/72 (86) 08/28/17 08:01 94 16 102/55 (71) 99 Room Air 2.0 08/28/17 08:00 Room Air 08/28/17 08:00 Nasal Cannula BiPAP 08/28/17 07:20 89 16 98 Nasal Cannula 2.0 08/28/17 06:16 36.5 82 18 140/57 (84) 99 08/28/17 06:01 85 16 135/59 (84) 100 08/28/17 06:00 86 13 106/94 (98) 99 08/28/17 05:46 90 21 103/75 (84) 98 08/28/17 05:31 86 19 81/71 (74) 99 08/28/17 05:16 92 18 133/60 (84) 99 08/28/17 05:01 96 16 103/96 (98) 99 08/28/17 05:00 96 19 96/91 (93) 99 08/28/17 04:21 97 Room Air 2.0 08/28/17 04:11 95 13 125/67 (86) 100 08/28/17 04:04 96 14 120/73 (89) 100 08/28/17 04:00 103 18 95/89 (91) 100 08/28/17 03:46 86 15 146/63 (90) 99 08/28/17 03:31 93 18 116/50 (72) 100 08/28/17 03:16 91 15 132/75 (94) 100 08/28/17 03:01 99 15 119/60 (79) 100 08/28/17 03:00 101 19 83/75 (78) 100 08/28/17 02:46 90 14 125/68 (87) 100 08/28/17 02:31 100 18 101/71 (81) 100 08/28/17 02:16 94 14 121/72 (88) 100 08/28/17 02:01 89 16 120/79 (93) 100 08/28/17 02:00 89 14 124/80 (95) 100 08/28/17 01:46 95 15 117/79 (92) 100 08/28/17 01:31 86 14 118/85 (96) 100 08/28/17 01:16 96 13 114/69 (84) 100 08/28/17 01:01 112 19 77/46 (56) 100 08/28/17 01:00 109 21 67/54 (58) 98 08/28/17 00:02 107 22 110/54 (72) 100 08/28/17 00:00 102 18 100/72 (81) 100 08/28/17 00:00 97 Room Air 2.0 08/27/17 23:15 36.4 94 20 105/64 (78) 100 BiPAP 08/27/17 22:46 14 103/58 (73) 100 08/27/17 22:31 15 114/80 (91) 100 08/27/17 22:16 12 127/71 (89) 100 08/27/17 22:02 96 100 30 08/27/17 22:01 13 133/73 (93) 100 08/27/17 22:00 13 111/71 (84) 100 08/27/17 21:46 14 129/84 (99) 95 08/27/17 21:16 14 99/62 (74) 100 08/27/17 21:04 14 105/70 (82) 96 08/27/17 21:01 18 110/69 (83) 98 08/27/17 21:00 18 159/153 (155) 97 08/27/17 20:46 17 106/60 (75) 96 08/27/17 20:31 36.5 14 131/48 (75) 97 08/27/17 20:17 16 100/45 (63) 99 08/27/17 20:02 100 16 96 Room Air 08/27/17 20:01 14 143/53 (83) 99 08/27/17 20:00 97 Room Air 2.0 08/27/17 20:00 13 145/56 (85) 100 08/27/17 19:01 10 102/66 (78) 94 08/27/17 19:00 13 155/53 (87) 95 08/27/17 18:01 92 14 106/57 97 139/47 08/27/17 18:00 92 14 (68) 98 134/45 Lab Results: Results Past 24 Hours Test 08/27/17 18:04 08/27/17 20:46 08/27/17 23:42 08/27/17 23:52 Range/Units Bedside Glucose (other) 174 188 182 70-99 mg/dl White Blood Count 29.96 4.8-10.8 K/uL Red Blood Count 3.52 4.2-5.4 M/uL Hemoglobin 10.5 12.0-16.0 g/dL Hematocrit 30.5 37-47 % Mean Corpuscular Volume 86.6 80-100 fL Mean Corpuscular Hemoglobin 29.8 25-34 pg Mean Corpuscular Hemoglobin Concent 34.4 32-36 g/dl RDW Standard Deviation 46.8 36.4-46.3 fL RDW Coefficient of Variation 15.1 11.5-14.5 % Platelet Count 122 130-400 K/uL Mean Platelet Volume 11.3 7.4-10.4 fL Nucleated RBC Absolute Count (auto) 0.17 0-0 K/uL Nucleated Red Blood Cells % 0.6 % Lactic Acid Level 1.7 0.4-2.0 mmol/L Test 08/28/17 02:15 08/28/17 04:09 08/28/17 05:49 08/28/17 06:32 Range/Units Bedside Glucose (other) 165 203 70-99 mg/dl White Blood Count 29.72 4.8-10.8 K/uL Red Blood Count 2.98 4.2-5.4 M/uL Hemoglobin 9.1 12.0-16.0 g/dL Hematocrit 26.0 37-47 % Mean Corpuscular Volume 87.2 80-100 fL Mean Corpuscular Hemoglobin 30.5 25-34 pg Mean Corpuscular Hemoglobin Concent 35.0 32-36 g/dl RDW Standard Deviation 46.9 36.4-46.3 fL RDW Coefficient of Variation 15.2 11.5-14.5 % Platelet Count 114 130-400 K/uL Mean Platelet Volume 11.2 7.4-10.4 fL Nucleated RBC Absolute Count (auto) 0.10 0-0 K/uL Nucleated Red Blood Cells % 0.3 % Prothrombin Time 10.9 9.0-12.0 SECONDS Prothromb Time International Ratio 1.0 0.9-1.1 Activated Partial Thromboplast Time 29.5 21.0-31.0 SECONDS Partial Thromboplastin Ratio 1.1 Sodium Level 133 136-145 mmol/L Potassium Level 4.6 3.5-5.1 mmol/L Chloride Level 103 98-107 mmol/L Carbon Dioxide Level 19 21-32 mmol/L Anion Gap 11.0 3-11 mmol/L Blood Urea Nitrogen 57 7-18 mg/dl Creatinine 3.03 0.60-1.20 mg/dl Est Creatinine Clear Calc Drug Dose 16.3 ml/min Estimated GFR () 16.1 Estimated GFR (Non- 13.9 BUN/Creatinine Ratio 18.8 10-20 Random Glucose 167 70-99 mg/dl Lactic Acid Level 1.7 0.4-2.0 mmol/L Calcium Level 7.5 8.5-10.1 mg/dl Ionized Calcium 1.13 1.12-1.32 mmol/l Phosphorus Level 6.3 2.5-4.9 mg/dl Magnesium Level 1.9 1.8-2.4 mg/dl Total Bilirubin 0.8 0.2-1 mg/dl Aspartate Amino Transf (AST/SGOT) 68 15-37 U/L Alanine Aminotransferase (ALT/SGPT) 53 12-78 U/L Alkaline Phosphatase 41 45-117 U/L Total Creatine Kinase 650 26-192 U/L Creatine Kinase MB 14.5 0.5-3.6 ng/ml Creatine Kinase MB Ratio 2.2 0-3.0 Troponin I 0.245 0-0.045 ng/ml Total Protein 4.4 6.4-8.2 gm/dl Albumin 2.1 3.4-5.0 gm/dl Globulin 2.3 2.5-4.0 gm/dl Albumin/Globulin Ratio 0.9 0.9-2 Blood Gas Sample Site R Radial Bedside Blood Gas pH (LAB) 7.29 7.35-7.45 Bedside Blood Gas pCO2 (LAB) 37 35-46 mmHg Bedside Blood Gas pO2 (LAB) 90 80-95 mmHg Bedside Blood Gas HCO3 (LAB) 18 19-24 meq/L Bedside Blood Gas Total CO2 19 24-31 mEq/l Bedside Blood Gas Base Excess (LAB) -9.0 -9-1.8 meq/L Bedside Blood Gas O2 Saturation 96.0 90-95 % Laron Test Pass Oxygen Delivery Device Cannula Test 08/28/17 07:26 08/28/17 08:10 08/28/17 08:24 08/28/17 08:53 Range/Units Bedside Glucose (other) 156 95 70-99 mg/dl White Blood Count 28.21 4.8-10.8 K/uL Red Blood Count 2.58 4.2-5.4 M/uL Hemoglobin 8.0 12.0-16.0 g/dL Hematocrit 22.6 37-47 % Mean Corpuscular Volume 87.6 80-100 fL Mean Corpuscular Hemoglobin 31.0 25-34 pg Mean Corpuscular Hemoglobin Concent 35.4 32-36 g/dl RDW Standard Deviation 46.9 36.4-46.3 fL RDW Coefficient of Variation 15.3 11.5-14.5 % Platelet Count 105 130-400 K/uL Mean Platelet Volume 11.3 7.4-10.4 fL Nucleated RBC Absolute Count (auto) 0.07 0-0 K/uL Nucleated Red Blood Cells % 0.2 % Lactic Acid Level 1.6 0.4-2.0 mmol/L Prothrombin Time 11.3 9.0-12.0 SECONDS Prothromb Time International Ratio 1.1 0.9-1.1 Activated Partial Thromboplast Time 33.6 21.0-31.0 SECONDS Partial Thromboplastin Ratio 1.3 Fibrinogen 198 184-400 mg/dl Fibrin Degradation Products >40 <10 mcg/ml Test 08/28/17 09:03 08/28/17 10:11 08/28/17 10:39 08/28/17 12:31 Range/Units Bedside Glucose (other) 168 162 213 70-99 mg/dl Random Cortisol 47.95 mcg/dl Test 08/28/17 14:13 08/28/17 16:18 Range/Units Hemoglobin 7.4 12.0-16.0 g/dL Hematocrit 20.8 37-47 % Bedside Glucose (other) 193 70-99 mg/dl
--- NOTE | 2017-08-28 17:41 | DIAGNOSTIC IMAGING REPORT ---
CHEST ONE VIEW PORTABLE CLINICAL HISTORY: PICC PLACEMENT NO BULLSEYE WITH VPS tube position COMPARISON STUDY: 08/26/2017 FINDINGS: PICC catheter placed from a left-sided approach. Tip is in the superior vena cava. No evidence pneumothorax. IMPRESSION: PICC catheter placed in the superior vena cava. No evidence pneumothorax. The above report was generated using voice recognition software. It may contain grammatical, syntax or spelling errors. Electronically signed by: Bryant Stevens M.D. 08/28/2017 5:40 PM Dictated Date/Time: 08/28/2017 5:39 PM
--- NOTE | 2017-08-28 17:49 | Critical Care Progress Note ---
Critical Care Progress Note Date of Service Aug 28, 2017. ICU Day ICU Day Number: [address] Zhong Subjective Found patient awake, lying upright with daughter in room, looked directly at me as I entered the room. Patient says is doing well, no current pain or complaints. Daughter has no acute questions or concerns. Objective General: Awake, comfortable, oriented to person, place, month and year, but not why here. HEENT: NCAT. EOMI. CVS: +S1S2 regular, no murmur. Lungs: Clear to auscultation. Abd: + BS, soft, non-tender, non-distended. Positive old laparotomy scar. Ext: Right thigh increased circumference, though per nursing who saw patient yesterday the related fullness is improved. Ecchymosis over prior TLC insertion site. Positive fluid collection above right knee. Cannot appreciate right PT or DP pulses, but foot is warm and cap refill < 2 sec in great toe. EXPORT FREIGHT SPECIALIST: Awake, alert, following commands, no gross deficits. Assessment & Plan 81 yo female was admitted for AMS, hypothermia, and shock. EXPORT FREIGHT SPECIALIST: Perhaps improved confusion, unsure of why she's here, but knows date now. Has history of dementia. - Pain control prn (tylenol). Pulmonary: Acute respiratory failure with hypercapnia and hypoxia. Extubated on 09Feb. On nocturnal BiPAP. Unclear source of pulmonary HTN. No evidence of PE. May have undiagnosed COPD (ongoing smoking) and acute severe hypercapnia. - Transition to pulmicort (as inhaled corticosteroid). Stopping prednisone. Adding hydrocortisone. - Duoneb prn. CVS: Suspect cardiogenic shock with RV failure and severe pulmonary HTN. On norepinephrine. Repeat echo on 12Feb notes normal RV systolic function and no evidence of pericardial effusion. Troponin stabilized then trended to 0.245, most likely due to demand ischemia from acute RV failure. CT of right thigh noted large hematoma and echo suggestive of AV fistula. Doubt compartment syndrome (lacks local pain/tender). - Hold ASA due to femoral bleed. In leg immobilizer to discourage confused movement. - Goal to wean off norepi. - Discussed with Dr. De La Fuente (vasc surg), no surgery at this time due to multi- medical issues. Would need further local imaging before re-consider. ID: Initial CXR noted left base parenchymal infiltrate. 06Feb BCx x2 and UCx showed no growth. - Plan to complete seven day course of zosyn and doxy. - ID following. Endo: Off insulin drip and on lantus. Renal/metabolic: Solitary kidney. HEATHER with Cr up to 3.03 (low of 1.68 on admit) . ABG with some mildly worsening metabolic acidosis (7.29/37/18). - On bicarb drip along with NS IVF. GI: CT showed evidence of hepatic steatosis, which may account for mild LFT elevations. - NPO for now. Heme: Large right thigh hematoma. Transfused five PRBCs thus far. Have PRBCs and platelets on hold. - Transfuse as needed. Hb q8h checks. Skin: Hematoma as noted above. Lines: Left femoral triple lumen. Right wrist PIV. Left arm PICC. Art line removed due to tenuous nature. Code status: DNR (updated on ). DVT prophy: Held anticoagulants due to thigh hematoma (VTE contraindicated). PT/OT consult: Not yet. Disposition: ICU. Resident Physician Supervision Note: Dr. Burns was resident physician during care of patient. I separately evaluated patient and did history and exam. I discussed the case with the resident and generally agree with the findings and plan. During my evaluation the patient is pleasant. I discussed with the patient's daughter CODE STATUS. Daughter admits the patient would not want to undergo dialysis treatments, given the multiple comorbidities and worsening condition the patient is Art expressed that she does not want to remain in the hospital. She required additional unit of blood to be transfused today, her fibrinogen level is at an acceptable level despite receiving a total of 6 units of blood at this time. We discontinue the arterial line which was positional in nature, I have not replaced it due to ongoing medical issues and her peripheral vascular disease. We are slowly down titrating her vasoactive medications. Her urine output is slowly starting pickup. I have personally spent 60 minutes of critical care time in the direct management of this patient. This is a life/limb threatening event. This includes time spent evaluating patient, direct bedside care, chart review, placing orders, interpretation of diagnostic studies, discussion with consultants, patient, and/or family members regarding treatment decisions, as well as other required patient management activities. This time is exclusive of all separately billable procedures, and teaching time and separate from and in addition to any other critical care service time. Documented By: Talha Zhong DO Consults & Procedures Consultants: Renal: Dr Adkins ID: Dr Ferrell Vascular: Dr De La Fuente Procedures: 08/22/17: Intubation 08/22/17: Right femoral TLC in ED 08/25/17: Extubation 08/26/17: Left femoral TLC 08/26/17: Left radial a-line Data Medications: Current Inpatient Medications Medications (Trade) Dose Ordered Sig/Suzi Route Start Time Stop Time Status Last Admin Dose Admin Miscellaneous Information (Consult) 1 ea UD PRN N/A 08/22/17 12:00 08/29/17 11:59 Pantoprazole Sodium 40 mg/ Syringe 10 ml @ 5 mls/min DAILY@0900 IV 08/23/17 09:00 09/22/17 08:59 08/28/17 09:12 5 MLS/MIN Miscellaneous Information (Consult Glycemic Management Pharmacy) 1 ea UD N/A 08/22/17 12:56 09/21/17 12:55 Glucose (Glucose 40% Gel) 15-30 GRAMS 15 GRAMS... UD PRN PO 08/22/17 15:15 09/21/17 15:14 Glucose (Glucose Chew Tab) 4-8 Tablets 4 Tabl... UD PRN PO 08/22/17 15:15 09/21/17 15:14 Dextrose (Dextrose 50% 50ML Syringe) 25-50ML OF 50% DW IV FOR... UD PRN IV 08/22/17 15:15 09/21/17 15:14 Glucagon (Glucagon Inj) 1 mg UD PRN SQ 08/22/17 15:15 09/21/17 15:14 Doxycycline Hyclate 100 mg/ Dextrose 110 ml @ 50 mls/hr Q12H IV 08/23/17 14:00 08/30/17 13:59 08/28/17 14:29 50 MLS/HR Norepinephrine Bitartrate 8 mg/ Dextrose 508 ml @ 0 mls/hr Q0M PRN IV 08/26/17 06:30 09/25/17 06:29 08/28/17 11:23 90 MLS/HR Acetaminophen 100 ml @ 400 mls/hr Q8H PRN IV 08/26/17 14:15 09/25/17 14:14 08/27/17 12:25 400 MLS/HR Fentanyl Citrate (Fentanyl Inj) 25 mcg Q4H PRN IV 08/26/17 16:30 09/09/17 16:29 08/28/17 05:14 25 MCG Piperacillin Sod/ Tazobactam Sod 4.5 gm/Dextrose 120 ml @ 30 mls/hr Q12H IV 08/27/17 20:00 08/29/17 11:59 08/28/17 09:12 30 MLS/HR Sodium Bicarbonate 75 meq/Sodium Chloride 1,075 ml @ 50 mls/hr [id number] IV 08/28/17 06:15 09/27/17 06:14 08/28/17 06:36 50 MLS/HR Calcium Acetate (Phoslo Cap) 667 mg TIDM PO 08/28/17 07:15 09/27/17 07:14 Albuterol/ Ipratropium (Duoneb) 3 ml QIDR PRN INH 08/28/17 08:45 09/27/17 08:44 Hydrocortisone Sodium Succinate 100 mg/Syringe 2 ml @ 4 mls/min Q8H IV 08/28/17 12:00 09/27/17 11:59 08/28/17 11:24 4 MLS/MIN Insulin Aspart (novoLOG ASPART) SLIDING SCALE Q4 SC 08/28/17 13:08 09/27/17 13:07 08/28/17 16:22 2 UNITS Insulin Glargine (Lantus Solostar Pen) BID SC 08/28/17 21:00 09/27/17 20:59 Budesonide (Pulmicort Respules 0.25MG/ 2ML Neb Soln) 0.25 mg BID INH 08/28/17 21:00 09/27/17 20:59 I & O: 24-Hour Column 08/29/17 08:00 Intake Total 1569 ml Output Total 1200 ml Balance 369 ml Vital Signs: Date Time Temp Pulse Resp B/P (MAP) Pulse Ox O2 Delivery O2 Flow Rate FiO2 08/28/17 17:15 36.4 87 18 120/43 94 08/28/17 16:15 36.6 84 16 123/63 96 08/28/17 16:00 Room Air 08/28/17 15:45 36.4 79 18 126/64 95 2/12/18 15:25 36.6 88 16 106/56 95 08/28/17 15:00 64 16 98 Room Air 08/28/17 14:31 83 14 119/56 (77) 94 18 14:16 93 17 116/66 (83) 93 08/28/17 14:01 92 22 104/61 (75) 94 08/28/17 13:46 96 20 107/55 (72) 93 08/28/17 13:31 84 22 123/48 (73) 89 08/28/17 13:16 94 17 124/53 (76) 91 08/28/17 13:01 91 15 108/59 (75) 94 08/28/17 12:46 96 17 122/59 (80) 92 08/28/17 12:31 102 17 122/61 (81) 92 08/28/17 12:16 92 21 126/60 (82) 92 Room Air 08/28/17 12:01 36.6 91 19 96/60 (72) 94 Room Air 08/28/17 12:00 Room Air 08/28/17 11:46 89 16 115/57 (76) 94 Room Air 08/28/17 11:31 93 20 93/55 (68) 94 Room Air 08/28/17 11:27 93 15 106/64 (78) 94 Room Air 08/28/17 10:01 87 15 102/93 (96) 93 Room Air 08/28/17 10:00 86 15 101/94 (96) 94 Room Air 08/28/17 09:46 97 15 118/69 (85) 95 Room Air 08/28/17 09:16 36.6 95 19 104/54 (71) 93 Room Air 08/28/17 08:16 98 15 113/72 (86) 08/28/17 08:01 94 16 102/55 (71) 99 Room Air 2.0 08/28/17 08:00 Room Air 08/28/17 08:00 Nasal Cannula BiPAP 08/28/17 07:20 89 16 98 Nasal Cannula 2.0 08/28/17 06:16 36.5 82 18 140/57 (84) 99 08/28/17 06:01 85 16 135/59 (84) 100 08/28/17 06:00 86 13 106/94 (98) 99 2/12/18 05:46 90 21 103/75 (84) 98 08/28/17 05:31 86 19 81/71 (74) 99 08/28/17 05:16 92 18 133/60 (84) 99 08/28/17 05:01 96 16 103/96 (98) 99 08/28/17 05:00 96 19 96/91 (93) 99 08/28/17 04:21 97 Room Air 2.0 08/28/17 04:11 95 13 125/67 (86) 100 08/28/17 04:04 96 14 120/73 (89) 100 08/28/17 04:00 103 18 95/89 (91) 100 08/28/17 03:46 86 15 146/63 (90) 99 08/28/17 03:31 93 18 116/50 (72) 100 08/28/17 03:16 91 15 132/75 (94) 100 08/28/17 03:01 99 15 119/60 (79) 100 08/28/17 03:00 101 19 83/75 (78) 100 08/28/17 02:46 90 14 125/68 (87) 100 08/28/17 02:31 100 18 101/71 (81) 100 08/28/17 02:16 94 14 121/72 (88) 100 08/28/17 02:01 89 16 120/79 (93) 100 08/28/17 02:00 89 14 124/80 (95) 100 08/28/17 01:46 95 15 117/79 (92) 100 08/28/17 01:31 86 14 118/85 (96) 100 08/28/17 01:16 96 13 114/69 (84) 100 08/28/17 01:01 112 19 77/46 (56) 100 08/28/17 01:00 109 21 67/54 (58) 98 08/28/17 00:02 107 22 110/54 (72) 100 08/28/17 00:00 102 18 100/72 (81) 100 08/28/17 00:00 97 Room Air 2.0 08/27/17 23:15 36.4 94 20 105/64 (78) 100 BiPAP 08/27/17 22:46 14 103/58 (73) 100 08/27/17 22:31 15 114/80 (91) 100 08/27/17 22:16 12 127/71 (89) 100 08/27/17 22:02 96 100 30 08/27/17 22:01 13 133/73 (93) 100 08/27/17 22:00 13 111/71 (84) 100 08/27/17 21:46 14 129/84 (99) 95 08/27/17 21:16 14 99/62 (74) 100 08/27/17 21:04 14 105/70 (82) 96 08/27/17 21:01 18 110/69 (83) 98 08/27/17 21:00 18 159/153 (155) 97 08/27/17 20:46 17 106/60 (75) 96 08/27/17 20:31 36.5 14 131/48 (75) 97 08/27/17 20:17 16 100/45 (63) 99 08/27/17 20:02 100 16 96 Room Air 08/27/17 20:01 14 143/53 (83) 99 08/27/17 20:00 97 Room Air 2.0 08/27/17 20:00 13 145/56 (85) 100 08/27/17 19:01 10 102/66 (78) 94 08/27/17 19:00 13 155/53 (87) 95 08/27/17 18:01 92 14 106/57 97 139/47 08/27/17 18:00 92 14 (68) 98 134/45 Laboratory Results: Last 24 Hours Test 08/27/17 18:04 08/27/17 20:46 08/27/17 23:42 08/27/17 23:52 Bedside Glucose (other) 174 mg/dl 188 mg/dl 182 mg/dl White Blood Count 29.96 K/uL Red Blood Count 3.52 M/uL Hemoglobin 10.5 g/dL Hematocrit 30.5 % Mean Corpuscular Volume 86.6 fL Mean Corpuscular Hemoglobin 29.8 pg Mean Corpuscular Hemoglobin Concent 34.4 g/dl RDW Standard Deviation 46.8 fL RDW Coefficient of Variation 15.1 % Platelet Count 122 K/uL Mean Platelet Volume 11.3 fL Nucleated RBC Absolute Count (auto) 0.17 K/uL Nucleated Red Blood Cells % 0.6 % Lactic Acid Level 1.7 mmol/L Test 08/28/17 02:15 2/12/18 04:09 08/28/17 05:49 08/28/17 06:32 Bedside Glucose (other) 165 mg/dl 203 mg/dl White Blood Count 29.72 K/uL Red Blood Count 2.98 M/uL Hemoglobin 9.1 g/dL Hematocrit 26.0 % Mean Corpuscular Volume 87.2 fL Mean Corpuscular Hemoglobin 30.5 pg Mean Corpuscular Hemoglobin Concent 35.0 g/dl RDW Standard Deviation 46.9 fL RDW Coefficient of Variation 15.2 % Platelet Count 114 K/uL Mean Platelet Volume 11.2 fL Nucleated RBC Absolute Count (auto) 0.10 K/uL Nucleated Red Blood Cells % 0.3 % Prothrombin Time 10.9 SECONDS Prothromb Time International Ratio 1.0 Activated Partial Thromboplast Time 29.5 SECONDS Partial Thromboplastin Ratio 1.1 Sodium Level 133 mmol/L Potassium Level 4.6 mmol/L Chloride Level 103 mmol/L Carbon Dioxide Level 19 mmol/L Anion Gap 11.0 mmol/L Blood Urea Nitrogen 57 mg/dl Creatinine 3.03 mg/dl Est Creatinine Clear Calc Drug Dose 16.3 ml/min Estimated GFR () 16.1 Estimated GFR (Non- 13.9 BUN/Creatinine Ratio 18.8 Random Glucose 167 mg/dl Lactic Acid Level 1.7 mmol/L Calcium Level 7.5 mg/dl Ionized Calcium 1.13 mmol/l Phosphorus Level 6.3 mg/dl Magnesium Level 1.9 mg/dl Total Bilirubin 0.8 mg/dl Aspartate Amino Transf (AST/SGOT) 68 U/L Alanine Aminotransferase (ALT/SGPT) 53 U/L Alkaline Phosphatase 41 U/L Total Creatine Kinase 650 U/L Creatine Kinase MB 14.5 ng/ml Creatine Kinase MB Ratio 2.2 Troponin I 0.245 ng/ml Total Protein 4.4 gm/dl Albumin 2.1 gm/dl Globulin 2.3 gm/dl Albumin/Globulin Ratio 0.9 Blood Gas Sample Site R Radial Bedside Blood Gas pH (LAB) 7.29 Bedside Blood Gas pCO2 (LAB) 37 mmHg Bedside Blood Gas pO2 (LAB) 90 mmHg Bedside Blood Gas HCO3 (LAB) 18 meq/L Bedside Blood Gas Total CO2 19 mEq/l Bedside Blood Gas Base Excess (LAB) -9.0 meq/L Bedside Blood Gas O2 Saturation 96.0 % Laron Test Pass Oxygen Delivery Device Cannula Test 08/28/17 07:26 08/28/17 08:10 08/28/17 08:24 08/28/17 08:53 Bedside Glucose (other) 156 mg/dl 95 mg/dl White Blood Count 28.21 K/uL Red Blood Count 2.58 M/uL Hemoglobin 8.0 g/dL Hematocrit 22.6 % Mean Corpuscular Volume 87.6 fL Mean Corpuscular Hemoglobin 31.0 pg Mean Corpuscular Hemoglobin Concent 35.4 g/dl RDW Standard Deviation 46.9 fL RDW Coefficient of Variation 15.3 % Platelet Count 105 K/uL Mean Platelet Volume 11.3 fL Nucleated RBC Absolute Count (auto) 0.07 K/uL Nucleated Red Blood Cells % 0.2 % Lactic Acid Level 1.6 mmol/L Prothrombin Time 11.3 SECONDS Prothromb Time International Ratio 1.1 Activated Partial Thromboplast Time 33.6 SECONDS Partial Thromboplastin Ratio 1.3 Fibrinogen 198 mg/dl Fibrin Degradation Products >40 mcg/ml Test 08/28/17 09:03 08/28/17 10:11 08/28/17 10:39 08/28/17 12:31 Bedside Glucose (other) 168 mg/dl 162 mg/dl 213 mg/dl Random Cortisol 47.95 mcg/dl Test 08/28/17 14:13 08/28/17 16:18 Hemoglobin 7.4 g/dL Hematocrit 20.8 % Bedside Glucose (other) 193 mg/dl Resident Tracking Resident Involvement: Resident Care Provided Care Provided: Adult Hospital Medicine (ICU care)
[2017-08-28] MEDS: BUDESONIDE 0.25 MG/2 ML VIAL (PULMICORT) INH SCH (20:09)
[2017-08-28] MEDS: INSULIN GLARGINE SOLOSTAR 100 UNITS/ML 3 ML PEN SC SCH (21:11)
[2017-08-28 22:11] LABS: HEMATOCRIT 22.7 % (37-47); HEMOGLOBIN 7.9 g/dL (12.0-16.0)
[2017-08-28 22:53] LABS: INR 1.1 (0.9-1.1)
[2017-08-29] VITALS (18 sets, daily range): BP systolic 62–133; BP diastolic 42–67; PULSE 69–84; TEMP 34.8–37; O2SAT 92–99
[2017-08-29] MEDS: DOXYCYCLINE IV 100 MG in DEXTROSE 5% 100ML 100 ML IV SCH ×2 (02:36→14:23)
[2017-08-29] MEDS: HYDROCORTISONE IV 100 MG in SYRINGE 0 ML IV SCH (04:03)
[2017-08-29] MEDS: INSULIN ASPART 100 UNITS/ML 3 ML PEN SC SCH ×3 (04:57→09:05)
[2017-08-29 05:52] LABS: HEMOGLOBIN 7.1 g/dL (12.0-16.0); MEAN CELL VOLUME 84.7 fL (80-100); MEAN CORPUSCULAR HEMOGLOBIN 30.1 pg (25-34); MEAN CORPUSCULAR HGB CONC 35.5 g/dl (32-36); MEAN PLATELET VOLUME 10.7 fL (7.4-10.4); NUCLEATED RED BLOOD CELL ABS 0.05 K/uL (0-0); PLATELET COUNT 105 K/uL (130-400); RED CELL DISTRIBUTION WIDTH CV 16.7 % (11.5-14.5); RED CELL DISTRIBUTION WIDTH SD 48.3 fL (36.4-46.3); WHITE BLOOD COUNT 38.89 K/uL (4.8-10.8)
[2017-08-29 06:14] LABS: CALCIUM 7.3 mg/dl (8.5-10.1); CREATININE 2.77 mg/dl (0.60-1.20); PHOSPHORUS 6.1 mg/dl (2.5-4.9); POTASSIUM 4.3 mmol/L (3.5-5.1)
[2017-08-29] MEDS: CALCIUM ACETATE 667MG GELCAP PO SCH ×2 (07:15→11:33)
[2017-08-29] MEDS: SODIUM BICARBONATE 8.4% INJ 75 MEQ in SODIUM CHLORIDE 0.45% 1000ML 1,000 ML IV SCH (07:18)
[2017-08-29 07:19] LABS: BASO % 0.1 %; BASO ABS # 0.03 K/uL (0-0.2); IG# 0.42 K/uL (0.00-0.02); LYMPH % 2.6 %; LYMPH ABS # 1.02 K/uL (1.2-3.4); MONO % 4.2 %; MONO ABS # 1.64 K/uL (0.11-0.59); NEUT ABS # 35.78 K/uL (1.4-6.5)
[2017-08-29] MEDS: BUDESONIDE 0.25 MG/2 ML VIAL (PULMICORT) INH SCH ×2 (07:30→18:58)
[2017-08-29] MEDS: PIPERACILL/TAZOBAC IV 4.5 GM in DEXTROSE 5% 100ML 100 ML IV SCH (09:03)
[2017-08-29] MEDS: PANTOprazole INJ 40 MG in SYRINGE 0 ML IV SCH (09:07)
[2017-08-29] MEDS: INSULIN GLARGINE SOLOSTAR 100 UNITS/ML 3 ML PEN SC SCH (09:11)
--- NOTE | 2017-08-29 09:45 | Palliative Care Consultation ---
Consultation Date of Consultation: Aug 29, 2017. Requesting Physician: Dr. Zhong Attending Physician: Dr. Contreras Reason for Consultation: Goals of care History of Present Illness This 81 year old female patient with PMH smoking, htn, urothelial cancer s/p left nephrectomy 2004, bladder cancer s/p TURBT 2007 and 2010, DM, CKD stage III , mild cognitive dysfunction, and others listed below, presented to the hospital one week ago with hypothermia, severe sepsis, and RV failure/ cardiogenic shock (which now is resolved per echocardiogram yesterday). Temp was 31.5 rectally upon arrival, BP was extremely low 70/30s, creatinine 1.86. Patient was hypoxic and became progressively obtunded upon arrival, she was placed on bipap, eventually intubated and admitted to ICU requiring pressors. She developed large right groin/thigh/retroperitoneal hematoma, concerning for fistula, and has required 3 units PRBCs. Her hgb is 7.1 today. Patient has somewhat improved as far as mental status. Now on room air, more awake and alert. She remains on norepinephrine gtt for blood pressure control, creatinine worsened to 3.03 yesterday and is 2.77 today. Still making urine and electrolytes are in balance, but she could possibly require dialysis in the future. Patient lives with her daughter, Latisha Coffman, who has been present daily at bedside. After discussion with the ICU team, patient was made DNR/DNI by the daughter yesterday. However, daughter is uncertain about other medical directives/patient wishes. Palliative care is now consulted to establish goals of care. I met with the patient at bedside this AM along with Dr. Nunez. Patient stated she was in [place], knew that it was August 2017. Patient recalled that she was feeling ill, which is why she came to the hospital, but really could not elaborate. She seems to be forgetful of recent events. It's noted that she has a history of "dementia" but apparently it is very mild. Hopefully her cognition continues to improve today so she can participate in goals of care conversation later this afternoon when daughter arrives. Patient states she does not have a living will and really hasn't given much thought to medical directives such as whether or not she'd want dialysis. Past Medical/Surgical History Medical History: CKD stage III DM type 2 Smoker HLD Htn Osteoporosis Urothelial cancer s/p left nephrectomy Bladder cancer s/p TURBT 2007 and 2010 Subdural hematoma Mild cognitive dysfunction/dementia Social History Smoking Status: Current Every Day Smoker History of Alcohol Use: No Marital Status: Housing Status: lives with family (daughter Latisha) Review of Systems Constitutional: + weakness ENT: No trouble swallowing Respiratory: + cough, + dyspnea on exertion, No sputum, No shortness of breath Cardiac: No chest pain Abdomen: No pain, No nausea, No vomiting Psychiatric: No anxiety Allergies Coded Allergies: Naproxen (Verified Adverse Reaction, Intermediate, HALLUCINATIONS, 08/22/17) Niacin (Verified Adverse Reaction, Intermediate, SEVERE FLUSHING, 08/22/17) Codeine (Verified Adverse Reaction, Mild, SEVERE N&V, 08/22/17) Medications Current Inpatient Medications Medications (Trade) Dose Ordered Sig/Suzi Route Start Time Stop Time Status Last Admin Dose Admin Miscellaneous Information (Consult) 1 ea UD PRN N/A 08/22/17 12:00 08/29/17 11:59 Pantoprazole Sodium 40 mg/ Syringe 10 ml @ 5 mls/min DAILY@0900 IV 08/23/17 09:00 09/22/17 08:59 08/29/17 09:07 5 MLS/MIN Miscellaneous Information (Consult Glycemic Management Pharmacy) 1 ea UD N/A 08/22/17 12:56 09/21/17 12:55 Glucose (Glucose 40% Gel) 15-30 GRAMS 15 GRAMS... UD PRN PO 08/22/17 15:15 09/21/17 15:14 Glucose (Glucose Chew Tab) 4-8 Tablets 4 Tabl... UD PRN PO 08/22/17 15:15 09/21/17 15:14 Dextrose (Dextrose 50% 50ML Syringe) 25-50ML OF 50% DW IV FOR... UD PRN IV 08/22/17 15:15 09/21/17 15:14 Glucagon (Glucagon Inj) 1 mg UD PRN SQ 08/22/17 15:15 09/21/17 15:14 Doxycycline Hyclate 100 mg/ Dextrose 110 ml @ 50 mls/hr Q12H IV 08/23/17 14:00 08/30/17 13:59 08/29/17 02:36 50 MLS/HR Norepinephrine Bitartrate 8 mg/ Dextrose 508 ml @ 0 mls/hr Q0M PRN IV 08/26/17 06:30 09/25/17 06:29 08/28/17 19:06 8,950,594 MLS/HR Acetaminophen 100 ml @ 400 mls/hr Q8H PRN IV 08/26/17 14:15 09/25/17 14:14 08/27/17 12:25 400 MLS/HR Fentanyl Citrate (Fentanyl Inj) 25 mcg Q4H PRN IV 08/26/17 16:30 09/09/17 16:29 08/28/17 05:14 25 MCG Piperacillin Sod/ Tazobactam Sod 4.5 gm/Dextrose 120 ml @ 30 mls/hr Q12H IV 08/27/17 20:00 08/29/17 11:59 08/29/17 09:03 30 MLS/HR Sodium Bicarbonate 75 meq/Sodium Chloride 1,075 ml @ 50 mls/hr [id number] IV 08/28/17 06:15 09/27/17 06:14 08/29/17 07:18 50 MLS/HR Calcium Acetate (Phoslo Cap) 667 mg TIDM PO 08/28/17 07:15 09/27/17 07:14 Albuterol/ Ipratropium (Duoneb) 3 ml QIDR PRN INH 08/28/17 08:45 09/27/17 08:44 Hydrocortisone Sodium Succinate 100 mg/Syringe 2 ml @ 4 mls/min Q8H IV 08/28/17 12:00 09/27/17 11:59 08/29/17 04:03 4 MLS/MIN Insulin Aspart (novoLOG ASPART) SLIDING SCALE Q4 SC 08/28/17 13:08 09/27/17 13:07 08/29/17 09:05 2 UNITS Insulin Glargine (Lantus Solostar Pen) BID SC 08/28/17 21:00 09/27/17 20:59 08/29/17 09:11 10 UNITS Budesonide (Pulmicort Respules 0.25MG/ 2ML Neb Soln) 0.25 mg BID INH 08/28/17 21:00 09/27/17 20:59 08/29/17 07:30 0.25 MG Heparin Sodium (Porcine) (Heparin 10 Unit/ ml 5 ml Flush) 5 ml PRN PRN FLUSH 08/28/17 20:00 09/27/17 19:59 Physical Exam Date Time Temp Pulse Resp B/P (MAP) Pulse Ox O2 Delivery O2 Flow Rate FiO2 08/29/17 08:00 81 17 106/57 (73) 96 Room Air 08/29/17 07:30 72 16 94 Room Air 08/29/17 06:00 83 15 121/42 (68) 96 Room Air 08/29/17 04:00 97 BiPAP 30 08/29/17 04:00 37.0 75 18 113/48 (69) 97 BiPAP 30 08/29/17 02:00 80 16 107/49 (68) 93 Room Air 08/29/17 00:01 36.4 83 14 98/55 (69) 92 Room Air 08/28/17 23:59 92 Room Air 08/28/17 23:00 87 98 30 08/28/17 22:00 77 15 106/52 (70) 15 BiPAP 30 08/28/17 20:09 79 16 95 Room Air 08/28/17 20:00 95 Room Air 08/28/17 20:00 36.5 80 17 125/64 (84) 95 Room Air 08/28/17 18:01 90 17 101/48 (65) 96 08/28/17 17:15 36.4 87 18 120/43 94 08/28/17 16:15 36.6 84 16 123/63 96 08/28/17 16:00 Room Air 08/28/17 15:45 36.4 79 18 126/64 95 08/28/17 15:25 36.6 88 16 106/56 95 08/28/17 15:00 64 16 98 Room Air 08/28/17 14:31 83 14 119/56 (77) 94 08/28/17 14:16 93 17 116/66 (83) 93 08/28/17 14:01 92 22 104/61 (75) 94 08/28/17 13:46 96 20 107/55 (72) 93 08/28/17 13:31 84 22 123/48 (73) 89 08/28/17 13:16 94 17 124/53 (76) 91 08/28/17 13:01 91 15 108/59 (75) 94 08/28/17 12:46 96 17 122/59 (80) 92 08/28/17 12:31 102 17 122/61 (81) 92 08/28/17 12:16 92 21 126/60 (82) 92 Room Air 08/28/17 12:01 36.6 91 19 96/60 (72) 94 Room Air 08/28/17 12:00 Room Air 08/28/17 11:46 89 16 115/57 (76) 94 Room Air 08/28/17 11:31 93 20 93/55 (68) 94 Room Air 08/28/17 11:27 93 15 106/64 (78) 94 Room Air 08/28/17 10:01 87 15 102/93 (96) 93 Room Air 08/28/17 10:00 86 15 101/94 (96) 94 Room Air 08/28/17 09:46 97 15 118/69 (85) 95 Room Air General Appearance: no apparent distress ENT: hearing grossly normal Neck: supple, no JVD Respiratory: no respiratory distress, no accessory muscle use, + rhonchi ( coarse and moist throughout) Cardiovascular: regular rate, rhythm, + normal peripheral pulses (BL pedals +2) , + pertinent finding (trace edema to bilateral feet and ankles) Abdomen: normal bowel sounds, non tender, soft Neurologic/Psychiatric: alert, normal mood/affect, oriented x 3 Skin: normal color Laboratory Results Last 24 Hours Test 08/28/17 10:11 08/28/17 10:39 08/28/17 12:31 08/28/17 14:13 Bedside Glucose (other) 162 mg/dl 213 mg/dl Random Cortisol 47.95 mcg/dl Hemoglobin 7.4 g/dL Hematocrit 20.8 % Test 08/28/17 16:18 08/28/17 19:56 08/28/17 22:04 08/29/17 00:04 Bedside Glucose (other) 193 mg/dl 174 mg/dl Bedside Glucose 177 mg/dl Hemoglobin 7.9 g/dL Hematocrit 22.7 % Prothrombin Time 11.2 SECONDS Prothromb Time International Ratio 1.1 Activated Partial Thromboplast Time 32.0 SECONDS Partial Thromboplastin Ratio 1.2 Fibrinogen 287 mg/dl Fibrin Degradation Products 10-40 mcg/ml Test 08/29/17 04:33 08/29/17 05:23 08/29/17 09:05 Bedside Glucose (other) 183 mg/dl White Blood Count 38.89 K/uL Red Blood Count 2.36 M/uL Hemoglobin 7.1 g/dL Hematocrit 20.0 % Mean Corpuscular Volume 84.7 fL Mean Corpuscular Hemoglobin 30.1 pg Mean Corpuscular Hemoglobin Concent 35.5 g/dl Platelet Count 105 K/uL Mean Platelet Volume 10.7 fL Neutrophils (%) (Auto) 92.0 % Lymphocytes (%) (Auto) 2.6 % Monocytes (%) (Auto) 4.2 % Eosinophils (%) (Auto) 0.0 % Basophils (%) (Auto) 0.1 % Neutrophils # (Auto) 35.78 K/uL Lymphocytes # (Auto) 1.02 K/uL Monocytes # (Auto) 1.64 K/uL Eosinophils # (Auto) 0.00 K/uL Basophils # (Auto) 0.03 K/uL RDW Standard Deviation 48.3 fL RDW Coefficient of Variation 16.7 % Immature Granulocyte % (Auto) 1.1 % Immature Granulocyte # (Auto) 0.42 K/uL Nucleated RBC Absolute Count (auto) 0.05 K/uL Nucleated Red Blood Cells % 0.1 % Basophilic Stippling 1+ Echinocytes 1+ Sodium Level 137 mmol/L Potassium Level 4.3 mmol/L Chloride Level 105 mmol/L Carbon Dioxide Level 20 mmol/L Anion Gap 12.0 mmol/L Blood Urea Nitrogen 60 mg/dl Creatinine 2.77 mg/dl Est Creatinine Clear Calc Drug Dose 18.5 ml/min Estimated GFR () 18.0 Estimated GFR (Non- 15.5 BUN/Creatinine Ratio 21.6 Random Glucose 175 mg/dl Calcium Level 7.3 mg/dl Phosphorus Level 6.1 mg/dl Magnesium Level 1.9 mg/dl Assessment & Plan Palliative Performance Scale: 20 % Problem list: Altered mental status/metabolic encephalopathy Acute respiratory failure- improved Hypothermia- improved Acute blood loss anemia s/p large right groin/RP hematoma Cardiogenic shock/RV failure- RV failure resolved per repeat echocardiogram. Continues to be pressor-dependent on Levophed HEATHER on CKD stage III Goals of care (Z51.5) Palliative care recs: -Patient is level 5, DO NOT RESUSCITATE. -Goals of care to be determined when daughter arrives this afternoon and we are able to have family meeting. -Update after meeting with Dr. Zhong, patient, patient's daughter and phone conference with patient's son, Herb: patient does not have the capacity to make decisions. She could not repeat back to us what dialysis entails or what would happen if she chose to pursue it. She was not able to understand the complexity of her condition. Patient's daughter and son both stated that patient has stated MANY times over the years that she would never want dialysis and they know she would not want to suffer any further. They understand the patient's complicated medical conditions as explained in detail by Dr. Zhong. Both agree that patient should be made comfort measures only at this juncture and that the goal is for patient to naturally and peacefully. -Uncertain of discharge planning at this time. I would start [employer] at this time, we will see how it goes and discuss options for comfort/hospice care depending on how she does. Thank you kindly for this consult. I will continue to follow. Total time spent 100 minutes with >50% of time spent with patient and family counseling and discussing goals of care. Supervising Physician Patient seen and examined with TODD Dunne Concur with above note and assessment. PE: Patient awake and alert, mild confusion, able to give a limited history. HEENT: EOMI, hearing intact Resp: Unlabored; CV: Regular rate, 1-2+ pedal edema Abdomen soft nontender; Extremities: Normal tone Plan to meet with daughter to discuss goals of care and develop a plan of care, and address CODE STATUS.
[2017-08-29] MEDS ORDERED: INSULIN ASPART 100 UNITS/ML 3 ML PEN SC SCH (11:00)
--- NOTE | 2017-08-29 11:41 | Pharmacy Progress Note ---
Glycemic Control Progress Note Date of Service Aug 29, 2017. Scope Glycemic Pharmacist consulted for glycemic control to write orders per [facility] inpatient glycemic control protocol. Objective Accuchecks BSG (last 24hrs): Test 08/28/17 19:56 08/29/17 05:23 Bedside Glucose 177 mg/dl (70-90) Random Glucose 175 mg/dl (70-99) HbA1c: Test 08/22/17 11:56 Hemoglobin A1c 7.1 % (4.5-5.6) H Recent Pertinent Medications The patient is currently receiving: * Basal insulin: Lantus 5 units every 12 hours * Correctional Insulin: Novolog Correction per scale ACHS Goal Range: Low 140 mg/dL - High 180 mg/dL Correction Factor: 25 mg/dL/unit * Prandial insulin: None (NPO) * Oral Agents: On hold Assessment & Plan ASSESSMENT: * BSG's ranging 174-189 mg/dL since transitioning off of drip yesterday - would prefer all BSG's less than 180 mg/dL * Significant changes to stressors * Tapering hydrocortisone (100 to 50 mg IV q8h) * Tapering norepinephrine (0.3 mcg/kg/min yesterday to only 0.05 mcg/kg/min today. May discontinue today) * Ordered diet to start at lunch today * Will increase Lantus slightly 2nd AM fasting hyperglycemia * Will add in CHO ratio to start at lunch - slightly tighter than weight-based stress of 2 * Will decrease goal range so patient is administered correctional insulin if BSG above 160 mg/dL PLAN FOR INPATIENT GLYCEMIC CONTROL: * Oral Agents * Continue to hold outpatient oral diabetes medications. * Increase Basal insulin: Lantus 10 units SQ x1 this AM then ongoing BID based on BSG * 5 units for BSG < 140 mg/dL * 10 units for BSG 140-200 mg/dL * 15 units for BSG >200 mg/dL * Bolus insulin * NovoLog per scale ACHS or Q6hrs while NPO * Decrease Goal Range: Low 120 mg/dL - High 160 mg/dL * Correction Factor: 25 mg/dL/unit * Add Nutritional / Prandial insulin per carb ratio of 1 unit per 9 grams CHO consumed * Please note that the plan above was derived based on current level of insulin resistance and hospital stress. These recommendations are appropriate for inpatient admission only. Plan of care upon discharge will need to be reassessed to avoid potential outpatient hypo/hyperglycemia. Thank you.
--- NOTE | 2017-08-29 11:47 | Nephrology Progress Note ---
Nephrology Progress Note Date of Service: Aug 29, 2017. Subjective 81 yo female who presented in shock with right heart failure and alex/atn requiring intubation and was eventually extubated on 08/25. pt unfortunately developed a hematoma in right thigh requiring multiple units of blood. still requiring a pressor. pt mentating well. no complaints. continues to lose blood. getting another transfusion this morning. Objective Date Time Temp Pulse Resp B/P (MAP) Pulse Ox O2 Delivery O2 Flow Rate FiO2 08/29/17 11:31 35.2 84 17 102/43 99 08/29/17 11:02 35.2 69 19 62/50 99 08/29/17 10:15 35.2 78 17 91/56 94 08/29/17 10:00 35.2 76 18 83/47 (59) 95 Room Air 08/29/17 09:56 35.3 83 17 83/47 95 08/29/17 08:00 81 17 106/57 (73) 96 Room Air 08/29/17 08:00 Room Air 08/29/17 07:30 72 16 94 Room Air 08/29/17 06:00 83 15 121/42 (68) 96 Room Air 08/29/17 04:00 97 BiPAP 30 08/29/17 04:00 37.0 75 18 113/48 (69) 97 BiPAP 30 08/29/17 02:00 80 16 107/49 (68) 93 Room Air 08/29/17 00:01 36.4 83 14 98/55 (69) 92 Room Air 08/28/17 23:59 92 Room Air 08/28/17 23:00 87 98 30 08/28/17 22:00 77 15 106/52 (70) 15 BiPAP 30 08/28/17 20:09 79 16 95 Room Air 08/28/17 20:00 95 Room Air 08/28/17 20:00 36.5 80 17 125/64 (84) 95 Room Air 08/28/17 18:01 90 17 101/48 (65) 96 08/28/17 17:15 36.4 87 18 120/43 94 08/28/17 16:15 36.6 84 16 123/63 96 08/28/17 16:00 Room Air 08/28/17 15:45 36.4 79 18 126/64 95 2/12/18 15:25 36.6 88 16 106/56 95 08/28/17 15:00 64 16 98 Room Air 08/28/17 14:31 83 14 119/56 (77) 94 08/28/17 14:16 93 17 116/66 (83) 93 08/28/17 14:01 92 22 104/61 (75) 94 08/28/17 13:46 96 20 107/55 (72) 93 08/28/17 13:31 84 22 123/48 (73) 89 08/28/17 13:16 94 17 124/53 (76) 91 08/28/17 13:01 91 15 108/59 (75) 94 08/28/17 12:46 96 17 122/59 (80) 92 08/28/17 12:31 102 17 122/61 (81) 92 08/28/17 12:16 92 21 126/60 (82) 92 Room Air 08/28/17 12:01 36.6 91 19 96/60 (72) 94 Room Air 08/28/17 12:00 Room Air 08/28/17 11:46 89 16 115/57 (76) 94 Room Air Physical Exam: General-aaox3 Eyes-no scleral icterus ENT-mmm Neck-supple Lungs-+end expiratory wheeze Heart-regular Abdomen- bs+ s/nt/nd Extremities-no c/c, +1 edema Neuro-nonfocal Current Inpatient Medications Medications (Trade) Dose Ordered Sig/Suzi Route Start Time Stop Time Status Last Admin Dose Admin Miscellaneous Information (Consult) 1 ea UD PRN N/A 08/22/17 12:00 08/29/17 11:59 Miscellaneous Information (Consult Glycemic Management Pharmacy) 1 ea UD N/A 08/22/17 12:56 09/21/17 12:55 Glucose (Glucose 40% Gel) 15-30 GRAMS 15 GRAMS... UD PRN PO 08/22/17 15:15 09/21/17 15:14 Glucose (Glucose Chew Tab) 4-8 Tablets 4 Tabl... UD PRN PO 08/22/17 15:15 09/21/17 15:14 Dextrose (Dextrose 50% 50ML Syringe) 25-50ML OF 50% DW IV FOR... UD PRN IV 08/22/17 15:15 09/21/17 15:14 Glucagon (Glucagon Inj) 1 mg UD PRN SQ 08/22/17 15:15 09/21/17 15:14 Doxycycline Hyclate 100 mg/ Dextrose 110 ml @ 50 mls/hr Q12H IV 08/23/17 14:00 08/30/17 13:59 08/29/17 02:36 50 MLS/HR Norepinephrine Bitartrate 8 mg/ Dextrose 508 ml @ 0 mls/hr Q0M PRN IV 08/26/17 06:30 09/25/17 06:29 08/28/17 19:06 8,950,594 MLS/HR Acetaminophen 100 ml @ 400 mls/hr Q8H PRN IV 08/26/17 14:15 09/25/17 14:14 08/27/17 12:25 400 MLS/HR Fentanyl Citrate (Fentanyl Inj) 25 mcg Q4H PRN IV 08/26/17 16:30 09/09/17 16:29 08/28/17 05:14 25 MCG Piperacillin Sod/ Tazobactam Sod 4.5 gm/Dextrose 120 ml @ 30 mls/hr Q12H IV 08/27/17 20:00 08/29/17 11:59 08/29/17 09:03 30 MLS/HR Sodium Bicarbonate 75 meq/Sodium Chloride 1,075 ml @ 50 mls/hr [id number] IV 08/28/17 06:15 09/27/17 06:14 08/29/17 07:18 50 MLS/HR Calcium Acetate (Phoslo Cap) 667 mg TIDM PO 08/28/17 07:15 09/27/17 07:14 08/29/17 11:33 667 MG Albuterol/ Ipratropium (Duoneb) 3 ml QIDR PRN INH 08/28/17 08:45 09/27/17 08:44 Insulin Glargine (Lantus Solostar Pen) BID SC 08/28/17 21:00 09/27/17 20:59 08/29/17 09:11 10 UNITS Budesonide (Pulmicort Respules 0.25MG/ 2ML Neb Soln) 0.25 mg BID INH 08/28/17 21:00 09/27/17 20:59 08/29/17 07:30 0.25 MG Heparin Sodium (Porcine) (Heparin 10 Unit/ ml 5 ml Flush) 5 ml PRN PRN FLUSH 08/28/17 20:00 09/27/17 19:59 Hydrocortisone Sodium Succinate 50 mg/Syringe 1 ml @ 4 mls/min Q8 IV 08/29/17 14:00 09/28/17 13:59 Pantoprazole Sodium (Protonix Tab) 40 mg QAM PO 08/30/17 09:00 09/29/17 08:59 Insulin Aspart (novoLOG ASPART) SLIDING SCALE ACHS SC 08/29/17 11:00 09/28/17 10:59 Last 24 Hours Test 08/28/17 12:31 08/28/17 14:13 08/28/17 16:18 08/28/17 19:56 Bedside Glucose (other) 213 mg/dl 193 mg/dl Hemoglobin 7.4 g/dL Hematocrit 20.8 % Bedside Glucose 177 mg/dl Test 08/28/17 22:04 08/29/17 00:04 08/29/17 04:33 08/29/17 05:23 Hemoglobin 7.9 g/dL 7.1 g/dL Hematocrit 22.7 % 20.0 % Prothrombin Time 11.2 SECONDS Prothromb Time International Ratio 1.1 Activated Partial Thromboplast Time 32.0 SECONDS Partial Thromboplastin Ratio 1.2 Fibrinogen 287 mg/dl Fibrin Degradation Products 10-40 mcg/ml Bedside Glucose (other) 174 mg/dl 183 mg/dl White Blood Count 38.89 K/uL Red Blood Count 2.36 M/uL Mean Corpuscular Volume 84.7 fL Mean Corpuscular Hemoglobin 30.1 pg Mean Corpuscular Hemoglobin Concent 35.5 g/dl Platelet Count 105 K/uL Mean Platelet Volume 10.7 fL Neutrophils (%) (Auto) 92.0 % Lymphocytes (%) (Auto) 2.6 % Monocytes (%) (Auto) 4.2 % Eosinophils (%) (Auto) 0.0 % Basophils (%) (Auto) 0.1 % Neutrophils # (Auto) 35.78 K/uL Lymphocytes # (Auto) 1.02 K/uL Monocytes # (Auto) 1.64 K/uL Eosinophils # (Auto) 0.00 K/uL Basophils # (Auto) 0.03 K/uL RDW Standard Deviation 48.3 fL RDW Coefficient of Variation 16.7 % Immature Granulocyte % (Auto) 1.1 % Immature Granulocyte # (Auto) 0.42 K/uL Nucleated RBC Absolute Count (auto) 0.05 K/uL Nucleated Red Blood Cells % 0.1 % Basophilic Stippling 1+ Echinocytes 1+ Sodium Level 137 mmol/L Potassium Level 4.3 mmol/L Chloride Level 105 mmol/L Carbon Dioxide Level 20 mmol/L Anion Gap 12.0 mmol/L Blood Urea Nitrogen 60 mg/dl Creatinine 2.77 mg/dl Est Creatinine Clear Calc Drug Dose 18.5 ml/min Estimated GFR () 18.0 Estimated GFR (Non- 15.5 BUN/Creatinine Ratio 21.6 Random Glucose 175 mg/dl Calcium Level 7.3 mg/dl Phosphorus Level 6.1 mg/dl Magnesium Level 1.9 mg/dl Assessment & Plan dvt-hmy-use-oliguric-urination picked up yesterday and urinated over 2 liters yesterday. currently on pressor and bp varies quite a bit. unclear if tracking well. creatinine improved to 2.77 today. no dialysis indicated at this time. when inquired about dialysis wishes. pt wants everything done and ok with temporary or even chronic dialysis. hyperphosphatemia-increase phoslo to 2 with meals. acidosis: on bicarb drip and goal bicarb of 20 to 24. was 20 this morning.
--- NOTE | 2017-08-29 13:57 | Progress Note ---
Internal Med Progress Note Date of Service: Aug 29, 2017. Provider Documentation: SUBJECTIVE: The patient was seen and examined Was brought in with AMS and noted to be in Shock with Hypoxemia and Hypothermia Now intubated in ICU and S/P Extubation on 08/25/17 Received 7 units of PRBC so far Doing much better and wants to go home OBJECTIVE: Vital Signs-as noted below Exam: General-s/p Extubation Not in any distress at rest NO acute distress Eyes-Closed ENT-Normal Neck-Supple Lungs-Decreased breath sound bilaterally Minimal crackles at the bases Heart-Regular Abdomen-Benign Extremities-Trace edema bilaterally Has a large hematoma in right upper medial thigh ,s/p Central line placement Slight increase in size-nontender Neuro-aaox3 Moving all limbs Lab data as noted below. ASSESSMENT & PLAN: Acute Blood Loss Anemia Right Upper Medial Thigh,s/p Central line placement Complicated by Sepsis Will receive 7 units of PRBC US -suggested fistula Vascular surgery consulted -appreciate Input Hb dropped again -likely to need more blood CTA to locate the Bleeding site advised Bleeding continues Requiring more blood transfusion ACUTE HYPOXIC RESPIRATORY FAILURE : s/p Extubation om Was hypothermic Temp 31 /hypotensive SBP in 70;s and hypoxic in RA 87 % Was placed on Bipap and intubated later on , ABG shows respiratory acidosis with hypercarbia Co2 > 90 CXR-no Pneumonia and CTA -0negative for any Pulmonary Embolism Underlying COPD /emphysema ( hx of smoking ) with retention of Co2 due to mental obtundation due to sepsis Has been on IV Solumedrol and Nebs Appreciate Appliance Mechanic input Now Intubated in ICU and extubation on BP went down again Repeat ECHO to evaluate RV function-NO pericardial Effusion and unremarkable RV function Requiring pressors to maintain BP CONFUSION /CHANGED MENTAL STATUS /METABOLIC ENCEPHALOPATHY : Likely due to hypercapnic respiratory failure and may be complicated by sepsis CT head -negative for CVA Back to baseline Denies any symptoms May Have Cardiogenic Shock as well Has severe Pulmonary HTN ECHO::There is mild concentric left ventricular hypertrophy. * The left ventricular wall motion is normal. * The LV Ejection Fraction = >70 %. * The right ventricle is mildly dilated. * The right ventricular systolic function is mildly reduced with diffuse right ventricular hypokinesis that spares the RV apex. * There is mild to moderate tricuspid regurgitation. * Dilated inferior vena cava with reduced collapsability with sniff indicates an elevated right atrial pressure of 15 mmHg * Severe pulmonary is hypertension, with PA systolic pressure calculated to be 75 mmg Hg, assuming a right atrial pressure of 15 mm Hg. * Compared to the report of the prior outpatient echocardiogram performed at [facility] dated 02/13/12, the right ventricular size and systolic function was normal at that time with normal calculated pulmonary pressures. * Findings compatible with possible acute pulmonary embolism versus interval development of pulmonary hypertension of uknown chronicity due to other cause. Trending Troponin -doubt any ACS Repeat ECHO in AM : showed improvement of the Right ventricular function Still requiring pressors-off pressors now BP is maintaining Repeat ECHO-no Pericardial Effusion HEATHER ON CKD STAGE 3 : HYPERNATREMIA ; ATN with anuria -minimum urine out put after fluid bolus IV fluids resuscitation , pressor support Follow PRP Q 4hrs per sepsis protocol Pt has solitary kidney ( s/p Left nephrectomy ) Baseline Cr 1.6 Nephrology consulted-appreciate Input Slightly better today HYPOTENSION /HYPOTHERMIA : SEPSIS DUE TO UTI and May be complicated by respiratory pathogens Likely due to severe sepsis ,possible source of infection UTI Temp improved with Jayda hugger , IV fluid bolus followed by aggressive resuscitation per sepsis protocol Empiric Abx with Zosyn ,Doxycycline Started on pressors Appliance Mechanic following Appreciate ID input Blood and Urine Cultures are negative Vancomycin discontinued Continue antibiotics for 3 more days as per ID Requiring pressor again CODE STATUS : DNR/DNI DVT PROPHYLAXIS high risk ICU admission /obtundation Sub q heparin-on hold now Overall prognosis is poor Palliative care consulted Awaiting family meeting for guidance Vital Signs: Date Time Temp Pulse Resp B/P (MAP) Pulse Ox O2 Delivery O2 Flow Rate FiO2 08/29/17 12:00 Room Air 08/29/17 12:00 35.2 76 22 98/67 (77) 96 Room Air 08/29/17 11:50 35.3 71 15 98/67 96 08/29/17 11:31 35.2 84 17 102/43 99 08/29/17 11:02 35.2 69 19 62/50 99 08/29/17 10:15 35.2 78 17 91/56 94 08/29/17 10:00 35.2 76 18 83/47 (59) 95 Room Air 08/29/17 09:56 35.3 83 17 83/47 95 08/29/17 08:00 81 17 106/57 (73) 96 Room Air 08/29/17 08:00 Room Air BiPAP 08/29/17 08:00 Room Air 08/29/17 07:30 72 16 94 Room Air 08/29/17 06:00 83 15 121/42 (68) 96 Room Air 08/29/17 04:00 97 BiPAP 30 08/29/17 04:00 37.0 75 18 113/48 (69) 97 BiPAP 30 08/29/17 02:00 80 16 107/49 (68) 93 Room Air 08/29/17 00:01 36.4 83 14 98/55 (69) 92 Room Air 08/28/17 23:59 92 Room Air 08/28/17 23:00 87 98 30 08/28/17 22:00 77 15 106/52 (70) 15 BiPAP 30 08/28/17 20:09 79 16 95 Room Air 08/28/17 20:00 95 Room Air 08/28/17 20:00 36.5 80 17 125/64 (84) 95 Room Air 08/28/17 18:01 90 17 101/48 (65) 96 08/28/17 17:15 36.4 87 18 120/43 94 08/28/17 16:15 36.6 84 16 123/63 96 08/28/17 16:00 Room Air 08/28/17 15:45 36.4 79 18 126/64 95 08/28/17 15:25 36.6 88 16 106/56 95 08/28/17 15:00 64 16 98 Room Air 08/28/17 14:31 83 14 119/56 (77) 94 08/28/17 14:16 93 17 116/66 (83) 93 08/28/17 14:01 92 22 104/61 (75) 94 Lab Results: Results Past 24 Hours Test 08/28/17 14:13 08/28/17 16:18 08/28/17 19:56 08/28/17 22:04 Range/Units Hemoglobin 7.4 7.9 12.0-16.0 g/dL Hematocrit 20.8 22.7 37-47 % Bedside Glucose (other) 193 70-99 mg/dl Bedside Glucose 177 70-90 mg/dl Prothrombin Time 11.2 9.0-12.0 SECONDS Prothromb Time International Ratio 1.1 0.9-1.1 Activated Partial Thromboplast Time 32.0 21.0-31.0 SECONDS Partial Thromboplastin Ratio 1.2 Fibrinogen 287 184-400 mg/dl Fibrin Degradation Products 10-40 <10 mcg/ml Test 08/29/17 00:04 08/29/17 04:33 08/29/17 05:23 08/29/17 11:31 Range/Units Bedside Glucose (other) 174 183 180 70-99 mg/dl White Blood Count 38.89 4.8-10.8 K/uL Red Blood Count 2.36 4.2-5.4 M/uL Hemoglobin 7.1 12.0-16.0 g/dL Hematocrit 20.0 37-47 % Mean Corpuscular Volume 84.7 80-100 fL Mean Corpuscular Hemoglobin 30.1 25-34 pg Mean Corpuscular Hemoglobin Concent 35.5 32-36 g/dl Platelet Count 105 130-400 K/uL Mean Platelet Volume 10.7 7.4-10.4 fL Neutrophils (%) (Auto) 92.0 % Lymphocytes (%) (Auto) 2.6 % Monocytes (%) (Auto) 4.2 % Eosinophils (%) (Auto) 0.0 % Basophils (%) (Auto) 0.1 % Neutrophils # (Auto) 35.78 1.4-6.5 K/uL Lymphocytes # (Auto) 1.02 1.2-3.4 K/uL Monocytes # (Auto) 1.64 0.11-0.59 K/uL Eosinophils # (Auto) 0.00 0-0.5 K/uL Basophils # (Auto) 0.03 0-0.2 K/uL RDW Standard Deviation 48.3 36.4-46.3 fL RDW Coefficient of Variation 16.7 11.5-14.5 % Immature Granulocyte % (Auto) 1.1 % Immature Granulocyte # (Auto) 0.42 0.00-0.02 K/uL Nucleated RBC Absolute Count (auto) 0.05 0-0 K/uL Nucleated Red Blood Cells % 0.1 % Basophilic Stippling 1+ Echinocytes 1+ Sodium Level 137 136-145 mmol/L Potassium Level 4.3 3.5-5.1 mmol/L Chloride Level 105 98-107 mmol/L Carbon Dioxide Level 20 21-32 mmol/L Anion Gap 12.0 3-11 mmol/L Blood Urea Nitrogen 60 7-18 mg/dl Creatinine 2.77 0.60-1.20 mg/dl Est Creatinine Clear Calc Drug Dose 18.5 ml/min Estimated GFR () 18.0 Estimated GFR (Non- 15.5 BUN/Creatinine Ratio 21.6 10-20 Random Glucose 175 70-99 mg/dl Calcium Level 7.3 8.5-10.1 mg/dl Phosphorus Level 6.1 2.5-4.9 mg/dl Magnesium Level 1.9 1.8-2.4 mg/dl Test 08/29/17 13:05 Range/Units Venous Blood pH 7.28 7.36-7.41 Venous Blood Partial Pressure CO2 46 38.0-50.0 mmHg Venous Blood Partial Pressure O2 33 mmHg Venous Blood HCO3 21 mmol/L Venous Blood Oxygen Saturation < 60.0 % Venous Blood Base Excess -5.6 mEq/L Lactic Acid Level 2.6 0.4-2.0 mmol/L
[2017-08-29] MEDS ORDERED: HYDROCORTISONE IV 50 MG in SYRINGE 0 ML IV SCH (14:00)
[2017-08-29] MEDS ORDERED: LORAZEPAM 2 MG/ML 1 ML VIAL IV PRN (15:15)
[2017-08-29] MEDS ORDERED: ATROPINE SULFATE 1% OP SOLN 5 ML BTL PO PRN (15:45)
[2017-08-29] MEDS ORDERED: CALCIUM ACETATE 667MG GELCAP PO SCH (16:30)
--- NOTE | 2017-08-29 16:35 | Critical Care Progress Note ---
Critical Care Progress Note Date of Service Aug 29, 2017. ICU Day ICU Day Number: [address] Zhong Subjective Found patient awake, alert to self, location, date (but not year). She is still unsure of why she is in the hospital. She does not have the ability to repeat back basic information, answering instead with "I don't know". Does say she is not in any pain and does not have any particular complaints or voiced concerns. Objective General: Awake, comfortable, oriented to person, place, month, but not why here. HEENT: NCAT. EOMI. CVS: +S1S2 regular, no murmur. Lungs: Clear to auscultation. Abd: + BS, soft, non-tender, non-distended. Positive old laparotomy scar. Ext: Right thigh increased circumference, mildly worse than yesterday. Ecchymosis over prior TLC insertion site. Positive fluid collection above right knee. Cannot appreciate right PT or DP pulses, but foot is warm and cap refill < 2 sec in great toe. RETIREMENT PLAN SPECIALIST: Awake, oriented as above, following commands, no gross deficits. Assessment & Plan 81 yo female was admitted for AMS, hypothermia, and shock. RETIREMENT PLAN SPECIALIST: Perhaps improved confusion, unsure of why she's here, but knows place and dates. Has history of dementia. Does not have the capacity to express understanding of what she is being told (i.e. cannot repeat back basic descriptions of what dialysis is). - Pain control prn (tylenol). - Ativan prn. Pulmonary: Acute respiratory failure with hypercapnia and hypoxia. Extubated on 09Feb. On nocturnal BiPAP. Unclear source of pulmonary HTN. No evidence of PE. May have undiagnosed COPD (ongoing smoking) and acute severe hypercapnia. - Keeping duoneb and pulmicort while on comfort care. CVS: Suspect cardiogenic shock with RV failure and severe pulmonary HTN, was on pressors. Repeat echo on 12Feb notes normal RV systolic function and no evidence of pericardial effusion. Troponin stabilized then trended to 0.245, most likely due to demand ischemia from acute RV failure. CT of right thigh noted large hematoma and echo suggestive of AV fistula. Doubt compartment syndrome (lacks local pain/tender), though suspect continued local bleeding due to consistent transfusion need. - See comfort care discussion below. ID: Initial CXR noted left base parenchymal infiltrate. 06Feb BCx x2 and UCx showed no growth. - Stopped zosyn and doxy with comfort care. Endo: Off insulin with comfort care. Renal/metabolic: Solitary kidney. HEATHER with Cr up to max 3.03 (low of 1.68 on admit). - Family declined dialysis as option. See comfort care discussion. GI: CT showed evidence of hepatic steatosis, which may account for mild LFT elevations. - Advance to clears. Heme: Large right thigh hematoma. Transfused seven units of PRBCs thus far. Skin: Hematoma as noted above. Lines: Left femoral triple lumen. Right wrist PIV. Left arm PICC. Art line removed due to tenuous nature. Code status: DNR (updated on ). DVT prophy: Held anticoagulants due to thigh hematoma (VTE contraindicated). PT/OT consult: Deferred. Disposition: Comfort care measures. Discussions today with attending, palliative care, patient's daughter in room, and patient's son on the phone. Discussed that any attempt for surgical repair of thigh AV fistula would require IV contrast, which in turn would very likely cause permanent renal failure (single kidney already) and need for lifelong dialysis. Discussed implications of dialysis with patient but she did not demonstrate capacity to understand. Both daughter and son agree that patient would not want dialysis, particularly in setting of multiple co-morbidities. They agreed to begin comfort care this afternoon. Will transfer out of ICU. Resident Physician Supervision Note: Dr. Elkins was resident physician during care of patient. I separately evaluated patient and did history and exam. I discussed the case with the resident and generally agree with the findings and plan. The patient is in a terminal endstage condition without chance of meaning full recovery. I discussed the case with Dr. De La Fuente as well as Dr. Adkins and all are in agreement that there is minimal chance of adequate recovery. The patient has a long he will believe that she would not want to undergo dialysis. Therefore we cannot proceed with angiography as contrast load would likely stop all [place] kidney function and required hemodialysis. In discussion with the son and daughter we will transition from active care to comfort measures only. We will stop further blood transfusions. I have discussed this with Dr. Contreras of the hospitalist service. I have personally spent 45 minutes of critical care time in the direct management of this patient. This is a life/limb threatening event. This includes time spent evaluating patient, direct bedside care, chart review, placing orders, interpretation of diagnostic studies, discussion with consultants, patient, and/or family members regarding treatment decisions, as well as other required patient management activities. This time is exclusive of all separately billable procedures, and teaching time and separate from and in addition to any other critical care service time. Documented By: Talha Zhong DO Consults & Procedures Consultants: Renal: Dr Adkins ID: Dr Ferrell Vascular: Dr De La Fuente Procedures: 08/22/17: Intubation 08/22/17: Right femoral TLC in ED 08/25/17: Extubation 08/26/17: Left femoral TLC 08/26/17: Left radial a-line Data Medications: Current Inpatient Medications Medications (Trade) Dose Ordered Sig/Suzi Route Start Time Stop Time Status Last Admin Dose Admin Acetaminophen 100 ml @ 400 mls/hr Q8H PRN IV 08/26/17 14:15 09/25/17 14:14 08/27/17 12:25 400 MLS/HR Albuterol/ Ipratropium (Duoneb) 3 ml QIDR PRN INH 08/28/17 08:45 09/27/17 08:44 Budesonide (Pulmicort Respules 0.25MG/ 2ML Neb Soln) 0.25 mg BID INH 08/28/17 21:00 09/27/17 20:59 08/29/17 07:30 0.25 MG Morphine Sulfate (MoRPHine SULFATE INJ) 2 mg Q3H PRN IV 08/29/17 15:15 09/12/17 15:14 Lorazepam (Ativan Inj) 0.5 mg Q4H PRN IV 08/29/17 15:15 09/28/17 15:14 Atropine Sulfate (Atropine Sulfate 1% Oph Soln) 4 drops Q4H PRN PO 08/29/17 15:45 09/28/17 15:44 I & O: 24-Hour Column 08/30/17 08:00 Intake Total 861 ml Output Total 450 ml Balance 411 ml Vital Signs: Date Time Temp Pulse Resp B/P (MAP) Pulse Ox O2 Delivery O2 Flow Rate FiO2 08/29/17 16:06 76 22 93 08/29/17 15:30 76 22 128/62 (84) 93 08/29/17 14:00 34.8 77 19 133/ (44) 96 Room Air 08/29/17 12:00 Room Air 08/29/17 12:00 35.2 76 22 98/67 (77) 96 Room Air 08/29/17 11:50 35.3 71 15 98/67 96 08/29/17 11:31 35.2 84 17 102/43 99 08/29/17 11:02 35.2 69 19 62/50 99 08/29/17 10:15 35.2 78 17 91/56 94 08/29/17 10:00 35.2 76 18 83/47 (59) 95 Room Air 08/29/17 09:56 35.3 83 17 83/47 95 08/29/17 08:00 81 17 106/57 (73) 96 Room Air 08/29/17 08:00 Room Air BiPAP 08/29/17 08:00 Room Air 08/29/17 07:30 72 16 94 Room Air 08/29/17 06:00 83 15 121/42 (68) 96 Room Air 08/29/17 04:00 97 BiPAP 30 08/29/17 04:00 37.0 75 18 113/48 (69) 97 BiPAP 30 08/29/17 02:00 80 16 107/49 (68) 93 Room Air 08/29/17 00:01 36.4 83 14 98/55 (69) 92 Room Air 08/28/17 23:59 92 Room Air 08/28/17 23:00 87 98 30 08/28/17 22:00 77 15 106/52 (70) 15 BiPAP 30 08/28/17 20:09 79 16 95 Room Air 08/28/17 20:00 95 Room Air 08/28/17 20:00 36.5 80 17 125/64 (84) 95 Room Air 08/28/17 18:01 90 17 101/48 (65) 96 08/28/17 17:15 36.4 87 18 120/43 94 Laboratory Results: Last 24 Hours Test 08/28/17 19:56 08/28/17 22:04 08/29/17 00:04 08/29/17 04:33 Bedside Glucose 177 mg/dl Hemoglobin 7.9 g/dL Hematocrit 22.7 % Prothrombin Time 11.2 SECONDS Prothromb Time International Ratio 1.1 Activated Partial Thromboplast Time 32.0 SECONDS Partial Thromboplastin Ratio 1.2 Fibrinogen 287 mg/dl Fibrin Degradation Products 10-40 mcg/ml Bedside Glucose (other) 174 mg/dl 183 mg/dl Test 08/29/17 05:23 08/29/17 08:18 08/29/17 11:31 08/29/17 13:05 White Blood Count 38.89 K/uL Red Blood Count 2.36 M/uL Hemoglobin 7.1 g/dL Hematocrit 20.0 % Mean Corpuscular Volume 84.7 fL Mean Corpuscular Hemoglobin 30.1 pg Mean Corpuscular Hemoglobin Concent 35.5 g/dl Platelet Count 105 K/uL Mean Platelet Volume 10.7 fL Neutrophils (%) (Auto) 92.0 % Lymphocytes (%) (Auto) 2.6 % Monocytes (%) (Auto) 4.2 % Eosinophils (%) (Auto) 0.0 % Basophils (%) (Auto) 0.1 % Neutrophils # (Auto) 35.78 K/uL Lymphocytes # (Auto) 1.02 K/uL Monocytes # (Auto) 1.64 K/uL Eosinophils # (Auto) 0.00 K/uL Basophils # (Auto) 0.03 K/uL RDW Standard Deviation 48.3 fL RDW Coefficient of Variation 16.7 % Immature Granulocyte % (Auto) 1.1 % Immature Granulocyte # (Auto) 0.42 K/uL Nucleated RBC Absolute Count (auto) 0.05 K/uL Nucleated Red Blood Cells % 0.1 % Basophilic Stippling 1+ Echinocytes 1+ Sodium Level 137 mmol/L Potassium Level 4.3 mmol/L Chloride Level 105 mmol/L Carbon Dioxide Level 20 mmol/L Anion Gap 12.0 mmol/L Blood Urea Nitrogen 60 mg/dl Creatinine 2.77 mg/dl Est Creatinine Clear Calc Drug Dose 18.5 ml/min Estimated GFR () 18.0 Estimated GFR (Non- 15.5 BUN/Creatinine Ratio 21.6 Random Glucose 175 mg/dl Calcium Level 7.3 mg/dl Phosphorus Level 6.1 mg/dl Magnesium Level 1.9 mg/dl Bedside Glucose 189 mg/dl Bedside Glucose (other) 180 mg/dl Venous Blood pH 7.28 Venous Blood Partial Pressure CO2 46 mmHg Venous Blood Partial Pressure O2 33 mmHg Venous Blood HCO3 21 mmol/L Venous Blood Oxygen Saturation < 60.0 % Venous Blood Base Excess -5.6 mEq/L Lactic Acid Level 2.6 mmol/L Resident Tracking Resident Involvement: Resident Care Provided Care Provided: Adult Hospital Medicine (ICU care)
[2017-08-29] MEDS: MoRPHine SULFATE 2 MG/ML CARP IV PRN (18:06)
[2017-08-30 00:02] VITALS: BP 96/54; PULSE 80; TEMP 36.6; O2SAT 98
[2017-08-30] MEDS: MoRPHine SULFATE 2 MG/ML CARP IV PRN ×3 (06:38→18:04)
[2017-08-30] MEDS: BUDESONIDE 0.25 MG/2 ML VIAL (PULMICORT) INH SCH ×2 (07:30→19:30)
[2017-08-30 07:35] VITALS: PULSE 72; O2SAT 93
[2017-08-30] MEDS ORDERED: PANTOprazole SOD 40 MG TAB PO SCH (09:00)
[2017-08-30 16:00] VITALS: O2SAT 93
--- NOTE | 2017-08-30 16:25 | Progress Note ---
Internal Med Progress Note Date of Service: Aug 30, 2017. Provider Documentation: SUBJECTIVE: The patient was seen and examined Was brought in with AMS and noted to be in Shock with Hypoxemia and Hypothermia Now intubated in ICU and S/P Extubation on 08/25/17 Received 7 units of PRBC so far Has been put on for Comfort Care only Much better today Eating normally and free of any pain OBJECTIVE: Vital Signs-as noted below Exam: General- Not in any distress at rest NO acute distress Eyes-Closed ENT-Normal Neck-Supple Lungs-Decreased breath sound bilaterally Minimal crackles at the bases Heart-Regular Abdomen-Benign Extremities-Trace edema bilaterally Has a large hematoma in right upper medial thigh ,s/p Central line placement Slight increase in size-nontender Neuro-aaox3 Moving all limbs Lab data as noted below. ASSESSMENT & PLAN: Comfort Care Only ::Below is the brief hospital course. prognosis is very poor Not in any distress now Pain and anxiety controlled Discussed with the Son and family members Acute Blood Loss Anemia Right Upper Medial Thigh,s/p Central line placement Complicated by Sepsis Will receive 7 units of PRBC US -suggested fistula Vascular surgery consulted -appreciate Input Hb dropped again -likely to need more blood CTA to locate the Bleeding site advised Bleeding continues Requiring more blood transfusion ACUTE HYPOXIC RESPIRATORY FAILURE : s/p Extubation om Was hypothermic Temp 31 /hypotensive SBP in 70;s and hypoxic in RA 87 % Was placed on Bipap and intubated later on , ABG shows respiratory acidosis with hypercarbia Co2 > 90 CXR-no Pneumonia and CTA -0negative for any Pulmonary Embolism Underlying COPD /emphysema ( hx of smoking ) with retention of Co2 due to mental obtundation due to sepsis Has been on IV Solumedrol and Nebs Appreciate Scrap Shear Operator input Now Intubated in ICU and extubation on BP went down again Repeat ECHO to evaluate RV function-NO pericardial Effusion and unremarkable RV function Requiring pressors to maintain BP CONFUSION /CHANGED MENTAL STATUS /METABOLIC ENCEPHALOPATHY : Likely due to hypercapnic respiratory failure and may be complicated by sepsis CT head -negative for CVA Back to baseline Denies any symptoms May Have Cardiogenic Shock as well Has severe Pulmonary HTN ECHO::There is mild concentric left ventricular hypertrophy. * The left ventricular wall motion is normal. * The LV Ejection Fraction = >70 %. * The right ventricle is mildly dilated. * The right ventricular systolic function is mildly reduced with diffuse right ventricular hypokinesis that spares the RV apex. * There is mild to moderate tricuspid regurgitation. * Dilated inferior vena cava with reduced collapsability with sniff indicates an elevated right atrial pressure of 15 mmHg * Severe pulmonary is hypertension, with PA systolic pressure calculated to be 75 mmg Hg, assuming a right atrial pressure of 15 mm Hg. * Compared to the report of the prior outpatient echocardiogram performed at [facility] dated 02/13/12, the right ventricular size and systolic function was normal at that time with normal calculated pulmonary pressures. * Findings compatible with possible acute pulmonary embolism versus interval development of pulmonary hypertension of uknown chronicity due to other cause. Trending Troponin -doubt any ACS Repeat ECHO in AM : showed improvement of the Right ventricular function Still requiring pressors-off pressors now BP is maintaining Repeat ECHO-no Pericardial Effusion HEATHER ON CKD STAGE 3 : HYPERNATREMIA ; ATN with anuria -minimum urine out put after fluid bolus IV fluids resuscitation , pressor support Follow PRP Q 4hrs per sepsis protocol Pt has solitary kidney ( s/p Left nephrectomy ) Baseline Cr 1.6 Nephrology consulted-appreciate Input Slightly better today HYPOTENSION /HYPOTHERMIA : SEPSIS DUE TO UTI and May be complicated by respiratory pathogens Likely due to severe sepsis ,possible source of infection UTI Temp improved with Jayda hugger , IV fluid bolus followed by aggressive resuscitation per sepsis protocol Empiric Abx with Zosyn ,Doxycycline Started on pressors Scrap Shear Operator following Appreciate ID input Blood and Urine Cultures are negative Vancomycin discontinued Continue antibiotics for 3 more days as per ID Requiring pressor again CODE STATUS : DNR/DNI DVT PROPHYLAXIS high risk ICU admission /obtundation Sub q heparin-on hold now Overall prognosis is poor Palliative care consulted Awaiting family meeting for guidance Comfort care only Vital Signs: Date Time Temp Pulse Resp B/P (MAP) Pulse Ox O2 Delivery O2 Flow Rate FiO2 08/30/17 12:10 Room Air 08/30/17 09:13 Room Air 08/30/17 07:35 72 16 93 Room Air 08/30/17 01:10 Room Air 08/30/17 00:02 36.6 80 20 96/54 (68) 98 Room Air 08/29/17 18:58 72 16 94 Room Air 08/29/17 17:00 93 Room Air
--- NOTE | 2017-08-30 17:09 | Palliative Care Progress Note ---
Palliative Care Progress Note Date of Service Aug 30, 2017. Subjective Met with patient's son, daughter in law, and patient's daughter today. Patient is awake and alert, disoriented/confused. Patient's family wants referral to [facility] and [facility]. sales enablement manager is following up.
[2017-08-30 19:35] VITALS: PULSE 79; O2SAT 94
[2017-08-31] MEDS: BUDESONIDE 0.25 MG/2 ML VIAL (PULMICORT) INH SCH (07:39)
[2017-08-31 07:40] VITALS: PULSE 82; O2SAT 97
[2017-08-31 08:00] VITALS: O2SAT 93
[2017-08-31] MEDS: MoRPHine SULFATE 2 MG/ML CARP IV PRN (14:15)
[2017-08-31] MEDS ORDERED: ONDA4TAB65 PO (14:16)
[2017-08-31] MEDS ORDERED: PLMIN90 INH (14:16)
[2017-08-31] MEDS ORDERED: OXYC10SO PO (14:16)
[2017-08-31] MEDS ORDERED: LORA-741 PO (14:16)
--- NOTE | 2017-08-31 14:18 | Discharge Instructions ---
Discharge Instructions Date of Service Aug 31, 2017. Admission Reason for Admission: Hypothermia, Severe Sepsis Discharge Discharge Diagnosis / Problem: HYPOTHERMIA, SEVERE SEPSIS Discharge Goals Goal(s): Decrease discomfort, Improve function Activity Recommendations Activity Level: Assistance Required . Additional Information Patient informed of condition: Yes Advance Directives: Yes DNR: Yes Level of Care: Skilled ([facility]) Communicable Disease: No Prognosis: Other ([facility]) Pop Catheter: No Current Hospital Diet Patient's current hospital diet: Regular Diet Discharge Diet Recommended Diet: Regular Diet Pending Studies Studies pending at discharge: no Physician Orders On Transfer Vital Signs: EVERY 8HRS Laboratory Results Hemoglobin A1c Test 08/22/17 11:56 Range/Units Estimated Average Glucose 157 mg/dl Hemoglobin A1c 7.1 H 4.5-5.6 % Medical Emergencies . Who to Call and When: Medical Emergencies: If at any time you feel your situation is an emergency, please call 911 immediately. . Non-Emergent Contact Non-Emergency issues call your: Primary Care Provider . . "Provider Documentation" section prepared by Eddi Dooley. . Core Measure Problem Core Measures: None
[2017-08-31 16:27] VITALS: BP 96/54; PULSE 82; TEMP 36.6; O2SAT 93
[2017-08-31] MEDS: ACETAMINOPHEN IV 100 ML IV PRN (16:34)
--- NOTE | 2017-08-31 19:09 | Progress Note ---
Internal Med Progress Note Date of Service: Aug 31, 2017. Provider Documentation: SUBJECTIVE: resting comfortably seems comfortable ate ok as per family afebrile denies any pain ok for discharge OBJECTIVE: Vital Signs-as noted below Exam: General-alert and oriented. Not in distress ENT-normal hearing Neck-no neck masses Lungs-cta b/l no wheezing or crackles Heart-s1 and s2 heard regular rate and rhythm no murmurs Abdomen-soft bowel sounds present non tender no distension Extremities-no edema no erythema Neuro-alert and awake moves extremities Lab data as noted below. ASSESSMENT & PLAN: Comfort Care Only patient was decided to be on comfort care only Transferring to [facility] with hospice care Hospital course as per : Acute Blood Loss Anemia Right Upper Medial Thigh,s/p Central line placement Complicated by Sepsis Will receive 7 units of PRBC US -suggested fistula Vascular surgery consulted -appreciate Input Hb dropped again -likely to need more blood CTA to locate the Bleeding site advised Bleeding continues Requiring more blood transfusion ACUTE HYPOXIC RESPIRATORY FAILURE : s/p Extubation om Was hypothermic Temp 31 /hypotensive SBP in 70;s and hypoxic in RA 87 % Was placed on Bipap and intubated later on , ABG shows respiratory acidosis with hypercarbia Co2 > 90 CXR-no Pneumonia and CTA -0negative for any Pulmonary Embolism Underlying COPD /emphysema ( hx of smoking ) with retention of Co2 due to mental obtundation due to sepsis Has been on IV Solumedrol and Nebs Appreciate Certified Emergency Vehicle Technician input Now Intubated in ICU and extubation on BP went down again Repeat ECHO to evaluate RV function-NO pericardial Effusion and unremarkable RV function Requiring pressors to maintain BP CONFUSION /CHANGED MENTAL STATUS /METABOLIC ENCEPHALOPATHY : Likely due to hypercapnic respiratory failure and may be complicated by sepsis CT head -negative for CVA Back to baseline Denies any symptoms May Have Cardiogenic Shock as well Has severe Pulmonary HTN ECHO::There is mild concentric left ventricular hypertrophy. * The left ventricular wall motion is normal. * The LV Ejection Fraction = >70 %. * The right ventricle is mildly dilated. * The right ventricular systolic function is mildly reduced with diffuse right ventricular hypokinesis that spares the RV apex. * There is mild to moderate tricuspid regurgitation. * Dilated inferior vena cava with reduced collapsability with sniff indicates an elevated right atrial pressure of 15 mmHg * Severe pulmonary is hypertension, with PA systolic pressure calculated to be 75 mmg Hg, assuming a right atrial pressure of 15 mm Hg. * Compared to the report of the prior outpatient echocardiogram performed at [facility] dated 02/13/12, the right ventricular size and systolic function was normal at that time with normal calculated pulmonary pressures. * Findings compatible with possible acute pulmonary embolism versus interval development of pulmonary hypertension of uknown chronicity due to other cause. Trending Troponin -doubt any ACS Repeat ECHO in AM : showed improvement of the Right ventricular function Still requiring pressors-off pressors now BP is maintaining Repeat ECHO-no Pericardial Effusion HEATHER ON CKD STAGE 3 : HYPERNATREMIA ; ATN with anuria -minimum urine out put after fluid bolus IV fluids resuscitation , pressor support Follow PRP Q 4hrs per sepsis protocol Pt has solitary kidney ( s/p Left nephrectomy ) Baseline Cr 1.6 Nephrology consulted-appreciate Input Slightly better today HYPOTENSION /HYPOTHERMIA : SEPSIS DUE TO UTI and May be complicated by respiratory pathogens Likely due to severe sepsis ,possible source of infection UTI Temp improved with Jayda hugger , IV fluid bolus followed by aggressive resuscitation per sepsis protocol Empiric Abx with Zosyn ,Doxycycline Started on pressors Certified Emergency Vehicle Technician following Appreciate ID input Blood and Urine Cultures are negative Vancomycin discontinued Continue antibiotics for 3 more days as per ID Requiring pressor again CODE STATUS : DNR/DNI DVT PROPHYLAXIS high risk ICU admission /obtundation Sub q heparin-on hold now Overall prognosis is poor Palliative care consulted Awaiting family meeting for guidance Comfort care only Vital Signs: Date Time Temp Pulse Resp B/P (MAP) Pulse Ox O2 Delivery O2 Flow Rate FiO2 08/31/17 16:27 36.6 82 16 93 Room Air 08/31/17 08:00 93 Room Air 08/31/17 07:40 82 16 97 Room Air 08/31/17 01:00 Room Air 08/30/17 19:35 79 16 94 Room Air
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
[2017-08-31] MEDS ORDERED: BUDESONIDE 90 MCG INH INH SCH (20:00)
--- NOTE | 2017-09-05 09:15 | EDITING REQUIRED CODING QUERY ---
CODING QUERY To promote full compliance with coding requirements relating to patient care, provider participation is requested in all cases of motor coach bus driver uncertainty. Please assist us with the question(s) below: Coding Question(s): Patient admitted with Sepsis. Progress notes indicate a right groin hematoma. Please document, if known or suspected, the etiology of the groin hematoma. Thanks for your help! Yoandy Shelby [facility] Physician's Response(s): AV fistula from central line Principal Diagnosis: "_that condition established after study, to be chiefly responsible for occasioning the admission of the patient to the hospital for care." Co-Existing Principal Diagnosis: "_when two or more diagnoses equally meet the criteria for principal diagnosis as determined by the circumstances of admission, diagnostic work up, and/or therapy provided, and the Alphabetic Index, Tabular List, or another coding guideline does not provide sequencing direction, any one of the diagnoses may be sequenced first." "When the physician has documented what appears to be a current diagnosis in the body of the record, but has not included the diagnosis in the final diagnostic statement, the physician should be asked whether the diagnosis should be added." (Source [facility]oding [facility] 2 QTR90. p3-4)
== END 2017-08-31 17:18 | disposition hospice, inpatient (51) | DRG 871 ==
LOC: EDBD 08:11 → C.EDA 08:15 → C.MSICU 11:25 → ENRESERV 11:45 → C.4E 08-29 16:03
PROVIDERS: ADMIT Hospitalist; ATTEND Internal Medicine
PROC: 0BH18EZ Insertion of Endotracheal Airway into Trachea, Via Natural or Artificial Opening Endoscopic (ICD-10-PCS; principal; 2017-08-22)
PROC: 03HY32Z Insertion of Monitoring Device into Upper Artery, Percutaneous Approach (ICD-10-PCS; principal; 2017-08-22)
PROC: 5A1945Z Respiratory Ventilation, 24-96 Consecutive Hours (ICD-10-PCS; principal; 2017-08-22)
PROC: 02HV33Z Insertion of Infusion Device into Superior Vena Cava, Percutaneous Approach (ICD-10-PCS; 2017-08-26)
PROC: 05JY3ZZ Inspection of Upper Vein, Percutaneous Approach (ICD-10-PCS; 2017-08-26)
PROC: 03HY32Z Insertion of Monitoring Device into Upper Artery, Percutaneous Approach (ICD-10-PCS; 2017-08-26)
DX: A41.9 Sepsis, unspecified organism (principal); J18.9 Pneumonia, unspecified organism; N39.0 Urinary tract infection, site not specified; J96.22 Acute and chronic respiratory failure with hypercapnia; G93.41 Metabolic encephalopathy; N17.0 Acute kidney failure with tubular necrosis; E87.0 Hyperosmolality and hypernatremia; R57.0 Cardiogenic shock; D62 Acute posthemorrhagic anemia; J96.21 Acute and chronic respiratory failure with hypoxia; M48.50XA Collapsed vertebra, not elsewhere classified, site unspecified, initial encounter for fracture; E87.2 Acidosis; T17.508A Unspecified foreign body in bronchus causing other injury, initial encounter; I97.620 Postprocedural hemorrhage of a circulatory system organ or structure following other procedure; S30.1XXA Contusion of abdominal wall, initial encounter; I77.0 Arteriovenous fistula, acquired; Z51.5 Encounter for palliative care; R65.20 Severe sepsis without septic shock; E11.9 Type 2 diabetes mellitus without complications; N18.3 Chronic kidney disease, stage 3 (moderate); E78.5 Hyperlipidemia, unspecified; M81.0 Age-related osteoporosis without current pathological fracture; Z90.5 Acquired absence of kidney; F17.210 Nicotine dependence, cigarettes, uncomplicated; Z88.6 Allergy status to analgesic agent; Z79.4 Long term (current) use of insulin; Z88.8 Allergy status to other drugs, medicaments and biological substances; Z85.51 Personal history of malignant neoplasm of bladder; F03.90 Unspecified dementia, unspecified severity, without behavioral disturbance, psychotic disturbance, mood disturbance, and anxiety; R68.0 Hypothermia, not associated with low environmental temperature; I27.20 Pulmonary hypertension, unspecified; E83.51 Hypocalcemia; X58.XXXA Exposure to other specified factors, initial encounter; Y92.009 Unspecified place in unspecified non-institutional (private) residence as the place of occurrence of the external cause; Y83.8 Other surgical procedures as the cause of abnormal reaction of the patient, or of later complication, without mention of misadventure at the time of the procedure; Y92.239 Unspecified place in hospital as the place of occurrence of the external cause; T82.898A Other specified complication of vascular prosthetic devices, implants and grafts, initial encounter; Y83.1 Surgical operation with implant of artificial internal device as the cause of abnormal reaction of the patient, or of later complication, without mention of misadventure at the time of the procedure